=== PATIENT | female | born 1960 ===

== ENCOUNTER 2024-03-14 22:12 | Inpatient (IN) | payer MEDICARE, MEDICAID, SELFPAY ==
[2024-03-15 00:31] VITALS: BMI 28.2
[2024-03-15 00:33] VITALS: BP 134/68; PULSE 64; RESP 16; TEMP 36.5; O2SAT 95
[2024-03-15] MEDS: Morphine Sulfate Immed Release 15 MG TABLET 30 MG PO ×3 (01:36→20:47)
--- NOTE | 2024-03-15 02:48 | PC.NURSE ---
Admission Note Marylin Crockett,? a 63-year-old female with no psychiatric history, was presented to [place], [place] ED on 02/06/2024 for a suicidal attempt by overdosing on her prescribed morphine tablets,? triggered by the eviction notice. She was found unconscious, Narcan, subsequent intubation, admitted to ICU, then to the med-surgical unit, and spent 36 days in the hospital. The patient is DNR/DNI per copy of her MOLST.? Marylin arrived on [facility] at 2235 on 03/14/2024, on CV, with an admitting diagnosis of suicidal ideation. Patient has past medical history of Asthma, Benign neoplasm of colon, CVA, Hyperlipidemia, iron deficiency anemia, Lumbosacral disc disease, Stroke, Thoracic stress fracture, ulcerative colitis, Uterine cancer, and osteoporosis. The patient is Alert & Oriented times four; behavior calm, quiet, and pleasant; thought content clear; thought process coherent and linear; and could contract for safety. Denied SI/HI/AVH/depression/anxiety at this time.? Mood pleasant and affects is congruent to mood. The patient seems worried about her housing situation. She ambulates independently. The patient has an ileostomy bag and is able to self-care. The skin around the stoma appears WNL. Minor bulging was observed near the umbilical cord without any issues, as reported by the patient. The top of the right foot and heel has an old intact scab. The right foot sole has old, dry, healing skin, probably from blisters. She has a fentanyl patch dated 03/13 on her right upper arm secured with Tegaderm. VSS. Lab results are unremarkable. Med rec completed/confirmed by patient/approved/MAR active. The patient received Morphine 30 mg at 0136 for lower back pain 04/25. Patient reported she has chronic back pain due to uterine cancer metastasized to the lower spine. The patient is requesting an air mattress. The patient takes her meds whole with water. The patient has a long allergy list /allergy updated. The patient reported poor food intake, and she is losing weight. Patient is fully compliant with the admission process, unit orientation, and safety tool and treatment plan. Legal status education and copy of Notice of Rights for Conditional Voluntary Hospitalization provided. Patient is placed on a 5 minute check by the provider/maintained as ordered.?
[2024-03-15] MEDS: Omeprazole 20 MG CAPSULE.DR PO ×2 (06:00→17:46)
--- NOTE | 2024-03-15 07:49 | HO.PSYADMNOT ---
HPI Chief Complaint: Psych Diagnostics Vital Signs (24Hr): Vital Signs - 24 hr 03/15/24 00:33 Temperature 97.7 F Pulse Rate 64 Respiratory Rate 16 Blood Pressure 134/68 Pulse Oximetry 95 Oxygen Delivery Method Room Air BMI result Body Mass Index 28.2 Meds/Allergies Meds Home Medications ?Medication ?Instructions ?Recorded ?Confirmed ?Type albuterol sulfate 90 mcg/actuation 2 puff inhalation Q4H PRN 03/14/24 03/14/24 History aerosol inhaler Shortness Of Breath Or Wheezing artificial tears solution eye drops 1 drp ophthalmic (eye) DAILY PRN 03/14/24 03/14/24 History Dry Eye(S) aspirin 81 mg tablet,delayed 81 mg PO DAILY 03/14/24 03/14/24 History release clotrimazole 1 % topical cream 2 appl topical BID 03/14/24 03/14/24 History escitalopram oxalate 5 mg tablet 5 mg PO DAILY 03/14/24 03/14/24 History fentanyl 50 mcg/hr transdermal 1 patch topical Q3D 03/14/24 03/14/24 History patch ferrous gluconate 324 mg (38 mg 324 mg PO Q OTHER DAY 03/14/24 03/14/24 History iron) tablet folic acid 1 mg tablet 1 mg PO DAILY 03/14/24 03/14/24 History hydroxyzine HCl 50 mg tablet 50 mg PO TID PRN Anxiety 03/14/24 03/14/24 History morphine 30 mg immediate release 30 mg PO Q6H PRN pain 03/14/24 03/14/24 History tablet nystatin 100,000 unit/gram topical 1 appl topical BID 03/14/24 03/14/24 History cream pantoprazole 40 mg tablet,delayed 40 mg PO BID 03/14/24 03/14/24 History release Allergies Allergies Allergy/AdvReac Type Severity Reaction Status Date / Time acetaminophen [From Percocet] AdvReac Severe Hives Verified 03/14/24 23:07 alprazolam AdvReac Severe Hives Verified 03/14/24 23:09 atorvastatin AdvReac Severe Hives Verified 03/14/24 23:10 azithromycin AdvReac Severe Swelling Verified 03/14/24 23:11 cholestyramine AdvReac Severe Hives Verified 03/14/24 23:08 [From Questran] ciprofloxacin AdvReac Severe Hives Verified 03/14/24 23:11 codeine AdvReac Severe Hives Verified 03/14/24 23:12 colesevelam AdvReac Severe Hives Verified 03/14/24 23:12 egg AdvReac Severe Hives Verified 03/15/24 01:39 Estrogens AdvReac Severe Swelling Verified 03/14/24 23:13 gemfibrozil AdvReac Severe Hives Verified 03/14/24 23:14 hydrocortisone AdvReac Severe Blurry Verified 03/14/24 23:07 [From Cortenema] Vision hydromorphone [From Dilaudid] AdvReac Severe Swelling Verified 03/14/24 23:13 Iodinated Contrast Media AdvReac Severe Hives Verified 03/14/24 23:14 isoniazid AdvReac Severe Hives Verified 03/14/24 23:15 mercaptopurine AdvReac Severe Vomiting Verified 03/14/24 23:16 methylprednisolone AdvReac Severe Hives Verified 03/14/24 23:16 minocycline AdvReac Severe Hives Verified 03/14/24 23:24 naproxen AdvReac Severe Rash Verified 03/14/24 23:17 oxycodone [From Percocet] AdvReac Severe Hives Verified 03/14/24 23:07 propoxyphene AdvReac Severe Hives Verified 03/14/24 23:19 quetiapine AdvReac Severe Rash Verified 03/14/24 23:20 risperidone AdvReac Severe Hives Verified 03/14/24 23:20 seafood AdvReac Severe Swelling Verified 03/14/24 23:21 shellfish derived AdvReac Severe Swelling Verified 03/14/24 23:21 [id number] Reductase AdvReac Severe Swelling Verified 03/14/24 23:22 Inhibitor sucrose [From Questran] AdvReac Severe Hives Verified 03/14/24 23:08 Sulfa (Sulfonamide AdvReac Severe Hives Verified 03/14/24 23:24 Antibiotics) tramadol AdvReac Severe Rash Verified 03/14/24 23:22 wool AdvReac Severe Hives Verified 03/14/24 23:23 Assessment & Plan Statement Statement: I have reviewed the history and physical and performed a pertinent examination on my patient. No changes have occurred unless specified. If the History and Physical was not performed prior to admission, the Hospitalist's service will be consulted for completing the admission physical. Time Spent With Patient Time: Total time managing care of this patient today ____ minutes.
[2024-03-15 08:23] VITALS: BP 112/59; PULSE 76; RESP 15; TEMP 36.4; O2SAT 95
[2024-03-15] MEDS: Folic Acid 1 MG TABLET PO (08:24)
[2024-03-15] MEDS: Escitalopram Oxalate 5 MG TABLET PO (08:24)
[2024-03-15] MEDS: Aspirin Enteric Coated 81 MG TABLET.DR PO (08:24)
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
[2024-03-15] MEDS: hydrOXYzine HCL 50 MG TABLET PO (11:17)
[2024-03-15 14:25] VITALS: BP 112/59
[2024-03-15] MEDS: diazePAM 5 MG TABLET PO ×2 (14:32→20:48)
--- NOTE | 2024-03-15 15:59 | P.CONHOSP_ITS ---
History of Present Illness Data of Consult Service Date: 03/15/24 Primary Care Provider: Unknown Physician HPI Reason for consult: Admission H&P Pt is a 63-year-old female with a PMH significant for?CVA, chronic pain disorder, HLD, ulcerative colitis s/p colectomy with colostomy in place, chronic anemia, peripheral neuropathy, and GERD who is admitted to [facility] for increasing paranoia and depression with suicide attempt by overdosing on home meds. Pt was apparently found unconscious in her apartment surrounded by empty morphine bottles, an SI note, and an eviction notice. Pt was emergently intubated and admitted to ICU for 5 days where she was treated for RAKAN and aspiration pneumonia. Also had elevated troponins that were attributed to demand ischemia. Medical consult for admission H&P. Pt is seen and evaluated in her bed where she is resting comfortably. Complains of pins and needles in her right leg and foot, as well as concern for infection in wounds on her feet. Pt thinks these occurred while she was in a coma but is uncertain. Also perseverates about the status of her bed (she thinks a new pad would really help out) and increasing her lorazepam and fentanyl patch for her chronic back pain. Otherwise has no other acute medical complaints. No chest pain or pressure, no palpitations. Denies SOB or PALACIOS. No fever, chills, N/V/D or abd pain. Review of Systems Review of Systems: Peripheral neuropathy Sores on feet No fever, chills, N/V/D or abd pain Denies chest pain or pressure No SOB of PALACIOS [facility] Medical History (Updated 03/16/24 @ 01:39 by ÁNGELA Clark) Post traumatic stress disorder (PTSD) Social History Household Members: None Housing: Apartment Do you presently have visiting nurse or other home services: No Patient Tobacco Use Status: Never used Tobacco Use of substances other than those prescribed or required for medical reasons: No Substance Use Type: Other Currently Displaying Signs/Symptoms of Drug Intoxication Withdrawal: No Have you been hit, kicked, punched, or otherwise hurt by someone within the past year? If so, by whom?: No Do you feel safe in your current relationship?: No Is there a partner from a previous relationship who is making you feel unsafe now?: No Are you made to feel afraid or neglected: No Spiritual Healthcare Practices: [facility] Advance Directives: No Advance Directives Information Provided: No Do you have thoughts of harming others: None Do you have a plan to hurt others: No Plan Recently lost weight without trying: Yes How much weight loss: 14-23 pounds Eating poorly because of decreased appetite: Yes Nutrition screen score: 5 Nutrition Risks: Dental problems Patient : No : No Poor oral hygiene: No service: No Meds Allergies Allergy/AdvReac Type Severity Reaction Status Date / Time acetaminophen [From Percocet] AdvReac Severe Hives Verified 03/14/24 23:07 alprazolam AdvReac Severe Hives Verified 03/14/24 23:09 atorvastatin AdvReac Severe Hives Verified 03/14/24 23:10 azithromycin AdvReac Severe Swelling Verified 03/14/24 23:11 cholestyramine AdvReac Severe Hives Verified 03/14/24 23:08 [From Questran] ciprofloxacin AdvReac Severe Hives Verified 03/14/24 23:11 codeine AdvReac Severe Hives Verified 03/14/24 23:12 colesevelam AdvReac Severe Hives Verified 03/14/24 23:12 egg AdvReac Severe Hives Verified 03/15/24 01:39 Estrogens AdvReac Severe Swelling Verified 03/14/24 23:13 gemfibrozil AdvReac Severe Hives Verified 03/14/24 23:14 hydrocortisone AdvReac Severe Blurry Verified 03/14/24 23:07 [From Cortenema] Vision hydromorphone [From Dilaudid] AdvReac Severe Swelling Verified 03/14/24 23:13 Iodinated Contrast Media AdvReac Severe Hives Verified 03/14/24 23:14 isoniazid AdvReac Severe Hives Verified 03/14/24 23:15 mercaptopurine AdvReac Severe Vomiting Verified 03/14/24 23:16 methylprednisolone AdvReac Severe Hives Verified 03/14/24 23:16 minocycline AdvReac Severe Hives Verified 03/14/24 23:24 naproxen AdvReac Severe Rash Verified 03/14/24 23:17 oxycodone [From Percocet] AdvReac Severe Hives Verified 03/14/24 23:07 propoxyphene AdvReac Severe Hives Verified 03/14/24 23:19 quetiapine AdvReac Severe Rash Verified 03/14/24 23:20 risperidone AdvReac Severe Hives Verified 03/14/24 23:20 seafood AdvReac Severe Swelling Verified 03/14/24 23:21 shellfish derived AdvReac Severe Swelling Verified 03/14/24 23:21 [id number] Reductase AdvReac Severe Swelling Verified 03/14/24 23:22 Inhibitor sucrose [From Questran] AdvReac Severe Hives Verified 03/14/24 23:08 Sulfa (Sulfonamide AdvReac Severe Hives Verified 03/14/24 23:24 Antibiotics) tramadol AdvReac Severe Rash Verified 03/14/24 23:22 wool AdvReac Severe Hives Verified 03/14/24 23:23 Active Medications: Current Medications Al Hydroxide/Mg Hydroxide (Magnesium Hydrox/Alum Hydrox 30 Ml Oral.Susp) 30 ml PO Q6H PRN PRN Reason: Heartburn/Nausea Albuterol Sulfate (Albuterol Sulfate 90 Mcg 8 Gm Inhaler) 2 puff INHALE Q4H PRN PRN Reason: Shortness Of Breath Or Wheezing Artificial Tears (Artificial Tears 15 Ml Drops) 1 drop EYE-BOTH DAILY PRN PRN Reason: Dry Eye(S) Aspirin (Aspirin Enteric Coated 81 Mg Tablet.) 81 mg PO DAILY [facility] Last Admin: 03/15/24 08:24 Dose: 81 mg Diazepam (Diazepam 5 Mg Tablet) 5 mg PO BID [facility] Last Admin: 03/15/24 14:32 Dose: 5 mg Escitalopram Oxalate (Escitalopram Oxalate 5 Mg Tablet) 5 mg PO DAILY [facility] Last Admin: 03/15/24 08:24 Dose: 5 mg Fentanyl (Fentanyl 50 Mcg Patch.Td72) 50 mcg TRANSDERMA Q3D [facility] Ferrous Sulfate (Ferrous Sulfate 324 Mg Tablet.) 324 mg PO Q48H [facility] Last Admin: 03/15/24 08:26 Dose: Not Given Folic Acid (Folic Acid 1 Mg Tablet) 1 mg PO DAILY [facility] Last Admin: 03/15/24 08:24 Dose: 1 mg Hydroxyzine HCl (Hydroxyzine Hcl 50 Mg Tablet) 50 mg PO TID PRN PRN Reason: Anxiety Last Admin: 03/15/24 11:17 Dose: 50 mg Magnesium Hydroxide (Milk Of Magnesia 30 Ml Oral.Susp) 30 ml PO DAILY PRN PRN Reason: Constipation Morphine Sulfate (Morphine Sulfate Immed Release 15 Mg Tablet) 30 mg PO Q6H PRN PRN Reason: pain Last Admin: 03/15/24 10:35 Dose: 30 mg Nicotine (Nicotine 21 Mg Patch.Td24) 21 mg TRANSDERMA DAILY PRN PRN Reason: smoking cessation Nicotine Polacrilex (Nicotine Polacrilex 2 Mg Gum) 4 mg BUCCAL Q2H PRN PRN Reason: Nicotine Cravings Olanzapine (Olanzapine 2.5 Mg Tablet) 2.5 mg PO TID PRN PRN Reason: agitation Omeprazole (Omeprazole 20 Mg Capsule.Dr) 20 mg PO BID@0630,1830 [facility] Last Admin: 03/15/24 06:00 Dose: 20 mg Trazodone HCl (Trazodone Hcl 50 Mg Tablet) 50 mg PO BEDTIME MRX1 PRN PRN Reason: Insomnia Home Medications ?Medication ?Instructions ?Recorded ?Confirmed ?Last Taken ?Type albuterol sulfate 90 mcg/actuation 2 puff inhalation Q4H PRN 03/14/24 03/14/24 Unknown History aerosol inhaler Shortness Of Breath Or Wheezing artificial tears solution eye drops 1 drp ophthalmic (eye) DAILY PRN 03/14/24 03/14/24 Unknown History Dry Eye(S) aspirin 81 mg tablet,delayed 81 mg PO DAILY 03/14/24 03/14/24 Unknown History release clotrimazole 1 % topical cream 2 appl topical BID 03/14/24 03/14/24 Unknown History escitalopram oxalate 5 mg tablet 5 mg PO DAILY 03/14/24 03/14/24 03/14/24 07:57 History fentanyl 50 mcg/hr transdermal 1 patch topical Q3D 03/14/24 03/14/24 03/13/24 09:20 History patch ferrous gluconate 324 mg (38 mg 324 mg PO Q OTHER DAY 03/14/24 03/14/24 Unknown History iron) tablet folic acid 1 mg tablet 1 mg PO DAILY 03/14/24 03/14/24 03/14/24 07:50 History hydroxyzine HCl 50 mg tablet 50 mg PO TID PRN Anxiety 03/14/24 03/14/24 Unknown History morphine 30 mg immediate release 30 mg PO Q6H PRN pain 03/14/24 03/14/24 03/14/24 19:30 History tablet nystatin 100,000 unit/gram topical 1 appl topical BID 03/14/24 03/14/24 Unknown History cream pantoprazole 40 mg tablet,delayed 40 mg PO BID 03/14/24 03/14/24 Unknown History release Physical Exam Vital Signs and Narrative: Vital Signs: Last Vital Signs Temp 97.5 F 03/15/24 08:23 Pulse 76 03/15/24 08:23 Resp 15 03/15/24 08:23 BP 112/59 L 03/15/24 14:25 Pulse Ox 95 03/15/24 08:23 O2 Del Method Room Air 03/15/24 08:23 BMI result Body Mass Index 28.2 General: AOx2, no acute distress Resp: CTA bilaterally CVS: S1, S2, RRR GI: +BS, NT, no distention Skin: Warm, dry Neuro: Cranial nerves II-XII grossly intact bilaterally. Motor grossly intact bilaterally. strength of LLE symmetric though weak Extremities: No edema. Scabbed, healing superficial sores on right heal and dorsal aspect without signs of infection. Assessment and Plan (1) Medical clearance for psychiatric admission: Status: Acute Plan Pt is a 63-year-old female with a PMH significant for?CVA, chronic pain disorder, HLD, ulcerative colitis s/p colectomy with colostomy in place, chronic anemia, and GERD who is admitted to [facility] for increasing paranoia and depression with suicide attempt by overdosing on home meds. Pt was apparently found unconscious in her apartment surrounded by empty morphine bottles, an SI note, and an eviction notice. Pt was emergently intubated and admitted to ICU for 5 days where she was treated for RAKAN and aspiration pneumonia. Also had elevated troponins that were attributed to demand ischemia. Medical consult for admission H&P. Mood disorder Plan as per psychiatry Recent hx of intubation in the ICU Denies difficulty swallowing, no sore throat or SOB Continue albuterol inhaler Peripheral neuropathy of right lower extremity Foot warm, pedal pulses 2+, well perfused No known hx of DM Unclear etiology Consider gabapentin if persistent Right foot wounds Unclear etiology Superficial, healing well No sign of infection No further intervention or workup needed at this time Hx of CVA Continue statin, aspirin Chronic pain disorder Continue fentanyl pathch, po morphine GERD PPI Thank you for allowing us to participate in the care of this patient. Signing off at this time. Please re-consult if any acute complaints or issues arise.
[2024-03-15 20:00] VITALS: BP 124/57; PULSE 74; RESP 18; TEMP 36.9; O2SAT 97
[2024-03-15] MEDS: Albuterol Sulfate 90 MCG 8 GM INHALER 2 PUFF INHALE (20:48)
[2024-03-16] MEDS: Omeprazole 20 MG CAPSULE.DR PO (06:27)
[2024-03-16] MEDS: Morphine Sulfate Immed Release 15 MG TABLET 30 MG PO ×3 (06:42→23:51)
[2024-03-16 08:05] LABS: Estimated Average Glucose 111 mg/dL; Hemoglobin A1C 92.2431 umol/L; Hemoglobin A1c % 5.5 % (<6.0); Total Hemoglobin (HGBA1C) 2509.5768 umol/L
[2024-03-16 08:20] LABS: Alanine Aminotransferase 14 U/L (0-31); Albumin Level 3.7 g/dL (3.5-5.0); Alkaline Phosphatase 134 U/L (39-117); Anion Gap 13 (12-20); Aspartate Amino Transferase 21 U/L (5-31); Bilirubin Total 0.3 mg/dL (0.0-1.0); Blood Urea Nitrogen 10 mg/dL (9-16); Calcium 9.7 mg/dL (8.4-10.2); Carbon Dioxide 21 mmol/L (22-29); Chloride 109 mmol/L (96-108); Cholesterol 181 mg/dL (<200); Creatinine Clr Calc Pharmacy 47.6; Estimated Glomerular Filt Rate 57; Glucose Fasting 97 mg/dL (60-99); HDL Cholesterol 43 mg/dL (>40); LDL Cholesterol Calculated 116 mg/dL (<100); Potassium 3.8 mmol/L (3.3-5.1); Sodium 139 mmol/L (135-145); Total Protein 8.4 g/dL (6.5-8.0); Triglycerides 114 mg/dL (<150)
[2024-03-16 08:30] LABS: TSH reflex Free T4 0.33 uIU/mL (0.32-4.0)
[2024-03-16 08:43] LABS: Vitamin B12 407 pg/mL (200-900)
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
[2024-03-16 09:14] VITALS: BP 129/59; PULSE 63; RESP 16; TEMP 36; O2SAT 97
[2024-03-16] MEDS: diazePAM 5 MG TABLET PO (09:18)
[2024-03-16] MEDS: Escitalopram Oxalate 5 MG TABLET PO (09:44)
[2024-03-16] MEDS: fentaNYL 50 MCG PATCH.TD72 TRANSDERMA (11:12)
[2024-03-16] MEDS: hydrOXYzine HCL 50 MG TABLET PO (17:40)
[2024-03-16 20:00] VITALS: BP 115/73; PULSE 65; RESP 16; TEMP 36.2; O2SAT 96
[2024-03-16] MEDS: diazePAM 5 MG TABLET 10 MG PO (20:28)
[2024-03-16] MEDS: Hydrocortisone 1 % Cream 28.35 GM TUBE 1 APPL TOPICAL (20:29)
[2024-03-17] MEDS: diphenhydrAMINE HCL 25 MG CAPSULE 50 MG PO (04:03)
[2024-03-17] MEDS: Morphine Sulfate Immed Release 15 MG TABLET 30 MG PO ×2 (06:15→12:46)
[2024-03-17] MEDS: Omeprazole 20 MG CAPSULE.DR PO (06:16)
[2024-03-17 08:05] VITALS: BP 101/59; PULSE 64; RESP 20; TEMP 36.5; O2SAT 96
[2024-03-17] MEDS: Escitalopram Oxalate 5 MG TABLET PO (08:12)
[2024-03-17] MEDS: diazePAM 5 MG TABLET 10 MG PO ×2 (08:12→19:59)
[2024-03-17] MEDS: Hydrocortisone 1 % Cream 28.35 GM TUBE 1 APPL TOPICAL ×2 (08:13→19:59)
[2024-03-17] MEDS: diphenhydrAMINE HCL 25 MG CAPSULE PO (14:50)
--- NOTE | 2024-03-17 16:18 | HO.PSYCHPN ---
Subjective Subjective Date of Service: 03/17/24 Reason For Visit: Status post suicide attempt Interim History: Pt seen, reviewed with the team. Today, she asks to change hydroxyzine to benadryl, asks for her own ileostomy supply line. Denies depressive, anxious sx Continues to talk of wanting to place a lawsuit against [place] [place]. She is visable in the milieu, presents several needs, questions and today is a bit pressured Medication Compliance: Yes Side effects from medications: No Review of Systems Acute medical concerns: No Medical Review of Systems: unchanged Review of Systems Review of Systems L leg with mild edema Mental Status Exam Mental Status Exam Patient Appearance: Well Grooomed Patient Orientation: Person, Place, Time and Situation Level of Consciousness: Awake and Appropriate Patient Behavior: Appropriate Mood Description: Apprehensive Affect Description: Labile and Apprehensive Patient Cognition Impaired: Yes Ability to Follow Directions: Good Speech Pattern: Clear Memory Description: Intact Hallucinations: None Delusions: Not Present Thought Process: Goal Oriented Thought Content: positive for Circumstantial, positive for Goal Oriented, positive for Preoccupation, negative for Suicidal Ideation or negative for Homicidal Ideation Depressive Symptoms: Increased Anxiety, Increased Irritability and Difficulty Concentrating Judgement: Fair Diagnostics Vital Signs (24Hr): Vital Signs - 24 hr 03/16/24 20:00 03/17/24 08:05 Temperature 97.1 F 97.7 F Pulse Rate 65 64 Respiratory Rate 16 20 Blood Pressure 115/73 101/59 L Pulse Oximetry 96 96 Oxygen Delivery Method Room Air Room Air BMI result Body Mass Index 28.2 Labs 03/16/24 07:32 Labs: Laboratory Results - last 48 hr 03/16/24 07:32 Sodium 139 Potassium 3.8 Chloride 109 H Carbon Dioxide 21 L Anion Gap 13 BUN 10 Creatinine 0.99 Estim Creat Clear Calc 47.6 Estimated GFR 57 Fasting Glucose 97 Estimat Average Glucose 111 Hemoglobin A1c % 5.5 Calcium 9.7 Total Bilirubin 0.3 AST 21 ALT 14 Alkaline Phosphatase 134 H Total Protein 8.4 H Albumin 3.7 Triglycerides 114 Cholesterol 181 LDL Cholesterol, Calc 116 H HDL Cholesterol 43 Vitamin B12 407 Folate 17.0 TSH 0.33 Medications Medications Current Medications Al Hydroxide/Mg Hydroxide (Magnesium Hydrox/Alum Hydrox 30 Ml Oral.Susp) 30 ml PO Q6H PRN PRN Reason: Heartburn/Nausea Albuterol Sulfate (Albuterol Sulfate 90 Mcg 8 Gm Inhaler) 2 puff INHALE Q4H PRN PRN Reason: Shortness Of Breath Or Wheezing Last Admin: 03/15/24 20:48 Dose: 2 puff Artificial Tears (Artificial Tears 15 Ml Drops) 1 drop EYE-BOTH DAILY PRN PRN Reason: Dry Eye(S) Aspirin (Aspirin Enteric Coated 81 Mg Tablet.) 81 mg PO DAILY [facility] Last Admin: 03/17/24 08:15 Dose: Not Given Diazepam (Diazepam 5 Mg Tablet) 10 mg PO BID [facility] Last Admin: 03/17/24 08:12 Dose: 10 mg Diphenhydramine HCl (Diphenhydramine Hcl 25 Mg Capsule) 25 mg PO Q6H PRN PRN Reason: Anxiety, Itching Last Admin: 03/17/24 14:50 Dose: 25 mg Escitalopram Oxalate (Escitalopram Oxalate 5 Mg Tablet) 5 mg PO DAILY [facility] Last Admin: 03/17/24 08:12 Dose: 5 mg Fentanyl (Fentanyl 50 Mcg Patch.Td72) 50 mcg TRANSDERMA Q3D [facility] Last Admin: 03/16/24 11:12 Dose: 50 mcg Ferrous Sulfate (Ferrous Sulfate 324 Mg Tablet.) 324 mg PO Q48H [facility] Last Admin: 03/17/24 08:15 Dose: Not Given Folic Acid (Folic Acid 1 Mg Tablet) 1 mg PO DAILY [facility] Last Admin: 03/17/24 08:16 Dose: Not Given Hydrocortisone (Hydrocortisone 1 % Cream 28.35 Gm Tube) 1 appl TOPICAL BID [facility]; Protocol Last Admin: 03/17/24 08:13 Dose: 1 appl Magnesium Hydroxide (Milk Of Magnesia 30 Ml Oral.Susp) 30 ml PO DAILY PRN PRN Reason: Constipation Morphine Sulfate (Morphine Sulfate Immed Release 15 Mg Tablet) 30 mg PO Q6H PRN PRN Reason: pain Last Admin: 03/17/24 12:46 Dose: 30 mg Nicotine (Nicotine 21 Mg Patch.Td24) 21 mg TRANSDERMA DAILY PRN PRN Reason: smoking cessation Nicotine Polacrilex (Nicotine Polacrilex 2 Mg Gum) 4 mg BUCCAL Q2H PRN PRN Reason: Nicotine Cravings Olanzapine (Olanzapine 2.5 Mg Tablet) 2.5 mg PO TID PRN PRN Reason: agitation Omeprazole (Omeprazole 20 Mg Capsule.) 20 mg PO 0630 [facility] Last Admin: 03/17/24 06:16 Dose: 20 mg Trazodone HCl (Trazodone Hcl 50 Mg Tablet) 50 mg PO BEDTIME MRX1 PRN PRN Reason: Insomnia Allergies Allergies Allergy/AdvReac Type Severity Reaction Status Date / Time Egg Derived Allergy Unknown Unknown Verified 03/16/24 15:22 acetaminophen [From Percocet] AdvReac Severe Hives Verified 03/14/24 23:07 alprazolam AdvReac Severe Hives Verified 03/14/24 23:09 atorvastatin AdvReac Severe Hives Verified 03/14/24 23:10 azithromycin AdvReac Severe Swelling Verified 03/14/24 23:11 cholestyramine AdvReac Severe Hives Verified 03/14/24 23:08 [From Questran] ciprofloxacin AdvReac Severe Hives Verified 03/14/24 23:11 codeine AdvReac Severe Hives Verified 03/14/24 23:12 colesevelam AdvReac Severe Hives Verified 03/14/24 23:12 egg AdvReac Severe Hives Verified 03/15/24 01:39 Estrogens AdvReac Severe Swelling Verified 03/14/24 23:13 gemfibrozil AdvReac Severe Hives Verified 03/14/24 23:14 hydrocortisone AdvReac Severe Blurry Verified 03/14/24 23:07 [From Cortenema] Vision hydromorphone [From Dilaudid] AdvReac Severe Swelling Verified 03/14/24 23:13 Iodinated Contrast Media AdvReac Severe Hives Verified 03/14/24 23:14 isoniazid AdvReac Severe Hives Verified 03/14/24 23:15 mercaptopurine AdvReac Severe Vomiting Verified 03/14/24 23:16 methylprednisolone AdvReac Severe Hives Verified 03/14/24 23:16 minocycline AdvReac Severe Hives Verified 03/14/24 23:24 naproxen AdvReac Severe Rash Verified 03/14/24 23:17 oxycodone [From Percocet] AdvReac Severe Hives Verified 03/14/24 23:07 propoxyphene AdvReac Severe Hives Verified 03/14/24 23:19 quetiapine AdvReac Severe Rash Verified 03/14/24 23:20 risperidone AdvReac Severe Hives Verified 03/14/24 23:20 seafood AdvReac Severe Swelling Verified 03/14/24 23:21 shellfish derived AdvReac Severe Swelling Verified 03/14/24 23:21 Spbsikw-CEV-[id number] Reductase AdvReac Severe Swelling Verified 03/14/24 23:22 Inhibitor sucrose [From Questran] AdvReac Severe Hives Verified 03/14/24 23:08 Sulfa (Sulfonamide AdvReac Severe Hives Verified 03/14/24 23:24 Antibiotics) tramadol AdvReac Severe Rash Verified 03/14/24 23:22 wool AdvReac Severe Hives Verified 03/14/24 23:23 Assessment & Plan Assessment & Plan (1) Post traumatic stress disorder (PTSD): Status: Acute Code(s): F43.10 - Post-traumatic stress disorder, unspecified (2) Cognitive disorder: Status: Acute Code(s): F09 - Unspecified mental disorder due to known physiological condition (3) Generalized anxiety disorder: Status: Acute Code(s): F41.1 - Generalized anxiety disorder (4) Suicide attempt by fentanyl overdose: Status: Acute Code(s): T40.412A - Poisoning by fentanyl or fentanyl analogs, intentional self-harm, initial encounter Plan Pt is a 63-year-old female with a PMH significant for?CVA, chronic pain disorder, HLD, ulcerative colitis s/p colectomy with colostomy in place, chronic anemia, and GERD who is admitted to [facility] for increasing paranoia and depression with suicide attempt by overdosing on home meds. Pt was apparently found unconscious in her apartment surrounded by empty morphine bottles, an SI note, and an eviction notice. Pt was emergently intubated and admitted to ICU for 5 days where she was treated for RAKAN and aspiration pneumonia. Also had elevated troponins that were attributed to demand ischemia. Medical consult for admission H&P. Mood disorder Plan as per psychiatry Recent hx of intubation in the ICU Denies difficulty swallowing, no sore throat or SOB Continue albuterol inhaler Peripheral neuropathy of right lower extremity Foot warm, pedal pulses 2+, well perfused No known hx of DM Unclear etiology Consider gabapentin if persistent Right foot wounds Unclear etiology Superficial, healing well No sign of infection No further intervention or workup needed at this time Hx of CVA Continue statin, aspirin Chronic pain disorder Continue fentanyl pathch, po morphine GERD PPI Thank you for allowing us to participate in the care of this patient. Signing off at this time. Please re-consult if any acute complaints or issues arise. 03/17/24: Continue tx. Reason for continued inpatient stay Substantial Risk for: rapid decompensation Time Spent With Patient Time: Total time managing care of this patient today ____ minutes.
[2024-03-17 20:00] VITALS: BP 144/65; PULSE 80; RESP 16; TEMP 36.2; O2SAT 99
[2024-03-18] MEDS: Morphine Sulfate Immed Release 15 MG TABLET 30 MG PO ×2 (06:30→15:23)
[2024-03-18] MEDS: Omeprazole 20 MG CAPSULE.DR PO (06:31)
[2024-03-18] MEDS: diphenhydrAMINE HCL 25 MG CAPSULE PO ×3 (06:39→20:44)
[2024-03-18 08:00] VITALS: BP 126/60; PULSE 62; RESP 18; TEMP 36.3; O2SAT 95
[2024-03-18] MEDS: diazePAM 5 MG TABLET 10 MG PO ×2 (08:36→20:45)
[2024-03-18] MEDS: Escitalopram Oxalate 5 MG TABLET PO (08:36)
[2024-03-18] MEDS: Hydrocortisone 1 % Cream 28.35 GM TUBE 1 APPL TOPICAL ×2 (08:39→20:44)
--- NOTE | 2024-03-18 08:39 | HO.PSYCHPN ---
Subjective Subjective Date of Service: 03/18/24 Reason For Visit: Status post suicide attempt Interim History: Pt seen, discussed with team. Marylin has written a two page letter identifying issues she wants addressed, including medications for primary team. She reports a L Breast Lump. Team reports she identified this last evening. Discussed with team who reports pt will most likely be on the unit for a significant period of time and does not have an identified primary care provider. Will request hospitalist consult as a result. Medication Compliance: Yes Side effects from medications: No Attending Groups: Intermittent Review of Systems L breast lump Review of Systems Review of Systems L breast lump-identified to team 03/17/24 evening. Mental Status Exam Mental Status Exam Patient Appearance: Well Grooomed Patient Orientation: Person, Place, Time and Situation Level of Consciousness: Awake and Appropriate Patient Behavior: Appropriate Mood Description: Apprehensive Affect Description: Labile and Apprehensive Patient Cognition Impaired: Yes Ability to Follow Directions: Good Speech Pattern: Clear Memory Description: Intact Hallucinations: None Delusions: Not Present Thought Process: Goal Oriented Thought Content: positive for Circumstantial, positive for Goal Oriented, positive for Preoccupation, negative for Suicidal Ideation or negative for Homicidal Ideation Depressive Symptoms: Increased Anxiety, Increased Irritability and Difficulty Concentrating Judgement: Fair Diagnostics Vital Signs (24Hr): Vital Signs - 24 hr 03/17/24 20:00 Temperature 97.1 F Pulse Rate 80 Respiratory Rate 16 Blood Pressure 144/65 H Pulse Oximetry 99 Oxygen Delivery Method Room Air BMI result Body Mass Index 28.2 Labs 03/16/24 07:32 Labs: Laboratory Results - last 48 hr 03/16/24 07:32 Vitamin B12 407 Folate 17.0 Medications Medications Current Medications Al Hydroxide/Mg Hydroxide (Magnesium Hydrox/Alum Hydrox 30 Ml Oral.Susp) 30 ml PO Q6H PRN PRN Reason: Heartburn/Nausea Albuterol Sulfate (Albuterol Sulfate 90 Mcg 8 Gm Inhaler) 2 puff INHALE Q4H PRN PRN Reason: Shortness Of Breath Or Wheezing Last Admin: 03/15/24 20:48 Dose: 2 puff Artificial Tears (Artificial Tears 15 Ml Drops) 1 drop EYE-BOTH DAILY PRN PRN Reason: Dry Eye(S) Aspirin (Aspirin Enteric Coated 81 Mg Tablet.Dr) 81 mg PO DAILY [facility] Last Admin: 03/17/24 08:15 Dose: Not Given Diazepam (Diazepam 5 Mg Tablet) 10 mg PO BID [facility] Last Admin: 03/18/24 08:36 Dose: 10 mg Diphenhydramine HCl (Diphenhydramine Hcl 25 Mg Capsule) 25 mg PO Q6H PRN PRN Reason: Anxiety, Itching Last Admin: 03/18/24 06:39 Dose: 25 mg Escitalopram Oxalate (Escitalopram Oxalate 5 Mg Tablet) 5 mg PO DAILY [facility] Last Admin: 03/18/24 08:36 Dose: 5 mg Fentanyl (Fentanyl 50 Mcg Patch.Td72) 50 mcg TRANSDERMA Q3D [facility] Last Admin: 03/16/24 11:12 Dose: 50 mcg Ferrous Sulfate (Ferrous Sulfate 324 Mg Tablet.) 324 mg PO Q48H [facility] Last Admin: 03/17/24 08:15 Dose: Not Given Folic Acid (Folic Acid 1 Mg Tablet) 1 mg PO DAILY [facility] Last Admin: 03/17/24 08:16 Dose: Not Given Hydrocortisone (Hydrocortisone 1 % Cream 28.35 Gm Tube) 1 appl TOPICAL BID [facility]; Protocol Last Admin: 03/18/24 08:39 Dose: 1 appl Magnesium Hydroxide (Milk Of Magnesia 30 Ml Oral.Susp) 30 ml PO DAILY PRN PRN Reason: Constipation Morphine Sulfate (Morphine Sulfate Immed Release 15 Mg Tablet) 30 mg PO Q6H PRN PRN Reason: pain Last Admin: 03/18/24 06:30 Dose: 30 mg Nicotine (Nicotine 21 Mg Patch.Td24) 21 mg TRANSDERMA DAILY PRN PRN Reason: smoking cessation Nicotine Polacrilex (Nicotine Polacrilex 2 Mg Gum) 4 mg BUCCAL Q2H PRN PRN Reason: Nicotine Cravings Olanzapine (Olanzapine 2.5 Mg Tablet) 2.5 mg PO TID PRN PRN Reason: agitation Omeprazole (Omeprazole 20 Mg Capsule.) 20 mg PO 0630 [facility] Last Admin: 03/18/24 06:31 Dose: 20 mg Trazodone HCl (Trazodone Hcl 50 Mg Tablet) 50 mg PO BEDTIME MRX1 PRN PRN Reason: Insomnia Allergies Allergies Allergy/AdvReac Type Severity Reaction Status Date / Time Egg Derived Allergy Unknown Unknown Verified 03/16/24 15:22 acetaminophen [From Percocet] AdvReac Severe Hives Verified 03/14/24 23:07 alprazolam AdvReac Severe Hives Verified 03/14/24 23:09 atorvastatin AdvReac Severe Hives Verified 03/14/24 23:10 azithromycin AdvReac Severe Swelling Verified 03/14/24 23:11 cholestyramine AdvReac Severe Hives Verified 03/14/24 23:08 [From Questran] ciprofloxacin AdvReac Severe Hives Verified 03/14/24 23:11 codeine AdvReac Severe Hives Verified 03/14/24 23:12 colesevelam AdvReac Severe Hives Verified 03/14/24 23:12 egg AdvReac Severe Hives Verified 03/15/24 01:39 Estrogens AdvReac Severe Swelling Verified 03/14/24 23:13 gemfibrozil AdvReac Severe Hives Verified 03/14/24 23:14 hydrocortisone AdvReac Severe Blurry Verified 03/14/24 23:07 [From Cortenema] Vision hydromorphone [From Dilaudid] AdvReac Severe Swelling Verified 03/14/24 23:13 Iodinated Contrast Media AdvReac Severe Hives Verified 03/14/24 23:14 isoniazid AdvReac Severe Hives Verified 03/14/24 23:15 mercaptopurine AdvReac Severe Vomiting Verified 03/14/24 23:16 methylprednisolone AdvReac Severe Hives Verified 03/14/24 23:16 minocycline AdvReac Severe Hives Verified 03/14/24 23:24 naproxen AdvReac Severe Rash Verified 03/14/24 23:17 oxycodone [From Percocet] AdvReac Severe Hives Verified 03/14/24 23:07 propoxyphene AdvReac Severe Hives Verified 03/14/24 23:19 quetiapine AdvReac Severe Rash Verified 03/14/24 23:20 risperidone AdvReac Severe Hives Verified 03/14/24 23:20 seafood AdvReac Severe Swelling Verified 03/14/24 23:21 shellfish derived AdvReac Severe Swelling Verified 03/14/24 23:21 Glmdyvh-PGF-[id number] Reductase AdvReac Severe Swelling Verified 03/14/24 23:22 Inhibitor sucrose [From Questran] AdvReac Severe Hives Verified 03/14/24 23:08 Sulfa (Sulfonamide AdvReac Severe Hives Verified 03/14/24 23:24 Antibiotics) tramadol AdvReac Severe Rash Verified 03/14/24 23:22 wool AdvReac Severe Hives Verified 03/14/24 23:23 Assessment & Plan Assessment & Plan (1) Post traumatic stress disorder (PTSD): Status: Acute Code(s): F43.10 - Post-traumatic stress disorder, unspecified (2) Cognitive disorder: Status: Acute Code(s): F09 - Unspecified mental disorder due to known physiological condition (3) Generalized anxiety disorder: Status: Acute Code(s): F41.1 - Generalized anxiety disorder (4) Suicide attempt by fentanyl overdose: Status: Acute Code(s): T40.412A - Poisoning by fentanyl or fentanyl analogs, intentional self-harm, initial encounter Plan Pt is a 63-year-old female with a PMH significant for?CVA, chronic pain disorder, HLD, ulcerative colitis s/p colectomy with colostomy in place, chronic anemia, and GERD who is admitted to [facility] for increasing paranoia and depression with suicide attempt by overdosing on home meds. Pt was apparently found unconscious in her apartment surrounded by empty morphine bottles, an SI note, and an eviction notice. Pt was emergently intubated and admitted to ICU for 5 days where she was treated for RAKAN and aspiration pneumonia. Also had elevated troponins that were attributed to demand ischemia. Medical consult for admission H&P. Mood disorder Plan as per psychiatry Recent hx of intubation in the ICU Denies difficulty swallowing, no sore throat or SOB Continue albuterol inhaler Peripheral neuropathy of right lower extremity Foot warm, pedal pulses 2+, well perfused No known hx of DM Unclear etiology Consider gabapentin if persistent Right foot wounds Unclear etiology Superficial, healing well No sign of infection No further intervention or workup needed at this time Hx of CVA Continue statin, aspirin Chronic pain disorder Continue fentanyl pathch, po morphine GERD PPI Thank you for allowing us to participate in the care of this patient. Signing off at this time. Please re-consult if any acute complaints or issues arise. 03/17/24: Continue tx. 03/18/24: Pt/team report L Breast lump. Will ask hospitalist to assess as pt reports no PCP and team reports her stay is expected to be signifcant. Mood and behaviors are elevated, positive today Continue tx. Reason for continued inpatient stay Substantial Risk for: med/psych decompensation Time Spent With Patient Time: Total time managing care of this patient today ____ minutes.
--- NOTE | 2024-03-18 15:28 | PM.EVENT ---
Event Note Date of Service: 03/18/24 Event Note: Consult placed to hospitalist service for evaluation of L breast lump. Recommend outpt mammogram for further evaluation and follow up with PCP with further recommendations based on imaging results. Time Spent With Patient Time: Total time managing care of this patient today ____ minutes.
[2024-03-18 20:00] VITALS: BP 111/57; PULSE 74; RESP 18; TEMP 36.7; O2SAT 95
[2024-03-19 09:21] VITALS: BP 130/60; PULSE 69; RESP 15; TEMP 36.8; O2SAT 94
[2024-03-19] MEDS: fentaNYL 50 MCG PATCH.TD72 TRANSDERMA (09:23)
[2024-03-19] MEDS: Escitalopram Oxalate 5 MG TABLET PO (09:24)
[2024-03-19] MEDS: Omeprazole 20 MG CAPSULE.DR PO (09:24)
[2024-03-19] MEDS: diazePAM 5 MG TABLET 10 MG PO ×2 (09:24→21:31)
--- NOTE | 2024-03-19 12:17 | P.PNPSI_ITS ---
Subjective Subjective Date of Service: 03/19/24 Reason For Visit: Status post suicide attempt Subjective Notes: Conditional Voluntary Interim History: The nursing staff reported the patient has refused her medications. She was admitted since she overdosed on morphine in a suicidal attempt. As per the mental health social worker she is homeless with no family support. On interview, the patient had been extremely accusatory and the team has decided to assess her always with another staff. I encouraged her compliance with her medications. She has refused the mamogram here and she will do it as an outpatient. Mental Status Exam Mental Status Exam Patient Appearance: Unkempt Patient Orientation: Person and Situation Level of Consciousness: Awake and Appropriate Patient Behavior: Guarded and Passive Mood Description: Constricted Affect Description: Blunted Patient Cognition Impaired: Yes Ability to Follow Directions: Fair Speech Pattern: Impoverished Hallucinations: None Delusions: Paranoid Ideation and Ideas of Reference Thought Process: Distracted and Slowed Thinking Thought Content: positive for [place] and positive for Poverty of Content Judgement: Poor Diagnostics Vital Signs (24Hr): Vital Signs - 24 hr 03/18/24 20:00 03/19/24 09:21 Temperature 98.1 F 98.3 F Pulse Rate 74 69 Respiratory Rate 18 15 Blood Pressure 111/57 L 130/60 Pulse Oximetry 95 94 Oxygen Delivery Method Room Air Room Air BMI result Body Mass Index 28.2 Labs 03/16/24 07:32 Medications Medications Current Medications Al Hydroxide/Mg Hydroxide (Magnesium Hydrox/Alum Hydrox 30 Ml Oral.Susp) 30 ml PO Q6H PRN PRN Reason: Heartburn/Nausea Albuterol Sulfate (Albuterol Sulfate 90 Mcg 8 Gm Inhaler) 2 puff INHALE Q4H PRN PRN Reason: Shortness Of Breath Or Wheezing Last Admin: 03/15/24 20:48 Dose: 2 puff Artificial Tears (Artificial Tears 15 Ml Drops) 1 drop EYE-BOTH DAILY PRN PRN Reason: Dry Eye(S) Aspirin (Aspirin Enteric Coated 81 Mg Tablet.Dr) 81 mg PO DAILY [facility] Last Admin: 03/19/24 09:29 Dose: Not Given Diazepam (Diazepam 5 Mg Tablet) 10 mg PO BID [facility] Last Admin: 03/19/24 09:24 Dose: 10 mg Diphenhydramine HCl (Diphenhydramine Hcl 25 Mg Capsule) 25 mg PO Q6H PRN PRN Reason: Anxiety, Itching Last Admin: 03/18/24 20:44 Dose: 25 mg Escitalopram Oxalate (Escitalopram Oxalate 5 Mg Tablet) 5 mg PO DAILY [facility] Last Admin: 03/19/24 09:24 Dose: 5 mg Fentanyl (Fentanyl 50 Mcg Patch.Td72) 50 mcg TRANSDERMA Q72H [facility] Last Admin: 03/19/24 09:23 Dose: 50 mcg Ferrous Sulfate (Ferrous Sulfate 324 Mg Tablet.) 324 mg PO Q48H [facility] Last Admin: 03/19/24 09:29 Dose: Not Given Folic Acid (Folic Acid 1 Mg Tablet) 1 mg PO DAILY [facility] Last Admin: 03/19/24 09:29 Dose: Not Given Hydrocortisone (Hydrocortisone 1 % Cream 28.35 Gm Tube) 1 appl TOPICAL BID [facility]; Protocol Last Admin: 03/19/24 09:26 Dose: Not Given Magnesium Hydroxide (Milk Of Magnesia 30 Ml Oral.Susp) 30 ml PO DAILY PRN PRN Reason: Constipation Morphine Sulfate (Morphine Sulfate Immed Release 15 Mg Tablet) 30 mg PO Q6H PRN PRN Reason: pain Last Admin: 03/18/24 15:23 Dose: 30 mg Nicotine (Nicotine 21 Mg Patch.Td24) 21 mg TRANSDERMA DAILY PRN PRN Reason: smoking cessation Nicotine Polacrilex (Nicotine Polacrilex 2 Mg Gum) 4 mg BUCCAL Q2H PRN PRN Reason: Nicotine Cravings Olanzapine (Olanzapine 2.5 Mg Tablet) 2.5 mg PO TID PRN PRN Reason: agitation Omeprazole (Omeprazole 20 Mg Capsule.) 20 mg PO 0630 [facility] Last Admin: 03/19/24 09:24 Dose: 20 mg Trazodone HCl (Trazodone Hcl 50 Mg Tablet) 50 mg PO BEDTIME MRX1 PRN PRN Reason: Insomnia Allergies Allergies Allergy/AdvReac Type Severity Reaction Status Date / Time Egg Derived Allergy Unknown Unknown Verified 03/16/24 15:22 acetaminophen [From Percocet] AdvReac Severe Hives Verified 03/14/24 23:07 alprazolam AdvReac Severe Hives Verified 03/14/24 23:09 atorvastatin AdvReac Severe Hives Verified 03/14/24 23:10 azithromycin AdvReac Severe Swelling Verified 03/14/24 23:11 cholestyramine AdvReac Severe Hives Verified 03/14/24 23:08 [From Questran] ciprofloxacin AdvReac Severe Hives Verified 03/14/24 23:11 codeine AdvReac Severe Hives Verified 03/14/24 23:12 colesevelam AdvReac Severe Hives Verified 03/14/24 23:12 egg AdvReac Severe Hives Verified 03/15/24 01:39 Estrogens AdvReac Severe Swelling Verified 03/14/24 23:13 gemfibrozil AdvReac Severe Hives Verified 03/14/24 23:14 hydrocortisone AdvReac Severe Blurry Verified 03/14/24 23:07 [From Cortenema] Vision hydromorphone [From Dilaudid] AdvReac Severe Swelling Verified 03/14/24 23:13 Iodinated Contrast Media AdvReac Severe Hives Verified 03/14/24 23:14 isoniazid AdvReac Severe Hives Verified 03/14/24 23:15 mercaptopurine AdvReac Severe Vomiting Verified 03/14/24 23:16 methylprednisolone AdvReac Severe Hives Verified 03/14/24 23:16 minocycline AdvReac Severe Hives Verified 03/14/24 23:24 naproxen AdvReac Severe Rash Verified 03/14/24 23:17 oxycodone [From Percocet] AdvReac Severe Hives Verified 03/14/24 23:07 propoxyphene AdvReac Severe Hives Verified 03/14/24 23:19 quetiapine AdvReac Severe Rash Verified 03/14/24 23:20 risperidone AdvReac Severe Hives Verified 03/14/24 23:20 seafood AdvReac Severe Swelling Verified 03/14/24 23:21 shellfish derived AdvReac Severe Swelling Verified 03/14/24 23:21 Maxdjoj-SSC-PyE Reductase AdvReac Severe Swelling Verified 03/14/24 23:22 Inhibitor sucrose [From Questran] AdvReac Severe Hives Verified 03/14/24 23:08 Sulfa (Sulfonamide AdvReac Severe Hives Verified 03/14/24 23:24 Antibiotics) tramadol AdvReac Severe Rash Verified 03/14/24 23:22 wool AdvReac Severe Hives Verified 03/14/24 23:23 Assessment & Plan Assessment & Plan (1) Post traumatic stress disorder (PTSD): Status: Acute Code(s): F43.10 - Post-traumatic stress disorder, unspecified (2) Cognitive disorder: Status: Acute Code(s): F09 - Unspecified mental disorder due to known physiological condition (3) Generalized anxiety disorder: Status: Acute Code(s): F41.1 - Generalized anxiety disorder (4) Suicide attempt by fentanyl overdose: Status: Acute Code(s): T40.412A - Poisoning by fentanyl or fentanyl analogs, intentional self-harm, initial encounter Plan Pt is a 63-year-old female with a PMH significant for?CVA, chronic pain disorder, HLD, ulcerative colitis s/p colectomy with colostomy in place, chronic anemia, and GERD who is admitted to [facility] for increasing paranoia and depression with suicide attempt by overdosing on home meds. Pt was apparently found unconscious in her apartment surrounded by empty morphine bottles, an SI note, and an eviction notice. Pt was emergently intubated and admitted to ICU for 5 days where she was treated for RAKAN and aspiration pneumonia. Also had elevated troponins that were attributed to demand ischemia. Medical consult for admission H&P. Mood disorder Plan as per psychiatry Recent hx of intubation in the ICU Denies difficulty swallowing, no sore throat or SOB Continue albuterol inhaler Peripheral neuropathy of right lower extremity Foot warm, pedal pulses 2+, well perfused No known hx of DM Unclear etiology Consider gabapentin if persistent Right foot wounds Unclear etiology Superficial, healing well No sign of infection No further intervention or workup needed at this time Hx of CVA Continue statin, aspirin Chronic pain disorder Continue fentanyl pathch, po morphine GERD PPI Plan 1. Continue with same treatment. 2. Referral for mammography since the patient found a lump and the hospitalist suggested to do a mammography but she refused the test here. 3. Reassessment results Reason for continued inpatient stay Substantial Risk for: inability to function, rapid decompensation and med/psych decompensation Time Spent With Patient Time: Total time managing care of this patient today __20__ minutes.
[2024-03-19] MEDS: diphenhydrAMINE HCL 25 MG CAPSULE PO ×2 (13:31→21:31)
[2024-03-19] MEDS: Morphine Sulfate Immed Release 15 MG TABLET 30 MG PO ×2 (13:33→21:31)
[2024-03-19 20:00] VITALS: BP 122/67; PULSE 103; RESP 18; TEMP 37.1; O2SAT 95
[2024-03-19] MEDS: Hydrocortisone 1 % Cream 28.35 GM TUBE 1 APPL TOPICAL (21:32)
[2024-03-20] MEDS: Omeprazole 20 MG CAPSULE.DR PO (06:31)
[2024-03-20] MEDS: diphenhydrAMINE HCL 25 MG CAPSULE PO ×3 (06:40→21:16)
[2024-03-20] MEDS: Morphine Sulfate Immed Release 15 MG TABLET 30 MG PO ×3 (06:43→21:12)
[2024-03-20 08:04] VITALS: BP 113/53; PULSE 58; RESP 20; TEMP 37.1; O2SAT 96
[2024-03-20] MEDS: diazePAM 5 MG TABLET 10 MG PO ×2 (10:30→21:11)
[2024-03-20] MEDS: Escitalopram Oxalate 5 MG TABLET PO (10:30)
--- NOTE | 2024-03-20 13:33 | MHC.CLN ---
NUTRITION VISITED WITH PATIENT ON THE UNIT. ALERTED BY STAFF THAT DISLIKES GRAVY ON FOOD. PATIENT WITHOUT TEETH/DENTURES. HAS ILEOSTOMY. MODIFIED CONSISTENCY DIET DUE TO EDENTULOUS AND ILEOSTOMY MAINTENANCE. ILEOSTOMY X 8 YEARS AND PATIENT ABLE TO DETERMINE WHAT FOODS CAN BE TOLERATED. PATIENT PREFERS GROUND FOODS WITHOUT GRAVY BUT WILL ACCEPT GRAVY ON THE SIDE. DISCUSSED WITH PATIENT JEWEL [employer]LE [employer], KITCHEN TO HONOR REQUEST FOR GRAVY ONLY ON THE SIDE.
--- NOTE | 2024-03-20 13:44 | HO.PSYCHPN ---
Subjective Subjective Date of Service: 03/20/24 Reason For Visit: Status post suicide attempt Subjective Notes: Conditional Voluntary Interim History: The patient was moved by nursing to individual room since she was very intrusive with her peer. The occupational therapist reported that she has some nonsensical requests and he had been delusional. She score 4.4 on the [place] test and on the [place] 16/30 that shows moderate to severe cognitive impairment. The pediatric social worker reported that she does not have any social support and she had been evicted. She was offered rest homes but she wants an assisted living facility. The pediatric social worker will contact protective Services since apparently she had being already assessed. The staff has reported the patient had been delusional at times but easily redirectable. I offer her a low dose of olanzapine on top of her Lexapro to help her with her anxiety but she refused it. She states that she is starting to remember slowly, agreed for a CT scan tomorrow.. Mental Status Exam Mental Status Exam Patient Appearance: Appropriate Patient Orientation: Person and Situation Level of Consciousness: Awake Patient Behavior: Appropriate, Guarded and Suspicious Mood Description: Calm Affect Description: Constricted Patient Cognition Impaired: Yes Ability to Follow Directions: Fair Speech Pattern: Clear Hallucinations: None Delusions: Paranoid Ideation and Grandiose Thought Process: Distracted and Slowed Thinking Thought Content: positive for [place] and positive for Poverty of Content Judgement: Poor Diagnostics Vital Signs (24Hr): Vital Signs - 24 hr 03/19/24 20:00 03/20/24 08:04 Temperature 98.7 F 98.7 F Pulse Rate 103 H 58 Respiratory Rate 18 20 Blood Pressure 122/67 113/53 L Pulse Oximetry 95 96 Oxygen Delivery Method Room Air Room Air BMI result Body Mass Index 28.2 Labs 03/16/24 07:32 Medications Medications Current Medications Al Hydroxide/Mg Hydroxide (Magnesium Hydrox/Alum Hydrox 30 Ml Oral.Susp) 30 ml PO Q6H PRN PRN Reason: Heartburn/Nausea Albuterol Sulfate (Albuterol Sulfate 90 Mcg 8 Gm Inhaler) 2 puff INHALE Q4H PRN PRN Reason: Shortness Of Breath Or Wheezing Last Admin: 03/15/24 20:48 Dose: 2 puff Artificial Tears (Artificial Tears 15 Ml Drops) 1 drop EYE-BOTH DAILY PRN PRN Reason: Dry Eye(S) Aspirin (Aspirin Enteric Coated 81 Mg Tablet.Dr) 81 mg PO DAILY [facility] Last Admin: 03/20/24 10:30 Dose: Not Given Diazepam (Diazepam 5 Mg Tablet) 10 mg PO BID [facility] Last Admin: 03/20/24 10:30 Dose: 10 mg Diphenhydramine HCl (Diphenhydramine Hcl 25 Mg Capsule) 25 mg PO Q6H PRN PRN Reason: Anxiety, Itching Last Admin: 03/20/24 06:40 Dose: 25 mg Escitalopram Oxalate (Escitalopram Oxalate 5 Mg Tablet) 5 mg PO DAILY [facility] Last Admin: 03/20/24 10:30 Dose: 5 mg Fentanyl (Fentanyl 50 Mcg Patch.Td72) 50 mcg TRANSDERMA Q72H [facility] Last Admin: 03/19/24 09:23 Dose: 50 mcg Ferrous Sulfate (Ferrous Sulfate 324 Mg Tablet.) 324 mg PO Q48H [facility] Last Admin: 03/19/24 09:29 Dose: Not Given Folic Acid (Folic Acid 1 Mg Tablet) 1 mg PO DAILY [facility] Last Admin: 03/20/24 10:31 Dose: Not Given Hydrocortisone (Hydrocortisone 1 % Cream 28.35 Gm Tube) 1 appl TOPICAL BID [facility]; Protocol Last Admin: 03/20/24 10:31 Dose: Not Given Magnesium Hydroxide (Milk Of Magnesia 30 Ml Oral.Susp) 30 ml PO DAILY PRN PRN Reason: Constipation Morphine Sulfate (Morphine Sulfate Immed Release 15 Mg Tablet) 30 mg PO Q6H PRN PRN Reason: pain Last Admin: 03/20/24 06:43 Dose: 30 mg Nicotine (Nicotine 21 Mg Patch.Td24) 21 mg TRANSDERMA DAILY PRN PRN Reason: smoking cessation Nicotine Polacrilex (Nicotine Polacrilex 2 Mg Gum) 4 mg BUCCAL Q2H PRN PRN Reason: Nicotine Cravings Olanzapine (Olanzapine 2.5 Mg Tablet) 2.5 mg PO TID PRN PRN Reason: agitation Olanzapine (Olanzapine 2.5 Mg Tablet) 2.5 mg PO BEDTIME [facility] Omeprazole (Omeprazole 20 Mg Capsule.) 20 mg PO 0630 [facility] Last Admin: 03/20/24 06:31 Dose: 20 mg Trazodone HCl (Trazodone Hcl 50 Mg Tablet) 50 mg PO BEDTIME MRX1 PRN PRN Reason: Insomnia Allergies Allergies Allergy/AdvReac Type Severity Reaction Status Date / Time Egg Derived Allergy Unknown Unknown Verified 03/16/24 15:22 acetaminophen [From Percocet] AdvReac Severe Hives Verified 03/14/24 23:07 alprazolam AdvReac Severe Hives Verified 03/14/24 23:09 atorvastatin AdvReac Severe Hives Verified 03/14/24 23:10 azithromycin AdvReac Severe Swelling Verified 03/14/24 23:11 cholestyramine AdvReac Severe Hives Verified 03/14/24 23:08 [From Questran] ciprofloxacin AdvReac Severe Hives Verified 03/14/24 23:11 codeine AdvReac Severe Hives Verified 03/14/24 23:12 colesevelam AdvReac Severe Hives Verified 03/14/24 23:12 egg AdvReac Severe Hives Verified 03/15/24 01:39 Estrogens AdvReac Severe Swelling Verified 03/14/24 23:13 gemfibrozil AdvReac Severe Hives Verified 03/14/24 23:14 hydrocortisone AdvReac Severe Blurry Verified 03/14/24 23:07 [From Cortenema] Vision hydromorphone [From Dilaudid] AdvReac Severe Swelling Verified 03/14/24 23:13 Iodinated Contrast Media AdvReac Severe Hives Verified 03/14/24 23:14 isoniazid AdvReac Severe Hives Verified 03/14/24 23:15 mercaptopurine AdvReac Severe Vomiting Verified 03/14/24 23:16 methylprednisolone AdvReac Severe Hives Verified 03/14/24 23:16 minocycline AdvReac Severe Hives Verified 03/14/24 23:24 naproxen AdvReac Severe Rash Verified 03/14/24 23:17 oxycodone [From Percocet] AdvReac Severe Hives Verified 03/14/24 23:07 propoxyphene AdvReac Severe Hives Verified 03/14/24 23:19 quetiapine AdvReac Severe Rash Verified 03/14/24 23:20 risperidone AdvReac Severe Hives Verified 03/14/24 23:20 seafood AdvReac Severe Swelling Verified 03/14/24 23:21 shellfish derived AdvReac Severe Swelling Verified 03/14/24 23:21 Omikgsj-SFF-WqB Reductase AdvReac Severe Swelling Verified 03/14/24 23:22 Inhibitor sucrose [From Questran] AdvReac Severe Hives Verified 03/14/24 23:08 Sulfa (Sulfonamide AdvReac Severe Hives Verified 03/14/24 23:24 Antibiotics) tramadol AdvReac Severe Rash Verified 03/14/24 23:22 wool AdvReac Severe Hives Verified 03/14/24 23:23 Assessment & Plan Assessment & Plan (1) Post traumatic stress disorder (PTSD): Status: Acute Code(s): F43.10 - Post-traumatic stress disorder, unspecified (2) Cognitive disorder: Status: Acute Code(s): F09 - Unspecified mental disorder due to known physiological condition (3) Generalized anxiety disorder: Status: Acute Code(s): F41.1 - Generalized anxiety disorder (4) Suicide attempt by fentanyl overdose: Status: Acute Code(s): T40.412A - Poisoning by fentanyl or fentanyl analogs, intentional self-harm, initial encounter Plan Pt is a 63-year-old female with a PMH significant for?CVA, chronic pain disorder, HLD, ulcerative colitis s/p colectomy with colostomy in place, chronic anemia, and GERD who is admitted to [facility] for increasing paranoia and depression with suicide attempt by overdosing on home meds. Pt was apparently found unconscious in her apartment surrounded by empty morphine bottles, an SI note, and an eviction notice. Pt was emergently intubated and admitted to ICU for 5 days where she was treated for RAKAN and aspiration pneumonia. Also had elevated troponins that were attributed to demand ischemia. Medical consult for admission H&P. Mood disorder Plan as per psychiatry Recent hx of intubation in the ICU Denies difficulty swallowing, no sore throat or SOB Continue albuterol inhaler Peripheral neuropathy of right lower extremity Foot warm, pedal pulses 2+, well perfused No known hx of DM Unclear etiology Consider gabapentin if persistent Right foot wounds Unclear etiology Superficial, healing well No sign of infection No further intervention or workup needed at this time Hx of CVA Continue statin, aspirin Chronic pain disorder Continue fentanyl pathch, po morphine GERD PPI Plan 1. Continue with same treatment. 2. Referral for mammography since the patient found a lump and the hospitalist suggested to do a mammography but she refused the test here. 3. Reassessment results. 4. Continue with Lexapro start Zyprexa 2.5 p.o. q.h.s. on March 20. Reason for continued inpatient stay Substantial Risk for: inability to function, rapid decompensation and med/psych decompensation Time Spent With Patient Time: Total time managing care of this patient today __20__ minutes.
[2024-03-20 20:00] VITALS: BP 108/54; PULSE 62; RESP 16; TEMP 36.1; O2SAT 94
[2024-03-21] MEDS: Morphine Sulfate Immed Release 15 MG TABLET 30 MG PO ×3 (04:46→20:53)
[2024-03-21] MEDS: diphenhydrAMINE HCL 25 MG CAPSULE PO ×2 (04:49→14:28)
[2024-03-21] MEDS: Omeprazole 20 MG CAPSULE.DR PO (06:01)
[2024-03-21 09:15] VITALS: BP 112/55; PULSE 66; RESP 18; TEMP 36.3; O2SAT 96
[2024-03-21] MEDS: diazePAM 5 MG TABLET 10 MG PO ×3 (09:17→20:49)
[2024-03-21] MEDS: diphenhydrAMINE HCL 25 MG CAPSULE 50 MG PO ×2 (09:17→20:48)
[2024-03-21 10:50] VITALS: BMI 27.9
--- NOTE | 2024-03-21 12:30 | P.PNPSI_ITS ---
Subjective Subjective Date of Service: 03/21/24 Reason For Visit: Status post suicide attempt Subjective Notes: Conditional Voluntary Interim History: The nursing staff reported the patient has refused her Zyprexa at night she was intrusive with other peers. She slept 8 hours. Yesterday we discussed with the patient the need of CT scan and today she refused it stating that they do not have the air mattress that she requires. The social service director contact the correctional casework specialist of protective Services and confirmed that the patient can not go back to her apartment, she was already evicted and she does not have social support. On interview I explained her that even though that she is not having suicidal thoughts, it is clear that she is unsafe in the community requires more help. Mental Status Exam Mental Status Exam Patient Appearance: Appropriate Patient Orientation: Person and Situation Level of Consciousness: Awake and Appropriate Patient Behavior: Guarded and Passive Mood Description: Withdrawn Affect Description: Constricted Patient Cognition Impaired: Yes Ability to Follow Directions: Good Speech Pattern: Clear Hallucinations: None Delusions: Grandiose and Ideas of Reference Thought Process: Illogical and Distracted Thought Content: positive for Tangential and positive for Disorganized Judgement: Poor Diagnostics Vital Signs (24Hr): Vital Signs - 24 hr 03/20/24 20:00 03/21/24 09:15 Temperature 97 F 97.4 F Pulse Rate 62 66 Respiratory Rate 16 18 Blood Pressure 108/54 L 112/55 L Pulse Oximetry 94 96 Oxygen Delivery Method Room Air Room Air BMI result Body Mass Index 27.9 Labs 03/16/24 07:32 Medications Medications Current Medications Al Hydroxide/Mg Hydroxide (Magnesium Hydrox/Alum Hydrox 30 Ml Oral.Susp) 30 ml PO Q6H PRN PRN Reason: Heartburn/Nausea Albuterol Sulfate (Albuterol Sulfate 90 Mcg 8 Gm Inhaler) 2 puff INHALE Q4H PRN PRN Reason: Shortness Of Breath Or Wheezing Last Admin: 03/15/24 20:48 Dose: 2 puff Artificial Tears (Artificial Tears 15 Ml Drops) 1 drop EYE-BOTH DAILY PRN PRN Reason: Dry Eye(S) Aspirin (Aspirin Enteric Coated 81 Mg Tablet.Dr) 81 mg PO DAILY [facility] Last Admin: 03/21/24 09:20 Dose: Not Given Diazepam (Diazepam 5 Mg Tablet) 10 mg PO BID [facility] Last Admin: 03/21/24 09:17 Dose: 10 mg Diphenhydramine HCl (Diphenhydramine Hcl 25 Mg Capsule) 25 mg PO Q6H PRN PRN Reason: Anxiety, Itching Last Admin: 03/21/24 04:49 Dose: 25 mg Diphenhydramine HCl (Diphenhydramine Hcl 25 Mg Capsule) 50 mg PO BID [facility] Last Admin: 03/21/24 09:17 Dose: 50 mg Escitalopram Oxalate (Escitalopram Oxalate 5 Mg Tablet) 5 mg PO DAILY [facility] Last Admin: 03/20/24 10:30 Dose: 5 mg Fentanyl (Fentanyl 50 Mcg Patch.Td72) 50 mcg TRANSDERMA Q72H [facility] Last Admin: 03/19/24 09:23 Dose: 50 mcg Ferrous Sulfate (Ferrous Sulfate 324 Mg Tablet.) 324 mg PO Q48H [facility] Last Admin: 03/21/24 09:20 Dose: Not Given Folic Acid (Folic Acid 1 Mg Tablet) 1 mg PO DAILY [facility] Last Admin: 03/21/24 09:20 Dose: Not Given Hydrocortisone (Hydrocortisone 1 % Cream 28.35 Gm Tube) 1 appl TOPICAL BID [facility]; Protocol Last Admin: 03/21/24 09:20 Dose: Not Given Magnesium Hydroxide (Milk Of Magnesia 30 Ml Oral.Susp) 30 ml PO DAILY PRN PRN Reason: Constipation Morphine Sulfate (Morphine Sulfate Immed Release 15 Mg Tablet) 30 mg PO Q6H PRN PRN Reason: pain Last Admin: 03/21/24 04:46 Dose: 30 mg Nicotine (Nicotine 21 Mg Patch.Td24) 21 mg TRANSDERMA DAILY PRN PRN Reason: smoking cessation Nicotine Polacrilex (Nicotine Polacrilex 2 Mg Gum) 4 mg BUCCAL Q2H PRN PRN Reason: Nicotine Cravings Olanzapine (Olanzapine 2.5 Mg Tablet) 2.5 mg PO TID PRN PRN Reason: agitation Olanzapine (Olanzapine 2.5 Mg Tablet) 2.5 mg PO BEDTIME [facility] Last Admin: 03/20/24 21:26 Dose: Not Given Omeprazole (Omeprazole 20 Mg Capsule.) 20 mg PO 0630 [facility] Last Admin: 03/21/24 06:01 Dose: 20 mg Trazodone HCl (Trazodone Hcl 50 Mg Tablet) 50 mg PO BEDTIME MRX1 PRN PRN Reason: Insomnia Allergies Allergies Allergy/AdvReac Type Severity Reaction Status Date / Time Egg Derived Allergy Unknown Unknown Verified 03/16/24 15:22 acetaminophen [From Percocet] AdvReac Severe Hives Verified 03/14/24 23:07 alprazolam AdvReac Severe Hives Verified 03/14/24 23:09 atorvastatin AdvReac Severe Hives Verified 03/14/24 23:10 azithromycin AdvReac Severe Swelling Verified 03/14/24 23:11 cholestyramine AdvReac Severe Hives Verified 03/14/24 23:08 [From Questran] ciprofloxacin AdvReac Severe Hives Verified 03/14/24 23:11 codeine AdvReac Severe Hives Verified 03/14/24 23:12 colesevelam AdvReac Severe Hives Verified 03/14/24 23:12 egg AdvReac Severe Hives Verified 03/15/24 01:39 Estrogens AdvReac Severe Swelling Verified 03/14/24 23:13 gemfibrozil AdvReac Severe Hives Verified 03/14/24 23:14 hydrocortisone AdvReac Severe Blurry Verified 03/14/24 23:07 [From Cortenema] Vision hydromorphone [From Dilaudid] AdvReac Severe Swelling Verified 03/14/24 23:13 Iodinated Contrast Media AdvReac Severe Hives Verified 03/14/24 23:14 isoniazid AdvReac Severe Hives Verified 03/14/24 23:15 mercaptopurine AdvReac Severe Vomiting Verified 03/14/24 23:16 methylprednisolone AdvReac Severe Hives Verified 03/14/24 23:16 minocycline AdvReac Severe Hives Verified 03/14/24 23:24 naproxen AdvReac Severe Rash Verified 03/14/24 23:17 oxycodone [From Percocet] AdvReac Severe Hives Verified 03/14/24 23:07 propoxyphene AdvReac Severe Hives Verified 03/14/24 23:19 quetiapine AdvReac Severe Rash Verified 03/14/24 23:20 risperidone AdvReac Severe Hives Verified 03/14/24 23:20 seafood AdvReac Severe Swelling Verified 03/14/24 23:21 shellfish derived AdvReac Severe Swelling Verified 03/14/24 23:21 [id number]-OxX Reductase AdvReac Severe Swelling Verified 03/14/24 23:22 Inhibitor sucrose [From Questran] AdvReac Severe Hives Verified 03/14/24 23:08 Sulfa (Sulfonamide AdvReac Severe Hives Verified 03/14/24 23:24 Antibiotics) tramadol AdvReac Severe Rash Verified 03/14/24 23:22 wool AdvReac Severe Hives Verified 03/14/24 23:23 Assessment & Plan Assessment & Plan (1) Post traumatic stress disorder (PTSD): Status: Acute Code(s): F43.10 - Post-traumatic stress disorder, unspecified (2) Cognitive disorder: Status: Acute Code(s): F09 - Unspecified mental disorder due to known physiological condition (3) Generalized anxiety disorder: Status: Acute Code(s): F41.1 - Generalized anxiety disorder (4) Suicide attempt by fentanyl overdose: Status: Acute Code(s): T40.412A - Poisoning by fentanyl or fentanyl analogs, intentional self-harm, initial encounter Plan Pt is a 63-year-old female with a PMH significant for?CVA, chronic pain disorder, HLD, ulcerative colitis s/p colectomy with colostomy in place, chronic anemia, and GERD who is admitted to [facility] for increasing paranoia and depression with suicide attempt by overdosing on home meds. Pt was apparently found unconscious in her apartment surrounded by empty morphine bottles, an SI note, and an eviction notice. Pt was emergently intubated and admitted to ICU for 5 days where she was treated for RAKAN and aspiration pneumonia. Also had elevated troponins that were attributed to demand ischemia. Medical consult for admission H&P. Mood disorder Plan as per psychiatry Recent hx of intubation in the ICU Denies difficulty swallowing, no sore throat or SOB Continue albuterol inhaler Peripheral neuropathy of right lower extremity Foot warm, pedal pulses 2+, well perfused No known hx of DM Unclear etiology Consider gabapentin if persistent Right foot wounds Unclear etiology Superficial, healing well No sign of infection No further intervention or workup needed at this time Hx of CVA Continue statin, aspirin Chronic pain disorder Continue fentanyl pathch, po morphine GERD PPI Plan 1. Continue with same treatment. 2. Referral for mammography since the patient found a lump and the hospitalist suggested to do a mammography but she refused the test here. 3. Reassessment results. 4. Continue with Lexapro start Zyprexa 2.5 p.o. q.h.s. on March 20.. 5. CT scan was ordered but she refused to have it. 6. Most likely the patient will need guardianship since her [place] is 16/30, her Gonzalo test is 4.4 Reason for continued inpatient stay Substantial Risk for: inability to function, rapid decompensation and med/psych decompensation Time Spent With Patient Time: Total time managing care of this patient today __20__ minutes.
[2024-03-21 16:04] LABS: Vitamin D 25-OH, D2 8 ng/mL; Vitamin D 25-OH, D3 25 ng/mL; Vitamin D 25-OH, Total 33 ng/mL (30-100)
[2024-03-21 20:46] VITALS: BP 122/66; PULSE 66; RESP 17; TEMP 35.9; O2SAT 96
[2024-03-22] MEDS: Omeprazole 20 MG CAPSULE.DR PO (05:44)
[2024-03-22] MEDS: Morphine Sulfate Immed Release 15 MG TABLET 30 MG PO ×3 (06:53→21:19)
[2024-03-22 08:31] VITALS: BP 114/69; PULSE 66; RESP 15; TEMP 36.9; O2SAT 93
[2024-03-22] MEDS: diphenhydrAMINE HCL 25 MG CAPSULE 50 MG PO ×2 (08:32→21:18)
[2024-03-22] MEDS: fentaNYL 50 MCG PATCH.TD72 TRANSDERMA (08:32)
[2024-03-22] MEDS: Escitalopram Oxalate 5 MG TABLET PO (08:33)
[2024-03-22] MEDS: diazePAM 5 MG TABLET 10 MG PO ×2 (08:33→21:18)
--- NOTE | 2024-03-22 12:40 | HO.PSYCHPN ---
Subjective Subjective Date of Service: 03/22/24 Reason For Visit: Status post suicide attempt Subjective Notes: Conditional Voluntary Interim History: The nursing staff reported the patient had been irritable affect. Yesterday in the afternoon she had a panic attack and needed Valium 10 mg 1 time. Apparently in the afternoon she called to her brother in [place]. She slept 6 hours. She has consistently refused Zyprexa 2.5 at night. She also has refused the mammogram, CT scan of the head and other medical procedures. She adamantly denies suicidal ideation. On interview we discussed her treatment options, she is more worried about her housing since she is technically homeless. Mental Status Exam Mental Status Exam Patient Appearance: Appropriate Patient Orientation: Person and Situation Level of Consciousness: Awake and Appropriate Patient Behavior: Guarded and Passive Mood Description: Calm Affect Description: Anxious Patient Cognition Impaired: Yes Ability to Follow Directions: Good Speech Pattern: Clear Hallucinations: None Delusions: Ideas of Reference Thought Process: Distracted and Evasive Thought Content: positive for [place] and positive for Circumstantial Judgement: Poor Diagnostics Vital Signs (24Hr): Vital Signs - 24 hr 03/21/24 20:46 03/22/24 08:31 Temperature 96.6 F L 98.5 F Pulse Rate 66 66 Respiratory Rate 17 15 Blood Pressure 122/66 114/69 Pulse Oximetry 96 93 Oxygen Delivery Method Room Air Room Air BMI result Body Mass Index 27.9 Labs 03/16/24 07:32 Labs: Laboratory Results - last 48 hr 03/16/24 07:32 25-OH Vitamin D Total 33 25-Hydroxy Vitamin D2 8 25-Hydroxy Vitamin D3 25 Medications Medications Current Medications Al Hydroxide/Mg Hydroxide (Magnesium Hydrox/Alum Hydrox 30 Ml Oral.Susp) 30 ml PO Q6H PRN PRN Reason: Heartburn/Nausea Albuterol Sulfate (Albuterol Sulfate 90 Mcg 8 Gm Inhaler) 2 puff INHALE Q4H PRN PRN Reason: Shortness Of Breath Or Wheezing Last Admin: 03/15/24 20:48 Dose: 2 puff Artificial Tears (Artificial Tears 15 Ml Drops) 1 drop EYE-BOTH DAILY PRN PRN Reason: Dry Eye(S) Diazepam (Diazepam 5 Mg Tablet) 10 mg PO BID [facility] Last Admin: 03/22/24 08:33 Dose: 10 mg Diphenhydramine HCl (Diphenhydramine Hcl 25 Mg Capsule) 25 mg PO Q6H PRN PRN Reason: Anxiety, Itching Last Admin: 03/21/24 14:28 Dose: 25 mg Diphenhydramine HCl (Diphenhydramine Hcl 25 Mg Capsule) 50 mg PO BID [facility] Last Admin: 03/22/24 08:32 Dose: 50 mg Escitalopram Oxalate (Escitalopram Oxalate 5 Mg Tablet) 5 mg PO DAILY [facility] Last Admin: 03/22/24 08:33 Dose: 5 mg Fentanyl (Fentanyl 50 Mcg Patch.Td72) 50 mcg TRANSDERMA Q72H [facility] Last Admin: 03/22/24 08:32 Dose: 50 mcg Ferrous Sulfate (Ferrous Sulfate 324 Mg Tablet.) 324 mg PO Q48H [facility] Last Admin: 03/21/24 09:20 Dose: Not Given Hydrocortisone (Hydrocortisone 1 % Cream 28.35 Gm Tube) 1 appl TOPICAL BID [facility]; Protocol Last Admin: 03/22/24 08:33 Dose: Not Given Magnesium Hydroxide (Milk Of Magnesia 30 Ml Oral.Susp) 30 ml PO DAILY PRN PRN Reason: Constipation Morphine Sulfate (Morphine Sulfate Immed Release 15 Mg Tablet) 30 mg PO Q6H PRN PRN Reason: pain Last Admin: 03/22/24 06:53 Dose: 30 mg Nicotine (Nicotine 21 Mg Patch.Td24) 21 mg TRANSDERMA DAILY PRN PRN Reason: smoking cessation Nicotine Polacrilex (Nicotine Polacrilex 2 Mg Gum) 4 mg BUCCAL Q2H PRN PRN Reason: Nicotine Cravings Olanzapine (Olanzapine 2.5 Mg Tablet) 2.5 mg PO TID PRN PRN Reason: agitation Olanzapine (Olanzapine 2.5 Mg Tablet) 2.5 mg PO BEDTIME [facility] Last Admin: 03/21/24 21:04 Dose: Not Given Omeprazole (Omeprazole 20 Mg Capsule.) 20 mg PO 0630 [facility] Last Admin: 03/22/24 05:44 Dose: 20 mg Trazodone HCl (Trazodone Hcl 50 Mg Tablet) 50 mg PO BEDTIME MRX1 PRN PRN Reason: Insomnia Allergies Allergies Allergy/AdvReac Type Severity Reaction Status Date / Time Egg Derived Allergy Unknown Unknown Verified 03/16/24 15:22 acetaminophen [From Percocet] AdvReac Severe Hives Verified 03/14/24 23:07 alprazolam AdvReac Severe Hives Verified 03/14/24 23:09 atorvastatin AdvReac Severe Hives Verified 03/14/24 23:10 azithromycin AdvReac Severe Swelling Verified 03/14/24 23:11 cholestyramine AdvReac Severe Hives Verified 03/14/24 23:08 [From Questran] ciprofloxacin AdvReac Severe Hives Verified 03/14/24 23:11 codeine AdvReac Severe Hives Verified 03/14/24 23:12 colesevelam AdvReac Severe Hives Verified 03/14/24 23:12 egg AdvReac Severe Hives Verified 03/15/24 01:39 Estrogens AdvReac Severe Swelling Verified 03/14/24 23:13 gemfibrozil AdvReac Severe Hives Verified 03/14/24 23:14 hydrocortisone AdvReac Severe Blurry Verified 03/14/24 23:07 [From Cortenema] Vision hydromorphone [From Dilaudid] AdvReac Severe Swelling Verified 03/14/24 23:13 Iodinated Contrast Media AdvReac Severe Hives Verified 03/14/24 23:14 isoniazid AdvReac Severe Hives Verified 03/14/24 23:15 mercaptopurine AdvReac Severe Vomiting Verified 03/14/24 23:16 methylprednisolone AdvReac Severe Hives Verified 03/14/24 23:16 minocycline AdvReac Severe Hives Verified 03/14/24 23:24 naproxen AdvReac Severe Rash Verified 03/14/24 23:17 oxycodone [From Percocet] AdvReac Severe Hives Verified 03/14/24 23:07 propoxyphene AdvReac Severe Hives Verified 03/14/24 23:19 quetiapine AdvReac Severe Rash Verified 03/14/24 23:20 risperidone AdvReac Severe Hives Verified 03/14/24 23:20 seafood AdvReac Severe Swelling Verified 03/14/24 23:21 shellfish derived AdvReac Severe Swelling Verified 03/14/24 23:21 [id number] Reductase AdvReac Severe Swelling Verified 03/14/24 23:22 Inhibitor sucrose [From Questran] AdvReac Severe Hives Verified 03/14/24 23:08 Sulfa (Sulfonamide AdvReac Severe Hives Verified 03/14/24 23:24 Antibiotics) tramadol AdvReac Severe Rash Verified 08/29/24 23:22 wool AdvReac Severe Hives Verified 03/14/24 23:23 Assessment & Plan Assessment & Plan (1) Post traumatic stress disorder (PTSD): Status: Acute Code(s): F43.10 - Post-traumatic stress disorder, unspecified (2) Cognitive disorder: Status: Acute Code(s): F09 - Unspecified mental disorder due to known physiological condition (3) Generalized anxiety disorder: Status: Acute Code(s): F41.1 - Generalized anxiety disorder (4) Suicide attempt by fentanyl overdose: Status: Acute Code(s): T40.412A - Poisoning by fentanyl or fentanyl analogs, intentional self-harm, initial encounter Plan Pt is a 63-year-old female with a PMH significant for?CVA, chronic pain disorder, HLD, ulcerative colitis s/p colectomy with colostomy in place, chronic anemia, and GERD who is admitted to [facility] for increasing paranoia and depression with suicide attempt by overdosing on home meds. Pt was apparently found unconscious in her apartment surrounded by empty morphine bottles, an SI note, and an eviction notice. Pt was emergently intubated and admitted to ICU for 5 days where she was treated for RAKAN and aspiration pneumonia. Also had elevated troponins that were attributed to demand ischemia. Medical consult for admission H&P. Mood disorder Plan as per psychiatry Recent hx of intubation in the ICU Denies difficulty swallowing, no sore throat or SOB Continue albuterol inhaler Peripheral neuropathy of right lower extremity Foot warm, pedal pulses 2+, well perfused No known hx of DM Unclear etiology Consider gabapentin if persistent Right foot wounds Unclear etiology Superficial, healing well No sign of infection No further intervention or workup needed at this time Hx of CVA Continue statin, aspirin Chronic pain disorder Continue fentanyl pathch, po morphine GERD PPI Plan 1. Continue with same treatment. 2. Referral for mammography since the patient found a lump and the hospitalist suggested to do a mammography but she refused the test here. 3. Reassessment results. 4. Continue with Lexapro start Zyprexa 2.5 p.o. q.h.s. on March 20.. She has consistently refused Zyprexa. 5. CT scan was ordered but she refused to have it. 6. Most likely the patient will need guardianship since her [place] is , her Gonzalo test is 4.4 Reason for continued inpatient stay Substantial Risk for: inability to function, rapid decompensation and med/psych decompensation Time Spent With Patient Time: Total time managing care of this patient today __20__ minutes.
[2024-03-22] MEDS: diphenhydrAMINE HCL 25 MG CAPSULE PO (17:03)
[2024-03-22 20:00] VITALS: BP 139/95; PULSE 81; RESP 20; TEMP 36.6; O2SAT 95
[2024-03-23] MEDS: Omeprazole 20 MG CAPSULE.DR PO (06:50)
--- NOTE | 2024-03-23 08:43 | HO.PSYCHPN ---
Subjective Subjective Date of Service: 03/23/24 Reason For Visit: Status post suicide attempt Subjective Notes: Conditional Voluntary Interim History: The nursing staff reported the patient has refused her Zyprexa nonsensical at times slept 7 hours. On interview the patient remains intrusive at times, attention seeking at times. Mental Status Exam Mental Status Exam Patient Appearance: Appropriate Patient Orientation: Person and Situation Level of Consciousness: Awake and Appropriate Patient Behavior: Guarded and Passive Mood Description: Withdrawn Affect Description: Constricted Patient Cognition Impaired: Yes Ability to Follow Directions: Good Speech Pattern: Clear Hallucinations: None Delusions: Grandiose and Ideas of Reference Thought Process: Distracted and Slowed Thinking Thought Content: positive for [place] and positive for Poverty of Content Judgement: Fair Diagnostics Vital Signs (24Hr): Vital Signs - 24 hr 03/22/24 20:00 Temperature 97.8 F Pulse Rate 81 Respiratory Rate 20 Blood Pressure 139/95 H Pulse Oximetry 95 Oxygen Delivery Method Room Air BMI result Body Mass Index 27.9 Labs 03/16/24 07:32 Labs: Laboratory Results - last 48 hr 03/16/24 07:32 25-OH Vitamin D Total 33 25-Hydroxy Vitamin D2 8 25-Hydroxy Vitamin D3 25 Medications Medications Current Medications Al Hydroxide/Mg Hydroxide (Magnesium Hydrox/Alum Hydrox 30 Ml Oral.Susp) 30 ml PO Q6H PRN PRN Reason: Heartburn/Nausea Albuterol Sulfate (Albuterol Sulfate 90 Mcg 8 Gm Inhaler) 2 puff INHALE Q4H PRN PRN Reason: Shortness Of Breath Or Wheezing Last Admin: 03/15/24 20:48 Dose: 2 puff Artificial Tears (Artificial Tears 15 Ml Drops) 1 drop EYE-BOTH DAILY PRN PRN Reason: Dry Eye(S) Diazepam (Diazepam 5 Mg Tablet) 10 mg PO BID [facility] Last Admin: 03/22/24 21:18 Dose: 10 mg Diphenhydramine HCl (Diphenhydramine Hcl 25 Mg Capsule) 25 mg PO Q6H PRN PRN Reason: Anxiety, Itching Last Admin: 03/22/24 17:03 Dose: 25 mg Diphenhydramine HCl (Diphenhydramine Hcl 25 Mg Capsule) 50 mg PO BID [facility] Last Admin: 03/22/24 21:18 Dose: 50 mg Escitalopram Oxalate (Escitalopram Oxalate 5 Mg Tablet) 5 mg PO DAILY [facility] Last Admin: 03/22/24 08:33 Dose: 5 mg Fentanyl (Fentanyl 50 Mcg Patch.Td72) 50 mcg TRANSDERMA Q72H [facility] Last Admin: 03/22/24 08:32 Dose: 50 mcg Ferrous Sulfate (Ferrous Sulfate 324 Mg Tablet.) 324 mg PO Q48H [facility] Last Admin: 03/21/24 09:20 Dose: Not Given Hydrocortisone (Hydrocortisone 1 % Cream 28.35 Gm Tube) 1 appl TOPICAL BID [facility]; Protocol Last Admin: 03/22/24 21:20 Dose: Not Given Magnesium Hydroxide (Milk Of Magnesia 30 Ml Oral.Susp) 30 ml PO DAILY PRN PRN Reason: Constipation Morphine Sulfate (Morphine Sulfate Immed Release 15 Mg Tablet) 30 mg PO Q6H PRN PRN Reason: pain Last Admin: 03/22/24 21:19 Dose: 30 mg Nicotine (Nicotine 21 Mg Patch.Td24) 21 mg TRANSDERMA DAILY PRN PRN Reason: smoking cessation Nicotine Polacrilex (Nicotine Polacrilex 2 Mg Gum) 4 mg BUCCAL Q2H PRN PRN Reason: Nicotine Cravings Olanzapine (Olanzapine 2.5 Mg Tablet) 2.5 mg PO TID PRN PRN Reason: agitation Olanzapine (Olanzapine 2.5 Mg Tablet) 2.5 mg PO BEDTIME [facility] Last Admin: 03/22/24 21:20 Dose: Not Given Omeprazole (Omeprazole 20 Mg Capsule.) 20 mg PO 0630 [facility] Last Admin: 03/23/24 06:50 Dose: 20 mg Trazodone HCl (Trazodone Hcl 50 Mg Tablet) 50 mg PO BEDTIME MRX1 PRN PRN Reason: Insomnia Allergies Allergies Allergy/AdvReac Type Severity Reaction Status Date / Time Egg Derived Allergy Unknown Unknown Verified 03/16/24 15:22 acetaminophen [From Percocet] AdvReac Severe Hives Verified 03/14/24 23:07 alprazolam AdvReac Severe Hives Verified 03/14/24 23:09 atorvastatin AdvReac Severe Hives Verified 03/14/24 23:10 azithromycin AdvReac Severe Swelling Verified 03/14/24 23:11 cholestyramine AdvReac Severe Hives Verified 03/14/24 23:08 [From Questran] ciprofloxacin AdvReac Severe Hives Verified 03/14/24 23:11 codeine AdvReac Severe Hives Verified 03/14/24 23:12 colesevelam AdvReac Severe Hives Verified 03/14/24 23:12 egg AdvReac Severe Hives Verified 03/15/24 01:39 Estrogens AdvReac Severe Swelling Verified 03/14/24 23:13 gemfibrozil AdvReac Severe Hives Verified 03/14/24 23:14 hydrocortisone AdvReac Severe Blurry Verified 03/14/24 23:07 [From Cortenema] Vision hydromorphone [From Dilaudid] AdvReac Severe Swelling Verified 03/14/24 23:13 Iodinated Contrast Media AdvReac Severe Hives Verified 03/14/24 23:14 isoniazid AdvReac Severe Hives Verified 03/14/24 23:15 mercaptopurine AdvReac Severe Vomiting Verified 03/14/24 23:16 methylprednisolone AdvReac Severe Hives Verified 03/14/24 23:16 minocycline AdvReac Severe Hives Verified 03/14/24 23:24 naproxen AdvReac Severe Rash Verified 03/14/24 23:17 oxycodone [From Percocet] AdvReac Severe Hives Verified 03/14/24 23:07 propoxyphene AdvReac Severe Hives Verified 03/14/24 23:19 quetiapine AdvReac Severe Rash Verified 03/14/24 23:20 risperidone AdvReac Severe Hives Verified 03/14/24 23:20 seafood AdvReac Severe Swelling Verified 03/14/24 23:21 shellfish derived AdvReac Severe Swelling Verified 03/14/24 23:21 Thlxuwd-[id number]-KeJ Reductase AdvReac Severe Swelling Verified 03/14/24 23:22 Inhibitor sucrose [From Questran] AdvReac Severe Hives Verified 03/14/24 23:08 Sulfa (Sulfonamide AdvReac Severe Hives Verified 03/14/24 23:24 Antibiotics) tramadol AdvReac Severe Rash Verified 03/14/24 23:22 wool AdvReac Severe Hives Verified 03/14/24 23:23 Assessment & Plan Assessment & Plan (1) Post traumatic stress disorder (PTSD): Status: Acute Code(s): F43.10 - Post-traumatic stress disorder, unspecified (2) Cognitive disorder: Status: Acute Code(s): F09 - Unspecified mental disorder due to known physiological condition (3) Generalized anxiety disorder: Status: Acute Code(s): F41.1 - Generalized anxiety disorder (4) Suicide attempt by fentanyl overdose: Status: Acute Code(s): T40.412A - Poisoning by fentanyl or fentanyl analogs, intentional self-harm, initial encounter Plan Pt is a 63-year-old female with a PMH significant for?CVA, chronic pain disorder, HLD, ulcerative colitis s/p colectomy with colostomy in place, chronic anemia, and GERD who is admitted to [facility] for increasing paranoia and depression with suicide attempt by overdosing on home meds. Pt was apparently found unconscious in her apartment surrounded by empty morphine bottles, an SI note, and an eviction notice. Pt was emergently intubated and admitted to ICU for 5 days where she was treated for RAKAN and aspiration pneumonia. Also had elevated troponins that were attributed to demand ischemia. Medical consult for admission H&P. Mood disorder Plan as per psychiatry Recent hx of intubation in the ICU Denies difficulty swallowing, no sore throat or SOB Continue albuterol inhaler Peripheral neuropathy of right lower extremity Foot warm, pedal pulses 2+, well perfused No known hx of DM Unclear etiology Consider gabapentin if persistent Right foot wounds Unclear etiology Superficial, healing well No sign of infection No further intervention or workup needed at this time Hx of CVA Continue statin, aspirin Chronic pain disorder Continue fentanyl pathch, po morphine GERD PPI Plan 1. Continue with same treatment. 2. Referral for mammography since the patient found a lump and the hospitalist suggested to do a mammography but she refused the test here. 3. Reassessment results. 4. Continue with Lexapro start Zyprexa 2.5 p.o. q.h.s. on March 20.. She has consistently refused Zyprexa. 5. CT scan was ordered but she refused to have it. 6. Most likely the patient will need guardianship since her [place] is 16/30, her Gonzalo test is 4.4 Reason for continued inpatient stay Substantial Risk for: inability to function, rapid decompensation and med/psych decompensation Time Spent With Patient Time: Total time managing care of this patient today __20__ minutes.
[2024-03-23 09:50] VITALS: BP 114/55; PULSE 61; RESP 16; TEMP 36.2; O2SAT 96
[2024-03-23] MEDS: Escitalopram Oxalate 5 MG TABLET PO (09:51)
[2024-03-23] MEDS: diphenhydrAMINE HCL 25 MG CAPSULE 50 MG PO ×2 (09:52→21:11)
[2024-03-23] MEDS: diazePAM 5 MG TABLET 10 MG PO ×2 (09:52→21:11)
[2024-03-23] MEDS: Morphine Sulfate Immed Release 15 MG TABLET 30 MG PO ×2 (09:56→17:45)
[2024-03-23] MEDS: diphenhydrAMINE HCL 25 MG CAPSULE PO (13:08)
[2024-03-23 20:00] VITALS: BP 118/56; PULSE 63; RESP 18; TEMP 36.8; O2SAT 95
[2024-03-24] MEDS: Omeprazole 20 MG CAPSULE.DR PO (06:25)
[2024-03-24 07:55] VITALS: BP 108/55; PULSE 62; RESP 16; TEMP 36.8; O2SAT 95
[2024-03-24] MEDS: diazePAM 5 MG TABLET 10 MG PO ×2 (07:56→21:12)
[2024-03-24] MEDS: Morphine Sulfate Immed Release 15 MG TABLET 30 MG PO ×3 (07:56→21:12)
[2024-03-24] MEDS: diphenhydrAMINE HCL 25 MG CAPSULE 50 MG PO ×2 (07:56→21:13)
[2024-03-24] MEDS: Escitalopram Oxalate 5 MG TABLET PO (07:57)
--- NOTE | 2024-03-24 09:34 | P.PNPSI_ITS ---
Subjective Subjective Date of Service: 03/24/24 Reason For Visit: Status post suicide attempt Subjective Notes: Conditional Voluntary Interim History: The nursing staff reported the patient slept 7 hours, she woke up early asking for pain medication. On interview the patient remains confused at times but easily redirectable. Mental Status Exam Mental Status Exam Patient Appearance: Appropriate Patient Orientation: Person and Situation Level of Consciousness: Awake and Appropriate Patient Behavior: Guarded and Passive Mood Description: Withdrawn Affect Description: Constricted Patient Cognition Impaired: Yes Ability to Follow Directions: Good Speech Pattern: Clear Hallucinations: None Delusions: Grandiose and Ideas of Reference Thought Process: Distracted and Slowed Thinking Thought Content: positive for [place] and positive for Poverty of Content Judgement: Fair Diagnostics Vital Signs (24Hr): Vital Signs - 24 hr 03/23/24 09:50 03/23/24 20:00 03/24/24 07:55 Temperature 97.2 F 98.2 F 98.2 F Pulse Rate 61 63 62 Respiratory Rate 16 18 16 Blood Pressure 114/55 L 118/56 L 108/55 L Pulse Oximetry 96 95 95 Oxygen Delivery Method Room Air Room Air Room Air BMI result Body Mass Index 27.9 Labs 03/16/24 07:32 Medications Medications Current Medications Al Hydroxide/Mg Hydroxide (Magnesium Hydrox/Alum Hydrox 30 Ml Oral.Susp) 30 ml PO Q6H PRN PRN Reason: Heartburn/Nausea Albuterol Sulfate (Albuterol Sulfate 90 Mcg 8 Gm Inhaler) 2 puff INHALE Q4H PRN PRN Reason: Shortness Of Breath Or Wheezing Last Admin: 03/15/24 20:48 Dose: 2 puff Artificial Tears (Artificial Tears 15 Ml Drops) 1 drop EYE-BOTH DAILY PRN PRN Reason: Dry Eye(S) Diazepam (Diazepam 5 Mg Tablet) 10 mg PO BID [facility] Last Admin: 03/24/24 07:56 Dose: 10 mg Diphenhydramine HCl (Diphenhydramine Hcl 25 Mg Capsule) 25 mg PO Q6H PRN PRN Reason: Anxiety, Itching Last Admin: 03/23/24 13:08 Dose: 25 mg Diphenhydramine HCl (Diphenhydramine Hcl 25 Mg Capsule) 50 mg PO BID [facility] Last Admin: 03/24/24 07:56 Dose: 50 mg Escitalopram Oxalate (Escitalopram Oxalate 5 Mg Tablet) 5 mg PO DAILY [facility] Last Admin: 03/24/24 07:57 Dose: 5 mg Fentanyl (Fentanyl 50 Mcg Patch.Td72) 50 mcg TRANSDERMA Q72H [facility] Last Admin: 03/22/24 08:32 Dose: 50 mcg Ferrous Sulfate (Ferrous Sulfate 324 Mg Tablet.) 324 mg PO Q48H [facility] Last Admin: 03/23/24 09:52 Dose: Not Given Hydrocortisone (Hydrocortisone 1 % Cream 28.35 Gm Tube) 1 appl TOPICAL BID [facility]; Protocol Last Admin: 03/24/24 07:57 Dose: Not Given Magnesium Hydroxide (Milk Of Magnesia 30 Ml Oral.Susp) 30 ml PO DAILY PRN PRN Reason: Constipation Morphine Sulfate (Morphine Sulfate Immed Release 15 Mg Tablet) 30 mg PO Q6H PRN PRN Reason: pain Last Admin: 03/24/24 07:56 Dose: 30 mg Nicotine (Nicotine 21 Mg Patch.Td24) 21 mg TRANSDERMA DAILY PRN PRN Reason: smoking cessation Nicotine Polacrilex (Nicotine Polacrilex 2 Mg Gum) 4 mg BUCCAL Q2H PRN PRN Reason: Nicotine Cravings Olanzapine (Olanzapine 2.5 Mg Tablet) 2.5 mg PO TID PRN PRN Reason: agitation Olanzapine (Olanzapine 2.5 Mg Tablet) 2.5 mg PO BEDTIME [facility] Last Admin: 03/23/24 21:16 Dose: Not Given Omeprazole (Omeprazole 20 Mg Capsule.) 20 mg PO 0630 [facility] Last Admin: 03/24/24 06:25 Dose: 20 mg Trazodone HCl (Trazodone Hcl 50 Mg Tablet) 50 mg PO BEDTIME MRX1 PRN PRN Reason: Insomnia Allergies Allergies Allergy/AdvReac Type Severity Reaction Status Date / Time Egg Derived Allergy Unknown Unknown Verified 03/16/24 15:22 acetaminophen [From Percocet] AdvReac Severe Hives Verified 03/14/24 23:07 alprazolam AdvReac Severe Hives Verified 03/14/24 23:09 atorvastatin AdvReac Severe Hives Verified 03/14/24 23:10 azithromycin AdvReac Severe Swelling Verified 03/14/24 23:11 cholestyramine AdvReac Severe Hives Verified 03/14/24 23:08 [From Questran] ciprofloxacin AdvReac Severe Hives Verified 03/14/24 23:11 codeine AdvReac Severe Hives Verified 03/14/24 23:12 colesevelam AdvReac Severe Hives Verified 03/14/24 23:12 egg AdvReac Severe Hives Verified 03/15/24 01:39 Estrogens AdvReac Severe Swelling Verified 03/14/24 23:13 gemfibrozil AdvReac Severe Hives Verified 03/14/24 23:14 hydrocortisone AdvReac Severe Blurry Verified 03/14/24 23:07 [From Cortenema] Vision hydromorphone [From Dilaudid] AdvReac Severe Swelling Verified 03/14/24 23:13 Iodinated Contrast Media AdvReac Severe Hives Verified 03/14/24 23:14 isoniazid AdvReac Severe Hives Verified 03/14/24 23:15 mercaptopurine AdvReac Severe Vomiting Verified 03/14/24 23:16 methylprednisolone AdvReac Severe Hives Verified 03/14/24 23:16 minocycline AdvReac Severe Hives Verified 03/14/24 23:24 naproxen AdvReac Severe Rash Verified 03/14/24 23:17 oxycodone [From Percocet] AdvReac Severe Hives Verified 03/14/24 23:07 propoxyphene AdvReac Severe Hives Verified 03/14/24 23:19 quetiapine AdvReac Severe Rash Verified 03/14/24 23:20 risperidone AdvReac Severe Hives Verified 03/14/24 23:20 seafood AdvReac Severe Swelling Verified 03/14/24 23:21 shellfish derived AdvReac Severe Swelling Verified 03/14/24 23:21 Nfrhefa-[id number]-GbL Reductase AdvReac Severe Swelling Verified 03/14/24 23:22 Inhibitor sucrose [From Questran] AdvReac Severe Hives Verified 03/14/24 23:08 Sulfa (Sulfonamide AdvReac Severe Hives Verified 03/14/24 23:24 Antibiotics) tramadol AdvReac Severe Rash Verified 03/14/24 23:22 wool AdvReac Severe Hives Verified 03/14/24 23:23 Assessment & Plan Assessment & Plan (1) Post traumatic stress disorder (PTSD): Status: Acute Code(s): F43.10 - Post-traumatic stress disorder, unspecified (2) Cognitive disorder: Status: Acute Code(s): F09 - Unspecified mental disorder due to known physiological condition (3) Generalized anxiety disorder: Status: Acute Code(s): F41.1 - Generalized anxiety disorder (4) Suicide attempt by fentanyl overdose: Status: Acute Code(s): T40.412A - Poisoning by fentanyl or fentanyl analogs, intentional self-harm, initial encounter Plan Pt is a 63-year-old female with a PMH significant for?CVA, chronic pain disorder, HLD, ulcerative colitis s/p colectomy with colostomy in place, chronic anemia, and GERD who is admitted to [facility] for increasing paranoia and depression with suicide attempt by overdosing on home meds. Pt was apparently found unconscious in her apartment surrounded by empty morphine bottles, an SI note, and an eviction notice. Pt was emergently intubated and admitted to ICU for 5 days where she was treated for RAKAN and aspiration pneumonia. Also had elevated troponins that were attributed to demand ischemia. Medical consult for admission H&P. Mood disorder Plan as per psychiatry Recent hx of intubation in the ICU Denies difficulty swallowing, no sore throat or SOB Continue albuterol inhaler Peripheral neuropathy of right lower extremity Foot warm, pedal pulses 2+, well perfused No known hx of DM Unclear etiology Consider gabapentin if persistent Right foot wounds Unclear etiology Superficial, healing well No sign of infection No further intervention or workup needed at this time Hx of CVA Continue statin, aspirin Chronic pain disorder Continue fentanyl pathch, po morphine GERD PPI Plan 1. Continue with same treatment. 2. Referral for mammography since the patient found a lump and the hospitalist suggested to do a mammography but she refused the test here. 3. Reassessment results. 4. Continue with Lexapro start Zyprexa 2.5 p.o. q.h.s. on March 20.. She has consistently refused Zyprexa. 5. CT scan was ordered but she refused to have it. 6. Most likely the patient will need guardianship since her [place] is 16/30, her Gonzalo test is 4.4 Reason for continued inpatient stay Substantial Risk for: inability to function, rapid decompensation and med/psych decompensation Time Spent With Patient Time: Total time managing care of this patient today __20__ minutes.
[2024-03-24] MEDS: diphenhydrAMINE HCL 25 MG CAPSULE PO (12:41)
[2024-03-24 20:00] VITALS: BP 114/58; PULSE 64; RESP 16; TEMP 36.5; O2SAT 97
[2024-03-25] MEDS: Morphine Sulfate Immed Release 15 MG TABLET 30 MG PO ×3 (03:11→20:59)
[2024-03-25] MEDS: diphenhydrAMINE HCL 25 MG CAPSULE PO ×2 (03:15→12:16)
[2024-03-25] MEDS: Omeprazole 20 MG CAPSULE.DR PO (06:18)
[2024-03-25 07:55] VITALS: BP 123/62; PULSE 68; RESP 16; TEMP 35.9; O2SAT 96
[2024-03-25] MEDS: fentaNYL 50 MCG PATCH.TD72 TRANSDERMA (08:36)
[2024-03-25] MEDS: Escitalopram Oxalate 5 MG TABLET PO (08:38)
[2024-03-25] MEDS: diphenhydrAMINE HCL 25 MG CAPSULE 50 MG PO ×2 (08:38→21:01)
[2024-03-25] MEDS: diazePAM 5 MG TABLET 10 MG PO ×2 (08:38→21:01)
--- NOTE | 2024-03-25 12:04 | P.PNPSI_ITS ---
Subjective Subjective Date of Service: 03/25/24 Reason For Visit: Status post suicide attempt Subjective Notes: Conditional Voluntary Interim History: The staff reported the patient had been quiet, compliant with medications. She adamantly denies suicidal ideation. On interview the patient reported that she wants us to talk with her brother. The social media project manager reported that the brother was contacted and he does not want to be involved in her care since she could be very disruptive Mental Status Exam Mental Status Exam Patient Appearance: Well Grooomed and Appropriate Patient Orientation: Person and Situation Level of Consciousness: Awake and Appropriate Patient Behavior: Guarded and Passive Mood Description: Withdrawn Affect Description: Calm Patient Cognition Impaired: Yes Ability to Follow Directions: Good Speech Pattern: Clear Hallucinations: None Delusions: Ideas of Reference Thought Process: Distracted and Slowed Thinking Thought Content: positive for [place] and positive for [place] of Content Judgement: Fair Diagnostics Vital Signs (24Hr): Vital Signs - 24 hr 03/24/24 20:00 03/25/24 07:55 Temperature 97.7 F 96.7 F L Pulse Rate 64 68 Respiratory Rate 16 16 Blood Pressure 114/58 L 123/62 Pulse Oximetry 97 96 Oxygen Delivery Method Room Air Room Air BMI result Body Mass Index 27.9 Labs 03/16/24 07:32 Medications Medications Current Medications Al Hydroxide/Mg Hydroxide (Magnesium Hydrox/Alum Hydrox 30 Ml Oral.Susp) 30 ml PO Q6H PRN PRN Reason: Heartburn/Nausea Albuterol Sulfate (Albuterol Sulfate 90 Mcg 8 Gm Inhaler) 2 puff INHALE Q4H PRN PRN Reason: Shortness Of Breath Or Wheezing Last Admin: 03/15/24 20:48 Dose: 2 puff Artificial Tears (Artificial Tears 15 Ml Drops) 1 drop EYE-BOTH DAILY PRN PRN Reason: Dry Eye(S) Diazepam (Diazepam 5 Mg Tablet) 10 mg PO BID [facility] Diphenhydramine HCl (Diphenhydramine Hcl 25 Mg Capsule) 25 mg PO Q6H PRN PRN Reason: Anxiety, Itching Last Admin: 03/25/24 03:15 Dose: 25 mg Diphenhydramine HCl (Diphenhydramine Hcl 25 Mg Capsule) 50 mg PO BID [facility] Last Admin: 03/25/24 08:38 Dose: 50 mg Escitalopram Oxalate (Escitalopram Oxalate 5 Mg Tablet) 5 mg PO DAILY [facility] Last Admin: 03/25/24 08:38 Dose: 5 mg Fentanyl (Fentanyl 50 Mcg Patch.Td72) 50 mcg TRANSDERMA Q72H [facility] Last Admin: 03/25/24 08:36 Dose: 50 mcg Ferrous Sulfate (Ferrous Sulfate 324 Mg Tablet.) 324 mg PO Q48H [facility] Last Admin: 03/25/24 08:43 Dose: Not Given Hydrocortisone (Hydrocortisone 1 % Cream 28.35 Gm Tube) 1 appl TOPICAL BID [facility]; Protocol Last Admin: 03/25/24 08:43 Dose: Not Given Magnesium Hydroxide (Milk Of Magnesia 30 Ml Oral.Susp) 30 ml PO DAILY PRN PRN Reason: Constipation Morphine Sulfate (Morphine Sulfate Immed Release 15 Mg Tablet) 30 mg PO Q6H PRN PRN Reason: pain Last Admin: 03/25/24 03:11 Dose: 30 mg Nicotine (Nicotine 21 Mg Patch.Td24) 21 mg TRANSDERMA DAILY PRN PRN Reason: smoking cessation Nicotine Polacrilex (Nicotine Polacrilex 2 Mg Gum) 4 mg BUCCAL Q2H PRN PRN Reason: Nicotine Cravings Olanzapine (Olanzapine 2.5 Mg Tablet) 2.5 mg PO TID PRN PRN Reason: agitation Olanzapine (Olanzapine 2.5 Mg Tablet) 2.5 mg PO BEDTIME [facility] Last Admin: 03/24/24 21:15 Dose: Not Given Omeprazole (Omeprazole 20 Mg Capsule.) 20 mg PO 0630 [facility] Last Admin: 03/25/24 06:18 Dose: 20 mg Trazodone HCl (Trazodone Hcl 50 Mg Tablet) 50 mg PO BEDTIME MRX1 PRN PRN Reason: Insomnia Allergies Allergies Allergy/AdvReac Type Severity Reaction Status Date / Time Egg Derived Allergy Unknown Unknown Verified 03/16/24 15:22 acetaminophen [From Percocet] AdvReac Severe Hives Verified 03/14/24 23:07 alprazolam AdvReac Severe Hives Verified 03/14/24 23:09 atorvastatin AdvReac Severe Hives Verified 03/14/24 23:10 azithromycin AdvReac Severe Swelling Verified 03/14/24 23:11 cholestyramine AdvReac Severe Hives Verified 03/14/24 23:08 [From Questran] ciprofloxacin AdvReac Severe Hives Verified 03/14/24 23:11 codeine AdvReac Severe Hives Verified 03/14/24 23:12 colesevelam AdvReac Severe Hives Verified 03/14/24 23:12 egg AdvReac Severe Hives Verified 03/15/24 01:39 Estrogens AdvReac Severe Swelling Verified 03/14/24 23:13 gemfibrozil AdvReac Severe Hives Verified 03/14/24 23:14 hydrocortisone AdvReac Severe Blurry Verified 03/14/24 23:07 [From Cortenema] Vision hydromorphone [From Dilaudid] AdvReac Severe Swelling Verified 03/14/24 23:13 Iodinated Contrast Media AdvReac Severe Hives Verified 03/14/24 23:14 isoniazid AdvReac Severe Hives Verified 03/14/24 23:15 mercaptopurine AdvReac Severe Vomiting Verified 03/14/24 23:16 methylprednisolone AdvReac Severe Hives Verified 03/14/24 23:16 minocycline AdvReac Severe Hives Verified 03/14/24 23:24 naproxen AdvReac Severe Rash Verified 03/14/24 23:17 oxycodone [From Percocet] AdvReac Severe Hives Verified 03/14/24 23:07 propoxyphene AdvReac Severe Hives Verified 03/14/24 23:19 quetiapine AdvReac Severe Rash Verified 03/14/24 23:20 risperidone AdvReac Severe Hives Verified 03/14/24 23:20 seafood AdvReac Severe Swelling Verified 03/14/24 23:21 shellfish derived AdvReac Severe Swelling Verified 03/14/24 23:21 [id number] Reductase AdvReac Severe Swelling Verified 03/14/24 23:22 Inhibitor sucrose [From Questran] AdvReac Severe Hives Verified 03/14/24 23:08 Sulfa (Sulfonamide AdvReac Severe Hives Verified 03/14/24 23:24 Antibiotics) tramadol AdvReac Severe Rash Verified 03/14/24 23:22 wool AdvReac Severe Hives Verified 03/14/24 23:23 Assessment & Plan Assessment & Plan (1) Post traumatic stress disorder (PTSD): Status: Acute Code(s): F43.10 - Post-traumatic stress disorder, unspecified (2) Cognitive disorder: Status: Acute Code(s): F09 - Unspecified mental disorder due to known physiological condition (3) Generalized anxiety disorder: Status: Acute Code(s): F41.1 - Generalized anxiety disorder (4) Suicide attempt by fentanyl overdose: Status: Acute Code(s): T40.412A - Poisoning by fentanyl or fentanyl analogs, intentional self-harm, initial encounter Plan Pt is a 63-year-old female with a PMH significant for?CVA, chronic pain disorder, HLD, ulcerative colitis s/p colectomy with colostomy in place, chronic anemia, and GERD who is admitted to [facility] for increasing paranoia and depression with suicide attempt by overdosing on home meds. Pt was apparently found unconscious in her apartment surrounded by empty morphine bottles, an SI note, and an eviction notice. Pt was emergently intubated and admitted to ICU for 5 days where she was treated for RAKAN and aspiration pneumonia. Also had elevated troponins that were attributed to demand ischemia. Medical consult for admission H&P. Mood disorder Plan as per psychiatry Recent hx of intubation in the ICU Denies difficulty swallowing, no sore throat or SOB Continue albuterol inhaler Peripheral neuropathy of right lower extremity Foot warm, pedal pulses 2+, well perfused No known hx of DM Unclear etiology Consider gabapentin if persistent Right foot wounds Unclear etiology Superficial, healing well No sign of infection No further intervention or workup needed at this time Hx of CVA Continue statin, aspirin Chronic pain disorder Continue fentanyl pathch, po morphine GERD PPI Plan 1. Continue with same treatment. 2. Referral for mammography since the patient found a lump and the hospitalist suggested to do a mammography but she refused the test here. 3. Reassessment results. 4. Continue with Lexapro start Zyprexa 2.5 p.o. q.h.s. on March 20.. She has consistently refused Zyprexa. 5. CT scan was ordered but she refused to have it. 6. Most likely the patient will need guardianship since her [place] is 16/30, her Gonzalo test is 4.4 Reason for continued inpatient stay Substantial Risk for: inability to function, rapid decompensation and med/psych decompensation Time Spent With Patient Time: Total time managing care of this patient today _20___ minutes.
[2024-03-25 20:00] VITALS: BP 105/52; PULSE 63; RESP 18; TEMP 36.1; O2SAT 94
[2024-03-26] MEDS: Morphine Sulfate Immed Release 15 MG TABLET 30 MG PO ×3 (02:51→17:11)
[2024-03-26] MEDS: diphenhydrAMINE HCL 25 MG CAPSULE PO ×2 (02:51→14:59)
[2024-03-26] MEDS: Omeprazole 20 MG CAPSULE.DR PO (06:31)
--- NOTE | 2024-03-26 09:56 | HO.PSYCHPN ---
Subjective Subjective Date of Service: 03/26/24 Reason For Visit: Status post suicide attempt Subjective Notes: Conditional Voluntary Interim History: The nursing staff reported the patient had been anxious less labile than before she has refused her Zyprexa 2.5 consistently. She had been intrusive with peers but slept all night. The certified social workers in health care reported that the brother does not want to get involved there is no social support we are filing for guardianship. On interview the patient remains attention seeking at times no insight into her condition. Mental Status Exam Mental Status Exam Patient Appearance: Appropriate Patient Orientation: Person and Situation Level of Consciousness: Awake and Appropriate Patient Behavior: Guarded and Passive Mood Description: Withdrawn Affect Description: Constricted Patient Cognition Impaired: Yes Ability to Follow Directions: Good Speech Pattern: Clear Hallucinations: None Delusions: Ideas of Reference Thought Process: Racing and Distracted Thought Content: positive for [place] and positive for [place] Judgement: Poor Diagnostics Vital Signs (24Hr): Vital Signs - 24 hr 03/25/24 20:00 Temperature 96.9 F Pulse Rate 63 Respiratory Rate 18 Blood Pressure 105/52 L Pulse Oximetry 94 Oxygen Delivery Method Room Air BMI result Body Mass Index 27.9 Labs 03/16/24 07:32 Medications Medications Current Medications Al Hydroxide/Mg Hydroxide (Magnesium Hydrox/Alum Hydrox 30 Ml Oral.Susp) 30 ml PO Q6H PRN PRN Reason: Heartburn/Nausea Albuterol Sulfate (Albuterol Sulfate 90 Mcg 8 Gm Inhaler) 2 puff INHALE Q4H PRN PRN Reason: Shortness Of Breath Or Wheezing Last Admin: 03/15/24 20:48 Dose: 2 puff Artificial Tears (Artificial Tears 15 Ml Drops) 1 drop EYE-BOTH DAILY PRN PRN Reason: Dry Eye(S) Diazepam (Diazepam 5 Mg Tablet) 10 mg PO BID [facility] Last Admin: 03/25/24 21:01 Dose: 10 mg Diphenhydramine HCl (Diphenhydramine Hcl 25 Mg Capsule) 25 mg PO Q6H PRN PRN Reason: Anxiety, Itching Last Admin: 03/26/24 02:51 Dose: 25 mg Diphenhydramine HCl (Diphenhydramine Hcl 25 Mg Capsule) 50 mg PO BID [facility] Last Admin: 03/25/24 21:01 Dose: 50 mg Escitalopram Oxalate (Escitalopram Oxalate 5 Mg Tablet) 5 mg PO DAILY [facility] Last Admin: 03/25/24 08:38 Dose: 5 mg Fentanyl (Fentanyl 50 Mcg Patch.Td72) 50 mcg TRANSDERMA Q72H [facility] Last Admin: 03/25/24 08:36 Dose: 50 mcg Ferrous Sulfate (Ferrous Sulfate 324 Mg Tablet.) 324 mg PO Q48H [facility] Last Admin: 03/25/24 08:43 Dose: Not Given Hydrocortisone (Hydrocortisone 1 % Cream 28.35 Gm Tube) 1 appl TOPICAL BID [facility]; Protocol Last Admin: 03/25/24 21:04 Dose: Not Given Magnesium Hydroxide (Milk Of Magnesia 30 Ml Oral.Susp) 30 ml PO DAILY PRN PRN Reason: Constipation Morphine Sulfate (Morphine Sulfate Immed Release 15 Mg Tablet) 30 mg PO Q6H PRN PRN Reason: pain Last Admin: 03/26/24 02:51 Dose: 30 mg Nicotine (Nicotine 21 Mg Patch.Td24) 21 mg TRANSDERMA DAILY PRN PRN Reason: smoking cessation Nicotine Polacrilex (Nicotine Polacrilex 2 Mg Gum) 4 mg BUCCAL Q2H PRN PRN Reason: Nicotine Cravings Olanzapine (Olanzapine 2.5 Mg Tablet) 2.5 mg PO TID PRN PRN Reason: agitation Olanzapine (Olanzapine 2.5 Mg Tablet) 2.5 mg PO BEDTIME [facility] Last Admin: 03/25/24 21:02 Dose: Not Given Omeprazole (Omeprazole 20 Mg Capsule.) 20 mg PO 0630 [facility] Last Admin: 03/26/24 06:31 Dose: 20 mg Trazodone HCl (Trazodone Hcl 50 Mg Tablet) 50 mg PO BEDTIME MRX1 PRN PRN Reason: Insomnia Allergies Allergies Allergy/AdvReac Type Severity Reaction Status Date / Time Egg Derived Allergy Unknown Unknown Verified 03/16/24 15:22 acetaminophen [From Percocet] AdvReac Severe Hives Verified 03/14/24 23:07 alprazolam AdvReac Severe Hives Verified 03/14/24 23:09 atorvastatin AdvReac Severe Hives Verified 03/14/24 23:10 azithromycin AdvReac Severe Swelling Verified 03/14/24 23:11 cholestyramine AdvReac Severe Hives Verified 03/14/24 23:08 [From Questran] ciprofloxacin AdvReac Severe Hives Verified 03/14/24 23:11 codeine AdvReac Severe Hives Verified 03/14/24 23:12 colesevelam AdvReac Severe Hives Verified 03/14/24 23:12 egg AdvReac Severe Hives Verified 03/15/24 01:39 Estrogens AdvReac Severe Swelling Verified 03/14/24 23:13 gemfibrozil AdvReac Severe Hives Verified 03/14/24 23:14 hydrocortisone AdvReac Severe Blurry Verified 03/14/24 23:07 [From Cortenema] Vision hydromorphone [From Dilaudid] AdvReac Severe Swelling Verified 03/14/24 23:13 Iodinated Contrast Media AdvReac Severe Hives Verified 03/14/24 23:14 isoniazid AdvReac Severe Hives Verified 03/14/24 23:15 mercaptopurine AdvReac Severe Vomiting Verified 03/14/24 23:16 methylprednisolone AdvReac Severe Hives Verified 03/14/24 23:16 minocycline AdvReac Severe Hives Verified 03/14/24 23:24 naproxen AdvReac Severe Rash Verified 03/14/24 23:17 oxycodone [From Percocet] AdvReac Severe Hives Verified 03/14/24 23:07 propoxyphene AdvReac Severe Hives Verified 03/14/24 23:19 quetiapine AdvReac Severe Rash Verified 03/14/24 23:20 risperidone AdvReac Severe Hives Verified 03/14/24 23:20 seafood AdvReac Severe Swelling Verified 03/14/24 23:21 shellfish derived AdvReac Severe Swelling Verified 03/14/24 23:21 [id number] Reductase AdvReac Severe Swelling Verified 03/14/24 23:22 Inhibitor sucrose [From Questran] AdvReac Severe Hives Verified 03/14/24 23:08 Sulfa (Sulfonamide AdvReac Severe Hives Verified 03/14/24 23:24 Antibiotics) tramadol AdvReac Severe Rash Verified 03/14/24 23:22 wool AdvReac Severe Hives Verified 03/14/24 23:23 Assessment & Plan Assessment & Plan (1) Post traumatic stress disorder (PTSD): Status: Acute Code(s): F43.10 - Post-traumatic stress disorder, unspecified (2) Cognitive disorder: Status: Acute Code(s): F09 - Unspecified mental disorder due to known physiological condition (3) Generalized anxiety disorder: Status: Acute Code(s): F41.1 - Generalized anxiety disorder (4) Suicide attempt by fentanyl overdose: Status: Acute Code(s): T40.412A - Poisoning by fentanyl or fentanyl analogs, intentional self-harm, initial encounter Plan Pt is a 63-year-old female with a PMH significant for?CVA, chronic pain disorder, HLD, ulcerative colitis s/p colectomy with colostomy in place, chronic anemia, and GERD who is admitted to [facility] for increasing paranoia and depression with suicide attempt by overdosing on home meds. Pt was apparently found unconscious in her apartment surrounded by empty morphine bottles, an SI note, and an eviction notice. Pt was emergently intubated and admitted to ICU for 5 days where she was treated for RAKAN and aspiration pneumonia. Also had elevated troponins that were attributed to demand ischemia. Medical consult for admission H&P. Mood disorder Plan as per psychiatry Recent hx of intubation in the ICU Denies difficulty swallowing, no sore throat or SOB Continue albuterol inhaler Peripheral neuropathy of right lower extremity Foot warm, pedal pulses 2+, well perfused No known hx of DM Unclear etiology Consider gabapentin if persistent Right foot wounds Unclear etiology Superficial, healing well No sign of infection No further intervention or workup needed at this time Hx of CVA Continue statin, aspirin Chronic pain disorder Continue fentanyl pathch, po morphine GERD PPI Plan 1. Continue with same treatment. 2. Referral for mammography since the patient found a lump and the hospitalist suggested to do a mammography but she refused the test here. 3. Reassessment results. 4. Continue with Lexapro start Zyprexa 2.5 p.o. q.h.s. on March 20.. She has consistently refused Zyprexa. 5. CT scan was ordered but she refused to have it. 6. Most likely the patient will need guardianship since her [place] is 16/30, her Gonzalo test is 4.4 Reason for continued inpatient stay Substantial Risk for: inability to function, rapid decompensation and med/psych decompensation Time Spent With Patient Time: Total time managing care of this patient today __20__ minutes.
[2024-03-26 10:09] VITALS: BP 119/59; PULSE 68; RESP 15; TEMP 36.9; O2SAT 96
[2024-03-26] MEDS: diazePAM 5 MG TABLET 10 MG PO ×2 (10:11→20:13)
[2024-03-26] MEDS: diphenhydrAMINE HCL 25 MG CAPSULE 50 MG PO ×2 (10:11→20:13)
[2024-03-26] MEDS: Escitalopram Oxalate 5 MG TABLET PO (10:11)
[2024-03-26 20:00] VITALS: BP 120/57; PULSE 64; RESP 16; TEMP 36.1; O2SAT 96
[2024-03-26] MEDS: Hydrocortisone 1 % Cream 28.35 GM TUBE 1 APPL TOPICAL (20:14)
[2024-03-27] MEDS: Morphine Sulfate Immed Release 15 MG TABLET 30 MG PO ×4 (00:15→20:39)
[2024-03-27] MEDS: Omeprazole 20 MG CAPSULE.DR PO (05:46)
[2024-03-27 08:00] VITALS: BP 114/66; PULSE 58; RESP 16; TEMP 2.6; TEMP 36.6; O2SAT 93
[2024-03-27] MEDS: diazePAM 5 MG TABLET 10 MG PO ×2 (08:28→20:39)
[2024-03-27] MEDS: Escitalopram Oxalate 5 MG TABLET PO (08:28)
[2024-03-27] MEDS: Hydrocortisone 1 % Cream 28.35 GM TUBE 1 APPL TOPICAL (08:33)
[2024-03-27] MEDS: diphenhydrAMINE HCL 25 MG CAPSULE 50 MG PO ×2 (08:34→20:38)
--- NOTE | 2024-03-27 10:12 | HO.PSYCHPN ---
Subjective Subjective Date of Service: 03/27/24 Reason For Visit: Status post suicide attempt Subjective Notes: Conditional Voluntary Interim History: The nursing staff reported the patient had been compliant with treatment, she has not seen more withdrawn she slept 7 hours. Today we repeated the [place] test with the occupational therapist and the medical student. She scored very low previously but probably she was still on delirium. A new [place] test show still consistent cognitive impairment. On interview we discussed the memory problems and the possibility that she will need help as an outpatient. Mental Status Exam Mental Status Exam Patient Appearance: Appropriate Patient Orientation: Person and Situation Level of Consciousness: Awake and Appropriate Patient Behavior: Guarded and Passive Mood Description: Withdrawn Affect Description: Constricted Patient Cognition Impaired: Yes Ability to Follow Directions: Good Speech Pattern: Clear Hallucinations: None Delusions: Not Present Thought Process: Distracted and Slowed Thinking Thought Content: positive for [place] and positive for Poverty of Content Judgement: Fair Diagnostics Vital Signs (24Hr): Vital Signs - 24 hr 03/26/24 20:00 03/27/24 08:00 Temperature 96.9 F 36.6 F L Pulse Rate 64 58 Respiratory Rate 16 16 Blood Pressure 120/57 L 114/66 Pulse Oximetry 96 93 Oxygen Delivery Method Room Air Room Air BMI result Body Mass Index 27.9 Labs 03/16/24 07:32 Medications Medications Current Medications Al Hydroxide/Mg Hydroxide (Magnesium Hydrox/Alum Hydrox 30 Ml Oral.Susp) 30 ml PO Q6H PRN PRN Reason: Heartburn/Nausea Albuterol Sulfate (Albuterol Sulfate 90 Mcg 8 Gm Inhaler) 2 puff INHALE Q4H PRN PRN Reason: Shortness Of Breath Or Wheezing Last Admin: 03/15/24 20:48 Dose: 2 puff Artificial Tears (Artificial Tears 15 Ml Drops) 1 drop EYE-BOTH DAILY PRN PRN Reason: Dry Eye(S) Diazepam (Diazepam 5 Mg Tablet) 10 mg PO BID [facility] Last Admin: 03/27/24 08:28 Dose: 10 mg Diphenhydramine HCl (Diphenhydramine Hcl 25 Mg Capsule) 25 mg PO Q6H PRN PRN Reason: Anxiety, Itching Last Admin: 03/26/24 14:59 Dose: 25 mg Diphenhydramine HCl (Diphenhydramine Hcl 25 Mg Capsule) 50 mg PO BID [facility] Last Admin: 09/11/24 08:34 Dose: 50 mg Escitalopram Oxalate (Escitalopram Oxalate 5 Mg Tablet) 5 mg PO DAILY [facility] Last Admin: 03/27/24 08:28 Dose: 5 mg Fentanyl (Fentanyl 50 Mcg Patch.Td72) 50 mcg TRANSDERMA Q72H [facility] Last Admin: 03/25/24 08:36 Dose: 50 mcg Ferrous Sulfate (Ferrous Sulfate 324 Mg Tablet.) 324 mg PO Q48H [facility] Last Admin: 03/27/24 08:29 Dose: Not Given Hydrocortisone (Hydrocortisone 1 % Cream 28.35 Gm Tube) 1 appl TOPICAL BID [facility]; Protocol Last Admin: 03/27/24 08:33 Dose: 1 appl Magnesium Hydroxide (Milk Of Magnesia 30 Ml Oral.Susp) 30 ml PO DAILY PRN PRN Reason: Constipation Morphine Sulfate (Morphine Sulfate Immed Release 15 Mg Tablet) 30 mg PO Q6H PRN PRN Reason: pain Last Admin: 03/27/24 06:32 Dose: 30 mg Nicotine (Nicotine 21 Mg Patch.Td24) 21 mg TRANSDERMA DAILY PRN PRN Reason: smoking cessation Nicotine Polacrilex (Nicotine Polacrilex 2 Mg Gum) 4 mg BUCCAL Q2H PRN PRN Reason: Nicotine Cravings Olanzapine (Olanzapine 2.5 Mg Tablet) 2.5 mg PO TID PRN PRN Reason: agitation Olanzapine (Olanzapine 2.5 Mg Tablet) 2.5 mg PO BEDTIME [facility] Last Admin: 03/26/24 20:14 Dose: Not Given Omeprazole (Omeprazole 20 Mg Capsule.) 20 mg PO 0630 [facility] Last Admin: 03/27/24 05:46 Dose: 20 mg Trazodone HCl (Trazodone Hcl 50 Mg Tablet) 50 mg PO BEDTIME MRX1 PRN PRN Reason: Insomnia Allergies Allergies Allergy/AdvReac Type Severity Reaction Status Date / Time Egg Derived Allergy Unknown Unknown Verified 03/16/24 15:22 acetaminophen [From Percocet] AdvReac Severe Hives Verified 03/14/24 23:07 alprazolam AdvReac Severe Hives Verified 03/14/24 23:09 atorvastatin AdvReac Severe Hives Verified 03/14/24 23:10 azithromycin AdvReac Severe Swelling Verified 03/14/24 23:11 cholestyramine AdvReac Severe Hives Verified 03/14/24 23:08 [From Questran] ciprofloxacin AdvReac Severe Hives Verified 03/14/24 23:11 codeine AdvReac Severe Hives Verified 03/14/24 23:12 colesevelam AdvReac Severe Hives Verified 03/14/24 23:12 egg AdvReac Severe Hives Verified 03/15/24 01:39 Estrogens AdvReac Severe Swelling Verified 03/14/24 23:13 gemfibrozil AdvReac Severe Hives Verified 03/14/24 23:14 hydrocortisone AdvReac Severe Blurry Verified 03/14/24 23:07 [From Cortenema] Vision hydromorphone [From Dilaudid] AdvReac Severe Swelling Verified 03/14/24 23:13 Iodinated Contrast Media AdvReac Severe Hives Verified 03/14/24 23:14 isoniazid AdvReac Severe Hives Verified 03/14/24 23:15 mercaptopurine AdvReac Severe Vomiting Verified 03/14/24 23:16 methylprednisolone AdvReac Severe Hives Verified 03/14/24 23:16 minocycline AdvReac Severe Hives Verified 03/14/24 23:24 naproxen AdvReac Severe Rash Verified 03/14/24 23:17 oxycodone [From Percocet] AdvReac Severe Hives Verified 03/14/24 23:07 propoxyphene AdvReac Severe Hives Verified 03/14/24 23:19 quetiapine AdvReac Severe Rash Verified 03/14/24 23:20 risperidone AdvReac Severe Hives Verified 03/14/24 23:20 seafood AdvReac Severe Swelling Verified 03/14/24 23:21 shellfish derived AdvReac Severe Swelling Verified 03/14/24 23:21 Uryboiw-ZRX-JhN Reductase AdvReac Severe Swelling Verified 03/14/24 23:22 Inhibitor sucrose [From Questran] AdvReac Severe Hives Verified 03/14/24 23:08 Sulfa (Sulfonamide AdvReac Severe Hives Verified 03/14/24 23:24 Antibiotics) tramadol AdvReac Severe Rash Verified 03/14/24 23:22 wool AdvReac Severe Hives Verified 03/14/24 23:23 Assessment & Plan Assessment & Plan (1) Post traumatic stress disorder (PTSD): Status: Acute Code(s): F43.10 - Post-traumatic stress disorder, unspecified (2) Cognitive disorder: Status: Acute Code(s): F09 - Unspecified mental disorder due to known physiological condition (3) Generalized anxiety disorder: Status: Acute Code(s): F41.1 - Generalized anxiety disorder (4) Suicide attempt by fentanyl overdose: Status: Acute Code(s): T40.412A - Poisoning by fentanyl or fentanyl analogs, intentional self-harm, initial encounter Plan Pt is a 63-year-old female with a PMH significant for?CVA, chronic pain disorder, HLD, ulcerative colitis s/p colectomy with colostomy in place, chronic anemia, and GERD who is admitted to [facility] for increasing paranoia and depression with suicide attempt by overdosing on home meds. Pt was apparently found unconscious in her apartment surrounded by empty morphine bottles, an SI note, and an eviction notice. Pt was emergently intubated and admitted to ICU for 5 days where she was treated for RAKAN and aspiration pneumonia. Also had elevated troponins that were attributed to demand ischemia. Medical consult for admission H&P. Mood disorder Plan as per psychiatry Recent hx of intubation in the ICU Denies difficulty swallowing, no sore throat or SOB Continue albuterol inhaler Peripheral neuropathy of right lower extremity Foot warm, pedal pulses 2+, well perfused No known hx of DM Unclear etiology Consider gabapentin if persistent Right foot wounds Unclear etiology Superficial, healing well No sign of infection No further intervention or workup needed at this time Hx of CVA Continue statin, aspirin Chronic pain disorder Continue fentanyl pathch, po morphine GERD PPI Plan 1. Continue with same treatment. 2. Referral for mammography since the patient found a lump and the hospitalist suggested to do a mammography but she refused the test here. 3. Reassessment results. 4. Continue with Lexapro start Zyprexa 2.5 p.o. q.h.s. on March 20.. She has consistently refused Zyprexa. 5. CT scan was ordered but she refused to have it. 6. Most likely the patient will need guardianship since her [place] is 16/30, her [place] test is 4.4 Reason for continued inpatient stay Substantial Risk for: inability to function, rapid decompensation and med/psych decompensation Time Spent With Patient Time: Total time managing care of this patient today __20__ minutes.
[2024-03-27] MEDS: diphenhydrAMINE HCL 25 MG CAPSULE PO ×2 (11:47→16:38)
[2024-03-27 20:00] VITALS: BP 119/60; PULSE 65; RESP 18; TEMP 36.6; O2SAT 98
[2024-03-28] MEDS: diphenhydrAMINE HCL 25 MG CAPSULE PO (00:32)
[2024-03-28] MEDS: Omeprazole 20 MG CAPSULE.DR PO (06:30)
[2024-03-28] MEDS: Morphine Sulfate Immed Release 15 MG TABLET 30 MG PO ×3 (06:31→23:14)
[2024-03-28 09:49] VITALS: BP 103/53; PULSE 61; RESP 16; TEMP 37.2; O2SAT 93
[2024-03-28] MEDS: Escitalopram Oxalate 5 MG TABLET PO (09:54)
[2024-03-28] MEDS: diphenhydrAMINE HCL 25 MG CAPSULE 50 MG PO ×2 (09:54→20:40)
[2024-03-28] MEDS: diazePAM 5 MG TABLET 10 MG PO ×2 (09:54→20:40)
[2024-03-28] MEDS: fentaNYL 50 MCG PATCH.TD72 TRANSDERMA (09:55)
--- NOTE | 2024-03-28 10:01 | HO.PSYCHPN ---
Subjective Subjective Date of Service: 03/28/24 Reason For Visit: Status post suicide attempt Subjective Notes: Conditional Voluntary Interim History: The nursing staff reported the patient ate lunch and dinner, she did not attend to groups yesterday and the guardianship paper work was already done. Today she attended to groups she looks confused but easily redirectable perseverative on going back to her [place]. At this moment we do not a safe discharge plan. The patient is severely cognitively impaired but she does not have any insight into her condition. Mental Status Exam Mental Status Exam Patient Appearance: Appropriate Patient Orientation: Person and Situation Level of Consciousness: Awake Patient Behavior: Guarded and Passive Mood Description: Withdrawn Affect Description: Constricted Patient Cognition Impaired: Yes Ability to Follow Directions: Good Speech Pattern: Clear Hallucinations: None Delusions: Ideas of Reference Thought Process: Distracted and Slowed Thinking Thought Content: positive for [place] and positive for Poverty of Content Judgement: Fair Diagnostics Vital Signs (24Hr): Vital Signs - 24 hr 03/27/24 20:00 03/28/24 09:49 Temperature 97.8 F 98.9 F Pulse Rate 65 61 Respiratory Rate 18 16 Blood Pressure 119/60 103/53 L Pulse Oximetry 98 93 Oxygen Delivery Method Room Air Room Air BMI result Body Mass Index 27.9 Labs 03/16/24 07:32 Medications Medications Current Medications Al Hydroxide/Mg Hydroxide (Magnesium Hydrox/Alum Hydrox 30 Ml Oral.Susp) 30 ml PO Q6H PRN PRN Reason: Heartburn/Nausea Albuterol Sulfate (Albuterol Sulfate 90 Mcg 8 Gm Inhaler) 2 puff INHALE Q4H PRN PRN Reason: Shortness Of Breath Or Wheezing Last Admin: 03/15/24 20:48 Dose: 2 puff Artificial Tears (Artificial Tears 15 Ml Drops) 1 drop EYE-BOTH DAILY PRN PRN Reason: Dry Eye(S) Diazepam (Diazepam 5 Mg Tablet) 10 mg PO BID [facility] Last Admin: 03/28/24 09:54 Dose: 10 mg Diphenhydramine HCl (Diphenhydramine Hcl 25 Mg Capsule) 25 mg PO Q6H PRN PRN Reason: Anxiety, Itching Last Admin: 03/28/24 00:32 Dose: 25 mg Diphenhydramine HCl (Diphenhydramine Hcl 25 Mg Capsule) 50 mg PO BID [facility] Last Admin: 09/12/24 09:54 Dose: 50 mg Escitalopram Oxalate (Escitalopram Oxalate 5 Mg Tablet) 5 mg PO DAILY [facility] Last Admin: 03/28/24 09:54 Dose: 5 mg Fentanyl (Fentanyl 50 Mcg Patch.Td72) 50 mcg TRANSDERMA Q72H [facility] Last Admin: 03/28/24 09:55 Dose: 50 mcg Ferrous Sulfate (Ferrous Sulfate 324 Mg Tablet.) 324 mg PO Q48H [facility] Last Admin: 03/27/24 08:29 Dose: Not Given Hydrocortisone (Hydrocortisone 1 % Cream 28.35 Gm Tube) 1 appl TOPICAL BID [facility]; Protocol Last Admin: 03/27/24 20:40 Dose: Not Given Magnesium Hydroxide (Milk Of Magnesia 30 Ml Oral.Susp) 30 ml PO DAILY PRN PRN Reason: Constipation Morphine Sulfate (Morphine Sulfate Immed Release 15 Mg Tablet) 30 mg PO Q6H PRN PRN Reason: pain Last Admin: 03/28/24 06:31 Dose: 30 mg Nicotine (Nicotine 21 Mg Patch.Td24) 21 mg TRANSDERMA DAILY PRN PRN Reason: smoking cessation Nicotine Polacrilex (Nicotine Polacrilex 2 Mg Gum) 4 mg BUCCAL Q2H PRN PRN Reason: Nicotine Cravings Olanzapine (Olanzapine 2.5 Mg Tablet) 2.5 mg PO TID PRN PRN Reason: agitation Olanzapine (Olanzapine 2.5 Mg Tablet) 2.5 mg PO BEDTIME [facility] Last Admin: 03/27/24 20:40 Dose: Not Given Omeprazole (Omeprazole 20 Mg Capsule.) 20 mg PO 0630 [facility] Last Admin: 03/28/24 06:30 Dose: 20 mg Trazodone HCl (Trazodone Hcl 50 Mg Tablet) 50 mg PO BEDTIME MRX1 PRN PRN Reason: Insomnia Allergies Allergies Allergy/AdvReac Type Severity Reaction Status Date / Time Egg Derived Allergy Unknown Unknown Verified 03/16/24 15:22 acetaminophen [From Percocet] AdvReac Severe Hives Verified 03/14/24 23:07 alprazolam AdvReac Severe Hives Verified 03/14/24 23:09 atorvastatin AdvReac Severe Hives Verified 03/14/24 23:10 azithromycin AdvReac Severe Swelling Verified 03/14/24 23:11 cholestyramine AdvReac Severe Hives Verified 03/14/24 23:08 [From Questran] ciprofloxacin AdvReac Severe Hives Verified 03/14/24 23:11 codeine AdvReac Severe Hives Verified 03/14/24 23:12 colesevelam AdvReac Severe Hives Verified 03/14/24 23:12 egg AdvReac Severe Hives Verified 03/15/24 01:39 Estrogens AdvReac Severe Swelling Verified 03/14/24 23:13 gemfibrozil AdvReac Severe Hives Verified 03/14/24 23:14 hydrocortisone AdvReac Severe Blurry Verified 03/14/24 23:07 [From Cortenema] Vision hydromorphone [From Dilaudid] AdvReac Severe Swelling Verified 03/14/24 23:13 Iodinated Contrast Media AdvReac Severe Hives Verified 03/14/24 23:14 isoniazid AdvReac Severe Hives Verified 03/14/24 23:15 mercaptopurine AdvReac Severe Vomiting Verified 03/14/24 23:16 methylprednisolone AdvReac Severe Hives Verified 03/14/24 23:16 minocycline AdvReac Severe Hives Verified 03/14/24 23:24 naproxen AdvReac Severe Rash Verified 03/14/24 23:17 oxycodone [From Percocet] AdvReac Severe Hives Verified 03/14/24 23:07 propoxyphene AdvReac Severe Hives Verified 03/14/24 23:19 quetiapine AdvReac Severe Rash Verified 03/14/24 23:20 risperidone AdvReac Severe Hives Verified 03/14/24 23:20 seafood AdvReac Severe Swelling Verified 03/14/24 23:21 shellfish derived AdvReac Severe Swelling Verified 03/14/24 23:21 Zwhykxl-CPK-BeN Reductase AdvReac Severe Swelling Verified 03/14/24 23:22 Inhibitor sucrose [From Questran] AdvReac Severe Hives Verified 03/14/24 23:08 Sulfa (Sulfonamide AdvReac Severe Hives Verified 03/14/24 23:24 Antibiotics) tramadol AdvReac Severe Rash Verified 03/14/24 23:22 wool AdvReac Severe Hives Verified 03/14/24 23:23 Assessment & Plan Assessment & Plan (1) Post traumatic stress disorder (PTSD): Status: Acute Code(s): F43.10 - Post-traumatic stress disorder, unspecified (2) Cognitive disorder: Status: Acute Code(s): F09 - Unspecified mental disorder due to known physiological condition (3) Generalized anxiety disorder: Status: Acute Code(s): F41.1 - Generalized anxiety disorder (4) Suicide attempt by fentanyl overdose: Status: Acute Code(s): T40.412A - Poisoning by fentanyl or fentanyl analogs, intentional self-harm, initial encounter Plan Pt is a 63-year-old female with a PMH significant for?CVA, chronic pain disorder, HLD, ulcerative colitis s/p colectomy with colostomy in place, chronic anemia, and GERD who is admitted to [facility] for increasing paranoia and depression with suicide attempt by overdosing on home meds. Pt was apparently found unconscious in her apartment surrounded by empty morphine bottles, an SI note, and an eviction notice. Pt was emergently intubated and admitted to ICU for 5 days where she was treated for RAKAN and aspiration pneumonia. Also had elevated troponins that were attributed to demand ischemia. Medical consult for admission H&P. Mood disorder Plan as per psychiatry Recent hx of intubation in the ICU Denies difficulty swallowing, no sore throat or SOB Continue albuterol inhaler Peripheral neuropathy of right lower extremity Foot warm, pedal pulses 2+, well perfused No known hx of DM Unclear etiology Consider gabapentin if persistent Right foot wounds Unclear etiology Superficial, healing well No sign of infection No further intervention or workup needed at this time Hx of CVA Continue statin, aspirin Chronic pain disorder Continue fentanyl pathch, po morphine GERD PPI Plan 1. Continue with same treatment. 2. Referral for mammography since the patient found a lump and the hospitalist suggested to do a mammography but she refused the test here. 3. Reassessment results. 4. Continue with Lexapro start Zyprexa 2.5 p.o. q.h.s. on March 20.. She has consistently refused Zyprexa. 5. CT scan was ordered but she refused to have it. 6. Most likely the patient will need guardianship since her [place] is 16/30, her [place] test is 4.4 Reason for continued inpatient stay Substantial Risk for: inability to function, rapid decompensation and med/psych decompensation Time Spent With Patient Time: Total time managing care of this patient today __20__ minutes.
[2024-03-28 10:10] VITALS: BMI 28.4
--- NOTE | 2024-03-28 11:47 | PC.NURSE ---
Old fentanyl patch wasted with Mickey Willis RN at 10:00
[2024-03-28] MEDS: Hydrocortisone 1 % Cream 28.35 GM TUBE 1 APPL TOPICAL (12:12)
[2024-03-28 20:00] VITALS: BP 120/58; PULSE 69; RESP 16; TEMP 36.6; O2SAT 96
[2024-03-29] MEDS: Hydrocortisone 1 % Cream 28.35 GM TUBE 1 APPL TOPICAL (02:39)
[2024-03-29] MEDS: Omeprazole 20 MG CAPSULE.DR PO (05:37)
[2024-03-29] MEDS: diphenhydrAMINE HCL 25 MG CAPSULE 50 MG PO ×3 (05:38→21:05)
[2024-03-29] MEDS: Morphine Sulfate Immed Release 15 MG TABLET 30 MG PO ×3 (05:38→23:41)
--- NOTE | 2024-03-29 08:39 | P.PNPSI_ITS ---
Subjective Subjective Date of Service: 03/29/24 Reason For Visit: Status post suicide attempt Subjective Notes: Conditional Voluntary Interim History: pt slept 6hrs. She reports mood is better and continues to denied SI/HI. No overt VH/AH. She asks about her belonging and paying rent for storage. Pt informed KHLOE Phillips will assist with this. She has been visible on the unit. No behavioral concerns. continues to decline olanzapine. Diagnostics Vital Signs (24Hr): Vital Signs - 24 hr 03/28/24 09:49 03/28/24 20:00 Temperature 98.9 F 97.8 F Pulse Rate 61 69 Respiratory Rate 16 16 Blood Pressure 103/53 L 120/58 L Pulse Oximetry 93 96 Oxygen Delivery Method Room Air Room Air BMI result Body Mass Index 28.4 Labs 03/16/24 07:32 Medications Medications Current Medications Al Hydroxide/Mg Hydroxide (Magnesium Hydrox/Alum Hydrox 30 Ml Oral.Susp) 30 ml PO Q6H PRN PRN Reason: Heartburn/Nausea Albuterol Sulfate (Albuterol Sulfate 90 Mcg 8 Gm Inhaler) 2 puff INHALE Q4H PRN PRN Reason: Shortness Of Breath Or Wheezing Last Admin: 03/15/24 20:48 Dose: 2 puff Artificial Tears (Artificial Tears 15 Ml Drops) 1 drop EYE-BOTH DAILY PRN PRN Reason: Dry Eye(S) Diazepam (Diazepam 5 Mg Tablet) 10 mg PO BID [facility] Last Admin: 03/28/24 20:40 Dose: 10 mg Diphenhydramine HCl (Diphenhydramine Hcl 25 Mg Capsule) 25 mg PO Q6H PRN PRN Reason: Anxiety, Itching Last Admin: 03/28/24 00:32 Dose: 25 mg Diphenhydramine HCl (Diphenhydramine Hcl 25 Mg Capsule) 50 mg PO BID [facility] Last Admin: 03/29/24 05:38 Dose: 50 mg Escitalopram Oxalate (Escitalopram Oxalate 5 Mg Tablet) 5 mg PO DAILY [facility] Last Admin: 03/28/24 09:54 Dose: 5 mg Fentanyl (Fentanyl 50 Mcg Patch.Td72) 50 mcg TRANSDERMA Q72H [facility] Last Admin: 03/28/24 09:55 Dose: 50 mcg Ferrous Sulfate (Ferrous Sulfate 324 Mg Tablet.Dr) 324 mg PO Q48H [facility] Last Admin: 03/27/24 08:29 Dose: Not Given Hydrocortisone (Hydrocortisone 1 % Cream 28.35 Gm Tube) 1 appl TOPICAL BID [facility]; Protocol Last Admin: 03/29/24 02:39 Dose: 1 appl Magnesium Hydroxide (Milk Of Magnesia 30 Ml Oral.Susp) 30 ml PO DAILY PRN PRN Reason: Constipation Morphine Sulfate (Morphine Sulfate Immed Release 15 Mg Tablet) 30 mg PO Q6H PRN PRN Reason: pain Last Admin: 03/29/24 05:38 Dose: 30 mg Nicotine (Nicotine 21 Mg Patch.Td24) 21 mg TRANSDERMA DAILY PRN PRN Reason: smoking cessation Nicotine Polacrilex (Nicotine Polacrilex 2 Mg Gum) 4 mg BUCCAL Q2H PRN PRN Reason: Nicotine Cravings Olanzapine (Olanzapine 2.5 Mg Tablet) 2.5 mg PO TID PRN PRN Reason: agitation Olanzapine (Olanzapine 2.5 Mg Tablet) 2.5 mg PO BEDTIME [facility] Last Admin: 03/28/24 20:42 Dose: Not Given Omeprazole (Omeprazole 20 Mg Capsule.Dr) 20 mg PO 0630 [facility] Last Admin: 03/29/24 05:37 Dose: 20 mg Trazodone HCl (Trazodone Hcl 50 Mg Tablet) 50 mg PO BEDTIME MRX1 PRN PRN Reason: Insomnia Allergies Allergies Allergy/AdvReac Type Severity Reaction Status Date / Time Egg Derived Allergy Unknown Unknown Verified 03/16/24 15:22 acetaminophen [From Percocet] AdvReac Severe Hives Verified 03/14/24 23:07 alprazolam AdvReac Severe Hives Verified 03/14/24 23:09 atorvastatin AdvReac Severe Hives Verified 03/14/24 23:10 azithromycin AdvReac Severe Swelling Verified 03/14/24 23:11 cholestyramine AdvReac Severe Hives Verified 03/14/24 23:08 [From Questran] ciprofloxacin AdvReac Severe Hives Verified 03/14/24 23:11 codeine AdvReac Severe Hives Verified 03/14/24 23:12 colesevelam AdvReac Severe Hives Verified 03/14/24 23:12 egg AdvReac Severe Hives Verified 03/15/24 01:39 Estrogens AdvReac Severe Swelling Verified 03/14/24 23:13 gemfibrozil AdvReac Severe Hives Verified 03/14/24 23:14 hydrocortisone AdvReac Severe Blurry Verified 03/14/24 23:07 [From Cortenema] Vision hydromorphone [From Dilaudid] AdvReac Severe Swelling Verified 03/14/24 23:13 Iodinated Contrast Media AdvReac Severe Hives Verified 03/14/24 23:14 isoniazid AdvReac Severe Hives Verified 03/14/24 23:15 mercaptopurine AdvReac Severe Vomiting Verified 03/14/24 23:16 methylprednisolone AdvReac Severe Hives Verified 03/14/24 23:16 minocycline AdvReac Severe Hives Verified 03/14/24 23:24 naproxen AdvReac Severe Rash Verified 03/14/24 23:17 oxycodone [From Percocet] AdvReac Severe Hives Verified 03/14/24 23:07 propoxyphene AdvReac Severe Hives Verified 03/14/24 23:19 quetiapine AdvReac Severe Rash Verified 03/14/24 23:20 risperidone AdvReac Severe Hives Verified 03/14/24 23:20 seafood AdvReac Severe Swelling Verified 03/14/24 23:21 shellfish derived AdvReac Severe Swelling Verified 03/14/24 23:21 Wljsdag-HXN-CeA Reductase AdvReac Severe Swelling Verified 03/14/24 23:22 Inhibitor sucrose [From Questran] AdvReac Severe Hives Verified 03/14/24 23:08 Sulfa (Sulfonamide AdvReac Severe Hives Verified 03/14/24 23:24 Antibiotics) tramadol AdvReac Severe Rash Verified 03/14/24 23:22 wool AdvReac Severe Hives Verified 03/14/24 23:23 Assessment & Plan Assessment & Plan (1) Post traumatic stress disorder (PTSD): Status: Acute Code(s): F43.10 - Post-traumatic stress disorder, unspecified (2) Cognitive disorder: Status: Acute Code(s): F09 - Unspecified mental disorder due to known physiological condition (3) Generalized anxiety disorder: Status: Acute Code(s): F41.1 - Generalized anxiety disorder (4) Suicide attempt by fentanyl overdose: Status: Acute Code(s): T40.412A - Poisoning by fentanyl or fentanyl analogs, intentional self-harm, initial encounter Plan Pt is a 63-year-old female with a PMH significant for?CVA, chronic pain disorder, HLD, ulcerative colitis s/p colectomy with colostomy in place, chronic anemia, and GERD who is admitted to [facility] for increasing paranoia and depression with suicide attempt by overdosing on home meds. Pt was apparently found unconscious in her apartment surrounded by empty morphine bottles, an SI note, and an eviction notice. Pt was emergently intubated and admitted to ICU for 5 days where she was treated for RAKAN and aspiration pneumonia. Also had elevated troponins that were attributed to demand ischemia. Medical consult for admission H&P. Mood disorder Plan as per psychiatry Recent hx of intubation in the ICU Denies difficulty swallowing, no sore throat or SOB Continue albuterol inhaler Peripheral neuropathy of right lower extremity Foot warm, pedal pulses 2+, well perfused No known hx of DM Unclear etiology Consider gabapentin if persistent Right foot wounds Unclear etiology Superficial, healing well No sign of infection No further intervention or workup needed at this time Hx of CVA Continue statin, aspirin Chronic pain disorder Continue fentanyl pathch, po morphine GERD PPI Plan 03/29 continue tx. Reason for continued inpatient stay Substantial Risk for: inability to function Time Spent With Patient Time: Total time managing care of this patient today ____ minutes.
[2024-03-29 09:56] VITALS: BP 114/58; PULSE 75; RESP 18; TEMP 36.3; O2SAT 97
[2024-03-29] MEDS: Escitalopram Oxalate 5 MG TABLET PO (09:57)
[2024-03-29] MEDS: diazePAM 5 MG TABLET 10 MG PO ×2 (10:20→21:05)
[2024-03-29 20:00] VITALS: BP 115/59; PULSE 60; RESP 18; TEMP 36.8; O2SAT 98
[2024-03-29] MEDS: diphenhydrAMINE HCL 25 MG CAPSULE PO (23:41)
[2024-03-30] MEDS: Omeprazole 20 MG CAPSULE.DR PO (06:10)
[2024-03-30] MEDS: diphenhydrAMINE HCL 25 MG CAPSULE 50 MG PO ×2 (06:14→21:27)
[2024-03-30 09:10] VITALS: BP 110/55; PULSE 58; RESP 16; TEMP 36.2; O2SAT 93
[2024-03-30] MEDS: Escitalopram Oxalate 5 MG TABLET PO (09:12)
[2024-03-30] MEDS: diazePAM 5 MG TABLET 10 MG PO ×2 (09:12→21:24)
[2024-03-30] MEDS: Morphine Sulfate Immed Release 15 MG TABLET 30 MG PO ×2 (09:13→21:24)
--- NOTE | 2024-03-30 09:24 | P.PNPSI_ITS ---
Subjective Subjective Date of Service: 03/30/24 Reason For Visit: Status post suicide attempt Subjective Notes: Conditional Voluntary Interim History: pt slept all night. She denies SI/HI. She reports she is concern about landlord asking for full rent for mostly storage, when she is not able to return there. She has some questions for SW regarding this and placement. She is visible on the unit. No behavioral concerns. No overt psychosis or delusions. Review of Systems Review of Systems L breast lump-identified to team 03/17/24 evening. Mental Status Exam Mental Status Exam Patient Appearance: Appropriate Patient Orientation: Person and Situation Level of Consciousness: Awake Patient Behavior: Guarded and Passive Mood Description: Withdrawn Affect Description: Constricted Patient Cognition Impaired: Yes Ability to Follow Directions: Good Speech Pattern: Clear Memory Description: Intact Diagnostics Vital Signs (24Hr): Vital Signs - 24 hr 03/29/24 09:56 03/29/24 20:00 03/30/24 09:10 Temperature 97.4 F 98.3 F 97.1 F Pulse Rate 75 60 58 Respiratory Rate 18 18 16 Blood Pressure 114/58 L 115/59 L 110/55 L Pulse Oximetry 97 98 93 Oxygen Delivery Method Room Air Room Air Room Air BMI result Body Mass Index 28.4 Labs 03/16/24 07:32 Medications Medications Current Medications Al Hydroxide/Mg Hydroxide (Magnesium Hydrox/Alum Hydrox 30 Ml Oral.Susp) 30 ml PO Q6H PRN PRN Reason: Heartburn/Nausea Albuterol Sulfate (Albuterol Sulfate 90 Mcg 8 Gm Inhaler) 2 puff INHALE Q4H PRN PRN Reason: Shortness Of Breath Or Wheezing Last Admin: 03/15/24 20:48 Dose: 2 puff Artificial Tears (Artificial Tears 15 Ml Drops) 1 drop EYE-BOTH DAILY PRN PRN Reason: Dry Eye(S) Diazepam (Diazepam 5 Mg Tablet) 10 mg PO BID [facility] Last Admin: 03/30/24 09:12 Dose: 10 mg Diphenhydramine HCl (Diphenhydramine Hcl 25 Mg Capsule) 25 mg PO Q6H PRN PRN Reason: Anxiety, Itching Last Admin: 03/29/24 23:41 Dose: 25 mg Diphenhydramine HCl (Diphenhydramine Hcl 25 Mg Capsule) 50 mg PO BID [facility] Last Admin: 03/30/24 06:14 Dose: 50 mg Escitalopram Oxalate (Escitalopram Oxalate 5 Mg Tablet) 5 mg PO DAILY [facility] Last Admin: 03/30/24 09:12 Dose: 5 mg Fentanyl (Fentanyl 50 Mcg Patch.Td72) 50 mcg TRANSDERMA Q72H [facility] Last Admin: 03/28/24 09:55 Dose: 50 mcg Ferrous Sulfate (Ferrous Sulfate 324 Mg Tablet.) 324 mg PO Q48H [facility] Last Admin: 03/29/24 09:57 Dose: Not Given Hydrocortisone (Hydrocortisone 1 % Cream 28.35 Gm Tube) 1 appl TOPICAL BID [facility]; Protocol Last Admin: 03/30/24 09:13 Dose: Not Given Magnesium Hydroxide (Milk Of Magnesia 30 Ml Oral.Susp) 30 ml PO DAILY PRN PRN Reason: Constipation Morphine Sulfate (Morphine Sulfate Immed Release 15 Mg Tablet) 30 mg PO Q6H PRN PRN Reason: pain Last Admin: 03/30/24 09:13 Dose: 30 mg Nicotine (Nicotine 21 Mg Patch.Td24) 21 mg TRANSDERMA DAILY PRN PRN Reason: smoking cessation Nicotine Polacrilex (Nicotine Polacrilex 2 Mg Gum) 4 mg BUCCAL Q2H PRN PRN Reason: Nicotine Cravings Olanzapine (Olanzapine 2.5 Mg Tablet) 2.5 mg PO TID PRN PRN Reason: agitation Olanzapine (Olanzapine 2.5 Mg Tablet) 2.5 mg PO BEDTIME [facility] Last Admin: 03/29/24 21:52 Dose: Not Given Omeprazole (Omeprazole 20 Mg Capsule.) 20 mg PO 0630 [facility] Last Admin: 03/30/24 06:10 Dose: 20 mg Trazodone HCl (Trazodone Hcl 50 Mg Tablet) 50 mg PO BEDTIME MRX1 PRN PRN Reason: Insomnia Allergies Allergies Allergy/AdvReac Type Severity Reaction Status Date / Time Egg Derived Allergy Unknown Unknown Verified 03/16/24 15:22 acetaminophen [From Percocet] AdvReac Severe Hives Verified 03/14/24 23:07 alprazolam AdvReac Severe Hives Verified 03/14/24 23:09 atorvastatin AdvReac Severe Hives Verified 03/14/24 23:10 azithromycin AdvReac Severe Swelling Verified 03/14/24 23:11 cholestyramine AdvReac Severe Hives Verified 03/14/24 23:08 [From Questran] ciprofloxacin AdvReac Severe Hives Verified 03/14/24 23:11 codeine AdvReac Severe Hives Verified 03/14/24 23:12 colesevelam AdvReac Severe Hives Verified 03/14/24 23:12 egg AdvReac Severe Hives Verified 03/15/24 01:39 Estrogens AdvReac Severe Swelling Verified 03/14/24 23:13 gemfibrozil AdvReac Severe Hives Verified 03/14/24 23:14 hydrocortisone AdvReac Severe Blurry Verified 03/14/24 23:07 [From Cortenema] Vision hydromorphone [From Dilaudid] AdvReac Severe Swelling Verified 03/14/24 23:13 Iodinated Contrast Media AdvReac Severe Hives Verified 03/14/24 23:14 isoniazid AdvReac Severe Hives Verified 03/14/24 23:15 mercaptopurine AdvReac Severe Vomiting Verified 03/14/24 23:16 methylprednisolone AdvReac Severe Hives Verified 03/14/24 23:16 minocycline AdvReac Severe Hives Verified 03/14/24 23:24 naproxen AdvReac Severe Rash Verified 03/14/24 23:17 oxycodone [From Percocet] AdvReac Severe Hives Verified 03/14/24 23:07 propoxyphene AdvReac Severe Hives Verified 03/14/24 23:19 quetiapine AdvReac Severe Rash Verified 03/14/24 23:20 risperidone AdvReac Severe Hives Verified 03/14/24 23:20 seafood AdvReac Severe Swelling Verified 03/14/24 23:21 shellfish derived AdvReac Severe Swelling Verified 03/14/24 23:21 [id number] Reductase AdvReac Severe Swelling Verified 03/14/24 23:22 Inhibitor sucrose [From Questran] AdvReac Severe Hives Verified 03/14/24 23:08 Sulfa (Sulfonamide AdvReac Severe Hives Verified 03/14/24 23:24 Antibiotics) tramadol AdvReac Severe Rash Verified 03/14/24 23:22 wool AdvReac Severe Hives Verified 03/14/24 23:23 Assessment & Plan Assessment & Plan (1) Post traumatic stress disorder (PTSD): Status: Acute Code(s): F43.10 - Post-traumatic stress disorder, unspecified (2) Cognitive disorder: Status: Acute Code(s): F09 - Unspecified mental disorder due to known physiological condition (3) Generalized anxiety disorder: Status: Acute Code(s): F41.1 - Generalized anxiety disorder (4) Suicide attempt by fentanyl overdose: Status: Acute Code(s): T40.412A - Poisoning by fentanyl or fentanyl analogs, intentional self-harm, initial encounter Plan Pt is a 63-year-old female with a PMH significant for?CVA, chronic pain disorder, HLD, ulcerative colitis s/p colectomy with colostomy in place, chronic anemia, and GERD who is admitted to [facility] for increasing paranoia and depression with suicide attempt by overdosing on home meds. Pt was apparently found unconscious in her apartment surrounded by empty morphine bottles, an SI note, and an eviction notice. Pt was emergently intubated and admitted to ICU for 5 days where she was treated for RAKAN and aspiration pneumonia. Also had elevated troponins that were attributed to demand ischemia. Medical consult for admission H&P. Mood disorder Plan as per psychiatry Recent hx of intubation in the ICU Denies difficulty swallowing, no sore throat or SOB Continue albuterol inhaler Peripheral neuropathy of right lower extremity Foot warm, pedal pulses 2+, well perfused No known hx of DM Unclear etiology Consider gabapentin if persistent Right foot wounds Unclear etiology Superficial, healing well No sign of infection No further intervention or workup needed at this time Hx of CVA Continue statin, aspirin Chronic pain disorder Continue fentanyl pathch, po morphine GERD PPI Plan 03/29 continue tx. 03/30 continue tx. Reason for continued inpatient stay Substantial Risk for: inability to function Time Spent With Patient Time: Total time managing care of this patient today ____ minutes.
[2024-03-30] MEDS: diphenhydrAMINE HCL 25 MG CAPSULE PO (13:00)
[2024-03-30 20:00] VITALS: BP 108/55; PULSE 62; RESP 16; TEMP 36.9; O2SAT 96
[2024-03-31] MEDS: Omeprazole 20 MG CAPSULE.DR PO (05:46)
[2024-03-31] MEDS: Morphine Sulfate Immed Release 15 MG TABLET 30 MG PO ×3 (05:47→21:01)
[2024-03-31] MEDS: diphenhydrAMINE HCL 25 MG CAPSULE 50 MG PO ×2 (05:47→21:02)
[2024-03-31 08:10] VITALS: BP 122/56; PULSE 61; RESP 18; TEMP 36.1; O2SAT 97
[2024-03-31] MEDS: fentaNYL 50 MCG PATCH.TD72 TRANSDERMA (08:29)
[2024-03-31] MEDS: diazePAM 5 MG TABLET 10 MG PO ×2 (08:29→21:01)
[2024-03-31] MEDS: Escitalopram Oxalate 5 MG TABLET PO (08:29)
--- NOTE | 2024-03-31 11:33 | HO.PSYCHPN ---
Subjective Subjective Date of Service: 03/31/24 Reason For Visit: Status post suicide attempt Subjective Notes: Conditional Voluntary Interim History: pt slept all night. She denies SI/HI. She has concerns to discuss with SW. Otherwise doing well here on the unit. No behavioral concerns. She has gone to some groups. Review of Systems Review of Systems L breast lump-identified to team 03/17/24 evening. Mental Status Exam Mental Status Exam Patient Appearance: Appropriate Patient Orientation: Person and Situation Level of Consciousness: Awake Patient Behavior: Guarded and Passive Mood Description: Withdrawn Affect Description: Constricted Patient Cognition Impaired: Yes Ability to Follow Directions: Good Speech Pattern: Clear Memory Description: Intact Diagnostics Vital Signs (24Hr): Vital Signs - 24 hr 03/30/24 20:00 03/31/24 08:10 Temperature 98.4 F 96.9 F Pulse Rate 62 61 Respiratory Rate 16 18 Blood Pressure 108/55 L 122/56 L Pulse Oximetry 96 97 Oxygen Delivery Method Room Air Room Air BMI result Body Mass Index 28.4 Labs 03/16/24 07:32 Medications Medications Current Medications Al Hydroxide/Mg Hydroxide (Magnesium Hydrox/Alum Hydrox 30 Ml Oral.Susp) 30 ml PO Q6H PRN PRN Reason: Heartburn/Nausea Albuterol Sulfate (Albuterol Sulfate 90 Mcg 8 Gm Inhaler) 2 puff INHALE Q4H PRN PRN Reason: Shortness Of Breath Or Wheezing Last Admin: 03/15/24 20:48 Dose: 2 puff Artificial Tears (Artificial Tears 15 Ml Drops) 1 drop EYE-BOTH DAILY PRN PRN Reason: Dry Eye(S) Diazepam (Diazepam 5 Mg Tablet) 10 mg PO BID [facility] Last Admin: 03/31/24 08:29 Dose: 10 mg Diphenhydramine HCl (Diphenhydramine Hcl 25 Mg Capsule) 25 mg PO Q6H PRN PRN Reason: Anxiety, Itching Last Admin: 03/30/24 13:00 Dose: 25 mg Diphenhydramine HCl (Diphenhydramine Hcl 25 Mg Capsule) 50 mg PO BID [facility] Last Admin: 03/31/24 05:47 Dose: 50 mg Escitalopram Oxalate (Escitalopram Oxalate 5 Mg Tablet) 5 mg PO DAILY [facility] Last Admin: 03/31/24 08:29 Dose: 5 mg Fentanyl (Fentanyl 50 Mcg Patch.Td72) 50 mcg TRANSDERMA Q72H [facility] Last Admin: 03/31/24 08:29 Dose: 50 mcg Ferrous Sulfate (Ferrous Sulfate 324 Mg Tablet.Dr) 324 mg PO Q48H [facility] Last Admin: 03/31/24 08:31 Dose: Not Given Hydrocortisone (Hydrocortisone 1 % Cream 28.35 Gm Tube) 1 appl TOPICAL BID [facility]; Protocol Last Admin: 03/31/24 08:31 Dose: Not Given Magnesium Hydroxide (Milk Of Magnesia 30 Ml Oral.Susp) 30 ml PO DAILY PRN PRN Reason: Constipation Morphine Sulfate (Morphine Sulfate Immed Release 15 Mg Tablet) 30 mg PO Q6H PRN PRN Reason: pain Last Admin: 03/31/24 05:47 Dose: 30 mg Nicotine (Nicotine 21 Mg Patch.Td24) 21 mg TRANSDERMA DAILY PRN PRN Reason: smoking cessation Nicotine Polacrilex (Nicotine Polacrilex 2 Mg Gum) 4 mg BUCCAL Q2H PRN PRN Reason: Nicotine Cravings Olanzapine (Olanzapine 2.5 Mg Tablet) 2.5 mg PO TID PRN PRN Reason: agitation Olanzapine (Olanzapine 2.5 Mg Tablet) 2.5 mg PO BEDTIME [facility] Last Admin: 03/30/24 21:29 Dose: Not Given Omeprazole (Omeprazole 20 Mg Capsule.Dr) 20 mg PO 0630 [facility] Last Admin: 03/31/24 05:46 Dose: 20 mg Trazodone HCl (Trazodone Hcl 50 Mg Tablet) 50 mg PO BEDTIME MRX1 PRN PRN Reason: Insomnia Allergies Allergies Allergy/AdvReac Type Severity Reaction Status Date / Time Egg Derived Allergy Unknown Unknown Verified 03/16/24 15:22 acetaminophen [From Percocet] AdvReac Severe Hives Verified 03/14/24 23:07 alprazolam AdvReac Severe Hives Verified 03/14/24 23:09 atorvastatin AdvReac Severe Hives Verified 03/14/24 23:10 azithromycin AdvReac Severe Swelling Verified 03/14/24 23:11 cholestyramine AdvReac Severe Hives Verified 03/14/24 23:08 [From Questran] ciprofloxacin AdvReac Severe Hives Verified 03/14/24 23:11 codeine AdvReac Severe Hives Verified 03/14/24 23:12 colesevelam AdvReac Severe Hives Verified 03/14/24 23:12 egg AdvReac Severe Hives Verified 03/15/24 01:39 Estrogens AdvReac Severe Swelling Verified 03/14/24 23:13 gemfibrozil AdvReac Severe Hives Verified 03/14/24 23:14 hydrocortisone AdvReac Severe Blurry Verified 03/14/24 23:07 [From Cortenema] Vision hydromorphone [From Dilaudid] AdvReac Severe Swelling Verified 03/14/24 23:13 Iodinated Contrast Media AdvReac Severe Hives Verified 03/14/24 23:14 isoniazid AdvReac Severe Hives Verified 03/14/24 23:15 mercaptopurine AdvReac Severe Vomiting Verified 03/14/24 23:16 methylprednisolone AdvReac Severe Hives Verified 03/14/24 23:16 minocycline AdvReac Severe Hives Verified 03/14/24 23:24 naproxen AdvReac Severe Rash Verified 03/14/24 23:17 oxycodone [From Percocet] AdvReac Severe Hives Verified 03/14/24 23:07 propoxyphene AdvReac Severe Hives Verified 03/14/24 23:19 quetiapine AdvReac Severe Rash Verified 03/14/24 23:20 risperidone AdvReac Severe Hives Verified 03/14/24 23:20 seafood AdvReac Severe Swelling Verified 03/14/24 23:21 shellfish derived AdvReac Severe Swelling Verified 03/14/24 23:21 Dzasfri-BBC-[id number] Reductase AdvReac Severe Swelling Verified 03/14/24 23:22 Inhibitor sucrose [From Questran] AdvReac Severe Hives Verified 03/14/24 23:08 Sulfa (Sulfonamide AdvReac Severe Hives Verified 03/14/24 23:24 Antibiotics) tramadol AdvReac Severe Rash Verified 03/14/24 23:22 wool AdvReac Severe Hives Verified 03/14/24 23:23 Assessment & Plan Assessment & Plan (1) Post traumatic stress disorder (PTSD): Status: Acute Code(s): F43.10 - Post-traumatic stress disorder, unspecified (2) Cognitive disorder: Status: Acute Code(s): F09 - Unspecified mental disorder due to known physiological condition (3) Generalized anxiety disorder: Status: Acute Code(s): F41.1 - Generalized anxiety disorder (4) Suicide attempt by fentanyl overdose: Status: Acute Code(s): T40.412A - Poisoning by fentanyl or fentanyl analogs, intentional self-harm, initial encounter Plan Pt is a 63-year-old female with a PMH significant for?CVA, chronic pain disorder, HLD, ulcerative colitis s/p colectomy with colostomy in place, chronic anemia, and GERD who is admitted to [facility] for increasing paranoia and depression with suicide attempt by overdosing on home meds. Pt was apparently found unconscious in her apartment surrounded by empty morphine bottles, an SI note, and an eviction notice. Pt was emergently intubated and admitted to ICU for 5 days where she was treated for RAKAN and aspiration pneumonia. Also had elevated troponins that were attributed to demand ischemia. Medical consult for admission H&P. Mood disorder Plan as per psychiatry Recent hx of intubation in the ICU Denies difficulty swallowing, no sore throat or SOB Continue albuterol inhaler Peripheral neuropathy of right lower extremity Foot warm, pedal pulses 2+, well perfused No known hx of DM Unclear etiology Consider gabapentin if persistent Right foot wounds Unclear etiology Superficial, healing well No sign of infection No further intervention or workup needed at this time Hx of CVA Continue statin, aspirin Chronic pain disorder Continue fentanyl pathch, po morphine GERD PPI Plan 03/29 continue tx. 03/30 continue tx. 03/31 continue tx. Reason for continued inpatient stay Substantial Risk for: inability to function Time Spent With Patient Time: Total time managing care of this patient today ____ minutes.
[2024-03-31] MEDS: diphenhydrAMINE HCL 25 MG CAPSULE PO (15:18)
[2024-03-31 20:00] VITALS: BP 117/55; PULSE 81; RESP 16; TEMP 36.6; O2SAT 96
[2024-03-31] MEDS: Hydrocortisone 1 % Cream 28.35 GM TUBE 1 APPL TOPICAL (21:05)
[2024-04-01] MEDS: diphenhydrAMINE HCL 25 MG CAPSULE PO ×3 (02:08→12:30)
[2024-04-01] MEDS: Morphine Sulfate Immed Release 15 MG TABLET 30 MG PO ×3 (02:58→20:51)
[2024-04-01] MEDS: Omeprazole 20 MG CAPSULE.DR PO (06:09)
[2024-04-01 09:11] VITALS: BP 102/58; PULSE 59; RESP 15; TEMP 36.8; O2SAT 94
[2024-04-01] MEDS: diphenhydrAMINE HCL 25 MG CAPSULE 50 MG PO ×2 (09:13→20:08)
[2024-04-01] MEDS: Escitalopram Oxalate 5 MG TABLET PO (09:13)
[2024-04-01] MEDS: diazePAM 5 MG TABLET 10 MG PO ×2 (09:13→20:08)
--- NOTE | 2024-04-01 11:31 | HO.PSYCHPN ---
Subjective Subjective Date of Service: 04/01/24 Reason For Visit: Status post suicide attempt Subjective Notes: Conditional Voluntary Interim History: The nursing staff reported the patient has been socializing with peers perseverative and intrusive at times but easily redirectable. She slept 6 hours. We have filed for guardianship since the patient does not have social support and she is unable to understand or process her situation. On interview the patient denies new symptoms, she still refused her Zyprexa. She was seen writing continuously in the paper block. Mental Status Exam Mental Status Exam Patient Appearance: Appropriate Patient Orientation: Person and Situation Level of Consciousness: Awake and Appropriate Patient Behavior: Guarded and Passive Mood Description: Withdrawn Affect Description: Constricted Patient Cognition Impaired: Yes Ability to Follow Directions: Good Speech Pattern: Clear Hallucinations: None Delusions: Ideas of Reference Thought Process: Distracted and Slowed Thinking Thought Content: positive for [place], positive for Poverty of Content and positive for Thought Blocking Judgement: Poor Diagnostics Vital Signs (24Hr): Vital Signs - 24 hr 03/31/24 20:00 04/01/24 09:11 Temperature 97.9 F 98.2 F Pulse Rate 81 59 Respiratory Rate 16 15 Blood Pressure 117/55 L 102/58 L Pulse Oximetry 96 94 Oxygen Delivery Method Room Air Room Air BMI result Body Mass Index 28.4 Labs 03/16/24 07:32 Medications Medications Current Medications Al Hydroxide/Mg Hydroxide (Magnesium Hydrox/Alum Hydrox 30 Ml Oral.Susp) 30 ml PO Q6H PRN PRN Reason: Heartburn/Nausea Albuterol Sulfate (Albuterol Sulfate 90 Mcg 8 Gm Inhaler) 2 puff INHALE Q4H PRN PRN Reason: Shortness Of Breath Or Wheezing Last Admin: 03/15/24 20:48 Dose: 2 puff Artificial Tears (Artificial Tears 15 Ml Drops) 1 drop EYE-BOTH DAILY PRN PRN Reason: Dry Eye(S) Diazepam (Diazepam 5 Mg Tablet) 10 mg PO BID [facility] Last Admin: 04/01/24 09:13 Dose: 10 mg Diphenhydramine HCl (Diphenhydramine Hcl 25 Mg Capsule) 25 mg PO Q6H PRN PRN Reason: Anxiety, Itching Last Admin: 04/01/24 06:13 Dose: 25 mg Diphenhydramine HCl (Diphenhydramine Hcl 25 Mg Capsule) 50 mg PO BID [facility] Last Admin: 04/01/24 09:13 Dose: 50 mg Escitalopram Oxalate (Escitalopram Oxalate 5 Mg Tablet) 5 mg PO DAILY [facility] Last Admin: 04/01/24 09:13 Dose: 5 mg Fentanyl (Fentanyl 50 Mcg Patch.Td72) 50 mcg TRANSDERMA Q72H [facility] Last Admin: 03/31/24 08:29 Dose: 50 mcg Ferrous Sulfate (Ferrous Sulfate 324 Mg Tablet.) 324 mg PO Q48H [facility] Last Admin: 03/31/24 08:31 Dose: Not Given Hydrocortisone (Hydrocortisone 1 % Cream 28.35 Gm Tube) 1 appl TOPICAL BID [facility]; Protocol Last Admin: 04/01/24 10:02 Dose: Not Given Magnesium Hydroxide (Milk Of Magnesia 30 Ml Oral.Susp) 30 ml PO DAILY PRN PRN Reason: Constipation Morphine Sulfate (Morphine Sulfate Immed Release 15 Mg Tablet) 30 mg PO Q6H PRN PRN Reason: pain Last Admin: 04/01/24 02:58 Dose: 30 mg Nicotine (Nicotine 21 Mg Patch.Td24) 21 mg TRANSDERMA DAILY PRN PRN Reason: smoking cessation Nicotine Polacrilex (Nicotine Polacrilex 2 Mg Gum) 4 mg BUCCAL Q2H PRN PRN Reason: Nicotine Cravings Olanzapine (Olanzapine 2.5 Mg Tablet) 2.5 mg PO TID PRN PRN Reason: agitation Olanzapine (Olanzapine 2.5 Mg Tablet) 2.5 mg PO BEDTIME [facility] Last Admin: 03/31/24 23:02 Dose: Not Given Omeprazole (Omeprazole 20 Mg Capsule.) 20 mg PO 0630 [facility] Last Admin: 04/01/24 06:09 Dose: 20 mg Trazodone HCl (Trazodone Hcl 50 Mg Tablet) 50 mg PO BEDTIME MRX1 PRN PRN Reason: Insomnia Allergies Allergies Allergy/AdvReac Type Severity Reaction Status Date / Time Egg Derived Allergy Unknown Unknown Verified 03/16/24 15:22 acetaminophen [From Percocet] AdvReac Severe Hives Verified 03/14/24 23:07 alprazolam AdvReac Severe Hives Verified 03/14/24 23:09 atorvastatin AdvReac Severe Hives Verified 03/14/24 23:10 azithromycin AdvReac Severe Swelling Verified 03/14/24 23:11 cholestyramine AdvReac Severe Hives Verified 03/14/24 23:08 [From Questran] ciprofloxacin AdvReac Severe Hives Verified 03/14/24 23:11 codeine AdvReac Severe Hives Verified 03/14/24 23:12 colesevelam AdvReac Severe Hives Verified 03/14/24 23:12 egg AdvReac Severe Hives Verified 03/15/24 01:39 Estrogens AdvReac Severe Swelling Verified 03/14/24 23:13 gemfibrozil AdvReac Severe Hives Verified 03/14/24 23:14 hydrocortisone AdvReac Severe Blurry Verified 03/14/24 23:07 [From Cortenema] Vision hydromorphone [From Dilaudid] AdvReac Severe Swelling Verified 03/14/24 23:13 Iodinated Contrast Media AdvReac Severe Hives Verified 03/14/24 23:14 isoniazid AdvReac Severe Hives Verified 03/14/24 23:15 mercaptopurine AdvReac Severe Vomiting Verified 03/14/24 23:16 methylprednisolone AdvReac Severe Hives Verified 03/14/24 23:16 minocycline AdvReac Severe Hives Verified 03/14/24 23:24 naproxen AdvReac Severe Rash Verified 03/14/24 23:17 oxycodone [From Percocet] AdvReac Severe Hives Verified 03/14/24 23:07 propoxyphene AdvReac Severe Hives Verified 03/14/24 23:19 quetiapine AdvReac Severe Rash Verified 03/14/24 23:20 risperidone AdvReac Severe Hives Verified 03/14/24 23:20 seafood AdvReac Severe Swelling Verified 03/14/24 23:21 shellfish derived AdvReac Severe Swelling Verified 03/14/24 23:21 [id number] Reductase AdvReac Severe Swelling Verified 03/14/24 23:22 Inhibitor sucrose [From Questran] AdvReac Severe Hives Verified 03/14/24 23:08 Sulfa (Sulfonamide AdvReac Severe Hives Verified 03/14/24 23:24 Antibiotics) tramadol AdvReac Severe Rash Verified 03/14/24 23:22 wool AdvReac Severe Hives Verified 03/14/24 23:23 Assessment & Plan Assessment & Plan (1) Post traumatic stress disorder (PTSD): Status: Acute Code(s): F43.10 - Post-traumatic stress disorder, unspecified (2) Cognitive disorder: Status: Acute Code(s): F09 - Unspecified mental disorder due to known physiological condition (3) Generalized anxiety disorder: Status: Acute Code(s): F41.1 - Generalized anxiety disorder (4) Suicide attempt by fentanyl overdose: Status: Acute Code(s): T40.412A - Poisoning by fentanyl or fentanyl analogs, intentional self-harm, initial encounter Plan Pt is a 63-year-old female with a PMH significant for?CVA, chronic pain disorder, HLD, ulcerative colitis s/p colectomy with colostomy in place, chronic anemia, and GERD who is admitted to [facility] for increasing paranoia and depression with suicide attempt by overdosing on home meds. Pt was apparently found unconscious in her apartment surrounded by empty morphine bottles, an SI note, and an eviction notice. Pt was emergently intubated and admitted to ICU for 5 days where she was treated for RAKAN and aspiration pneumonia. Also had elevated troponins that were attributed to demand ischemia. Medical consult for admission H&P. Mood disorder Plan as per psychiatry Recent hx of intubation in the ICU Denies difficulty swallowing, no sore throat or SOB Continue albuterol inhaler Peripheral neuropathy of right lower extremity Foot warm, pedal pulses 2+, well perfused No known hx of DM Unclear etiology Consider gabapentin if persistent Right foot wounds Unclear etiology Superficial, healing well No sign of infection No further intervention or workup needed at this time Hx of CVA Continue statin, aspirin Chronic pain disorder Continue fentanyl pathch, po morphine GERD PPI Plan 1. Continue with same medications. 2. Guardianship papers already filed. 3. Waiting for placement Reason for continued inpatient stay Substantial Risk for: inability to function, rapid decompensation and med/psych decompensation Time Spent With Patient Time: Total time managing care of this patient today _20___ minutes.
[2024-04-01 20:06] VITALS: BP 116/56; PULSE 66; RESP 14; TEMP 36.5; O2SAT 97
[2024-04-02] MEDS: Morphine Sulfate Immed Release 15 MG TABLET 30 MG PO ×4 (03:08→22:12)
[2024-04-02] MEDS: Omeprazole 20 MG CAPSULE.DR PO (05:27)
[2024-04-02] MEDS: Escitalopram Oxalate 5 MG TABLET PO (09:21)
[2024-04-02] MEDS: diazePAM 5 MG TABLET 10 MG PO ×2 (09:21→20:11)
[2024-04-02] MEDS: diphenhydrAMINE HCL 25 MG CAPSULE 50 MG PO ×2 (09:21→20:11)
[2024-04-02 09:24] VITALS: BP 139/65; PULSE 63; RESP 16; TEMP 36.4; O2SAT 96
--- NOTE | 2024-04-02 10:13 | P.PNPSI_ITS ---
Subjective Subjective Date of Service: 04/02/24 Reason For Visit: Status post suicide attempt Subjective Notes: Conditional Voluntary Interim History: The nursing staff reported the patient had been less intrusive, slept 5 hours. The social welfare research worker called the pillowcase folder from adult protective Services apparently there general assembler installer involved in her eviction. On interview the patient remains confused, demanding at times but easily redirectable. She had been refusing consistently Zyprexa at night. Mental Status Exam Mental Status Exam Patient Appearance: Appropriate Patient Orientation: Person and Situation Level of Consciousness: Awake and Appropriate Patient Behavior: Guarded and Passive Mood Description: Withdrawn Affect Description: Constricted Patient Cognition Impaired: Yes Ability to Follow Directions: Good Speech Pattern: Clear Hallucinations: None Delusions: Not Present Thought Process: Distracted and Slowed Thinking Thought Content: positive for [place] and positive for Poverty of Content Judgement: Poor Diagnostics Vital Signs (24Hr): Vital Signs - 24 hr 04/01/24 20:06 04/02/24 09:24 Temperature 97.7 F 97.6 F Pulse Rate 66 63 Respiratory Rate 14 16 Blood Pressure 116/56 L 139/65 Pulse Oximetry 97 96 Oxygen Delivery Method Room Air Room Air BMI result Body Mass Index 28.4 Labs 03/16/24 07:32 Medications Medications Current Medications Al Hydroxide/Mg Hydroxide (Magnesium Hydrox/Alum Hydrox 30 Ml Oral.Susp) 30 ml PO Q6H PRN PRN Reason: Heartburn/Nausea Albuterol Sulfate (Albuterol Sulfate 90 Mcg 8 Gm Inhaler) 2 puff INHALE Q4H PRN PRN Reason: Shortness Of Breath Or Wheezing Last Admin: 03/15/24 20:48 Dose: 2 puff Artificial Tears (Artificial Tears 15 Ml Drops) 1 drop EYE-BOTH DAILY PRN PRN Reason: Dry Eye(S) Diazepam (Diazepam 5 Mg Tablet) 10 mg PO BID [facility] Last Admin: 04/02/24 09:21 Dose: 10 mg Diphenhydramine HCl (Diphenhydramine Hcl 25 Mg Capsule) 25 mg PO Q6H PRN PRN Reason: Anxiety, Itching Last Admin: 04/01/24 12:30 Dose: 25 mg Diphenhydramine HCl (Diphenhydramine Hcl 25 Mg Capsule) 50 mg PO BID [facility] Last Admin: 04/02/24 09:21 Dose: 50 mg Escitalopram Oxalate (Escitalopram Oxalate 5 Mg Tablet) 5 mg PO DAILY [facility] Last Admin: 04/02/24 09:21 Dose: 5 mg Fentanyl (Fentanyl 50 Mcg Patch.Td72) 50 mcg TRANSDERMA Q72H [facility] Last Admin: 03/31/24 08:29 Dose: 50 mcg Ferrous Sulfate (Ferrous Sulfate 324 Mg Tablet.) 324 mg PO Q48H [facility] Last Admin: 04/02/24 09:23 Dose: Not Given Hydrocortisone (Hydrocortisone 1 % Cream 28.35 Gm Tube) 1 appl TOPICAL BID [facility]; Protocol Last Admin: 04/02/24 09:22 Dose: Not Given Magnesium Hydroxide (Milk Of Magnesia 30 Ml Oral.Susp) 30 ml PO DAILY PRN PRN Reason: Constipation Morphine Sulfate (Morphine Sulfate Immed Release 15 Mg Tablet) 30 mg PO Q6H PRN PRN Reason: pain Last Admin: 04/02/24 09:21 Dose: 30 mg Nicotine (Nicotine 21 Mg Patch.Td24) 21 mg TRANSDERMA DAILY PRN PRN Reason: smoking cessation Nicotine Polacrilex (Nicotine Polacrilex 2 Mg Gum) 4 mg BUCCAL Q2H PRN PRN Reason: Nicotine Cravings Olanzapine (Olanzapine 2.5 Mg Tablet) 2.5 mg PO TID PRN PRN Reason: agitation Olanzapine (Olanzapine 2.5 Mg Tablet) 2.5 mg PO BEDTIME [facility] Last Admin: 04/01/24 20:08 Dose: Not Given Omeprazole (Omeprazole 20 Mg Capsule.) 20 mg PO 0630 [facility] Last Admin: 04/02/24 05:27 Dose: 20 mg Trazodone HCl (Trazodone Hcl 50 Mg Tablet) 50 mg PO BEDTIME MRX1 PRN PRN Reason: Insomnia Allergies Allergies Allergy/AdvReac Type Severity Reaction Status Date / Time Egg Derived Allergy Unknown Unknown Verified 03/16/24 15:22 acetaminophen [From Percocet] AdvReac Severe Hives Verified 03/14/24 23:07 alprazolam AdvReac Severe Hives Verified 03/14/24 23:09 atorvastatin AdvReac Severe Hives Verified 03/14/24 23:10 azithromycin AdvReac Severe Swelling Verified 03/14/24 23:11 cholestyramine AdvReac Severe Hives Verified 03/14/24 23:08 [From Questran] ciprofloxacin AdvReac Severe Hives Verified 03/14/24 23:11 codeine AdvReac Severe Hives Verified 03/14/24 23:12 colesevelam AdvReac Severe Hives Verified 03/14/24 23:12 egg AdvReac Severe Hives Verified 03/15/24 01:39 Estrogens AdvReac Severe Swelling Verified 03/14/24 23:13 gemfibrozil AdvReac Severe Hives Verified 03/14/24 23:14 hydrocortisone AdvReac Severe Blurry Verified 03/14/24 23:07 [From Cortenema] Vision hydromorphone [From Dilaudid] AdvReac Severe Swelling Verified 03/14/24 23:13 Iodinated Contrast Media AdvReac Severe Hives Verified 03/14/24 23:14 isoniazid AdvReac Severe Hives Verified 03/14/24 23:15 mercaptopurine AdvReac Severe Vomiting Verified 03/14/24 23:16 methylprednisolone AdvReac Severe Hives Verified 03/14/24 23:16 minocycline AdvReac Severe Hives Verified 03/14/24 23:24 naproxen AdvReac Severe Rash Verified 03/14/24 23:17 oxycodone [From Percocet] AdvReac Severe Hives Verified 03/14/24 23:07 propoxyphene AdvReac Severe Hives Verified 03/14/24 23:19 quetiapine AdvReac Severe Rash Verified 03/14/24 23:20 risperidone AdvReac Severe Hives Verified 03/14/24 23:20 seafood AdvReac Severe Swelling Verified 03/14/24 23:21 shellfish derived AdvReac Severe Swelling Verified 03/14/24 23:21 Suthuov-ADB-PlR Reductase AdvReac Severe Swelling Verified 03/14/24 23:22 Inhibitor sucrose [From Questran] AdvReac Severe Hives Verified 03/14/24 23:08 Sulfa (Sulfonamide AdvReac Severe Hives Verified 03/14/24 23:24 Antibiotics) tramadol AdvReac Severe Rash Verified 03/14/24 23:22 wool AdvReac Severe Hives Verified 03/14/24 23:23 Assessment & Plan Assessment & Plan (1) Post traumatic stress disorder (PTSD): Status: Acute Code(s): F43.10 - Post-traumatic stress disorder, unspecified (2) Cognitive disorder: Status: Acute Code(s): F09 - Unspecified mental disorder due to known physiological condition (3) Generalized anxiety disorder: Status: Acute Code(s): F41.1 - Generalized anxiety disorder (4) Suicide attempt by fentanyl overdose: Status: Acute Code(s): T40.412A - Poisoning by fentanyl or fentanyl analogs, intentional self-harm, initial encounter Plan Pt is a 63-year-old female with a PMH significant for?CVA, chronic pain disorder, HLD, ulcerative colitis s/p colectomy with colostomy in place, chronic anemia, and GERD who is admitted to [facility] for increasing paranoia and depression with suicide attempt by overdosing on home meds. Pt was apparently found unconscious in her apartment surrounded by empty morphine bottles, an SI note, and an eviction notice. Pt was emergently intubated and admitted to ICU for 5 days where she was treated for RAKAN and aspiration pneumonia. Also had elevated troponins that were attributed to demand ischemia. Medical consult for admission H&P. Mood disorder Plan as per psychiatry Recent hx of intubation in the ICU Denies difficulty swallowing, no sore throat or SOB Continue albuterol inhaler Peripheral neuropathy of right lower extremity Foot warm, pedal pulses 2+, well perfused No known hx of DM Unclear etiology Consider gabapentin if persistent Right foot wounds Unclear etiology Superficial, healing well No sign of infection No further intervention or workup needed at this time Hx of CVA Continue statin, aspirin Chronic pain disorder Continue fentanyl pathch, po morphine GERD PPI Plan 1. Continue with same medications. 2. Guardianship papers already filed. 3. Waiting for placement Reason for continued inpatient stay Substantial Risk for: inability to function, rapid decompensation and med/psych decompensation Time Spent With Patient Time: Total time managing care of this patient today __20__ minutes.
[2024-04-02] MEDS: diphenhydrAMINE HCL 25 MG CAPSULE PO (14:22)
[2024-04-02 20:00] VITALS: BP 106/55; PULSE 73; RESP 15; TEMP 36.4; O2SAT 98
[2024-04-02] MEDS: Hydrocortisone 1 % Cream 28.35 GM TUBE 1 APPL TOPICAL (20:39)
[2024-04-03] MEDS: Omeprazole 20 MG CAPSULE.DR PO (06:01)
[2024-04-03] MEDS: Morphine Sulfate Immed Release 15 MG TABLET 30 MG PO ×3 (06:01→20:24)
[2024-04-03 08:00] VITALS: BP 117/71; PULSE 84; RESP 18; TEMP 36.2; O2SAT 97
[2024-04-03] MEDS: fentaNYL 50 MCG PATCH.TD72 TRANSDERMA (09:07)
[2024-04-03] MEDS: diazePAM 5 MG TABLET 10 MG PO ×2 (09:12→20:24)
[2024-04-03] MEDS: Escitalopram Oxalate 5 MG TABLET PO (09:12)
[2024-04-03] MEDS: diphenhydrAMINE HCL 25 MG CAPSULE 50 MG PO ×2 (09:13→20:24)
--- NOTE | 2024-04-03 11:55 | P.PNPSI_ITS ---
Subjective Subjective Date of Service: 04/03/24 Reason For Visit: Status post suicide attempt Subjective Notes: Conditional Voluntary Interim History: The nursing staff reported the patient slept 7 hours, she had been less intrusive with staff but she is particularly more social with a male peer. The marriage and family social worker tried to contact the guardian, apparently she had before housing options but she refused it. On interview the patient denies new symptoms, waiting for placement. Mental Status Exam Mental Status Exam Patient Appearance: Well Grooomed Patient Orientation: Person and Situation Level of Consciousness: Awake and Appropriate Patient Behavior: Guarded and Passive Mood Description: Withdrawn Affect Description: Constricted Patient Cognition Impaired: Yes Ability to Follow Directions: Good Speech Pattern: Clear Hallucinations: None Delusions: Not Present Thought Process: Illogical, Distracted and Slowed Thinking Thought Content: positive for [place] and positive for Poverty of Content Judgement: Poor Diagnostics Vital Signs (24Hr): Vital Signs - 24 hr 04/02/24 20:00 04/03/24 08:00 Temperature 97.5 F 97.1 F Pulse Rate 73 84 Respiratory Rate 15 18 Blood Pressure 106/55 L 117/71 Pulse Oximetry 98 97 Oxygen Delivery Method Room Air Room Air BMI result Body Mass Index 28.4 Labs 03/16/24 07:32 Medications Medications Current Medications Al Hydroxide/Mg Hydroxide (Magnesium Hydrox/Alum Hydrox 30 Ml Oral.Susp) 30 ml PO Q6H PRN PRN Reason: Heartburn/Nausea Albuterol Sulfate (Albuterol Sulfate 90 Mcg 8 Gm Inhaler) 2 puff INHALE Q4H PRN PRN Reason: Shortness Of Breath Or Wheezing Last Admin: 03/15/24 20:48 Dose: 2 puff Artificial Tears (Artificial Tears 15 Ml Drops) 1 drop EYE-BOTH DAILY PRN PRN Reason: Dry Eye(S) Diazepam (Diazepam 5 Mg Tablet) 10 mg PO BID [facility] Last Admin: 04/03/24 09:12 Dose: 10 mg Diphenhydramine HCl (Diphenhydramine Hcl 25 Mg Capsule) 25 mg PO Q6H PRN PRN Reason: Anxiety, Itching Last Admin: 04/02/24 14:22 Dose: 25 mg Diphenhydramine HCl (Diphenhydramine Hcl 25 Mg Capsule) 50 mg PO BID [facility] Last Admin: 04/03/24 09:13 Dose: 50 mg Escitalopram Oxalate (Escitalopram Oxalate 5 Mg Tablet) 5 mg PO DAILY [facility] Last Admin: 04/03/24 09:12 Dose: 5 mg Fentanyl (Fentanyl 50 Mcg Patch.Td72) 50 mcg TRANSDERMA Q72H [facility] Last Admin: 04/03/24 09:07 Dose: 50 mcg Ferrous Sulfate (Ferrous Sulfate 324 Mg Tablet.) 324 mg PO Q48H [facility] Last Admin: 04/02/24 09:23 Dose: Not Given Hydrocortisone (Hydrocortisone 1 % Cream 28.35 Gm Tube) 1 appl TOPICAL BID [facility]; Protocol Last Admin: 04/03/24 09:16 Dose: Not Given Magnesium Hydroxide (Milk Of Magnesia 30 Ml Oral.Susp) 30 ml PO DAILY PRN PRN Reason: Constipation Morphine Sulfate (Morphine Sulfate Immed Release 15 Mg Tablet) 30 mg PO Q6H PRN PRN Reason: pain Last Admin: 04/03/24 06:01 Dose: 30 mg Nicotine (Nicotine 21 Mg Patch.Td24) 21 mg TRANSDERMA DAILY PRN PRN Reason: smoking cessation Nicotine Polacrilex (Nicotine Polacrilex 2 Mg Gum) 4 mg BUCCAL Q2H PRN PRN Reason: Nicotine Cravings Olanzapine (Olanzapine 2.5 Mg Tablet) 2.5 mg PO TID PRN PRN Reason: agitation Olanzapine (Olanzapine 2.5 Mg Tablet) 2.5 mg PO BEDTIME [facility] Last Admin: 04/02/24 20:30 Dose: Not Given Omeprazole (Omeprazole 20 Mg Capsule.) 20 mg PO 0630 [facility] Last Admin: 04/03/24 06:01 Dose: 20 mg Trazodone HCl (Trazodone Hcl 50 Mg Tablet) 50 mg PO BEDTIME MRX1 PRN PRN Reason: Insomnia Allergies Allergies Allergy/AdvReac Type Severity Reaction Status Date / Time Egg Derived Allergy Unknown Unknown Verified 03/16/24 15:22 acetaminophen [From Percocet] AdvReac Severe Hives Verified 03/14/24 23:07 alprazolam AdvReac Severe Hives Verified 03/14/24 23:09 atorvastatin AdvReac Severe Hives Verified 03/14/24 23:10 azithromycin AdvReac Severe Swelling Verified 03/14/24 23:11 cholestyramine AdvReac Severe Hives Verified 03/14/24 23:08 [From Questran] ciprofloxacin AdvReac Severe Hives Verified 03/14/24 23:11 codeine AdvReac Severe Hives Verified 03/14/24 23:12 colesevelam AdvReac Severe Hives Verified 03/14/24 23:12 egg AdvReac Severe Hives Verified 03/15/24 01:39 Estrogens AdvReac Severe Swelling Verified 03/14/24 23:13 gemfibrozil AdvReac Severe Hives Verified 03/14/24 23:14 hydrocortisone AdvReac Severe Blurry Verified 03/14/24 23:07 [From Cortenema] Vision hydromorphone [From Dilaudid] AdvReac Severe Swelling Verified 03/14/24 23:13 Iodinated Contrast Media AdvReac Severe Hives Verified 03/14/24 23:14 isoniazid AdvReac Severe Hives Verified 03/14/24 23:15 mercaptopurine AdvReac Severe Vomiting Verified 03/14/24 23:16 methylprednisolone AdvReac Severe Hives Verified 03/14/24 23:16 minocycline AdvReac Severe Hives Verified 03/14/24 23:24 naproxen AdvReac Severe Rash Verified 03/14/24 23:17 oxycodone [From Percocet] AdvReac Severe Hives Verified 03/14/24 23:07 propoxyphene AdvReac Severe Hives Verified 03/14/24 23:19 quetiapine AdvReac Severe Rash Verified 03/14/24 23:20 risperidone AdvReac Severe Hives Verified 03/14/24 23:20 seafood AdvReac Severe Swelling Verified 03/14/24 23:21 shellfish derived AdvReac Severe Swelling Verified 03/14/24 23:21 [id number] Reductase AdvReac Severe Swelling Verified 03/14/24 23:22 Inhibitor sucrose [From Questran] AdvReac Severe Hives Verified 03/14/24 23:08 Sulfa (Sulfonamide AdvReac Severe Hives Verified 03/14/24 23:24 Antibiotics) tramadol AdvReac Severe Rash Verified 03/14/24 23:22 wool AdvReac Severe Hives Verified 03/14/24 23:23 Assessment & Plan Assessment & Plan (1) Post traumatic stress disorder (PTSD): Status: Acute Code(s): F43.10 - Post-traumatic stress disorder, unspecified (2) Cognitive disorder: Status: Acute Code(s): F09 - Unspecified mental disorder due to known physiological condition (3) Generalized anxiety disorder: Status: Acute Code(s): F41.1 - Generalized anxiety disorder (4) Suicide attempt by fentanyl overdose: Status: Acute Code(s): T40.412A - Poisoning by fentanyl or fentanyl analogs, intentional self-harm, initial encounter Plan Pt is a 63-year-old female with a PMH significant for?CVA, chronic pain disorder, HLD, ulcerative colitis s/p colectomy with colostomy in place, chronic anemia, and GERD who is admitted to [facility] for increasing paranoia and depression with suicide attempt by overdosing on home meds. Pt was apparently found unconscious in her apartment surrounded by empty morphine bottles, an SI note, and an eviction notice. Pt was emergently intubated and admitted to ICU for 5 days where she was treated for RAKAN and aspiration pneumonia. Also had elevated troponins that were attributed to demand ischemia. Medical consult for admission H&P. Mood disorder Plan as per psychiatry Recent hx of intubation in the ICU Denies difficulty swallowing, no sore throat or SOB Continue albuterol inhaler Peripheral neuropathy of right lower extremity Foot warm, pedal pulses 2+, well perfused No known hx of DM Unclear etiology Consider gabapentin if persistent Right foot wounds Unclear etiology Superficial, healing well No sign of infection No further intervention or workup needed at this time Hx of CVA Continue statin, aspirin Chronic pain disorder Continue fentanyl pathch, po morphine GERD PPI Plan 1. Continue with same medications. 2. Guardianship papers already filed. 3. Waiting for placement Reason for continued inpatient stay Substantial Risk for: inability to function, rapid decompensation and med/psych decompensation Time Spent With Patient Time: Total time managing care of this patient today __20__ minutes.
[2024-04-03] MEDS: diphenhydrAMINE HCL 25 MG CAPSULE PO (14:53)
[2024-04-03 20:00] VITALS: BP 134/51; PULSE 63; RESP 18; TEMP 36.7; O2SAT 96
[2024-04-03] MEDS: Hydrocortisone 1 % Cream 28.35 GM TUBE 1 APPL TOPICAL (20:27)
[2024-04-04] MEDS: diphenhydrAMINE HCL 25 MG CAPSULE PO ×2 (00:59→15:34)
[2024-04-04] MEDS: Morphine Sulfate Immed Release 15 MG TABLET 30 MG PO ×2 (02:11→15:34)
[2024-04-04] MEDS: Omeprazole 20 MG CAPSULE.DR PO (05:33)
[2024-04-04 08:00] VITALS: BP 114/58; PULSE 66; RESP 18; TEMP 36.6; O2SAT 96
--- NOTE | 2024-04-04 08:42 | HO.PSYCHPN ---
Subjective Subjective Date of Service: 04/04/24 Reason For Visit: Status post suicide attempt Subjective Notes: Conditional Voluntary Interim History: The nursing staff reported the patient had poor sleep last night, seclusive at times slept 6 hours. The social media assistant reported that the guardian has not responded yet and there was no financial information for placement. On interview the patient denies new symptoms, waiting for placement. Mental Status Exam Mental Status Exam Patient Appearance: Appropriate Patient Orientation: Person, Place and Situation Level of Consciousness: Awake and Appropriate Patient Behavior: Guarded and Passive Mood Description: Withdrawn Affect Description: Calm Patient Cognition Impaired: Yes Ability to Follow Directions: Fair Speech Pattern: Clear Hallucinations: None Delusions: Ideas of Reference Thought Process: Distracted and Slowed Thinking Thought Content: positive for [place], positive for Poverty of Content and positive for Thought Blocking Judgement: Poor Diagnostics Vital Signs (24Hr): Vital Signs - 24 hr 04/03/24 20:00 Temperature 98.0 F Pulse Rate 63 Respiratory Rate 18 Blood Pressure 134/51 L Pulse Oximetry 96 Oxygen Delivery Method Room Air BMI result Body Mass Index 28.4 Labs 03/16/24 07:32 Medications Medications Current Medications Al Hydroxide/Mg Hydroxide (Magnesium Hydrox/Alum Hydrox 30 Ml Oral.Susp) 30 ml PO Q6H PRN PRN Reason: Heartburn/Nausea Albuterol Sulfate (Albuterol Sulfate 90 Mcg 8 Gm Inhaler) 2 puff INHALE Q4H PRN PRN Reason: Shortness Of Breath Or Wheezing Last Admin: 03/15/24 20:48 Dose: 2 puff Artificial Tears (Artificial Tears 15 Ml Drops) 1 drop EYE-BOTH DAILY PRN PRN Reason: Dry Eye(S) Diazepam (Diazepam 5 Mg Tablet) 10 mg PO BID [facility] Last Admin: 04/03/24 20:24 Dose: 10 mg Diphenhydramine HCl (Diphenhydramine Hcl 25 Mg Capsule) 25 mg PO Q6H PRN PRN Reason: Anxiety, Itching Last Admin: 04/04/24 00:59 Dose: 25 mg Diphenhydramine HCl (Diphenhydramine Hcl 25 Mg Capsule) 50 mg PO BID [facility] Last Admin: 04/03/24 20:24 Dose: 50 mg Escitalopram Oxalate (Escitalopram Oxalate 5 Mg Tablet) 5 mg PO DAILY [facility] Last Admin: 04/03/24 09:12 Dose: 5 mg Fentanyl (Fentanyl 50 Mcg Patch.Td72) 50 mcg TRANSDERMA Q72H [facility] Last Admin: 04/03/24 09:07 Dose: 50 mcg Ferrous Sulfate (Ferrous Sulfate 324 Mg Tablet.) 324 mg PO Q48H [facility] Last Admin: 04/02/24 09:23 Dose: Not Given Hydrocortisone (Hydrocortisone 1 % Cream 28.35 Gm Tube) 1 appl TOPICAL BID [facility]; Protocol Last Admin: 04/03/24 20:27 Dose: 1 appl Magnesium Hydroxide (Milk Of Magnesia 30 Ml Oral.Susp) 30 ml PO DAILY PRN PRN Reason: Constipation Morphine Sulfate (Morphine Sulfate Immed Release 15 Mg Tablet) 30 mg PO Q6H PRN PRN Reason: pain Last Admin: 04/04/24 02:11 Dose: 30 mg Nicotine (Nicotine 21 Mg Patch.Td24) 21 mg TRANSDERMA DAILY PRN PRN Reason: smoking cessation Nicotine Polacrilex (Nicotine Polacrilex 2 Mg Gum) 4 mg BUCCAL Q2H PRN PRN Reason: Nicotine Cravings Olanzapine (Olanzapine 2.5 Mg Tablet) 2.5 mg PO TID PRN PRN Reason: agitation Olanzapine (Olanzapine 2.5 Mg Tablet) 2.5 mg PO BEDTIME [facility] Last Admin: 04/03/24 20:29 Dose: Not Given Omeprazole (Omeprazole 20 Mg Capsule.) 20 mg PO 0630 [facility] Last Admin: 04/04/24 05:33 Dose: 20 mg Trazodone HCl (Trazodone Hcl 50 Mg Tablet) 50 mg PO BEDTIME MRX1 PRN PRN Reason: Insomnia Allergies Allergies Allergy/AdvReac Type Severity Reaction Status Date / Time Egg Derived Allergy Unknown Unknown Verified 03/16/24 15:22 acetaminophen [From Percocet] AdvReac Severe Hives Verified 03/14/24 23:07 alprazolam AdvReac Severe Hives Verified 03/14/24 23:09 atorvastatin AdvReac Severe Hives Verified 03/14/24 23:10 azithromycin AdvReac Severe Swelling Verified 03/14/24 23:11 cholestyramine AdvReac Severe Hives Verified 03/14/24 23:08 [From Questran] ciprofloxacin AdvReac Severe Hives Verified 03/14/24 23:11 codeine AdvReac Severe Hives Verified 03/14/24 23:12 colesevelam AdvReac Severe Hives Verified 03/14/24 23:12 egg AdvReac Severe Hives Verified 03/15/24 01:39 Estrogens AdvReac Severe Swelling Verified 03/14/24 23:13 gemfibrozil AdvReac Severe Hives Verified 03/14/24 23:14 hydrocortisone AdvReac Severe Blurry Verified 03/14/24 23:07 [From Cortenema] Vision hydromorphone [From Dilaudid] AdvReac Severe Swelling Verified 03/14/24 23:13 Iodinated Contrast Media AdvReac Severe Hives Verified 03/14/24 23:14 isoniazid AdvReac Severe Hives Verified 03/14/24 23:15 mercaptopurine AdvReac Severe Vomiting Verified 03/14/24 23:16 methylprednisolone AdvReac Severe Hives Verified 03/14/24 23:16 minocycline AdvReac Severe Hives Verified 03/14/24 23:24 naproxen AdvReac Severe Rash Verified 03/14/24 23:17 oxycodone [From Percocet] AdvReac Severe Hives Verified 03/14/24 23:07 propoxyphene AdvReac Severe Hives Verified 03/14/24 23:19 quetiapine AdvReac Severe Rash Verified 03/14/24 23:20 risperidone AdvReac Severe Hives Verified 03/14/24 23:20 seafood AdvReac Severe Swelling Verified 03/14/24 23:21 shellfish derived AdvReac Severe Swelling Verified 03/14/24 23:21 Lvmjjmr-[id number]-UtH Reductase AdvReac Severe Swelling Verified 03/14/24 23:22 Inhibitor sucrose [From Questran] AdvReac Severe Hives Verified 03/14/24 23:08 Sulfa (Sulfonamide AdvReac Severe Hives Verified 03/14/24 23:24 Antibiotics) tramadol AdvReac Severe Rash Verified 03/14/24 23:22 wool AdvReac Severe Hives Verified 03/14/24 23:23 Assessment & Plan Assessment & Plan (1) Post traumatic stress disorder (PTSD): Status: Acute Code(s): F43.10 - Post-traumatic stress disorder, unspecified (2) Cognitive disorder: Status: Acute Code(s): F09 - Unspecified mental disorder due to known physiological condition (3) Generalized anxiety disorder: Status: Acute Code(s): F41.1 - Generalized anxiety disorder (4) Suicide attempt by fentanyl overdose: Status: Acute Code(s): T40.412A - Poisoning by fentanyl or fentanyl analogs, intentional self-harm, initial encounter Plan Pt is a 63-year-old female with a PMH significant for?CVA, chronic pain disorder, HLD, ulcerative colitis s/p colectomy with colostomy in place, chronic anemia, and GERD who is admitted to [facility] for increasing paranoia and depression with suicide attempt by overdosing on home meds. Pt was apparently found unconscious in her apartment surrounded by empty morphine bottles, an SI note, and an eviction notice. Pt was emergently intubated and admitted to ICU for 5 days where she was treated for RAKAN and aspiration pneumonia. Also had elevated troponins that were attributed to demand ischemia. Medical consult for admission H&P. Mood disorder Plan as per psychiatry Recent hx of intubation in the ICU Denies difficulty swallowing, no sore throat or SOB Continue albuterol inhaler Peripheral neuropathy of right lower extremity Foot warm, pedal pulses 2+, well perfused No known hx of DM Unclear etiology Consider gabapentin if persistent Right foot wounds Unclear etiology Superficial, healing well No sign of infection No further intervention or workup needed at this time Hx of CVA Continue statin, aspirin Chronic pain disorder Continue fentanyl pathch, po morphine GERD PPI Plan 1. Continue with same medications. 2. Guardianship papers already filed. 3. Waiting for placement Reason for continued inpatient stay Substantial Risk for: inability to function, rapid decompensation and med/psych decompensation Time Spent With Patient Time: Total time managing care of this patient today __20__ minutes.
[2024-04-04] MEDS: Escitalopram Oxalate 5 MG TABLET PO (09:49)
[2024-04-04] MEDS: diazePAM 5 MG TABLET 10 MG PO ×2 (09:49→20:34)
[2024-04-04] MEDS: diphenhydrAMINE HCL 25 MG CAPSULE 50 MG PO ×2 (09:49→20:35)
[2024-04-04 19:58] VITALS: BP 156/72; PULSE 85; RESP 18; TEMP 36.7; O2SAT 95
[2024-04-04] MEDS: Hydrocortisone 1 % Cream 28.35 GM TUBE 1 APPL TOPICAL (20:36)
[2024-04-05] MEDS: Morphine Sulfate Immed Release 15 MG TABLET 30 MG PO ×4 (00:02→20:19)
[2024-04-05] MEDS: diphenhydrAMINE HCL 25 MG CAPSULE PO ×2 (04:59→15:47)
[2024-04-05] MEDS: Omeprazole 20 MG CAPSULE.DR PO (05:00)
[2024-04-05 07:55] VITALS: BP 129/60; PULSE 66; RESP 16; TEMP 36; O2SAT 97
[2024-04-05] MEDS: Escitalopram Oxalate 5 MG TABLET PO (08:36)
[2024-04-05] MEDS: diazePAM 5 MG TABLET 10 MG PO ×2 (08:36→20:19)
[2024-04-05] MEDS: diphenhydrAMINE HCL 25 MG CAPSULE 50 MG PO ×2 (08:36→20:19)
--- NOTE | 2024-04-05 13:04 | HO.PSYCHPN ---
Subjective Subjective Date of Service: 04/05/24 Reason For Visit: Status post suicide attempt Subjective Notes: Conditional Voluntary Interim History: The nursing staff reported the patient reported anxiety and depression she had been isolative she was out for meals and socialized sporadically. She slept 8 hours. The child protective services social worker reported that she contact protective Services in order to get more collateral and financial information. On interview the patient denies new symptoms I explained her that she had some cognitive impairment and we should start Aricept at night. Mental Status Exam Mental Status Exam Patient Appearance: Well Grooomed Patient Orientation: Person and Situation Level of Consciousness: Awake and Appropriate Patient Behavior: Guarded and Passive Mood Description: Withdrawn Affect Description: Constricted Patient Cognition Impaired: Yes Ability to Follow Directions: Good Speech Pattern: Clear Hallucinations: None Delusions: Not Present Thought Process: Distracted and Slowed Thinking Thought Content: positive for [place] and positive for Poverty of Content Judgement: Fair Diagnostics Vital Signs (24Hr): Vital Signs - 24 hr 04/04/24 19:58 04/05/24 07:55 Temperature 98.1 F 96.8 F Pulse Rate 85 66 Respiratory Rate 18 16 Blood Pressure 156/72 H 129/60 Pulse Oximetry 95 97 Oxygen Delivery Method Room Air Room Air BMI result Body Mass Index 28.4 Labs 03/16/24 07:32 Medications Medications Current Medications Al Hydroxide/Mg Hydroxide (Magnesium Hydrox/Alum Hydrox 30 Ml Oral.Susp) 30 ml PO Q6H PRN PRN Reason: Heartburn/Nausea Albuterol Sulfate (Albuterol Sulfate 90 Mcg 8 Gm Inhaler) 2 puff INHALE Q4H PRN PRN Reason: Shortness Of Breath Or Wheezing Last Admin: 03/15/24 20:48 Dose: 2 puff Artificial Tears (Artificial Tears 15 Ml Drops) 1 drop EYE-BOTH DAILY PRN PRN Reason: Dry Eye(S) Diazepam (Diazepam 5 Mg Tablet) 10 mg PO BID [facility] Last Admin: 04/05/24 08:36 Dose: 10 mg Diphenhydramine HCl (Diphenhydramine Hcl 25 Mg Capsule) 25 mg PO Q6H PRN PRN Reason: Anxiety, Itching Last Admin: 04/05/24 04:59 Dose: 25 mg Diphenhydramine HCl (Diphenhydramine Hcl 25 Mg Capsule) 50 mg PO BID [facility] Last Admin: 04/05/24 08:36 Dose: 50 mg Donepezil HCl (Donepezil Hcl 5 Mg Tablet) 5 mg PO BEDTIME [facility] Escitalopram Oxalate (Escitalopram Oxalate 5 Mg Tablet) 5 mg PO DAILY [facility] Last Admin: 04/05/24 08:36 Dose: 5 mg Fentanyl (Fentanyl 50 Mcg Patch.Td72) 50 mcg TRANSDERMA Q72H [facility] Last Admin: 04/03/24 09:07 Dose: 50 mcg Ferrous Sulfate (Ferrous Sulfate 324 Mg Tablet.) 324 mg PO Q48H [facility] Last Admin: 04/04/24 09:51 Dose: Not Given Hydrocortisone (Hydrocortisone 1 % Cream 28.35 Gm Tube) 1 appl TOPICAL BID [facility]; Protocol Last Admin: 04/05/24 08:37 Dose: Not Given Magnesium Hydroxide (Milk Of Magnesia 30 Ml Oral.Susp) 30 ml PO DAILY PRN PRN Reason: Constipation Morphine Sulfate (Morphine Sulfate Immed Release 15 Mg Tablet) 30 mg PO Q6H PRN PRN Reason: pain Last Admin: 04/05/24 11:50 Dose: 30 mg Nicotine (Nicotine 21 Mg Patch.Td24) 21 mg TRANSDERMA DAILY PRN PRN Reason: smoking cessation Nicotine Polacrilex (Nicotine Polacrilex 2 Mg Gum) 4 mg BUCCAL Q2H PRN PRN Reason: Nicotine Cravings Olanzapine (Olanzapine 2.5 Mg Tablet) 2.5 mg PO TID PRN PRN Reason: agitation Olanzapine (Olanzapine 2.5 Mg Tablet) 2.5 mg PO BEDTIME [facility] Last Admin: 04/04/24 20:36 Dose: Not Given Omeprazole (Omeprazole 20 Mg Capsule.) 20 mg PO 0630 [facility] Last Admin: 04/05/24 05:00 Dose: 20 mg Trazodone HCl (Trazodone Hcl 50 Mg Tablet) 50 mg PO BEDTIME MRX1 PRN PRN Reason: Insomnia Allergies Allergies Allergy/AdvReac Type Severity Reaction Status Date / Time Egg Derived Allergy Unknown Unknown Verified 03/16/24 15:22 acetaminophen [From Percocet] AdvReac Severe Hives Verified 03/14/24 23:07 alprazolam AdvReac Severe Hives Verified 03/14/24 23:09 atorvastatin AdvReac Severe Hives Verified 03/14/24 23:10 azithromycin AdvReac Severe Swelling Verified 03/14/24 23:11 cholestyramine AdvReac Severe Hives Verified 03/14/24 23:08 [From Questran] ciprofloxacin AdvReac Severe Hives Verified 03/14/24 23:11 codeine AdvReac Severe Hives Verified 03/14/24 23:12 colesevelam AdvReac Severe Hives Verified 03/14/24 23:12 egg AdvReac Severe Hives Verified 03/15/24 01:39 Estrogens AdvReac Severe Swelling Verified 03/14/24 23:13 gemfibrozil AdvReac Severe Hives Verified 03/14/24 23:14 hydrocortisone AdvReac Severe Blurry Verified 03/14/24 23:07 [From Cortenema] Vision hydromorphone [From Dilaudid] AdvReac Severe Swelling Verified 03/14/24 23:13 Iodinated Contrast Media AdvReac Severe Hives Verified 03/14/24 23:14 isoniazid AdvReac Severe Hives Verified 03/14/24 23:15 mercaptopurine AdvReac Severe Vomiting Verified 03/14/24 23:16 methylprednisolone AdvReac Severe Hives Verified 03/14/24 23:16 minocycline AdvReac Severe Hives Verified 03/14/24 23:24 naproxen AdvReac Severe Rash Verified 03/14/24 23:17 oxycodone [From Percocet] AdvReac Severe Hives Verified 03/14/24 23:07 propoxyphene AdvReac Severe Hives Verified 03/14/24 23:19 quetiapine AdvReac Severe Rash Verified 03/14/24 23:20 risperidone AdvReac Severe Hives Verified 03/14/24 23:20 seafood AdvReac Severe Swelling Verified 03/14/24 23:21 shellfish derived AdvReac Severe Swelling Verified 03/14/24 23:21 Xkkhhag-HXF-NjC Reductase AdvReac Severe Swelling Verified 03/14/24 23:22 Inhibitor sucrose [From Questran] AdvReac Severe Hives Verified 03/14/24 23:08 Sulfa (Sulfonamide AdvReac Severe Hives Verified 03/14/24 23:24 Antibiotics) tramadol AdvReac Severe Rash Verified 03/14/24 23:22 wool AdvReac Severe Hives Verified 03/14/24 23:23 Assessment & Plan Assessment & Plan (1) Post traumatic stress disorder (PTSD): Status: Acute Code(s): F43.10 - Post-traumatic stress disorder, unspecified (2) Cognitive disorder: Status: Acute Code(s): F09 - Unspecified mental disorder due to known physiological condition (3) Generalized anxiety disorder: Status: Acute Code(s): F41.1 - Generalized anxiety disorder (4) Suicide attempt by fentanyl overdose: Status: Acute Code(s): T40.412A - Poisoning by fentanyl or fentanyl analogs, intentional self-harm, initial encounter Plan Pt is a 63-year-old female with a PMH significant for?CVA, chronic pain disorder, HLD, ulcerative colitis s/p colectomy with colostomy in place, chronic anemia, and GERD who is admitted to [facility] for increasing paranoia and depression with suicide attempt by overdosing on home meds. Pt was apparently found unconscious in her apartment surrounded by empty morphine bottles, an SI note, and an eviction notice. Pt was emergently intubated and admitted to ICU for 5 days where she was treated for RAKAN and aspiration pneumonia. Also had elevated troponins that were attributed to demand ischemia. Medical consult for admission H&P. Mood disorder Plan as per psychiatry Recent hx of intubation in the ICU Denies difficulty swallowing, no sore throat or SOB Continue albuterol inhaler Peripheral neuropathy of right lower extremity Foot warm, pedal pulses 2+, well perfused No known hx of DM Unclear etiology Consider gabapentin if persistent Right foot wounds Unclear etiology Superficial, healing well No sign of infection No further intervention or workup needed at this time Hx of CVA Continue statin, aspirin Chronic pain disorder Continue fentanyl pathch, po morphine GERD PPI Plan 1. Continue with same medications. 2. Guardianship papers already filed. 3. Waiting for placement 4. Adding Aricept 5 mg p.o. q.h.s. on April 05 Reason for continued inpatient stay Substantial Risk for: inability to function, rapid decompensation and med/psych decompensation Time Spent With Patient Time: Total time managing care of this patient today __20__ minutes.
[2024-04-05 20:00] VITALS: BP 109/54; PULSE 87; RESP 18; TEMP 36.7; O2SAT 99
[2024-04-05] MEDS: Hydrocortisone 1 % Cream 28.35 GM TUBE 1 APPL TOPICAL (20:21)
[2024-04-06] MEDS: diphenhydrAMINE HCL 25 MG CAPSULE PO ×2 (00:52→17:53)
[2024-04-06] MEDS: Morphine Sulfate Immed Release 15 MG TABLET 30 MG PO ×4 (02:06→21:19)
[2024-04-06] MEDS: Omeprazole 20 MG CAPSULE.DR PO (06:09)
[2024-04-06 08:00] VITALS: BP 102/53; PULSE 70; RESP 21; TEMP 36.9; O2SAT 95
[2024-04-06] MEDS: diphenhydrAMINE HCL 25 MG CAPSULE 50 MG PO ×2 (09:00→21:19)
[2024-04-06] MEDS: Escitalopram Oxalate 5 MG TABLET PO (09:02)
[2024-04-06] MEDS: diazePAM 5 MG TABLET 10 MG PO ×2 (09:02→21:19)
[2024-04-06] MEDS: fentaNYL 50 MCG PATCH.TD72 TRANSDERMA (09:02)
--- NOTE | 2024-04-06 11:06 | HO.PSYCHPN ---
Subjective Subjective Date of Service: 04/06/24 Reason For Visit: Status post suicide attempt Subjective Notes: Conditional Voluntary Interim History: Patient was seen and discussed in rounds today. Records and plans were reviewed. She is not exhibiting any behavioral issues. She struggles with chronic pain and is back on fentanyl patch and morphine. Valium was renewed. Eating and mostly sleeping adequately. No other changes were made today Review of Systems Review of Systems Yes all other systems are reviewed and are negative Mental Status Exam Mental Status Exam Patient Appearance: Well Grooomed Patient Orientation: Person and Situation Level of Consciousness: Awake and Appropriate Patient Behavior: Guarded and Passive Mood Description: Withdrawn Affect Description: Constricted Patient Cognition Impaired: Yes Ability to Follow Directions: Good Speech Pattern: Clear Hallucinations: None Delusions: Not Present Thought Process: Distracted and Slowed Thinking Thought Content: positive for [place] and positive for Poverty of Content Judgement: Fair Diagnostics Vital Signs (24Hr): Vital Signs - 24 hr 04/05/24 20:00 04/06/24 08:00 Temperature 98.1 F 98.4 F Pulse Rate 87 70 Respiratory Rate 18 21 H Blood Pressure 109/54 L 102/53 L Pulse Oximetry 99 95 Oxygen Delivery Method Room Air Room Air BMI result Body Mass Index 28.4 Labs 03/16/24 07:32 Medications Medications Current Medications Al Hydroxide/Mg Hydroxide (Magnesium Hydrox/Alum Hydrox 30 Ml Oral.Susp) 30 ml PO Q6H PRN PRN Reason: Heartburn/Nausea Albuterol Sulfate (Albuterol Sulfate 90 Mcg 8 Gm Inhaler) 2 puff INHALE Q4H PRN PRN Reason: Shortness Of Breath Or Wheezing Last Admin: 03/15/24 20:48 Dose: 2 puff Artificial Tears (Artificial Tears 15 Ml Drops) 1 drop EYE-BOTH DAILY PRN PRN Reason: Dry Eye(S) Diazepam (Diazepam 5 Mg Tablet) 10 mg PO BID [facility] Last Admin: 04/06/24 09:02 Dose: 10 mg Diphenhydramine HCl (Diphenhydramine Hcl 25 Mg Capsule) 25 mg PO Q6H PRN PRN Reason: Anxiety, Itching Last Admin: 04/06/24 00:52 Dose: 25 mg Diphenhydramine HCl (Diphenhydramine Hcl 25 Mg Capsule) 50 mg PO BID [facility] Last Admin: 04/06/24 09:00 Dose: 50 mg Donepezil HCl (Donepezil Hcl 5 Mg Tablet) 5 mg PO BEDTIME [facility] Last Admin: 04/05/24 20:19 Dose: Not Given Escitalopram Oxalate (Escitalopram Oxalate 5 Mg Tablet) 5 mg PO DAILY [facility] Last Admin: 04/06/24 09:02 Dose: 5 mg Fentanyl (Fentanyl 50 Mcg Patch.Td72) 50 mcg TRANSDERMA Q72H [facility] Last Admin: 04/06/24 09:02 Dose: 50 mcg Ferrous Sulfate (Ferrous Sulfate 324 Mg Tablet.) 324 mg PO Q48H [facility] Last Admin: 04/06/24 08:59 Dose: Not Given Hydrocortisone (Hydrocortisone 1 % Cream 28.35 Gm Tube) 1 appl TOPICAL BID [facility]; Protocol Last Admin: 04/06/24 09:00 Dose: Not Given Magnesium Hydroxide (Milk Of Magnesia 30 Ml Oral.Susp) 30 ml PO DAILY PRN PRN Reason: Constipation Morphine Sulfate (Morphine Sulfate Immed Release 15 Mg Tablet) 30 mg PO Q6H PRN PRN Reason: pain Last Admin: 04/06/24 09:01 Dose: 30 mg Nicotine (Nicotine 21 Mg Patch.Td24) 21 mg TRANSDERMA DAILY PRN PRN Reason: smoking cessation Nicotine Polacrilex (Nicotine Polacrilex 2 Mg Gum) 4 mg BUCCAL Q2H PRN PRN Reason: Nicotine Cravings Olanzapine (Olanzapine 2.5 Mg Tablet) 2.5 mg PO TID PRN PRN Reason: agitation Olanzapine (Olanzapine 2.5 Mg Tablet) 2.5 mg PO BEDTIME [facility] Last Admin: 04/05/24 20:19 Dose: Not Given Omeprazole (Omeprazole 20 Mg Capsule.) 20 mg PO 0630 [facility] Last Admin: 04/06/24 06:09 Dose: 20 mg Trazodone HCl (Trazodone Hcl 50 Mg Tablet) 50 mg PO BEDTIME MRX1 PRN PRN Reason: Insomnia Allergies Allergies Allergy/AdvReac Type Severity Reaction Status Date / Time Egg Derived Allergy Unknown Unknown Verified 03/16/24 15:22 acetaminophen [From Percocet] AdvReac Severe Hives Verified 03/14/24 23:07 alprazolam AdvReac Severe Hives Verified 03/14/24 23:09 atorvastatin AdvReac Severe Hives Verified 03/14/24 23:10 azithromycin AdvReac Severe Swelling Verified 03/14/24 23:11 cholestyramine AdvReac Severe Hives Verified 03/14/24 23:08 [From Questran] ciprofloxacin AdvReac Severe Hives Verified 03/14/24 23:11 codeine AdvReac Severe Hives Verified 03/14/24 23:12 colesevelam AdvReac Severe Hives Verified 03/14/24 23:12 egg AdvReac Severe Hives Verified 03/15/24 01:39 Estrogens AdvReac Severe Swelling Verified 03/14/24 23:13 gemfibrozil AdvReac Severe Hives Verified 03/14/24 23:14 hydrocortisone AdvReac Severe Blurry Verified 03/14/24 23:07 [From Cortenema] Vision hydromorphone [From Dilaudid] AdvReac Severe Swelling Verified 03/14/24 23:13 Iodinated Contrast Media AdvReac Severe Hives Verified 03/14/24 23:14 isoniazid AdvReac Severe Hives Verified 03/14/24 23:15 mercaptopurine AdvReac Severe Vomiting Verified 03/14/24 23:16 methylprednisolone AdvReac Severe Hives Verified 03/14/24 23:16 minocycline AdvReac Severe Hives Verified 03/14/24 23:24 naproxen AdvReac Severe Rash Verified 03/14/24 23:17 oxycodone [From Percocet] AdvReac Severe Hives Verified 03/14/24 23:07 propoxyphene AdvReac Severe Hives Verified 03/14/24 23:19 quetiapine AdvReac Severe Rash Verified 03/14/24 23:20 risperidone AdvReac Severe Hives Verified 03/14/24 23:20 seafood AdvReac Severe Swelling Verified 03/14/24 23:21 shellfish derived AdvReac Severe Swelling Verified 03/14/24 23:21 Yiaptyp-MAC-NyK Reductase AdvReac Severe Swelling Verified 03/14/24 23:22 Inhibitor sucrose [From Questran] AdvReac Severe Hives Verified 03/14/24 23:08 Sulfa (Sulfonamide AdvReac Severe Hives Verified 03/14/24 23:24 Antibiotics) tramadol AdvReac Severe Rash Verified 03/14/24 23:22 wool AdvReac Severe Hives Verified 03/14/24 23:23 Assessment & Plan Assessment & Plan (1) Post traumatic stress disorder (PTSD): Status: Acute Code(s): F43.10 - Post-traumatic stress disorder, unspecified (2) Cognitive disorder: Status: Acute Code(s): F09 - Unspecified mental disorder due to known physiological condition (3) Generalized anxiety disorder: Status: Acute Code(s): F41.1 - Generalized anxiety disorder (4) Suicide attempt by fentanyl overdose: Status: Acute Code(s): T40.412A - Poisoning by fentanyl or fentanyl analogs, intentional self-harm, initial encounter Plan Pt is a 63-year-old female with a PMH significant for?CVA, chronic pain disorder, HLD, ulcerative colitis s/p colectomy with colostomy in place, chronic anemia, and GERD who is admitted to [facility] for increasing paranoia and depression with suicide attempt by overdosing on home meds. Pt was apparently found unconscious in her apartment surrounded by empty morphine bottles, an SI note, and an eviction notice. Pt was emergently intubated and admitted to ICU for 5 days where she was treated for RAKAN and aspiration pneumonia. Also had elevated troponins that were attributed to demand ischemia. Medical consult for admission H&P. Mood disorder Plan as per psychiatry Recent hx of intubation in the ICU Denies difficulty swallowing, no sore throat or SOB Continue albuterol inhaler Peripheral neuropathy of right lower extremity Foot warm, pedal pulses 2+, well perfused No known hx of DM Unclear etiology Consider gabapentin if persistent Right foot wounds Unclear etiology Superficial, healing well No sign of infection No further intervention or workup needed at this time Hx of CVA Continue statin, aspirin Chronic pain disorder Continue fentanyl pathch, po morphine GERD PPI Plan 1. Continue with same medications. 2. Guardianship papers already filed. 3. Waiting for placement 4. Adding Aricept 5 mg p.o. q.h.s. on April 0504/06: Continue current regimen and plans Reason for continued inpatient stay Substantial Risk for: harm to self and med/psych decompensation Time Spent With Patient Time: Total time managing care of this patient today ____ minutes.
[2024-04-06] MEDS: Albuterol Sulfate 90 MCG 8 GM INHALER 2 PUFF INHALE (11:22)
[2024-04-06 20:00] VITALS: BP 115/59; PULSE 67; RESP 18; TEMP 36.1; O2SAT 94
[2024-04-06] MEDS: Hydrocortisone 1 % Cream 28.35 GM TUBE 1 APPL TOPICAL (21:19)
[2024-04-07] MEDS: diphenhydrAMINE HCL 25 MG CAPSULE PO (01:21)
[2024-04-07] MEDS: Morphine Sulfate Immed Release 15 MG TABLET 30 MG PO ×3 (04:39→19:50)
[2024-04-07] MEDS: Omeprazole 20 MG CAPSULE.DR PO (06:07)
--- NOTE | 2024-04-07 08:11 | HO.PSYCHPN ---
Subjective Subjective Date of Service: 04/07/24 Reason For Visit: Status post suicide attempt Subjective Notes: Conditional Voluntary Interim History: Patient was seen and discussed in rounds today. Records and plans were reviewed. She continues to be somewhat intrusive and boundaries are being set. Eating and sleeping adequately. She talked about having had a CT scan. No complaints or side effects. No changes were made to Review of Systems Review of Systems Yes all other systems are reviewed and are negative Mental Status Exam Mental Status Exam Patient Appearance: Well Grooomed Patient Orientation: Person and Situation Level of Consciousness: Awake and Appropriate Patient Behavior: Guarded and Passive Mood Description: Withdrawn Affect Description: Constricted Patient Cognition Impaired: Yes Ability to Follow Directions: Good Speech Pattern: Clear Hallucinations: None Delusions: Not Present Thought Process: Distracted and Slowed Thinking Thought Content: positive for [place] and positive for Poverty of Content Judgement: Fair Diagnostics Vital Signs (24Hr): Vital Signs - 24 hr 04/06/24 20:00 Temperature 97.0 F Pulse Rate 67 Respiratory Rate 18 Blood Pressure 115/59 L Pulse Oximetry 94 Oxygen Delivery Method Room Air BMI result Body Mass Index 28.4 Labs 03/16/24 07:32 Medications Medications Current Medications Al Hydroxide/Mg Hydroxide (Magnesium Hydrox/Alum Hydrox 30 Ml Oral.Susp) 30 ml PO Q6H PRN PRN Reason: Heartburn/Nausea Albuterol Sulfate (Albuterol Sulfate 90 Mcg 8 Gm Inhaler) 2 puff INHALE Q4H PRN PRN Reason: Shortness Of Breath Or Wheezing Last Admin: 04/06/24 11:22 Dose: 2 puff Artificial Tears (Artificial Tears 15 Ml Drops) 1 drop EYE-BOTH DAILY PRN PRN Reason: Dry Eye(S) Diazepam (Diazepam 5 Mg Tablet) 10 mg PO BID [facility] Last Admin: 04/06/24 21:19 Dose: 10 mg Diphenhydramine HCl (Diphenhydramine Hcl 25 Mg Capsule) 25 mg PO Q6H PRN PRN Reason: Anxiety, Itching Last Admin: 04/07/24 01:21 Dose: 25 mg Diphenhydramine HCl (Diphenhydramine Hcl 25 Mg Capsule) 50 mg PO BID [facility] Last Admin: 04/06/24 21:19 Dose: 50 mg Donepezil HCl (Donepezil Hcl 5 Mg Tablet) 5 mg PO BEDTIME [facility] Last Admin: 04/06/24 21:21 Dose: Not Given Escitalopram Oxalate (Escitalopram Oxalate 5 Mg Tablet) 5 mg PO DAILY [facility] Last Admin: 04/06/24 09:02 Dose: 5 mg Fentanyl (Fentanyl 50 Mcg Patch.Td72) 50 mcg TRANSDERMA Q72H [facility] Last Admin: 04/06/24 09:02 Dose: 50 mcg Ferrous Sulfate (Ferrous Sulfate 324 Mg Tablet.) 324 mg PO Q48H [facility] Last Admin: 04/06/24 08:59 Dose: Not Given Hydrocortisone (Hydrocortisone 1 % Cream 28.35 Gm Tube) 1 appl TOPICAL BID [facility]; Protocol Last Admin: 04/06/24 21:19 Dose: 1 appl Magnesium Hydroxide (Milk Of Magnesia 30 Ml Oral.Susp) 30 ml PO DAILY PRN PRN Reason: Constipation Morphine Sulfate (Morphine Sulfate Immed Release 15 Mg Tablet) 30 mg PO Q6H PRN PRN Reason: pain Last Admin: 04/07/24 04:39 Dose: 30 mg Nicotine (Nicotine 21 Mg Patch.Td24) 21 mg TRANSDERMA DAILY PRN PRN Reason: smoking cessation Nicotine Polacrilex (Nicotine Polacrilex 2 Mg Gum) 4 mg BUCCAL Q2H PRN PRN Reason: Nicotine Cravings Olanzapine (Olanzapine 2.5 Mg Tablet) 2.5 mg PO TID PRN PRN Reason: agitation Olanzapine (Olanzapine 2.5 Mg Tablet) 2.5 mg PO BEDTIME [facility] Last Admin: 04/06/24 21:21 Dose: Not Given Omeprazole (Omeprazole 20 Mg Capsule.) 20 mg PO 0630 [facility] Last Admin: 04/07/24 06:07 Dose: 20 mg Trazodone HCl (Trazodone Hcl 50 Mg Tablet) 50 mg PO BEDTIME MRX1 PRN PRN Reason: Insomnia Allergies Allergies Allergy/AdvReac Type Severity Reaction Status Date / Time Egg Derived Allergy Unknown Unknown Verified 03/16/24 15:22 acetaminophen [From Percocet] AdvReac Severe Hives Verified 03/14/24 23:07 alprazolam AdvReac Severe Hives Verified 03/14/24 23:09 atorvastatin AdvReac Severe Hives Verified 03/14/24 23:10 azithromycin AdvReac Severe Swelling Verified 03/14/24 23:11 cholestyramine AdvReac Severe Hives Verified 03/14/24 23:08 [From Questran] ciprofloxacin AdvReac Severe Hives Verified 03/14/24 23:11 codeine AdvReac Severe Hives Verified 03/14/24 23:12 colesevelam AdvReac Severe Hives Verified 03/14/24 23:12 egg AdvReac Severe Hives Verified 03/15/24 01:39 Estrogens AdvReac Severe Swelling Verified 03/14/24 23:13 gemfibrozil AdvReac Severe Hives Verified 03/14/24 23:14 hydrocortisone AdvReac Severe Blurry Verified 03/14/24 23:07 [From Cortenema] Vision hydromorphone [From Dilaudid] AdvReac Severe Swelling Verified 03/14/24 23:13 Iodinated Contrast Media AdvReac Severe Hives Verified 03/14/24 23:14 isoniazid AdvReac Severe Hives Verified 03/14/24 23:15 mercaptopurine AdvReac Severe Vomiting Verified 03/14/24 23:16 methylprednisolone AdvReac Severe Hives Verified 03/14/24 23:16 minocycline AdvReac Severe Hives Verified 03/14/24 23:24 naproxen AdvReac Severe Rash Verified 03/14/24 23:17 oxycodone [From Percocet] AdvReac Severe Hives Verified 03/14/24 23:07 propoxyphene AdvReac Severe Hives Verified 03/14/24 23:19 quetiapine AdvReac Severe Rash Verified 03/14/24 23:20 risperidone AdvReac Severe Hives Verified 03/14/24 23:20 seafood AdvReac Severe Swelling Verified 03/14/24 23:21 shellfish derived AdvReac Severe Swelling Verified 03/14/24 23:21 Lnnhaje-BJT-BxQ Reductase AdvReac Severe Swelling Verified 03/14/24 23:22 Inhibitor sucrose [From Questran] AdvReac Severe Hives Verified 03/14/24 23:08 Sulfa (Sulfonamide AdvReac Severe Hives Verified 03/14/24 23:24 Antibiotics) tramadol AdvReac Severe Rash Verified 03/14/24 23:22 wool AdvReac Severe Hives Verified 03/14/24 23:23 Assessment & Plan Assessment & Plan (1) Post traumatic stress disorder (PTSD): Status: Acute Code(s): F43.10 - Post-traumatic stress disorder, unspecified (2) Cognitive disorder: Status: Acute Code(s): F09 - Unspecified mental disorder due to known physiological condition (3) Generalized anxiety disorder: Status: Acute Code(s): F41.1 - Generalized anxiety disorder (4) Suicide attempt by fentanyl overdose: Status: Acute Code(s): T40.412A - Poisoning by fentanyl or fentanyl analogs, intentional self-harm, initial encounter Plan Pt is a 63-year-old female with a PMH significant for?CVA, chronic pain disorder, HLD, ulcerative colitis s/p colectomy with colostomy in place, chronic anemia, and GERD who is admitted to [facility] for increasing paranoia and depression with suicide attempt by overdosing on home meds. Pt was apparently found unconscious in her apartment surrounded by empty morphine bottles, an SI note, and an eviction notice. Pt was emergently intubated and admitted to ICU for 5 days where she was treated for RAKAN and aspiration pneumonia. Also had elevated troponins that were attributed to demand ischemia. Medical consult for admission H&P. Mood disorder Plan as per psychiatry Recent hx of intubation in the ICU Denies difficulty swallowing, no sore throat or SOB Continue albuterol inhaler Peripheral neuropathy of right lower extremity Foot warm, pedal pulses 2+, well perfused No known hx of DM Unclear etiology Consider gabapentin if persistent Right foot wounds Unclear etiology Superficial, healing well No sign of infection No further intervention or workup needed at this time Hx of CVA Continue statin, aspirin Chronic pain disorder Continue fentanyl pathch, po morphine GERD PPI Plan 1. Continue with same medications. 2. Guardianship papers already filed. 3. Waiting for placement 4. Adding Aricept 5 mg p.o. q.h.s. on April 0504/06: Continue current regimen and plans Reason for continued inpatient stay Substantial Risk for: med/psych decompensation Time Spent With Patient Time: Total time managing care of this patient today ____ minutes.
[2024-04-07 08:15] VITALS: BP 111/55; PULSE 94; RESP 15; TEMP 36.6; O2SAT 97
[2024-04-07] MEDS: Escitalopram Oxalate 5 MG TABLET PO (08:17)
[2024-04-07] MEDS: diphenhydrAMINE HCL 25 MG CAPSULE 50 MG PO ×2 (08:17→19:50)
[2024-04-07] MEDS: diazePAM 5 MG TABLET 10 MG PO ×2 (08:17→19:50)
[2024-04-07] MEDS: Hydrocortisone 1 % Cream 28.35 GM TUBE 1 APPL TOPICAL (19:51)
[2024-04-07 20:00] VITALS: BP 138/67; PULSE 77; RESP 16; TEMP 36.6; O2SAT 98
[2024-04-08] MEDS: diazePAM 5 MG TABLET 10 MG PO ×3 (00:04→20:21)
[2024-04-08] MEDS: diphenhydrAMINE HCL 25 MG CAPSULE PO ×2 (03:57→15:47)
[2024-04-08] MEDS: Morphine Sulfate Immed Release 15 MG TABLET 30 MG PO ×4 (03:57→23:21)
[2024-04-08] MEDS: Omeprazole 20 MG CAPSULE.DR PO (05:55)
[2024-04-08 08:27] VITALS: BP 127/60; PULSE 65; RESP 18; TEMP 36.3; O2SAT 94
[2024-04-08] MEDS: diphenhydrAMINE HCL 25 MG CAPSULE 50 MG PO ×2 (09:56→20:21)
[2024-04-08] MEDS: Escitalopram Oxalate 5 MG TABLET PO (09:57)
--- NOTE | 2024-04-08 11:47 | P.PNPSI_ITS ---
Subjective Subjective Date of Service: 04/08/24 Reason For Visit: Status post suicide attempt Subjective Notes: Conditional Voluntary Interim History: The nursing staff reported the patient has refused the Aricept, she had been isolative. The bilingual social worker reported that she has already a guardian already set before. We are going to try to get more collateral information. On interview the patient remains confused pleasant, delusional but redirectable. Mental Status Exam Mental Status Exam Patient Appearance: Well Grooomed and Appropriate Patient Orientation: Person and Situation Level of Consciousness: Awake and Appropriate Patient Behavior: Guarded and Passive Mood Description: Withdrawn Affect Description: Constricted Patient Cognition Impaired: Yes Ability to Follow Directions: Good Speech Pattern: Clear Hallucinations: None Delusions: Ideas of Reference Thought Process: Distracted and Slowed Thinking Thought Content: positive for [place] and positive for Poverty of Content Judgement: Fair Diagnostics Vital Signs (24Hr): Vital Signs - 24 hr 04/07/24 20:00 04/08/24 08:27 Temperature 97.8 F 97.3 F Pulse Rate 77 65 Respiratory Rate 16 18 Blood Pressure 138/67 127/60 Pulse Oximetry 98 94 Oxygen Delivery Method Room Air Room Air BMI result Body Mass Index 28.4 Labs 03/16/24 07:32 Medications Medications Current Medications Al Hydroxide/Mg Hydroxide (Magnesium Hydrox/Alum Hydrox 30 Ml Oral.Susp) 30 ml PO Q6H PRN PRN Reason: Heartburn/Nausea Albuterol Sulfate (Albuterol Sulfate 90 Mcg 8 Gm Inhaler) 2 puff INHALE Q4H PRN PRN Reason: Shortness Of Breath Or Wheezing Last Admin: 04/06/24 11:22 Dose: 2 puff Artificial Tears (Artificial Tears 15 Ml Drops) 1 drop EYE-BOTH DAILY PRN PRN Reason: Dry Eye(S) Diazepam (Diazepam 5 Mg Tablet) 10 mg PO BID [facility] Last Admin: 04/08/24 09:57 Dose: 10 mg Diphenhydramine HCl (Diphenhydramine Hcl 25 Mg Capsule) 25 mg PO Q6H PRN PRN Reason: Anxiety, Itching Last Admin: 04/08/24 03:57 Dose: 25 mg Diphenhydramine HCl (Diphenhydramine Hcl 25 Mg Capsule) 50 mg PO BID [facility] Last Admin: 04/08/24 09:56 Dose: 50 mg Donepezil HCl (Donepezil Hcl 5 Mg Tablet) 5 mg PO BEDTIME [facility] Last Admin: 04/07/24 19:53 Dose: Not Given Escitalopram Oxalate (Escitalopram Oxalate 5 Mg Tablet) 5 mg PO DAILY [facility] Last Admin: 04/08/24 09:57 Dose: 5 mg Fentanyl (Fentanyl 50 Mcg Patch.Td72) 50 mcg TRANSDERMA Q72H [facility] Last Admin: 04/06/24 09:02 Dose: 50 mcg Ferrous Sulfate (Ferrous Sulfate 324 Mg Tablet.) 324 mg PO Q48H [facility] Last Admin: 04/08/24 09:56 Dose: Not Given Hydrocortisone (Hydrocortisone 1 % Cream 28.35 Gm Tube) 1 appl TOPICAL BID [facility]; Protocol Last Admin: 04/08/24 10:14 Dose: Not Given Magnesium Hydroxide (Milk Of Magnesia 30 Ml Oral.Susp) 30 ml PO DAILY PRN PRN Reason: Constipation Morphine Sulfate (Morphine Sulfate Immed Release 15 Mg Tablet) 30 mg PO Q6H PRN PRN Reason: pain Last Admin: 04/08/24 10:14 Dose: 30 mg Nicotine (Nicotine 21 Mg Patch.Td24) 21 mg TRANSDERMA DAILY PRN PRN Reason: smoking cessation Nicotine Polacrilex (Nicotine Polacrilex 2 Mg Gum) 4 mg BUCCAL Q2H PRN PRN Reason: Nicotine Cravings Olanzapine (Olanzapine 2.5 Mg Tablet) 2.5 mg PO TID PRN PRN Reason: agitation Olanzapine (Olanzapine 2.5 Mg Tablet) 2.5 mg PO BEDTIME [facility] Last Admin: 04/07/24 19:51 Dose: Not Given Omeprazole (Omeprazole 20 Mg Capsule.) 20 mg PO 0630 [facility] Last Admin: 04/08/24 05:55 Dose: 20 mg Trazodone HCl (Trazodone Hcl 50 Mg Tablet) 50 mg PO BEDTIME MRX1 PRN PRN Reason: Insomnia Allergies Allergies Allergy/AdvReac Type Severity Reaction Status Date / Time Egg Derived Allergy Unknown Unknown Verified 03/16/24 15:22 acetaminophen [From Percocet] AdvReac Severe Hives Verified 03/14/24 23:07 alprazolam AdvReac Severe Hives Verified 03/14/24 23:09 atorvastatin AdvReac Severe Hives Verified 03/14/24 23:10 azithromycin AdvReac Severe Swelling Verified 03/14/24 23:11 cholestyramine AdvReac Severe Hives Verified 03/14/24 23:08 [From Questran] ciprofloxacin AdvReac Severe Hives Verified 03/14/24 23:11 codeine AdvReac Severe Hives Verified 03/14/24 23:12 colesevelam AdvReac Severe Hives Verified 03/14/24 23:12 egg AdvReac Severe Hives Verified 03/15/24 01:39 Estrogens AdvReac Severe Swelling Verified 03/14/24 23:13 gemfibrozil AdvReac Severe Hives Verified 03/14/24 23:14 hydrocortisone AdvReac Severe Blurry Verified 03/14/24 23:07 [From Cortenema] Vision hydromorphone [From Dilaudid] AdvReac Severe Swelling Verified 03/14/24 23:13 Iodinated Contrast Media AdvReac Severe Hives Verified 03/14/24 23:14 isoniazid AdvReac Severe Hives Verified 03/14/24 23:15 mercaptopurine AdvReac Severe Vomiting Verified 03/14/24 23:16 methylprednisolone AdvReac Severe Hives Verified 03/14/24 23:16 minocycline AdvReac Severe Hives Verified 03/14/24 23:24 naproxen AdvReac Severe Rash Verified 03/14/24 23:17 oxycodone [From Percocet] AdvReac Severe Hives Verified 03/14/24 23:07 propoxyphene AdvReac Severe Hives Verified 03/14/24 23:19 quetiapine AdvReac Severe Rash Verified 03/14/24 23:20 risperidone AdvReac Severe Hives Verified 03/14/24 23:20 seafood AdvReac Severe Swelling Verified 03/14/24 23:21 shellfish derived AdvReac Severe Swelling Verified 03/14/24 23:21 [id number] Reductase AdvReac Severe Swelling Verified 03/14/24 23:22 Inhibitor sucrose [From Questran] AdvReac Severe Hives Verified 03/14/24 23:08 Sulfa (Sulfonamide AdvReac Severe Hives Verified 03/14/24 23:24 Antibiotics) tramadol AdvReac Severe Rash Verified 03/14/24 23:22 wool AdvReac Severe Hives Verified 03/14/24 23:23 Assessment & Plan Assessment & Plan (1) Dementia: Status: Acute Code(s): F03.90 - Unspecified dementia, unspecified severity, without behavioral disturbance, psychotic disturbance, mood disturbance, and anxiety (2) Post traumatic stress disorder (PTSD): Status: Acute Code(s): F43.10 - Post-traumatic stress disorder, unspecified (3) Cognitive disorder: Status: Acute Code(s): F09 - Unspecified mental disorder due to known physiological condition (4) Generalized anxiety disorder: Status: Acute Code(s): F41.1 - Generalized anxiety disorder (5) Suicide attempt by fentanyl overdose: Status: Acute Code(s): T40.412A - Poisoning by fentanyl or fentanyl analogs, intentional self-harm, initial encounter (6) Psychosis: Status: Acute Code(s): F29 - Unspecified psychosis not due to a substance or known physiological condition Plan Pt is a 63-year-old female with a PMH significant for?CVA, chronic pain disorder, HLD, ulcerative colitis s/p colectomy with colostomy in place, chronic anemia, and GERD who is admitted to [facility] for increasing paranoia and depression with suicide attempt by overdosing on home meds. Pt was apparently found unconscious in her apartment surrounded by empty morphine bottles, an SI note, and an eviction notice. Pt was emergently intubated and admitted to ICU for 5 days where she was treated for RAKAN and aspiration pneumonia. Also had elevated troponins that were attributed to demand ischemia. Medical consult for admission H&P. Mood disorder Plan as per psychiatry Recent hx of intubation in the ICU Denies difficulty swallowing, no sore throat or SOB Continue albuterol inhaler Peripheral neuropathy of right lower extremity Foot warm, pedal pulses 2+, well perfused No known hx of DM Unclear etiology Consider gabapentin if persistent Right foot wounds Unclear etiology Superficial, healing well No sign of infection No further intervention or workup needed at this time Hx of CVA Continue statin, aspirin Chronic pain disorder Continue fentanyl pathch, po morphine GERD PPI Plan 1. Continue with same medications. 2. Guardianship papers already filed. 3. Waiting for placement 4. Adding Aricept 5 mg p.o. q.h.s. on April 05 5. It seems that the patient has already a guardians we are going to try to contact him and get more collateral information for placement Reason for continued inpatient stay Substantial Risk for: inability to function, rapid decompensation and med/psych decompensation Time Spent With Patient Time: Total time managing care of this patient today ____ minutes.
[2024-04-08 20:00] VITALS: BP 103/55; PULSE 78; RESP 16; TEMP 36.4; O2SAT 95
[2024-04-08] MEDS: Hydrocortisone 1 % Cream 28.35 GM TUBE 1 APPL TOPICAL (20:20)
[2024-04-09] MEDS: Omeprazole 20 MG CAPSULE.DR PO (06:14)
[2024-04-09] MEDS: Morphine Sulfate Immed Release 15 MG TABLET 30 MG PO ×3 (06:38→22:53)
[2024-04-09] MEDS: diphenhydrAMINE HCL 25 MG CAPSULE PO ×2 (06:39→15:15)
[2024-04-09 08:05] VITALS: BP 129/60; PULSE 75; RESP 18; TEMP 36.3; O2SAT 95
[2024-04-09] MEDS: fentaNYL 50 MCG PATCH.TD72 TRANSDERMA (08:48)
[2024-04-09] MEDS: diphenhydrAMINE HCL 25 MG CAPSULE 50 MG PO ×2 (08:53→20:35)
[2024-04-09] MEDS: diazePAM 5 MG TABLET 10 MG PO ×2 (08:53→20:35)
[2024-04-09] MEDS: Escitalopram Oxalate 5 MG TABLET PO (08:54)
--- NOTE | 2024-04-09 11:38 | HO.PSYCHPN ---
Subjective Subjective Date of Service: 04/09/24 Reason For Visit: Status post suicide attempt Subjective Notes: Conditional Voluntary Interim History: The nursing staff reported that she complained of chronic back pain she was visible in the unit isolative at times social with some peers slept well. The rn social services contact the guardian and will have a meeting tomorrow also she contact adult protective services. On interview the patient remains confused she wrote a letter she remains easily redirectable. Mental Status Exam Mental Status Exam Patient Appearance: Appropriate Patient Orientation: Person and Situation Level of Consciousness: Awake and Appropriate Patient Behavior: Guarded and Passive Mood Description: Withdrawn Affect Description: Labile Patient Cognition Impaired: Yes Ability to Follow Directions: Good Speech Pattern: Clear Hallucinations: None Delusions: Not Present Thought Process: Distracted and Slowed Thinking Thought Content: positive for [place] and positive for Poverty of Content Judgement: Fair Diagnostics Vital Signs (24Hr): Vital Signs - 24 hr 04/08/24 20:00 04/09/24 08:05 Temperature 97.5 F 97.3 F Pulse Rate 78 75 Respiratory Rate 16 18 Blood Pressure 103/55 L 129/60 Pulse Oximetry 95 95 Oxygen Delivery Method Room Air Room Air BMI result Body Mass Index 28.4 Labs 03/16/24 07:32 Medications Medications Current Medications Al Hydroxide/Mg Hydroxide (Magnesium Hydrox/Alum Hydrox 30 Ml Oral.Susp) 30 ml PO Q6H PRN PRN Reason: Heartburn/Nausea Albuterol Sulfate (Albuterol Sulfate 90 Mcg 8 Gm Inhaler) 2 puff INHALE Q4H PRN PRN Reason: Shortness Of Breath Or Wheezing Last Admin: 04/06/24 11:22 Dose: 2 puff Artificial Tears (Artificial Tears 15 Ml Drops) 1 drop EYE-BOTH DAILY PRN PRN Reason: Dry Eye(S) Diazepam (Diazepam 5 Mg Tablet) 10 mg PO BID [facility] Last Admin: 04/09/24 08:53 Dose: 10 mg Diphenhydramine HCl (Diphenhydramine Hcl 25 Mg Capsule) 25 mg PO Q6H PRN PRN Reason: Anxiety, Itching Last Admin: 04/09/24 06:39 Dose: 25 mg Diphenhydramine HCl (Diphenhydramine Hcl 25 Mg Capsule) 50 mg PO BID [facility] Last Admin: 04/09/24 08:53 Dose: 50 mg Donepezil HCl (Donepezil Hcl 5 Mg Tablet) 5 mg PO BEDTIME [facility] Last Admin: 04/08/24 21:01 Dose: Not Given Escitalopram Oxalate (Escitalopram Oxalate 5 Mg Tablet) 5 mg PO DAILY [facility] Last Admin: 04/09/24 08:54 Dose: 5 mg Fentanyl (Fentanyl 50 Mcg Patch.Td72) 50 mcg TRANSDERMA Q72H [facility] Last Admin: 04/09/24 08:48 Dose: 50 mcg Ferrous Sulfate (Ferrous Sulfate 324 Mg Tablet.) 324 mg PO Q48H [facility] Last Admin: 04/08/24 09:56 Dose: Not Given Hydrocortisone (Hydrocortisone 1 % Cream 28.35 Gm Tube) 1 appl TOPICAL BID [facility]; Protocol Last Admin: 04/09/24 08:54 Dose: Not Given Magnesium Hydroxide (Milk Of Magnesia 30 Ml Oral.Susp) 30 ml PO DAILY PRN PRN Reason: Constipation Morphine Sulfate (Morphine Sulfate Immed Release 15 Mg Tablet) 30 mg PO Q6H PRN PRN Reason: pain Last Admin: 04/09/24 06:38 Dose: 30 mg Nicotine (Nicotine 21 Mg Patch.Td24) 21 mg TRANSDERMA DAILY PRN PRN Reason: smoking cessation Nicotine Polacrilex (Nicotine Polacrilex 2 Mg Gum) 4 mg BUCCAL Q2H PRN PRN Reason: Nicotine Cravings Olanzapine (Olanzapine 2.5 Mg Tablet) 2.5 mg PO TID PRN PRN Reason: agitation Olanzapine (Olanzapine 2.5 Mg Tablet) 2.5 mg PO BEDTIME [facility] Last Admin: 04/08/24 21:01 Dose: Not Given Omeprazole (Omeprazole 20 Mg Capsule.) 20 mg PO 0630 [facility] Last Admin: 04/09/24 06:14 Dose: 20 mg Trazodone HCl (Trazodone Hcl 50 Mg Tablet) 50 mg PO BEDTIME MRX1 PRN PRN Reason: Insomnia Allergies Allergies Allergy/AdvReac Type Severity Reaction Status Date / Time Egg Derived Allergy Unknown Unknown Verified 03/16/24 15:22 acetaminophen [From Percocet] AdvReac Severe Hives Verified 03/14/24 23:07 alprazolam AdvReac Severe Hives Verified 03/14/24 23:09 atorvastatin AdvReac Severe Hives Verified 03/14/24 23:10 azithromycin AdvReac Severe Swelling Verified 03/14/24 23:11 cholestyramine AdvReac Severe Hives Verified 03/14/24 23:08 [From Questran] ciprofloxacin AdvReac Severe Hives Verified 03/14/24 23:11 codeine AdvReac Severe Hives Verified 03/14/24 23:12 colesevelam AdvReac Severe Hives Verified 03/14/24 23:12 egg AdvReac Severe Hives Verified 03/15/24 01:39 Estrogens AdvReac Severe Swelling Verified 03/14/24 23:13 gemfibrozil AdvReac Severe Hives Verified 03/14/24 23:14 hydrocortisone AdvReac Severe Blurry Verified 03/14/24 23:07 [From Cortenema] Vision hydromorphone [From Dilaudid] AdvReac Severe Swelling Verified 03/14/24 23:13 Iodinated Contrast Media AdvReac Severe Hives Verified 03/14/24 23:14 isoniazid AdvReac Severe Hives Verified 03/14/24 23:15 mercaptopurine AdvReac Severe Vomiting Verified 03/14/24 23:16 methylprednisolone AdvReac Severe Hives Verified 03/14/24 23:16 minocycline AdvReac Severe Hives Verified 03/14/24 23:24 naproxen AdvReac Severe Rash Verified 03/14/24 23:17 oxycodone [From Percocet] AdvReac Severe Hives Verified 03/14/24 23:07 propoxyphene AdvReac Severe Hives Verified 03/14/24 23:19 quetiapine AdvReac Severe Rash Verified 03/14/24 23:20 risperidone AdvReac Severe Hives Verified 03/14/24 23:20 seafood AdvReac Severe Swelling Verified 03/14/24 23:21 shellfish derived AdvReac Severe Swelling Verified 03/14/24 23:21 [id number] Reductase AdvReac Severe Swelling Verified 03/14/24 23:22 Inhibitor sucrose [From Questran] AdvReac Severe Hives Verified 03/14/24 23:08 Sulfa (Sulfonamide AdvReac Severe Hives Verified 03/14/24 23:24 Antibiotics) tramadol AdvReac Severe Rash Verified 03/14/24 23:22 wool AdvReac Severe Hives Verified 03/14/24 23:23 Assessment & Plan Assessment & Plan (1) Dementia: Status: Acute Code(s): F03.90 - Unspecified dementia, unspecified severity, without behavioral disturbance, psychotic disturbance, mood disturbance, and anxiety (2) Post traumatic stress disorder (PTSD): Status: Acute Code(s): F43.10 - Post-traumatic stress disorder, unspecified (3) Cognitive disorder: Status: Acute Code(s): F09 - Unspecified mental disorder due to known physiological condition (4) Generalized anxiety disorder: Status: Acute Code(s): F41.1 - Generalized anxiety disorder (5) Suicide attempt by fentanyl overdose: Status: Acute Code(s): T40.412A - Poisoning by fentanyl or fentanyl analogs, intentional self-harm, initial encounter (6) Psychosis: Status: Acute Code(s): F29 - Unspecified psychosis not due to a substance or known physiological condition Plan Pt is a 63-year-old female with a PMH significant for?CVA, chronic pain disorder, HLD, ulcerative colitis s/p colectomy with colostomy in place, chronic anemia, and GERD who is admitted to [facility] for increasing paranoia and depression with suicide attempt by overdosing on home meds. Pt was apparently found unconscious in her apartment surrounded by empty morphine bottles, an SI note, and an eviction notice. Pt was emergently intubated and admitted to ICU for 5 days where she was treated for RAKAN and aspiration pneumonia. Also had elevated troponins that were attributed to demand ischemia. Medical consult for admission H&P. Mood disorder Plan as per psychiatry Recent hx of intubation in the ICU Denies difficulty swallowing, no sore throat or SOB Continue albuterol inhaler Peripheral neuropathy of right lower extremity Foot warm, pedal pulses 2+, well perfused No known hx of DM Unclear etiology Consider gabapentin if persistent Right foot wounds Unclear etiology Superficial, healing well No sign of infection No further intervention or workup needed at this time Hx of CVA Continue statin, aspirin Chronic pain disorder Continue fentanyl pathch, po morphine GERD PPI Plan 1. Continue with same medications. 2. Guardianship papers already filed. 3. Waiting for placement 4. Adding Aricept 5 mg p.o. q.h.s. on April 05 5. It seems that the patient has already a guardians we are going to try to contact him and get more collateral information for placement Reason for continued inpatient stay Substantial Risk for: inability to function, rapid decompensation and med/psych decompensation Time Spent With Patient Time: Total time managing care of this patient today ____ minutes.
[2024-04-09 20:00] VITALS: BP 119/59; PULSE 75; RESP 18; TEMP 36.3; O2SAT 97
[2024-04-09] MEDS: Hydrocortisone 1 % Cream 28.35 GM TUBE 1 APPL TOPICAL (20:35)
[2024-04-10] MEDS: Morphine Sulfate Immed Release 15 MG TABLET 30 MG PO ×3 (05:05→22:00)
[2024-04-10] MEDS: diphenhydrAMINE HCL 25 MG CAPSULE PO ×2 (05:06→15:55)
[2024-04-10] MEDS: Omeprazole 20 MG CAPSULE.DR PO (05:06)
[2024-04-10 08:00] VITALS: BP 143/74; PULSE 77; RESP 18; TEMP 36.6; O2SAT 97
[2024-04-10] MEDS: Escitalopram Oxalate 5 MG TABLET PO (08:13)
[2024-04-10] MEDS: diphenhydrAMINE HCL 25 MG CAPSULE 50 MG PO ×2 (08:13→20:13)
[2024-04-10] MEDS: diazePAM 5 MG TABLET 10 MG PO ×2 (08:14→20:13)
--- NOTE | 2024-04-10 15:47 | HO.PSYCHPN ---
Subjective Subjective Date of Service: 04/10/24 Reason For Visit: Status post suicide attempt Subjective Notes: Conditional Voluntary Interim History: The nursing staff reported the patient has been visible she took only lunch and dinner. The social insurance specialist is working with the guardian attend o'clock for placement. On interview the patient denies new symptoms. She does not have insight into her condition. Mental Status Exam Mental Status Exam Patient Orientation: Person and Situation Level of Consciousness: Awake and Appropriate Patient Behavior: Guarded and Passive Mood Description: Withdrawn Affect Description: Constricted Patient Cognition Impaired: Yes Ability to Follow Directions: Good Speech Pattern: Clear Hallucinations: None Delusions: Not Present Thought Process: Distracted and Slowed Thinking Thought Content: positive for [place] and positive for Poverty of Content Judgement: Fair Diagnostics Vital Signs (24Hr): Vital Signs - 24 hr 04/09/24 20:00 04/10/24 08:00 Temperature 97.3 F 97.8 F Pulse Rate 75 77 Respiratory Rate 18 18 Blood Pressure 119/59 L 143/74 H Pulse Oximetry 97 97 Oxygen Delivery Method Room Air Room Air BMI result Body Mass Index 28.4 Labs 03/16/24 07:32 Medications Medications Current Medications Al Hydroxide/Mg Hydroxide (Magnesium Hydrox/Alum Hydrox 30 Ml Oral.Susp) 30 ml PO Q6H PRN PRN Reason: Heartburn/Nausea Albuterol Sulfate (Albuterol Sulfate 90 Mcg 8 Gm Inhaler) 2 puff INHALE Q4H PRN PRN Reason: Shortness Of Breath Or Wheezing Last Admin: 04/06/24 11:22 Dose: 2 puff Artificial Tears (Artificial Tears 15 Ml Drops) 1 drop EYE-BOTH DAILY PRN PRN Reason: Dry Eye(S) Diazepam (Diazepam 5 Mg Tablet) 10 mg PO BID [facility] Last Admin: 04/10/24 08:14 Dose: 10 mg Diphenhydramine HCl (Diphenhydramine Hcl 25 Mg Capsule) 25 mg PO Q6H PRN PRN Reason: Anxiety, Itching Last Admin: 04/10/24 05:06 Dose: 25 mg Diphenhydramine HCl (Diphenhydramine Hcl 25 Mg Capsule) 50 mg PO BID [facility] Last Admin: 04/10/24 08:13 Dose: 50 mg Donepezil HCl (Donepezil Hcl 5 Mg Tablet) 5 mg PO BEDTIME [facility] Last Admin: 04/09/24 20:37 Dose: Not Given Escitalopram Oxalate (Escitalopram Oxalate 5 Mg Tablet) 5 mg PO DAILY [facility] Last Admin: 04/10/24 08:13 Dose: 5 mg Fentanyl (Fentanyl 50 Mcg Patch.Td72) 50 mcg TRANSDERMA Q72H [facility] Last Admin: 04/09/24 08:48 Dose: 50 mcg Ferrous Sulfate (Ferrous Sulfate 324 Mg Tablet.) 324 mg PO Q48H [facility] Last Admin: 04/10/24 09:44 Dose: Not Given Hydrocortisone (Hydrocortisone 1 % Cream 28.35 Gm Tube) 1 appl TOPICAL BID [facility]; Protocol Last Admin: 04/10/24 09:44 Dose: Not Given Magnesium Hydroxide (Milk Of Magnesia 30 Ml Oral.Susp) 30 ml PO DAILY PRN PRN Reason: Constipation Morphine Sulfate (Morphine Sulfate Immed Release 15 Mg Tablet) 30 mg PO Q6H PRN PRN Reason: pain Last Admin: 04/10/24 05:05 Dose: 30 mg Nicotine (Nicotine 21 Mg Patch.Td24) 21 mg TRANSDERMA DAILY PRN PRN Reason: smoking cessation Nicotine Polacrilex (Nicotine Polacrilex 2 Mg Gum) 4 mg BUCCAL Q2H PRN PRN Reason: Nicotine Cravings Olanzapine (Olanzapine 2.5 Mg Tablet) 2.5 mg PO TID PRN PRN Reason: agitation Olanzapine (Olanzapine 2.5 Mg Tablet) 2.5 mg PO BEDTIME [facility] Last Admin: 04/09/24 20:37 Dose: Not Given Omeprazole (Omeprazole 20 Mg Capsule.) 20 mg PO 0630 [facility] Last Admin: 04/10/24 05:06 Dose: 20 mg Trazodone HCl (Trazodone Hcl 50 Mg Tablet) 50 mg PO BEDTIME MRX1 PRN PRN Reason: Insomnia Allergies Allergies Allergy/AdvReac Type Severity Reaction Status Date / Time Egg Derived Allergy Unknown Unknown Verified 03/16/24 15:22 acetaminophen [From Percocet] AdvReac Severe Hives Verified 03/14/24 23:07 alprazolam AdvReac Severe Hives Verified 03/14/24 23:09 atorvastatin AdvReac Severe Hives Verified 03/14/24 23:10 azithromycin AdvReac Severe Swelling Verified 03/14/24 23:11 cholestyramine AdvReac Severe Hives Verified 03/14/24 23:08 [From Questran] ciprofloxacin AdvReac Severe Hives Verified 03/14/24 23:11 codeine AdvReac Severe Hives Verified 03/14/24 23:12 colesevelam AdvReac Severe Hives Verified 03/14/24 23:12 egg AdvReac Severe Hives Verified 03/15/24 01:39 Estrogens AdvReac Severe Swelling Verified 03/14/24 23:13 gemfibrozil AdvReac Severe Hives Verified 03/14/24 23:14 hydrocortisone AdvReac Severe Blurry Verified 03/14/24 23:07 [From Cortenema] Vision hydromorphone [From Dilaudid] AdvReac Severe Swelling Verified 03/14/24 23:13 Iodinated Contrast Media AdvReac Severe Hives Verified 03/14/24 23:14 isoniazid AdvReac Severe Hives Verified 03/14/24 23:15 mercaptopurine AdvReac Severe Vomiting Verified 03/14/24 23:16 methylprednisolone AdvReac Severe Hives Verified 03/14/24 23:16 minocycline AdvReac Severe Hives Verified 03/14/24 23:24 naproxen AdvReac Severe Rash Verified 03/14/24 23:17 oxycodone [From Percocet] AdvReac Severe Hives Verified 03/14/24 23:07 propoxyphene AdvReac Severe Hives Verified 03/14/24 23:19 quetiapine AdvReac Severe Rash Verified 03/14/24 23:20 risperidone AdvReac Severe Hives Verified 03/14/24 23:20 seafood AdvReac Severe Swelling Verified 03/14/24 23:21 shellfish derived AdvReac Severe Swelling Verified 03/14/24 23:21 [id number] Reductase AdvReac Severe Swelling Verified 03/14/24 23:22 Inhibitor sucrose [From Questran] AdvReac Severe Hives Verified 03/14/24 23:08 Sulfa (Sulfonamide AdvReac Severe Hives Verified 03/14/24 23:24 Antibiotics) tramadol AdvReac Severe Rash Verified 03/14/24 23:22 wool AdvReac Severe Hives Verified 03/14/24 23:23 Assessment & Plan Assessment & Plan (1) Dementia: Status: Acute Code(s): F03.90 - Unspecified dementia, unspecified severity, without behavioral disturbance, psychotic disturbance, mood disturbance, and anxiety (2) Post traumatic stress disorder (PTSD): Status: Acute Code(s): F43.10 - Post-traumatic stress disorder, unspecified (3) Cognitive disorder: Status: Acute Code(s): F09 - Unspecified mental disorder due to known physiological condition (4) Generalized anxiety disorder: Status: Acute Code(s): F41.1 - Generalized anxiety disorder (5) Suicide attempt by fentanyl overdose: Status: Acute Code(s): T40.412A - Poisoning by fentanyl or fentanyl analogs, intentional self-harm, initial encounter (6) Psychosis: Status: Acute Code(s): F29 - Unspecified psychosis not due to a substance or known physiological condition Plan Pt is a 63-year-old female with a PMH significant for?CVA, chronic pain disorder, HLD, ulcerative colitis s/p colectomy with colostomy in place, chronic anemia, and GERD who is admitted to [facility] for increasing paranoia and depression with suicide attempt by overdosing on home meds. Pt was apparently found unconscious in her apartment surrounded by empty morphine bottles, an SI note, and an eviction notice. Pt was emergently intubated and admitted to ICU for 5 days where she was treated for RAKAN and aspiration pneumonia. Also had elevated troponins that were attributed to demand ischemia. Medical consult for admission H&P. Mood disorder Plan as per psychiatry Recent hx of intubation in the ICU Denies difficulty swallowing, no sore throat or SOB Continue albuterol inhaler Peripheral neuropathy of right lower extremity Foot warm, pedal pulses 2+, well perfused No known hx of DM Unclear etiology Consider gabapentin if persistent Right foot wounds Unclear etiology Superficial, healing well No sign of infection No further intervention or workup needed at this time Hx of CVA Continue statin, aspirin Chronic pain disorder Continue fentanyl pathch, po morphine GERD PPI Plan 1. Continue with same medications. 2. Guardianship papers already filed. 3. Waiting for placement 4. Adding Aricept 5 mg p.o. q.h.s. on April 05 5. It seems that the patient has already a guardians we are going to try to contact him and get more collateral information for placement Reason for continued inpatient stay Substantial Risk for: inability to function, rapid decompensation and med/psych decompensation Time Spent With Patient Time: Total time managing care of this patient today __20__ minutes.
[2024-04-10 20:00] VITALS: BP 119/59; PULSE 75; RESP 18; TEMP 36.3; O2SAT 96
[2024-04-10] MEDS: Hydrocortisone 1 % Cream 28.35 GM TUBE 1 APPL TOPICAL (20:13)
[2024-04-11] MEDS: diphenhydrAMINE HCL 25 MG CAPSULE PO ×3 (00:30→18:56)
[2024-04-11] MEDS: Morphine Sulfate Immed Release 15 MG TABLET 30 MG PO ×3 (05:52→18:44)
[2024-04-11] MEDS: Omeprazole 20 MG CAPSULE.DR PO (05:53)
[2024-04-11 08:00] VITALS: BP 121/56; PULSE 80; RESP 16; TEMP 36.9; O2SAT 96
[2024-04-11] MEDS: diphenhydrAMINE HCL 25 MG CAPSULE 50 MG PO ×2 (09:49→21:29)
[2024-04-11] MEDS: Escitalopram Oxalate 5 MG TABLET PO (09:50)
[2024-04-11] MEDS: diazePAM 5 MG TABLET 10 MG PO ×2 (09:51→21:29)
[2024-04-11] MEDS: Hydrocortisone 1 % Cream 28.35 GM TUBE 1 APPL TOPICAL (09:53)
--- NOTE | 2024-04-11 13:08 | HO.PSYCHPN ---
Subjective Subjective Date of Service: 04/11/24 Reason For Visit: Status post suicide attempt Subjective Notes: Conditional Voluntary Interim History: The nursing staff reported the patient had been irritable at times but easily redirectable. The delinquency prevention social worker reported that yesterday had a good meeting with the pending guardian for placement. On interview the patient denies new symptoms, waiting for placement. Mental Status Exam Mental Status Exam Patient Appearance: Appropriate Patient Orientation: Person and Situation Level of Consciousness: Awake and Appropriate Patient Behavior: Guarded and Passive Mood Description: Withdrawn Affect Description: Labile Patient Cognition Impaired: Yes Ability to Follow Directions: Good Speech Pattern: Clear Hallucinations: None Delusions: Not Present Thought Process: Distracted and Slowed Thinking Thought Content: positive for [place] and positive for Poverty of Content Judgement: Fair Diagnostics Vital Signs (24Hr): Vital Signs - 24 hr 04/10/24 20:00 04/11/24 08:00 Temperature 97.4 F 98.4 F Pulse Rate 75 80 Respiratory Rate 18 16 Blood Pressure 119/59 L 121/56 L Pulse Oximetry 96 96 Oxygen Delivery Method Room Air Room Air BMI result Body Mass Index 28.4 Labs 03/16/24 07:32 Medications Medications Current Medications Al Hydroxide/Mg Hydroxide (Magnesium Hydrox/Alum Hydrox 30 Ml Oral.Susp) 30 ml PO Q6H PRN PRN Reason: Heartburn/Nausea Albuterol Sulfate (Albuterol Sulfate 90 Mcg 8 Gm Inhaler) 2 puff INHALE Q4H PRN PRN Reason: Shortness Of Breath Or Wheezing Last Admin: 04/06/24 11:22 Dose: 2 puff Artificial Tears (Artificial Tears 15 Ml Drops) 1 drop EYE-BOTH DAILY PRN PRN Reason: Dry Eye(S) Diazepam (Diazepam 5 Mg Tablet) 10 mg PO BID [facility] Last Admin: 04/11/24 09:51 Dose: 10 mg Diphenhydramine HCl (Diphenhydramine Hcl 25 Mg Capsule) 25 mg PO Q6H PRN PRN Reason: Anxiety, Itching Last Admin: 04/11/24 06:32 Dose: 25 mg Diphenhydramine HCl (Diphenhydramine Hcl 25 Mg Capsule) 50 mg PO BID [facility] Last Admin: 04/11/24 09:49 Dose: 50 mg Donepezil HCl (Donepezil Hcl 5 Mg Tablet) 5 mg PO BEDTIME [facility] Last Admin: 04/10/24 20:17 Dose: Not Given Escitalopram Oxalate (Escitalopram Oxalate 5 Mg Tablet) 5 mg PO DAILY [facility] Last Admin: 04/11/24 09:50 Dose: 5 mg Fentanyl (Fentanyl 50 Mcg Patch.Td72) 50 mcg TRANSDERMA Q72H [facility] Last Admin: 04/09/24 08:48 Dose: 50 mcg Ferrous Sulfate (Ferrous Sulfate 324 Mg Tablet.) 324 mg PO Q48H [facility] Last Admin: 04/10/24 09:44 Dose: Not Given Hydrocortisone (Hydrocortisone 1 % Cream 28.35 Gm Tube) 1 appl TOPICAL BID [facility]; Protocol Last Admin: 04/11/24 09:53 Dose: 1 appl Magnesium Hydroxide (Milk Of Magnesia 30 Ml Oral.Susp) 30 ml PO DAILY PRN PRN Reason: Constipation Morphine Sulfate (Morphine Sulfate Immed Release 15 Mg Tablet) 30 mg PO Q6H PRN PRN Reason: pain Last Admin: 04/11/24 12:30 Dose: 30 mg Nicotine (Nicotine 21 Mg Patch.Td24) 21 mg TRANSDERMA DAILY PRN PRN Reason: smoking cessation Nicotine Polacrilex (Nicotine Polacrilex 2 Mg Gum) 4 mg BUCCAL Q2H PRN PRN Reason: Nicotine Cravings Olanzapine (Olanzapine 2.5 Mg Tablet) 2.5 mg PO TID PRN PRN Reason: agitation Olanzapine (Olanzapine 2.5 Mg Tablet) 2.5 mg PO BEDTIME [facility] Last Admin: 04/10/24 20:17 Dose: Not Given Omeprazole (Omeprazole 20 Mg Capsule.) 20 mg PO 0630 [facility] Last Admin: 04/11/24 05:53 Dose: 20 mg Trazodone HCl (Trazodone Hcl 50 Mg Tablet) 50 mg PO BEDTIME MRX1 PRN PRN Reason: Insomnia Allergies Allergies Allergy/AdvReac Type Severity Reaction Status Date / Time Egg Derived Allergy Unknown Unknown Verified 03/16/24 15:22 acetaminophen [From Percocet] AdvReac Severe Hives Verified 03/14/24 23:07 alprazolam AdvReac Severe Hives Verified 03/14/24 23:09 atorvastatin AdvReac Severe Hives Verified 03/14/24 23:10 azithromycin AdvReac Severe Swelling Verified 03/14/24 23:11 cholestyramine AdvReac Severe Hives Verified 03/14/24 23:08 [From Questran] ciprofloxacin AdvReac Severe Hives Verified 03/14/24 23:11 codeine AdvReac Severe Hives Verified 03/14/24 23:12 colesevelam AdvReac Severe Hives Verified 03/14/24 23:12 egg AdvReac Severe Hives Verified 03/15/24 01:39 Estrogens AdvReac Severe Swelling Verified 03/14/24 23:13 gemfibrozil AdvReac Severe Hives Verified 03/14/24 23:14 hydrocortisone AdvReac Severe Blurry Verified 03/14/24 23:07 [From Cortenema] Vision hydromorphone [From Dilaudid] AdvReac Severe Swelling Verified 03/14/24 23:13 Iodinated Contrast Media AdvReac Severe Hives Verified 03/14/24 23:14 isoniazid AdvReac Severe Hives Verified 03/14/24 23:15 mercaptopurine AdvReac Severe Vomiting Verified 03/14/24 23:16 methylprednisolone AdvReac Severe Hives Verified 03/14/24 23:16 minocycline AdvReac Severe Hives Verified 03/14/24 23:24 naproxen AdvReac Severe Rash Verified 03/14/24 23:17 oxycodone [From Percocet] AdvReac Severe Hives Verified 03/14/24 23:07 propoxyphene AdvReac Severe Hives Verified 03/14/24 23:19 quetiapine AdvReac Severe Rash Verified 03/14/24 23:20 risperidone AdvReac Severe Hives Verified 03/14/24 23:20 seafood AdvReac Severe Swelling Verified 03/14/24 23:21 shellfish derived AdvReac Severe Swelling Verified 03/14/24 23:21 [id number]-[id number]-PeE Reductase AdvReac Severe Swelling Verified 03/14/24 23:22 Inhibitor sucrose [From Questran] AdvReac Severe Hives Verified 03/14/24 23:08 Sulfa (Sulfonamide AdvReac Severe Hives Verified 03/14/24 23:24 Antibiotics) tramadol AdvReac Severe Rash Verified 03/14/24 23:22 wool AdvReac Severe Hives Verified 03/14/24 23:23 Assessment & Plan Assessment & Plan (1) Dementia: Status: Acute Code(s): F03.90 - Unspecified dementia, unspecified severity, without behavioral disturbance, psychotic disturbance, mood disturbance, and anxiety (2) Post traumatic stress disorder (PTSD): Status: Acute Code(s): F43.10 - Post-traumatic stress disorder, unspecified (3) Cognitive disorder: Status: Acute Code(s): F09 - Unspecified mental disorder due to known physiological condition (4) Generalized anxiety disorder: Status: Acute Code(s): F41.1 - Generalized anxiety disorder (5) Suicide attempt by fentanyl overdose: Status: Acute Code(s): T40.412A - Poisoning by fentanyl or fentanyl analogs, intentional self-harm, initial encounter (6) Psychosis: Status: Acute Code(s): F29 - Unspecified psychosis not due to a substance or known physiological condition Plan Pt is a 63-year-old female with a PMH significant for?CVA, chronic pain disorder, HLD, ulcerative colitis s/p colectomy with colostomy in place, chronic anemia, and GERD who is admitted to [facility] for increasing paranoia and depression with suicide attempt by overdosing on home meds. Pt was apparently found unconscious in her apartment surrounded by empty morphine bottles, an SI note, and an eviction notice. Pt was emergently intubated and admitted to ICU for 5 days where she was treated for RAKAN and aspiration pneumonia. Also had elevated troponins that were attributed to demand ischemia. Medical consult for admission H&P. Mood disorder Plan as per psychiatry Recent hx of intubation in the ICU Denies difficulty swallowing, no sore throat or SOB Continue albuterol inhaler Peripheral neuropathy of right lower extremity Foot warm, pedal pulses 2+, well perfused No known hx of DM Unclear etiology Consider gabapentin if persistent Right foot wounds Unclear etiology Superficial, healing well No sign of infection No further intervention or workup needed at this time Hx of CVA Continue statin, aspirin Chronic pain disorder Continue fentanyl pathch, po morphine GERD PPI Plan 1. Continue with same medications. 2. Guardianship papers already filed. 3. Waiting for placement 4. Adding Aricept 5 mg p.o. q.h.s. on April 05 5. It seems that the patient has already a guardian, we are going to try to contact him and get more collateral information for placement Reason for continued inpatient stay Substantial Risk for: inability to function, rapid decompensation and med/psych decompensation Time Spent With Patient Time: Total time managing care of this patient today _20___ minutes.
[2024-04-11 20:00] VITALS: BP 123/65; PULSE 92; RESP 12; TEMP 36.9; O2SAT 96
[2024-04-12] MEDS: Morphine Sulfate Immed Release 15 MG TABLET 30 MG PO ×3 (01:14→20:06)
[2024-04-12] MEDS: diphenhydrAMINE HCL 25 MG CAPSULE PO ×2 (01:15→12:03)
[2024-04-12] MEDS: Omeprazole 20 MG CAPSULE.DR PO (06:36)
[2024-04-12 08:17] VITALS: BP 126/69; PULSE 76; RESP 15; TEMP 36.7; O2SAT 96
[2024-04-12] MEDS: fentaNYL 50 MCG PATCH.TD72 TRANSDERMA (08:18)
[2024-04-12] MEDS: Escitalopram Oxalate 5 MG TABLET PO (08:23)
[2024-04-12] MEDS: diphenhydrAMINE HCL 25 MG CAPSULE 50 MG PO ×2 (08:23→20:07)
[2024-04-12] MEDS: diazePAM 5 MG TABLET 10 MG PO ×2 (08:23→20:06)
--- NOTE | 2024-04-12 15:07 | HO.PSYCHPN ---
Subjective Subjective Date of Service: 04/12/24 Reason For Visit: Status post suicide attempt Subjective Notes: Conditional Voluntary Interim History: The nursing staff reported the patient was cheerful, perseverative on getting apartment. She got keep writing in her diary. She refused medications. The rn social services reported no placement yet. On interview the patient denies new symptoms. Mental Status Exam Mental Status Exam Patient Appearance: Appropriate Patient Orientation: Person and Situation Level of Consciousness: Awake and Appropriate Patient Behavior: Guarded and Passive Mood Description: Withdrawn Affect Description: Constricted Patient Cognition Impaired: Yes Ability to Follow Directions: Good Speech Pattern: Clear Hallucinations: None Delusions: Ideas of Reference Thought Process: Illogical, Distracted and Slowed Thinking Thought Content: positive for [place], positive for Poverty of Content and positive for Thought Blocking Judgement: Fair Diagnostics Vital Signs (24Hr): Vital Signs - 24 hr 04/11/24 20:00 04/12/24 08:17 Temperature 98.5 F 98.1 F Pulse Rate 92 76 Respiratory Rate 12 15 Blood Pressure 123/65 126/69 Pulse Oximetry 96 96 Oxygen Delivery Method Room Air Room Air BMI result Body Mass Index 28.4 Labs 03/16/24 07:32 Medications Medications Current Medications Al Hydroxide/Mg Hydroxide (Magnesium Hydrox/Alum Hydrox 30 Ml Oral.Susp) 30 ml PO Q6H PRN PRN Reason: Heartburn/Nausea Albuterol Sulfate (Albuterol Sulfate 90 Mcg 8 Gm Inhaler) 2 puff INHALE Q4H PRN PRN Reason: Shortness Of Breath Or Wheezing Last Admin: 04/06/24 11:22 Dose: 2 puff Artificial Tears (Artificial Tears 15 Ml Drops) 1 drop EYE-BOTH DAILY PRN PRN Reason: Dry Eye(S) Diazepam (Diazepam 5 Mg Tablet) 10 mg PO BID [facility] Last Admin: 04/12/24 08:23 Dose: 10 mg Diphenhydramine HCl (Diphenhydramine Hcl 25 Mg Capsule) 25 mg PO Q6H PRN PRN Reason: Anxiety, Itching Last Admin: 04/12/24 12:03 Dose: 25 mg Diphenhydramine HCl (Diphenhydramine Hcl 25 Mg Capsule) 50 mg PO BID [facility] Last Admin: 04/12/24 08:23 Dose: 50 mg Donepezil HCl (Donepezil Hcl 5 Mg Tablet) 5 mg PO BEDTIME [facility] Last Admin: 04/11/24 21:30 Dose: Not Given Escitalopram Oxalate (Escitalopram Oxalate 5 Mg Tablet) 5 mg PO DAILY [facility] Last Admin: 04/12/24 08:23 Dose: 5 mg Fentanyl (Fentanyl 50 Mcg Patch.Td72) 50 mcg TRANSDERMA Q72H [facility] Last Admin: 04/12/24 08:18 Dose: 50 mcg Ferrous Sulfate (Ferrous Sulfate 324 Mg Tablet.) 324 mg PO Q48H [facility] Last Admin: 04/12/24 08:25 Dose: Not Given Hydrocortisone (Hydrocortisone 1 % Cream 28.35 Gm Tube) 1 appl TOPICAL BID [facility]; Protocol Last Admin: 04/12/24 08:23 Dose: Not Given Magnesium Hydroxide (Milk Of Magnesia 30 Ml Oral.Susp) 30 ml PO DAILY PRN PRN Reason: Constipation Morphine Sulfate (Morphine Sulfate Immed Release 15 Mg Tablet) 30 mg PO Q6H PRN PRN Reason: pain Last Admin: 04/12/24 08:22 Dose: 30 mg Nicotine (Nicotine 21 Mg Patch.Td24) 21 mg TRANSDERMA DAILY PRN PRN Reason: smoking cessation Nicotine Polacrilex (Nicotine Polacrilex 2 Mg Gum) 4 mg BUCCAL Q2H PRN PRN Reason: Nicotine Cravings Olanzapine (Olanzapine 2.5 Mg Tablet) 2.5 mg PO TID PRN PRN Reason: agitation Olanzapine (Olanzapine 2.5 Mg Tablet) 2.5 mg PO BEDTIME [facility] Last Admin: 04/11/24 21:31 Dose: Not Given Omeprazole (Omeprazole 20 Mg Capsule.) 20 mg PO 0630 [facility] Last Admin: 04/12/24 06:36 Dose: 20 mg Trazodone HCl (Trazodone Hcl 50 Mg Tablet) 50 mg PO BEDTIME MRX1 PRN PRN Reason: Insomnia Allergies Allergies Allergy/AdvReac Type Severity Reaction Status Date / Time Egg Derived Allergy Unknown Unknown Verified 03/16/24 15:22 acetaminophen [From Percocet] AdvReac Severe Hives Verified 03/14/24 23:07 alprazolam AdvReac Severe Hives Verified 03/14/24 23:09 atorvastatin AdvReac Severe Hives Verified 03/14/24 23:10 azithromycin AdvReac Severe Swelling Verified 03/14/24 23:11 cholestyramine AdvReac Severe Hives Verified 03/14/24 23:08 [From Questran] ciprofloxacin AdvReac Severe Hives Verified 03/14/24 23:11 codeine AdvReac Severe Hives Verified 03/14/24 23:12 colesevelam AdvReac Severe Hives Verified 03/14/24 23:12 egg AdvReac Severe Hives Verified 03/15/24 01:39 Estrogens AdvReac Severe Swelling Verified 03/14/24 23:13 gemfibrozil AdvReac Severe Hives Verified 03/14/24 23:14 hydrocortisone AdvReac Severe Blurry Verified 03/14/24 23:07 [From Cortenema] Vision hydromorphone [From Dilaudid] AdvReac Severe Swelling Verified 03/14/24 23:13 Iodinated Contrast Media AdvReac Severe Hives Verified 03/14/24 23:14 isoniazid AdvReac Severe Hives Verified 03/14/24 23:15 mercaptopurine AdvReac Severe Vomiting Verified 03/14/24 23:16 methylprednisolone AdvReac Severe Hives Verified 03/14/24 23:16 minocycline AdvReac Severe Hives Verified 03/14/24 23:24 naproxen AdvReac Severe Rash Verified 03/14/24 23:17 oxycodone [From Percocet] AdvReac Severe Hives Verified 03/14/24 23:07 propoxyphene AdvReac Severe Hives Verified 03/14/24 23:19 quetiapine AdvReac Severe Rash Verified 03/14/24 23:20 risperidone AdvReac Severe Hives Verified 03/14/24 23:20 seafood AdvReac Severe Swelling Verified 03/14/24 23:21 shellfish derived AdvReac Severe Swelling Verified 03/14/24 23:21 [id number] Reductase AdvReac Severe Swelling Verified 03/14/24 23:22 Inhibitor sucrose [From Questran] AdvReac Severe Hives Verified 03/14/24 23:08 Sulfa (Sulfonamide AdvReac Severe Hives Verified 03/14/24 23:24 Antibiotics) tramadol AdvReac Severe Rash Verified 03/14/24 23:22 wool AdvReac Severe Hives Verified 03/14/24 23:23 Assessment & Plan Assessment & Plan (1) Dementia: Status: Acute Code(s): F03.90 - Unspecified dementia, unspecified severity, without behavioral disturbance, psychotic disturbance, mood disturbance, and anxiety (2) Post traumatic stress disorder (PTSD): Status: Acute Code(s): F43.10 - Post-traumatic stress disorder, unspecified (3) Cognitive disorder: Status: Acute Code(s): F09 - Unspecified mental disorder due to known physiological condition (4) Generalized anxiety disorder: Status: Acute Code(s): F41.1 - Generalized anxiety disorder (5) Suicide attempt by fentanyl overdose: Status: Acute Code(s): T40.412A - Poisoning by fentanyl or fentanyl analogs, intentional self-harm, initial encounter (6) Psychosis: Status: Acute Code(s): F29 - Unspecified psychosis not due to a substance or known physiological condition Plan Pt is a 63-year-old female with a PMH significant for?CVA, chronic pain disorder, HLD, ulcerative colitis s/p colectomy with colostomy in place, chronic anemia, and GERD who is admitted to [facility] for increasing paranoia and depression with suicide attempt by overdosing on home meds. Pt was apparently found unconscious in her apartment surrounded by empty morphine bottles, an SI note, and an eviction notice. Pt was emergently intubated and admitted to ICU for 5 days where she was treated for RAKAN and aspiration pneumonia. Also had elevated troponins that were attributed to demand ischemia. Medical consult for admission H&P. Mood disorder Plan as per psychiatry Recent hx of intubation in the ICU Denies difficulty swallowing, no sore throat or SOB Continue albuterol inhaler Peripheral neuropathy of right lower extremity Foot warm, pedal pulses 2+, well perfused No known hx of DM Unclear etiology Consider gabapentin if persistent Right foot wounds Unclear etiology Superficial, healing well No sign of infection No further intervention or workup needed at this time Hx of CVA Continue statin, aspirin Chronic pain disorder Continue fentanyl pathch, po morphine GERD PPI Plan 1. Continue with same medications. 2. Guardianship papers already filed. 3. Waiting for placement 4. Adding Aricept 5 mg p.o. q.h.s. on April 05 5. It seems that the patient has already a guardian, we are going to try to contact him and get more collateral information for placement Reason for continued inpatient stay Substantial Risk for: inability to function, rapid decompensation and med/psych decompensation Time Spent With Patient Time: Total time managing care of this patient today __20__ minutes.
[2024-04-12 20:00] VITALS: BP 106/52; PULSE 80; RESP 16; TEMP 36.2; O2SAT 95
[2024-04-13] MEDS: diphenhydrAMINE HCL 25 MG CAPSULE PO ×2 (00:02→17:19)
[2024-04-13] MEDS: Morphine Sulfate Immed Release 15 MG TABLET 30 MG PO ×3 (02:03→17:17)
[2024-04-13] MEDS: diphenhydrAMINE HCL 25 MG CAPSULE 50 MG PO ×2 (06:13→21:10)
[2024-04-13] MEDS: Omeprazole 20 MG CAPSULE.DR PO (06:14)
[2024-04-13] MEDS: Escitalopram Oxalate 5 MG TABLET PO (09:23)
[2024-04-13] MEDS: diazePAM 5 MG TABLET 10 MG PO ×2 (09:23→21:10)
[2024-04-13 09:24] VITALS: BP 126/70; PULSE 87; RESP 18; TEMP 36.4; O2SAT 97
--- NOTE | 2024-04-13 11:06 | P.PNPSI_ITS ---
Subjective Subjective Date of Service: 04/13/24 Reason For Visit: Status post suicide attempt Subjective Notes: Conditional Voluntary Interim History: Patient's case reviewed with Nursing staff, chart reviewed patient seen case discussed. Patient noted to have leaking ileostomy this was taken care of help with nursing staff. Patient has been future oriented limited insight somewhat odd affect generally continues on narcotics Medication Compliance: Intermittent Mental Status Exam Mental Status Exam Patient Appearance: Appropriate Patient Orientation: Person and Situation Level of Consciousness: Awake and Appropriate Patient Behavior: Guarded and Passive Mood Description: Withdrawn Affect Description: Constricted Patient Cognition Impaired: Yes Ability to Follow Directions: Good Speech Pattern: Clear Hallucinations: None Delusions: Ideas of Reference Thought Process: Illogical and Distracted Thought Content: positive for [place] and positive for Poverty of Content Judgement: Fair Judgement and Insight: Odd affect limited insight unclear if tends to confabulate regarding past events Diagnostics Vital Signs (24Hr): Vital Signs - 24 hr 04/12/24 20:00 04/13/24 09:24 Temperature 97.1 F 97.6 F Pulse Rate 80 87 Respiratory Rate 16 18 Blood Pressure 106/52 L 126/70 Pulse Oximetry 95 97 Oxygen Delivery Method Room Air Room Air BMI result Body Mass Index 28.4 Labs 03/16/24 07:32 Medications Medications Current Medications Al Hydroxide/Mg Hydroxide (Magnesium Hydrox/Alum Hydrox 30 Ml Oral.Susp) 30 ml PO Q6H PRN PRN Reason: Heartburn/Nausea Albuterol Sulfate (Albuterol Sulfate 90 Mcg 8 Gm Inhaler) 2 puff INHALE Q4H PRN PRN Reason: Shortness Of Breath Or Wheezing Last Admin: 04/06/24 11:22 Dose: 2 puff Artificial Tears (Artificial Tears 15 Ml Drops) 1 drop EYE-BOTH DAILY PRN PRN Reason: Dry Eye(S) Diazepam (Diazepam 5 Mg Tablet) 10 mg PO BID [facility] Last Admin: 04/13/24 09:23 Dose: 10 mg Diphenhydramine HCl (Diphenhydramine Hcl 25 Mg Capsule) 25 mg PO Q6H PRN PRN Reason: Anxiety, Itching Last Admin: 04/13/24 00:02 Dose: 25 mg Diphenhydramine HCl (Diphenhydramine Hcl 25 Mg Capsule) 50 mg PO BID [facility] Last Admin: 04/13/24 06:13 Dose: 50 mg Donepezil HCl (Donepezil Hcl 5 Mg Tablet) 5 mg PO BEDTIME [facility] Last Admin: 04/12/24 21:46 Dose: Not Given Escitalopram Oxalate (Escitalopram Oxalate 5 Mg Tablet) 5 mg PO DAILY [facility] Last Admin: 04/13/24 09:23 Dose: 5 mg Fentanyl (Fentanyl 50 Mcg Patch.Td72) 50 mcg TRANSDERMA Q72H [facility] Last Admin: 04/12/24 08:18 Dose: 50 mcg Ferrous Sulfate (Ferrous Sulfate 324 Mg Tablet.) 324 mg PO Q48H [facility] Last Admin: 04/12/24 08:25 Dose: Not Given Hydrocortisone (Hydrocortisone 1 % Cream 28.35 Gm Tube) 1 appl TOPICAL BID [facility]; Protocol Last Admin: 04/13/24 09:26 Dose: Not Given Magnesium Hydroxide (Milk Of Magnesia 30 Ml Oral.Susp) 30 ml PO DAILY PRN PRN Reason: Constipation Morphine Sulfate (Morphine Sulfate Immed Release 15 Mg Tablet) 30 mg PO Q6H PRN PRN Reason: pain Last Admin: 04/13/24 09:23 Dose: 30 mg Nicotine (Nicotine 21 Mg Patch.Td24) 21 mg TRANSDERMA DAILY PRN PRN Reason: smoking cessation Nicotine Polacrilex (Nicotine Polacrilex 2 Mg Gum) 4 mg BUCCAL Q2H PRN PRN Reason: Nicotine Cravings Olanzapine (Olanzapine 2.5 Mg Tablet) 2.5 mg PO TID PRN PRN Reason: agitation Olanzapine (Olanzapine 2.5 Mg Tablet) 2.5 mg PO BEDTIME [facility] Last Admin: 04/12/24 21:47 Dose: Not Given Omeprazole (Omeprazole 20 Mg Capsule.) 20 mg PO 0630 [facility] Last Admin: 04/13/24 06:14 Dose: 20 mg Trazodone HCl (Trazodone Hcl 50 Mg Tablet) 50 mg PO BEDTIME MRX1 PRN PRN Reason: Insomnia Allergies Allergies Allergy/AdvReac Type Severity Reaction Status Date / Time Egg Derived Allergy Unknown Unknown Verified 03/16/24 15:22 acetaminophen [From Percocet] AdvReac Severe Hives Verified 03/14/24 23:07 alprazolam AdvReac Severe Hives Verified 03/14/24 23:09 atorvastatin AdvReac Severe Hives Verified 03/14/24 23:10 azithromycin AdvReac Severe Swelling Verified 03/14/24 23:11 cholestyramine AdvReac Severe Hives Verified 03/14/24 23:08 [From Questran] ciprofloxacin AdvReac Severe Hives Verified 03/14/24 23:11 codeine AdvReac Severe Hives Verified 03/14/24 23:12 colesevelam AdvReac Severe Hives Verified 03/14/24 23:12 egg AdvReac Severe Hives Verified 03/15/24 01:39 Estrogens AdvReac Severe Swelling Verified 03/14/24 23:13 gemfibrozil AdvReac Severe Hives Verified 03/14/24 23:14 hydrocortisone AdvReac Severe Blurry Verified 03/14/24 23:07 [From Cortenema] Vision hydromorphone [From Dilaudid] AdvReac Severe Swelling Verified 03/14/24 23:13 Iodinated Contrast Media AdvReac Severe Hives Verified 03/14/24 23:14 isoniazid AdvReac Severe Hives Verified 03/14/24 23:15 mercaptopurine AdvReac Severe Vomiting Verified 03/14/24 23:16 methylprednisolone AdvReac Severe Hives Verified 03/14/24 23:16 minocycline AdvReac Severe Hives Verified 03/14/24 23:24 naproxen AdvReac Severe Rash Verified 03/14/24 23:17 oxycodone [From Percocet] AdvReac Severe Hives Verified 03/14/24 23:07 propoxyphene AdvReac Severe Hives Verified 03/14/24 23:19 quetiapine AdvReac Severe Rash Verified 03/14/24 23:20 risperidone AdvReac Severe Hives Verified 03/14/24 23:20 seafood AdvReac Severe Swelling Verified 03/14/24 23:21 shellfish derived AdvReac Severe Swelling Verified 03/14/24 23:21 [id number]-ZGT-[id number] Reductase AdvReac Severe Swelling Verified 03/14/24 23:22 Inhibitor sucrose [From Questran] AdvReac Severe Hives Verified 03/14/24 23:08 Sulfa (Sulfonamide AdvReac Severe Hives Verified 03/14/24 23:24 Antibiotics) tramadol AdvReac Severe Rash Verified 03/14/24 23:22 wool AdvReac Severe Hives Verified 03/14/24 23:23 Assessment & Plan Assessment & Plan (1) Dementia: Status: Acute Code(s): F03.90 - Unspecified dementia, unspecified severity, without behavioral disturbance, psychotic disturbance, mood disturbance, and anxiety (2) Post traumatic stress disorder (PTSD): Status: Acute Code(s): F43.10 - Post-traumatic stress disorder, unspecified (3) Cognitive disorder: Status: Acute Code(s): F09 - Unspecified mental disorder due to known physiological condition (4) Generalized anxiety disorder: Status: Acute Code(s): F41.1 - Generalized anxiety disorder (5) Suicide attempt by fentanyl overdose: Status: Acute Code(s): T40.412A - Poisoning by fentanyl or fentanyl analogs, intentional self-harm, initial encounter (6) Psychosis: Status: Acute Code(s): F29 - Unspecified psychosis not due to a substance or known physiological condition Plan Pt is a 63-year-old female with a PMH significant for?CVA, chronic pain disorder, HLD, ulcerative colitis s/p colectomy with colostomy in place, chronic anemia, and GERD who is admitted to [facility] for increasing paranoia and depression with suicide attempt by overdosing on home meds. Pt was apparently found unconscious in her apartment surrounded by empty morphine bottles, an SI note, and an eviction notice. Pt was emergently intubated and admitted to ICU for 5 days where she was treated for RAKAN and aspiration pneumonia. Also had elevated troponins that were attributed to demand ischemia. Medical consult for admission H&P. Mood disorder Plan as per psychiatry Recent hx of intubation in the ICU Denies difficulty swallowing, no sore throat or SOB Continue albuterol inhaler Peripheral neuropathy of right lower extremity Foot warm, pedal pulses 2+, well perfused No known hx of DM Unclear etiology Consider gabapentin if persistent Right foot wounds Unclear etiology Superficial, healing well No sign of infection No further intervention or workup needed at this time Hx of CVA Continue statin, aspirin Chronic pain disorder Continue fentanyl pathch, po morphine GERD PPI Plan 1. Continue with same medications. 2. Guardianship papers already filed. 3. Waiting for placement 4. Adding Aricept 5 mg p.o. q.h.s. on April 05 5. It seems that the patient has already a guardian, we are going to try to contact him and get more collateral information for placement 04/13/2024 Patient does have relative in the community reportedly a police commissioner would suggest contacting that person for additional information and history. Would also consider alternatives to chronic narcotic use given patient's impulsive overdose might consider pain management consultation patient would need to be carefully seen in the community she had been living independently for her life. Appears to have a history of learning disabilities verbal processing Reason for continued inpatient stay Substantial Risk for: harm to self and rapid decompensation Time Spent With Patient Time: Total time managing care of this patient today ____ minutes.
[2024-04-13 20:00] VITALS: BP 113/56; PULSE 74; RESP 16; TEMP 36.8; O2SAT 93
[2024-04-13] MEDS: Hydrocortisone 1 % Cream 28.35 GM TUBE 1 APPL TOPICAL (21:14)
[2024-04-14] MEDS: Morphine Sulfate Immed Release 15 MG TABLET 30 MG PO ×4 (00:01→22:04)
[2024-04-14] MEDS: diphenhydrAMINE HCL 25 MG CAPSULE PO ×2 (03:55→16:34)
[2024-04-14] MEDS: Omeprazole 20 MG CAPSULE.DR PO (06:43)
[2024-04-14 08:35] VITALS: BP 97/52; PULSE 73; RESP 16; TEMP 36; O2SAT 93
[2024-04-14] MEDS: diazePAM 5 MG TABLET 10 MG PO ×2 (10:01→21:17)
[2024-04-14] MEDS: diphenhydrAMINE HCL 25 MG CAPSULE 50 MG PO ×2 (10:02→21:18)
[2024-04-14] MEDS: Escitalopram Oxalate 5 MG TABLET PO (10:02)
[2024-04-14 20:00] VITALS: BP 119/58; PULSE 87; RESP 15; TEMP 36.7; O2SAT 96
--- NOTE | 2024-04-14 21:45 | HO.PSYCHPN ---
Subjective Subjective Date of Service: 04/14/24 Reason For Visit: Status post suicide attempt Subjective Notes: Conditional Voluntary Interim History: Patient calm cooperative limited insight. Case reviewed with Nursing staff continues to generally feel she has no psychiatric issues. Relates that she made suicide attempt after she states she had been told that her cousins in the police department had been killed no clear reported history of auditory hallucinations. She does relate to these people are and is willing to have them involved in her care Mental Status Exam Mental Status Exam Patient Appearance: Appropriate Patient Orientation: Person, Place and Situation Level of Consciousness: Awake and Appropriate Patient Behavior: Guarded and Passive Mood Description: Withdrawn Affect Description: Constricted Patient Cognition Impaired: Yes Ability to Follow Directions: Good Speech Pattern: Clear Hallucinations: None Delusions: Ideas of Reference Thought Process: Illogical and Distracted Thought Content: positive for [place], negative for Suicidal Ideation or negative for Homicidal Ideation Judgement: Fair Judgement and Insight: Odd affect limited insight unclear if tends to confabulate regarding past events this continues to be true Does relate that she feels lonely and isolated and this does get her into periods of despair Diagnostics Vital Signs (24Hr): Vital Signs - 24 hr 04/14/24 08:35 04/14/24 20:00 Temperature 96.8 F 98.1 F Pulse Rate 73 87 Respiratory Rate 16 15 Blood Pressure 97/52 L 119/58 L Pulse Oximetry 93 96 Oxygen Delivery Method Room Air Room Air BMI result Body Mass Index 28.4 Labs 03/16/24 07:32 Medications Medications Current Medications Al Hydroxide/Mg Hydroxide (Magnesium Hydrox/Alum Hydrox 30 Ml Oral.Susp) 30 ml PO Q6H PRN PRN Reason: Heartburn/Nausea Albuterol Sulfate (Albuterol Sulfate 90 Mcg 8 Gm Inhaler) 2 puff INHALE Q4H PRN PRN Reason: Shortness Of Breath Or Wheezing Last Admin: 04/06/24 11:22 Dose: 2 puff Artificial Tears (Artificial Tears 15 Ml Drops) 1 drop EYE-BOTH DAILY PRN PRN Reason: Dry Eye(S) Diazepam (Diazepam 5 Mg Tablet) 10 mg PO BID [facility] Last Admin: 04/14/24 21:17 Dose: 10 mg Diphenhydramine HCl (Diphenhydramine Hcl 25 Mg Capsule) 25 mg PO Q6H PRN PRN Reason: Anxiety, Itching Last Admin: 04/14/24 16:34 Dose: 25 mg Diphenhydramine HCl (Diphenhydramine Hcl 25 Mg Capsule) 50 mg PO BID [facility] Last Admin: 04/14/24 21:18 Dose: 50 mg Donepezil HCl (Donepezil Hcl 5 Mg Tablet) 5 mg PO BEDTIME [facility] Last Admin: 04/14/24 21:21 Dose: Not Given Escitalopram Oxalate (Escitalopram Oxalate 5 Mg Tablet) 5 mg PO DAILY [facility] Last Admin: 04/14/24 10:02 Dose: 5 mg Fentanyl (Fentanyl 50 Mcg Patch.Td72) 50 mcg TRANSDERMA Q72H [facility] Last Admin: 04/12/24 08:18 Dose: 50 mcg Ferrous Sulfate (Ferrous Sulfate 324 Mg Tablet.) 324 mg PO Q48H [facility] Last Admin: 04/14/24 10:05 Dose: Not Given Hydrocortisone (Hydrocortisone 1 % Cream 28.35 Gm Tube) 1 appl TOPICAL BID [facility]; Protocol Last Admin: 04/14/24 21:21 Dose: Not Given Magnesium Hydroxide (Milk Of Magnesia 30 Ml Oral.Susp) 30 ml PO DAILY PRN PRN Reason: Constipation Morphine Sulfate (Morphine Sulfate Immed Release 15 Mg Tablet) 30 mg PO Q6H PRN PRN Reason: pain Last Admin: 04/14/24 16:04 Dose: 30 mg Nicotine (Nicotine 21 Mg Patch.Td24) 21 mg TRANSDERMA DAILY PRN PRN Reason: smoking cessation Nicotine Polacrilex (Nicotine Polacrilex 2 Mg Gum) 4 mg BUCCAL Q2H PRN PRN Reason: Nicotine Cravings Olanzapine (Olanzapine 2.5 Mg Tablet) 2.5 mg PO TID PRN PRN Reason: agitation Olanzapine (Olanzapine 2.5 Mg Tablet) 2.5 mg PO BEDTIME [facility] Last Admin: 04/14/24 21:22 Dose: Not Given Omeprazole (Omeprazole 20 Mg Capsule.) 20 mg PO 0630 [facility] Last Admin: 04/14/24 06:43 Dose: 20 mg Trazodone HCl (Trazodone Hcl 50 Mg Tablet) 50 mg PO BEDTIME MRX1 PRN PRN Reason: Insomnia Allergies Allergies Allergy/AdvReac Type Severity Reaction Status Date / Time Egg Derived Allergy Unknown Unknown Verified 03/16/24 15:22 acetaminophen [From Percocet] AdvReac Severe Hives Verified 03/14/24 23:07 alprazolam AdvReac Severe Hives Verified 03/14/24 23:09 atorvastatin AdvReac Severe Hives Verified 03/14/24 23:10 azithromycin AdvReac Severe Swelling Verified 03/14/24 23:11 cholestyramine AdvReac Severe Hives Verified 03/14/24 23:08 [From Questran] ciprofloxacin AdvReac Severe Hives Verified 03/14/24 23:11 codeine AdvReac Severe Hives Verified 03/14/24 23:12 colesevelam AdvReac Severe Hives Verified 03/14/24 23:12 egg AdvReac Severe Hives Verified 03/15/24 01:39 Estrogens AdvReac Severe Swelling Verified 03/14/24 23:13 gemfibrozil AdvReac Severe Hives Verified 03/14/24 23:14 hydrocortisone AdvReac Severe Blurry Verified 03/14/24 23:07 [From Cortenema] Vision hydromorphone [From Dilaudid] AdvReac Severe Swelling Verified 03/14/24 23:13 Iodinated Contrast Media AdvReac Severe Hives Verified 03/14/24 23:14 isoniazid AdvReac Severe Hives Verified 03/14/24 23:15 mercaptopurine AdvReac Severe Vomiting Verified 03/14/24 23:16 methylprednisolone AdvReac Severe Hives Verified 03/14/24 23:16 minocycline AdvReac Severe Hives Verified 03/14/24 23:24 naproxen AdvReac Severe Rash Verified 03/14/24 23:17 oxycodone [From Percocet] AdvReac Severe Hives Verified 03/14/24 23:07 propoxyphene AdvReac Severe Hives Verified 03/14/24 23:19 quetiapine AdvReac Severe Rash Verified 03/14/24 23:20 risperidone AdvReac Severe Hives Verified 03/14/24 23:20 seafood AdvReac Severe Swelling Verified 03/14/24 23:21 shellfish derived AdvReac Severe Swelling Verified 03/14/24 23:21 Lsqneex-WWN-NvT Reductase AdvReac Severe Swelling Verified 03/14/24 23:22 Inhibitor sucrose [From Questran] AdvReac Severe Hives Verified 03/14/24 23:08 Sulfa (Sulfonamide AdvReac Severe Hives Verified 03/14/24 23:24 Antibiotics) tramadol AdvReac Severe Rash Verified 03/14/24 23:22 wool AdvReac Severe Hives Verified 03/14/24 23:23 Assessment & Plan Assessment & Plan (1) Post traumatic stress disorder (PTSD): Status: Acute Code(s): F43.10 - Post-traumatic stress disorder, unspecified (2) Cognitive disorder: Status: Acute Code(s): F09 - Unspecified mental disorder due to known physiological condition (3) Generalized anxiety disorder: Status: Acute Code(s): F41.1 - Generalized anxiety disorder (4) Suicide attempt by fentanyl overdose: Status: Acute Code(s): T40.412A - Poisoning by fentanyl or fentanyl analogs, intentional self-harm, initial encounter (5) Psychosis: Status: Acute Code(s): F29 - Unspecified psychosis not due to a substance or known physiological condition Plan Pt is a 63-year-old female with a PMH significant for?CVA, chronic pain disorder, HLD, ulcerative colitis s/p colectomy with colostomy in place, chronic anemia, and GERD who is admitted to [facility] for increasing paranoia and depression with suicide attempt by overdosing on home meds. Pt was apparently found unconscious in her apartment surrounded by empty morphine bottles, an SI note, and an eviction notice. Pt was emergently intubated and admitted to ICU for 5 days where she was treated for RAKAN and aspiration pneumonia. Also had elevated troponins that were attributed to demand ischemia. Medical consult for admission H&P. Mood disorder Plan as per psychiatry Recent hx of intubation in the ICU Denies difficulty swallowing, no sore throat or SOB Continue albuterol inhaler Peripheral neuropathy of right lower extremity Foot warm, pedal pulses 2+, well perfused No known hx of DM Unclear etiology Consider gabapentin if persistent Right foot wounds Unclear etiology Superficial, healing well No sign of infection No further intervention or workup needed at this time Hx of CVA Continue statin, aspirin Chronic pain disorder Continue fentanyl pathch, po morphine GERD PPI Plan 1. Continue with same medications. 2. Guardianship papers already filed. 3. Waiting for placement 4. Adding Aricept 5 mg p.o. q.h.s. on April 05 5. It seems that the patient has already a guardian, we are going to try to contact him and get more collateral information for placement 04/13/2024 Patient does have relative in the community reportedly a facility security officer would suggest contacting that person for additional information and history. Would also consider alternatives to chronic narcotic use given patient's impulsive overdose might consider pain management consultation patient would need to be carefully seen in the community she had been living independently for her life. Appears to have a history of learning disabilities verbal processing 04/14/2024 Patient agreeable to having her cousins involved in her treatment they could give some perspective and history regarding her cognitive state improved perspective Patient educated on: medication risk/benefits and medical condition Reason for continued inpatient stay Substantial Risk for: inability to function, rapid decompensation and med/psych decompensation Time Spent With Patient Time: Total time managing care of this patient today ____ minutes.
[2024-04-15] MEDS: Morphine Sulfate Immed Release 15 MG TABLET 30 MG PO ×3 (04:06→21:02)
[2024-04-15] MEDS: Omeprazole 20 MG CAPSULE.DR PO (05:53)
[2024-04-15] MEDS: diphenhydrAMINE HCL 25 MG CAPSULE PO ×2 (06:56→14:24)
[2024-04-15 08:30] VITALS: BP 112/69; PULSE 80; RESP 20; TEMP 36.3; O2SAT 95
[2024-04-15] MEDS: diphenhydrAMINE HCL 25 MG CAPSULE 50 MG PO ×2 (08:32→21:03)
[2024-04-15] MEDS: Escitalopram Oxalate 5 MG TABLET PO (08:33)
[2024-04-15] MEDS: diazePAM 5 MG TABLET 10 MG PO ×2 (08:33→21:03)
[2024-04-15] MEDS: fentaNYL 50 MCG PATCH.TD72 TRANSDERMA (08:34)
--- NOTE | 2024-04-15 12:34 | P.PNPSI_ITS ---
Subjective Subjective Date of Service: 04/15/24 Reason For Visit: Status post suicide attempt Subjective Notes: Conditional Voluntary Interim History: The nursing staff reported the patient had been isolative her room intrusive at times but easily redirectable. She took morphine every 6 hours. On interview the patient denies new symptoms, waiting for placement Mental Status Exam Mental Status Exam Patient Appearance: Appropriate Patient Orientation: Person and Situation Level of Consciousness: Awake and Appropriate Patient Behavior: Guarded and Passive Mood Description: Calm Affect Description: Constricted Patient Cognition Impaired: Yes Ability to Follow Directions: Good Speech Pattern: Clear Hallucinations: None Delusions: Not Present Thought Process: Distracted and Slowed Thinking Thought Content: positive for [place] and positive for Poverty of Content Judgement: Fair Diagnostics Vital Signs (24Hr): Vital Signs - 24 hr 04/14/24 20:00 04/15/24 08:30 Temperature 98.1 F 97.4 F Pulse Rate 87 80 Respiratory Rate 15 20 Blood Pressure 119/58 L 112/69 Pulse Oximetry 96 95 Oxygen Delivery Method Room Air Room Air BMI result Body Mass Index 28.4 Labs 03/16/24 07:32 Medications Medications Current Medications Al Hydroxide/Mg Hydroxide (Magnesium Hydrox/Alum Hydrox 30 Ml Oral.Susp) 30 ml PO Q6H PRN PRN Reason: Heartburn/Nausea Albuterol Sulfate (Albuterol Sulfate 90 Mcg 8 Gm Inhaler) 2 puff INHALE Q4H PRN PRN Reason: Shortness Of Breath Or Wheezing Last Admin: 04/06/24 11:22 Dose: 2 puff Artificial Tears (Artificial Tears 15 Ml Drops) 1 drop EYE-BOTH DAILY PRN PRN Reason: Dry Eye(S) Diazepam (Diazepam 5 Mg Tablet) 10 mg PO BID [facility] Last Admin: 04/15/24 08:33 Dose: 10 mg Diphenhydramine HCl (Diphenhydramine Hcl 25 Mg Capsule) 25 mg PO Q6H PRN PRN Reason: Anxiety, Itching Last Admin: 04/15/24 06:56 Dose: 25 mg Diphenhydramine HCl (Diphenhydramine Hcl 25 Mg Capsule) 50 mg PO BID [facility] Last Admin: 04/15/24 08:32 Dose: 50 mg Donepezil HCl (Donepezil Hcl 5 Mg Tablet) 5 mg PO BEDTIME [facility] Last Admin: 04/14/24 21:21 Dose: Not Given Escitalopram Oxalate (Escitalopram Oxalate 5 Mg Tablet) 5 mg PO DAILY [facility] Last Admin: 04/15/24 08:33 Dose: 5 mg Fentanyl (Fentanyl 50 Mcg Patch.Td72) 50 mcg TRANSDERMA Q72H [facility] Last Admin: 04/15/24 08:34 Dose: 50 mcg Ferrous Sulfate (Ferrous Sulfate 324 Mg Tablet.) 324 mg PO Q48H [facility] Last Admin: 04/14/24 10:05 Dose: Not Given Hydrocortisone (Hydrocortisone 1 % Cream 28.35 Gm Tube) 1 appl TOPICAL BID [facility]; Protocol Last Admin: 04/15/24 09:40 Dose: Not Given Magnesium Hydroxide (Milk Of Magnesia 30 Ml Oral.Susp) 30 ml PO DAILY PRN PRN Reason: Constipation Morphine Sulfate (Morphine Sulfate Immed Release 15 Mg Tablet) 30 mg PO Q6H PRN PRN Reason: pain Last Admin: 04/15/24 04:06 Dose: 30 mg Nicotine (Nicotine 21 Mg Patch.Td24) 21 mg TRANSDERMA DAILY PRN PRN Reason: smoking cessation Nicotine Polacrilex (Nicotine Polacrilex 2 Mg Gum) 4 mg BUCCAL Q2H PRN PRN Reason: Nicotine Cravings Olanzapine (Olanzapine 2.5 Mg Tablet) 2.5 mg PO TID PRN PRN Reason: agitation Olanzapine (Olanzapine 2.5 Mg Tablet) 2.5 mg PO BEDTIME [facility] Last Admin: 04/14/24 21:22 Dose: Not Given Omeprazole (Omeprazole 20 Mg Capsule.) 20 mg PO 0630 [facility] Last Admin: 04/15/24 05:53 Dose: 20 mg Trazodone HCl (Trazodone Hcl 50 Mg Tablet) 50 mg PO BEDTIME MRX1 PRN PRN Reason: Insomnia Allergies Allergies Allergy/AdvReac Type Severity Reaction Status Date / Time Egg Derived Allergy Unknown Unknown Verified 03/16/24 15:22 acetaminophen [From Percocet] AdvReac Severe Hives Verified 03/14/24 23:07 alprazolam AdvReac Severe Hives Verified 03/14/24 23:09 atorvastatin AdvReac Severe Hives Verified 03/14/24 23:10 azithromycin AdvReac Severe Swelling Verified 03/14/24 23:11 cholestyramine AdvReac Severe Hives Verified 03/14/24 23:08 [From Questran] ciprofloxacin AdvReac Severe Hives Verified 03/14/24 23:11 codeine AdvReac Severe Hives Verified 03/14/24 23:12 colesevelam AdvReac Severe Hives Verified 03/14/24 23:12 egg AdvReac Severe Hives Verified 03/15/24 01:39 Estrogens AdvReac Severe Swelling Verified 03/14/24 23:13 gemfibrozil AdvReac Severe Hives Verified 03/14/24 23:14 hydrocortisone AdvReac Severe Blurry Verified 03/14/24 23:07 [From Cortenema] Vision hydromorphone [From Dilaudid] AdvReac Severe Swelling Verified 03/14/24 23:13 Iodinated Contrast Media AdvReac Severe Hives Verified 03/14/24 23:14 isoniazid AdvReac Severe Hives Verified 03/14/24 23:15 mercaptopurine AdvReac Severe Vomiting Verified 03/14/24 23:16 methylprednisolone AdvReac Severe Hives Verified 03/14/24 23:16 minocycline AdvReac Severe Hives Verified 03/14/24 23:24 naproxen AdvReac Severe Rash Verified 03/14/24 23:17 oxycodone [From Percocet] AdvReac Severe Hives Verified 03/14/24 23:07 propoxyphene AdvReac Severe Hives Verified 03/14/24 23:19 quetiapine AdvReac Severe Rash Verified 03/14/24 23:20 risperidone AdvReac Severe Hives Verified 03/14/24 23:20 seafood AdvReac Severe Swelling Verified 03/14/24 23:21 shellfish derived AdvReac Severe Swelling Verified 03/14/24 23:21 Qpymwzm-CMV-PhW Reductase AdvReac Severe Swelling Verified 03/14/24 23:22 Inhibitor sucrose [From Questran] AdvReac Severe Hives Verified 03/14/24 23:08 Sulfa (Sulfonamide AdvReac Severe Hives Verified 03/14/24 23:24 Antibiotics) tramadol AdvReac Severe Rash Verified 03/14/24 23:22 wool AdvReac Severe Hives Verified 03/14/24 23:23 Assessment & Plan Assessment & Plan (1) Post traumatic stress disorder (PTSD): Status: Acute Code(s): F43.10 - Post-traumatic stress disorder, unspecified (2) Cognitive disorder: Status: Acute Code(s): F09 - Unspecified mental disorder due to known physiological condition (3) Generalized anxiety disorder: Status: Acute Code(s): F41.1 - Generalized anxiety disorder (4) Suicide attempt by fentanyl overdose: Status: Acute Code(s): T40.412A - Poisoning by fentanyl or fentanyl analogs, intentional self-harm, initial encounter (5) Psychosis: Status: Acute Code(s): F29 - Unspecified psychosis not due to a substance or known physiological condition Plan Pt is a 63-year-old female with a PMH significant for?CVA, chronic pain disorder, HLD, ulcerative colitis s/p colectomy with colostomy in place, chronic anemia, and GERD who is admitted to [facility] for increasing paranoia and depression with suicide attempt by overdosing on home meds. Pt was apparently found unconscious in her apartment surrounded by empty morphine bottles, an SI note, and an eviction notice. Pt was emergently intubated and admitted to ICU for 5 days where she was treated for RAKAN and aspiration pneumonia. Also had elevated troponins that were attributed to demand ischemia. Medical consult for admission H&P. Mood disorder Plan as per psychiatry Recent hx of intubation in the ICU Denies difficulty swallowing, no sore throat or SOB Continue albuterol inhaler Peripheral neuropathy of right lower extremity Foot warm, pedal pulses 2+, well perfused No known hx of DM Unclear etiology Consider gabapentin if persistent Right foot wounds Unclear etiology Superficial, healing well No sign of infection No further intervention or workup needed at this time Hx of CVA Continue statin, aspirin Chronic pain disorder Continue fentanyl pathch, po morphine GERD PPI Plan 1. Continue with same medications. 2. Guardianship papers already filed. 3. Waiting for placement 4. Adding Aricept 5 mg p.o. q.h.s. on April 05 5. It seems that the patient has already a guardian, we are going to try to contact him and get more collateral information for placement 6. Her status has been changed to DNR DNI as per legal paperwork. Reason for continued inpatient stay Substantial Risk for: inability to function, rapid decompensation and med/psych decompensation Time Spent With Patient Time: Total time managing care of this patient today __20__ minutes.
[2024-04-15 20:00] VITALS: BP 112/51; PULSE 78; RESP 16; TEMP 36.1; O2SAT 95
[2024-04-15] MEDS: Hydrocortisone 1 % Cream 28.35 GM TUBE 1 APPL TOPICAL (21:05)
[2024-04-16] MEDS: diphenhydrAMINE HCL 25 MG CAPSULE PO ×2 (03:48→15:10)
[2024-04-16] MEDS: Morphine Sulfate Immed Release 15 MG TABLET 30 MG PO ×3 (03:49→21:21)
[2024-04-16] MEDS: Omeprazole 20 MG CAPSULE.DR PO (06:44)
[2024-04-16 08:40] VITALS: BP 121/58; PULSE 75; RESP 16; TEMP 36; O2SAT 96
[2024-04-16] MEDS: diazePAM 5 MG TABLET 10 MG PO ×2 (08:40→20:32)
[2024-04-16] MEDS: Escitalopram Oxalate 5 MG TABLET PO (08:41)
[2024-04-16] MEDS: diphenhydrAMINE HCL 25 MG CAPSULE 50 MG PO ×2 (08:41→20:32)
--- NOTE | 2024-04-16 15:24 | P.PNPSI_ITS ---
Subjective Subjective Date of Service: 04/16/24 Reason For Visit: Status post suicide attempt Subjective Notes: Conditional Voluntary Interim History: The nursing staff reported the patient slept 6 hours she was as usual refusing her antipsychotics but pleasant and cooperative. Intrusive at times but redirectable. On interview the patient denied new symptoms, waiting for placement. Mental Status Exam Mental Status Exam Patient Appearance: Appropriate Patient Orientation: Person and Situation Level of Consciousness: Awake and Appropriate Patient Behavior: Guarded and Passive Mood Description: Withdrawn Affect Description: Constricted Patient Cognition Impaired: Yes Ability to Follow Directions: Good Speech Pattern: Clear Hallucinations: None Delusions: Not Present Thought Process: Distracted and Slowed Thinking Thought Content: positive for [place] and positive for Poverty of Content Judgement: Poor Diagnostics Vital Signs (24Hr): Vital Signs - 24 hr 04/15/24 20:00 04/16/24 08:40 Temperature 97 F 96.8 F Pulse Rate 78 75 Respiratory Rate 16 16 Blood Pressure 112/51 L 121/58 L Pulse Oximetry 95 96 Oxygen Delivery Method Room Air Room Air BMI result Body Mass Index 28.4 Labs 03/16/24 07:32 Medications Medications Current Medications Al Hydroxide/Mg Hydroxide (Magnesium Hydrox/Alum Hydrox 30 Ml Oral.Susp) 30 ml PO Q6H PRN PRN Reason: Heartburn/Nausea Albuterol Sulfate (Albuterol Sulfate 90 Mcg 8 Gm Inhaler) 2 puff INHALE Q4H PRN PRN Reason: Shortness Of Breath Or Wheezing Last Admin: 04/06/24 11:22 Dose: 2 puff Artificial Tears (Artificial Tears 15 Ml Drops) 1 drop EYE-BOTH DAILY PRN PRN Reason: Dry Eye(S) Diazepam (Diazepam 5 Mg Tablet) 10 mg PO BID [facility] Last Admin: 04/16/24 08:40 Dose: 10 mg Diphenhydramine HCl (Diphenhydramine Hcl 25 Mg Capsule) 25 mg PO Q6H PRN PRN Reason: Anxiety, Itching Last Admin: 04/16/24 15:10 Dose: 25 mg Diphenhydramine HCl (Diphenhydramine Hcl 25 Mg Capsule) 50 mg PO BID [facility] Last Admin: 04/16/24 08:41 Dose: 50 mg Donepezil HCl (Donepezil Hcl 5 Mg Tablet) 5 mg PO BEDTIME [facility] Last Admin: 04/15/24 21:05 Dose: Not Given Escitalopram Oxalate (Escitalopram Oxalate 5 Mg Tablet) 5 mg PO DAILY [facility] Last Admin: 04/16/24 08:41 Dose: 5 mg Fentanyl (Fentanyl 50 Mcg Patch.Td72) 50 mcg TRANSDERMA Q72H [facility] Last Admin: 04/15/24 08:34 Dose: 50 mcg Ferrous Sulfate (Ferrous Sulfate 324 Mg Tablet.) 324 mg PO Q48H [facility] Last Admin: 04/16/24 08:44 Dose: Not Given Hydrocortisone (Hydrocortisone 1 % Cream 28.35 Gm Tube) 1 appl TOPICAL BID [facility]; Protocol Last Admin: 04/16/24 08:44 Dose: Not Given Magnesium Hydroxide (Milk Of Magnesia 30 Ml Oral.Susp) 30 ml PO DAILY PRN PRN Reason: Constipation Morphine Sulfate (Morphine Sulfate Immed Release 15 Mg Tablet) 30 mg PO Q6H PRN PRN Reason: pain Last Admin: 04/16/24 15:00 Dose: 30 mg Nicotine (Nicotine 21 Mg Patch.Td24) 21 mg TRANSDERMA DAILY PRN PRN Reason: smoking cessation Nicotine Polacrilex (Nicotine Polacrilex 2 Mg Gum) 4 mg BUCCAL Q2H PRN PRN Reason: Nicotine Cravings Olanzapine (Olanzapine 2.5 Mg Tablet) 2.5 mg PO TID PRN PRN Reason: agitation Olanzapine (Olanzapine 2.5 Mg Tablet) 2.5 mg PO BEDTIME [facility] Last Admin: 04/16/24 03:44 Dose: Not Given Omeprazole (Omeprazole 20 Mg Capsule.) 20 mg PO 0630 [facility] Last Admin: 04/16/24 06:44 Dose: 20 mg Trazodone HCl (Trazodone Hcl 50 Mg Tablet) 50 mg PO BEDTIME MRX1 PRN PRN Reason: Insomnia Allergies Allergies Allergy/AdvReac Type Severity Reaction Status Date / Time Egg Derived Allergy Unknown Unknown Verified 03/16/24 15:22 acetaminophen [From Percocet] AdvReac Severe Hives Verified 03/14/24 23:07 alprazolam AdvReac Severe Hives Verified 03/14/24 23:09 atorvastatin AdvReac Severe Hives Verified 03/14/24 23:10 azithromycin AdvReac Severe Swelling Verified 03/14/24 23:11 cholestyramine AdvReac Severe Hives Verified 03/14/24 23:08 [From Questran] ciprofloxacin AdvReac Severe Hives Verified 03/14/24 23:11 codeine AdvReac Severe Hives Verified 03/14/24 23:12 colesevelam AdvReac Severe Hives Verified 03/14/24 23:12 egg AdvReac Severe Hives Verified 03/15/24 01:39 Estrogens AdvReac Severe Swelling Verified 03/14/24 23:13 gemfibrozil AdvReac Severe Hives Verified 03/14/24 23:14 hydrocortisone AdvReac Severe Blurry Verified 03/14/24 23:07 [From Cortenema] Vision hydromorphone [From Dilaudid] AdvReac Severe Swelling Verified 03/14/24 23:13 Iodinated Contrast Media AdvReac Severe Hives Verified 03/14/24 23:14 isoniazid AdvReac Severe Hives Verified 03/14/24 23:15 mercaptopurine AdvReac Severe Vomiting Verified 03/14/24 23:16 methylprednisolone AdvReac Severe Hives Verified 03/14/24 23:16 minocycline AdvReac Severe Hives Verified 03/14/24 23:24 naproxen AdvReac Severe Rash Verified 03/14/24 23:17 oxycodone [From Percocet] AdvReac Severe Hives Verified 03/14/24 23:07 propoxyphene AdvReac Severe Hives Verified 03/14/24 23:19 quetiapine AdvReac Severe Rash Verified 03/14/24 23:20 risperidone AdvReac Severe Hives Verified 03/14/24 23:20 seafood AdvReac Severe Swelling Verified 03/14/24 23:21 shellfish derived AdvReac Severe Swelling Verified 03/14/24 23:21 [id number] Reductase AdvReac Severe Swelling Verified 03/14/24 23:22 Inhibitor sucrose [From Questran] AdvReac Severe Hives Verified 03/14/24 23:08 Sulfa (Sulfonamide AdvReac Severe Hives Verified 03/14/24 23:24 Antibiotics) tramadol AdvReac Severe Rash Verified 03/14/24 23:22 wool AdvReac Severe Hives Verified 03/14/24 23:23 Assessment & Plan Assessment & Plan (1) Post traumatic stress disorder (PTSD): Status: Acute Code(s): F43.10 - Post-traumatic stress disorder, unspecified (2) Cognitive disorder: Status: Acute Code(s): F09 - Unspecified mental disorder due to known physiological condition (3) Generalized anxiety disorder: Status: Acute Code(s): F41.1 - Generalized anxiety disorder (4) Suicide attempt by fentanyl overdose: Status: Acute Code(s): T40.412A - Poisoning by fentanyl or fentanyl analogs, intentional self-harm, initial encounter (5) Psychosis: Status: Acute Code(s): F29 - Unspecified psychosis not due to a substance or known physiological condition Plan Pt is a 63-year-old female with a PMH significant for?CVA, chronic pain disorder, HLD, ulcerative colitis s/p colectomy with colostomy in place, chronic anemia, and GERD who is admitted to [facility], [place] for increasing paranoia and depression with suicide attempt by overdosing on home meds. Pt was apparently found unconscious in her apartment surrounded by empty morphine bottles, an SI note, and an eviction notice. Pt was emergently intubated and admitted to ICU for 5 days where she was treated for RAKAN and aspiration pneumonia. Also had elevated troponins that were attributed to demand ischemia. Medical consult for admission H&P. Mood disorder Plan as per psychiatry Recent hx of intubation in the ICU Denies difficulty swallowing, no sore throat or SOB Continue albuterol inhaler Peripheral neuropathy of right lower extremity Foot warm, pedal pulses 2+, well perfused No known hx of DM Unclear etiology Consider gabapentin if persistent Right foot wounds Unclear etiology Superficial, healing well No sign of infection No further intervention or workup needed at this time Hx of CVA Continue statin, aspirin Chronic pain disorder Continue fentanyl pathch, po morphine GERD PPI Plan 1. Continue with same medications. 2. Guardianship papers already filed. 3. Waiting for placement 4. Adding Aricept 5 mg p.o. q.h.s. on April 05 5. It seems that the patient has already a guardian, we are going to try to contact him and get more collateral information for placement 6. Her status has been changed to DNR DNI as per legal paperwork. Reason for continued inpatient stay Substantial Risk for: inability to function, rapid decompensation and med/psych decompensation Time Spent With Patient Time: Total time managing care of this patient today __20__ minutes.
[2024-04-16 20:00] VITALS: BP 114/60; PULSE 74; RESP 18; TEMP 36.6; O2SAT 95
[2024-04-16] MEDS: Hydrocortisone 1 % Cream 28.35 GM TUBE 1 APPL TOPICAL (20:31)
[2024-04-17] MEDS: Morphine Sulfate Immed Release 15 MG TABLET 30 MG PO ×3 (03:25→17:52)
[2024-04-17] MEDS: diphenhydrAMINE HCL 25 MG CAPSULE PO ×2 (03:26→14:56)
[2024-04-17] MEDS: Omeprazole 20 MG CAPSULE.DR PO (06:06)
[2024-04-17 08:00] VITALS: BP 128/59; PULSE 71; TEMP 36.4; O2SAT 96
[2024-04-17] MEDS: Escitalopram Oxalate 5 MG TABLET PO (08:43)
[2024-04-17] MEDS: diazePAM 5 MG TABLET 10 MG PO ×2 (08:43→21:05)
[2024-04-17] MEDS: diphenhydrAMINE HCL 25 MG CAPSULE 50 MG PO ×2 (08:44→21:05)
--- NOTE | 2024-04-17 11:25 | P.PNPSI_ITS ---
Subjective Subjective Date of Service: 04/17/24 Reason For Visit: Status post suicide attempt Subjective Notes: Conditional Voluntary Interim History: The nursing staff reported the patient had been isolative, she had been refusing Aricept and Zyprexa she slept 5 hours. The social media specialist reported that they are working with the guardian for placement. On interview the patient denies new symptoms, attention seeking but no new complaints. Mental Status Exam Mental Status Exam Patient Appearance: Appropriate Patient Orientation: Person and Situation Level of Consciousness: Awake and Appropriate Patient Behavior: Guarded and Passive Mood Description: Withdrawn Affect Description: Constricted Patient Cognition Impaired: Yes Ability to Follow Directions: Good Speech Pattern: Clear Hallucinations: None Delusions: Not Present Thought Process: Distracted and Slowed Thinking Thought Content: positive for [place] and positive for Poverty of Content Judgement: Poor Diagnostics Vital Signs (24Hr): Vital Signs - 24 hr 04/16/24 20:00 04/17/24 08:00 Temperature 97.9 F 97.6 F Pulse Rate 74 71 Respiratory Rate 18 Blood Pressure 114/60 128/59 L Pulse Oximetry 95 96 Oxygen Delivery Method Room Air Room Air BMI result Body Mass Index 28.4 Labs 03/16/24 07:32 Medications Medications Current Medications Al Hydroxide/Mg Hydroxide (Magnesium Hydrox/Alum Hydrox 30 Ml Oral.Susp) 30 ml PO Q6H PRN PRN Reason: Heartburn/Nausea Albuterol Sulfate (Albuterol Sulfate 90 Mcg 8 Gm Inhaler) 2 puff INHALE Q4H PRN PRN Reason: Shortness Of Breath Or Wheezing Last Admin: 04/06/24 11:22 Dose: 2 puff Artificial Tears (Artificial Tears 15 Ml Drops) 1 drop EYE-BOTH DAILY PRN PRN Reason: Dry Eye(S) Diazepam (Diazepam 5 Mg Tablet) 10 mg PO BID [facility] Last Admin: 04/17/24 08:43 Dose: 10 mg Diphenhydramine HCl (Diphenhydramine Hcl 25 Mg Capsule) 25 mg PO Q6H PRN PRN Reason: Anxiety, Itching Last Admin: 04/17/24 03:26 Dose: 25 mg Diphenhydramine HCl (Diphenhydramine Hcl 25 Mg Capsule) 50 mg PO BID [facility] Last Admin: 04/17/24 08:44 Dose: 50 mg Donepezil HCl (Donepezil Hcl 5 Mg Tablet) 5 mg PO BEDTIME [facility] Last Admin: 04/16/24 20:34 Dose: Not Given Escitalopram Oxalate (Escitalopram Oxalate 5 Mg Tablet) 5 mg PO DAILY [facility] Last Admin: 04/17/24 08:43 Dose: 5 mg Fentanyl (Fentanyl 50 Mcg Patch.Td72) 50 mcg TRANSDERMA Q72H [facility] Last Admin: 04/15/24 08:34 Dose: 50 mcg Ferrous Sulfate (Ferrous Sulfate 324 Mg Tablet.) 324 mg PO Q48H [facility] Last Admin: 04/16/24 08:44 Dose: Not Given Hydrocortisone (Hydrocortisone 1 % Cream 28.35 Gm Tube) 1 appl TOPICAL BID [facility]; Protocol Last Admin: 04/17/24 08:42 Dose: Not Given Magnesium Hydroxide (Milk Of Magnesia 30 Ml Oral.Susp) 30 ml PO DAILY PRN PRN Reason: Constipation Morphine Sulfate (Morphine Sulfate Immed Release 15 Mg Tablet) 30 mg PO Q6H PRN PRN Reason: pain Last Admin: 04/17/24 03:25 Dose: 30 mg Nicotine (Nicotine 21 Mg Patch.Td24) 21 mg TRANSDERMA DAILY PRN PRN Reason: smoking cessation Nicotine Polacrilex (Nicotine Polacrilex 2 Mg Gum) 4 mg BUCCAL Q2H PRN PRN Reason: Nicotine Cravings Olanzapine (Olanzapine 2.5 Mg Tablet) 2.5 mg PO TID PRN PRN Reason: agitation Olanzapine (Olanzapine 2.5 Mg Tablet) 2.5 mg PO BEDTIME [facility] Last Admin: 04/16/24 20:34 Dose: Not Given Omeprazole (Omeprazole 20 Mg Capsule.) 20 mg PO 0630 [facility] Last Admin: 04/17/24 06:06 Dose: 20 mg Trazodone HCl (Trazodone Hcl 50 Mg Tablet) 50 mg PO BEDTIME MRX1 PRN PRN Reason: Insomnia Allergies Allergies Allergy/AdvReac Type Severity Reaction Status Date / Time Egg Derived Allergy Unknown Unknown Verified 03/16/24 15:22 acetaminophen [From Percocet] AdvReac Severe Hives Verified 03/14/24 23:07 alprazolam AdvReac Severe Hives Verified 03/14/24 23:09 atorvastatin AdvReac Severe Hives Verified 03/14/24 23:10 azithromycin AdvReac Severe Swelling Verified 03/14/24 23:11 cholestyramine AdvReac Severe Hives Verified 03/14/24 23:08 [From Questran] ciprofloxacin AdvReac Severe Hives Verified 03/14/24 23:11 codeine AdvReac Severe Hives Verified 03/14/24 23:12 colesevelam AdvReac Severe Hives Verified 03/14/24 23:12 egg AdvReac Severe Hives Verified 03/15/24 01:39 Estrogens AdvReac Severe Swelling Verified 03/14/24 23:13 gemfibrozil AdvReac Severe Hives Verified 03/14/24 23:14 hydrocortisone AdvReac Severe Blurry Verified 03/14/24 23:07 [From Cortenema] Vision hydromorphone [From Dilaudid] AdvReac Severe Swelling Verified 03/14/24 23:13 Iodinated Contrast Media AdvReac Severe Hives Verified 03/14/24 23:14 isoniazid AdvReac Severe Hives Verified 03/14/24 23:15 mercaptopurine AdvReac Severe Vomiting Verified 03/14/24 23:16 methylprednisolone AdvReac Severe Hives Verified 03/14/24 23:16 minocycline AdvReac Severe Hives Verified 03/14/24 23:24 naproxen AdvReac Severe Rash Verified 03/14/24 23:17 oxycodone [From Percocet] AdvReac Severe Hives Verified 03/14/24 23:07 propoxyphene AdvReac Severe Hives Verified 03/14/24 23:19 quetiapine AdvReac Severe Rash Verified 03/14/24 23:20 risperidone AdvReac Severe Hives Verified 03/14/24 23:20 seafood AdvReac Severe Swelling Verified 03/14/24 23:21 shellfish derived AdvReac Severe Swelling Verified 03/14/24 23:21 [id number] Reductase AdvReac Severe Swelling Verified 03/14/24 23:22 Inhibitor sucrose [From Questran] AdvReac Severe Hives Verified 03/14/24 23:08 Sulfa (Sulfonamide AdvReac Severe Hives Verified 03/14/24 23:24 Antibiotics) tramadol AdvReac Severe Rash Verified 03/14/24 23:22 wool AdvReac Severe Hives Verified 03/14/24 23:23 Assessment & Plan Assessment & Plan (1) Post traumatic stress disorder (PTSD): Status: Acute Code(s): F43.10 - Post-traumatic stress disorder, unspecified (2) Cognitive disorder: Status: Acute Code(s): F09 - Unspecified mental disorder due to known physiological condition (3) Generalized anxiety disorder: Status: Acute Code(s): F41.1 - Generalized anxiety disorder (4) Suicide attempt by fentanyl overdose: Status: Acute Code(s): T40.412A - Poisoning by fentanyl or fentanyl analogs, intentional self-harm, initial encounter (5) Psychosis: Status: Acute Code(s): F29 - Unspecified psychosis not due to a substance or known physiological condition Plan Pt is a 63-year-old female with a PMH significant for?CVA, chronic pain disorder, HLD, ulcerative colitis s/p colectomy with colostomy in place, chronic anemia, and GERD who is admitted to [facility] for increasing paranoia and depression with suicide attempt by overdosing on home meds. Pt was apparently found unconscious in her apartment surrounded by empty morphine bottles, an SI note, and an eviction notice. Pt was emergently intubated and admitted to ICU for 5 days where she was treated for RAKAN and aspiration pneumonia. Also had elevated troponins that were attributed to demand ischemia. Medical consult for admission H&P. Mood disorder Plan as per psychiatry Recent hx of intubation in the ICU Denies difficulty swallowing, no sore throat or SOB Continue albuterol inhaler Peripheral neuropathy of right lower extremity Foot warm, pedal pulses 2+, well perfused No known hx of DM Unclear etiology Consider gabapentin if persistent Right foot wounds Unclear etiology Superficial, healing well No sign of infection No further intervention or workup needed at this time Hx of CVA Continue statin, aspirin Chronic pain disorder Continue fentanyl pathch, po morphine GERD PPI Plan 1. Continue with same medications. 2. Guardianship papers already filed. 3. Waiting for placement 4. Adding Aricept 5 mg p.o. q.h.s. on April 05 5. It seems that the patient has already a guardian, we are going to try to contact him and get more collateral information for placement 6. Her status has been changed to DNR DNI as per legal paperwork. Reason for continued inpatient stay Substantial Risk for: inability to function, rapid decompensation and med/psych decompensation Time Spent With Patient Time: Total time managing care of this patient today __20__ minutes.
[2024-04-17 19:37] VITALS: BP 118/58; PULSE 72; RESP 18; TEMP 36.4; O2SAT 95
[2024-04-17] MEDS: Hydrocortisone 1 % Cream 28.35 GM TUBE 1 APPL TOPICAL (21:06)
[2024-04-18] MEDS: diphenhydrAMINE HCL 25 MG CAPSULE PO (04:07)
[2024-04-18] MEDS: Morphine Sulfate Immed Release 15 MG TABLET 30 MG PO ×3 (04:07→20:45)
[2024-04-18] MEDS: Omeprazole 20 MG CAPSULE.DR PO (06:02)
[2024-04-18 07:00] VITALS: BMI 29.1
[2024-04-18 08:00] VITALS: BP 120/57; PULSE 71; RESP 18; TEMP 37.6; O2SAT 93
[2024-04-18] MEDS: fentaNYL 50 MCG PATCH.TD72 TRANSDERMA (10:20)
[2024-04-18] MEDS: diphenhydrAMINE HCL 25 MG CAPSULE 50 MG PO ×2 (10:21→20:43)
[2024-04-18] MEDS: diazePAM 5 MG TABLET 10 MG PO ×2 (10:22→20:43)
[2024-04-18] MEDS: Escitalopram Oxalate 5 MG TABLET PO (10:22)
--- NOTE | 2024-04-18 10:44 | HO.PSYCHPN ---
Subjective Subjective Date of Service: 04/18/24 Reason For Visit: Status post suicide attempt Subjective Notes: Conditional Voluntary Interim History: The nursing staff reported the patient had been intrusive at times but easily redirectable. She slept 8 hours. The social service manager reported the guardian is working to write find her housing. On interview the patient denies new symptoms, waiting for placement Mental Status Exam Mental Status Exam Patient Appearance: Well Grooomed and Appropriate Patient Orientation: Person and Situation Level of Consciousness: Awake and Appropriate Patient Behavior: Guarded and Passive Mood Description: Withdrawn Affect Description: Constricted Patient Cognition Impaired: Yes Ability to Follow Directions: Good Speech Pattern: Clear Hallucinations: None Delusions: Not Present Thought Process: Distracted and Evasive Thought Content: positive for [place] and positive for Poverty of Content Judgement: Fair Diagnostics Vital Signs (24Hr): Vital Signs - 24 hr 04/17/24 19:37 04/18/24 08:00 Temperature 97.6 F 99.7 F Pulse Rate 72 71 Respiratory Rate 18 18 Blood Pressure 118/58 L 120/57 L Pulse Oximetry 95 93 Oxygen Delivery Method Room Air Room Air BMI result Body Mass Index 28.4 Labs 03/16/24 07:32 Medications Medications Current Medications Al Hydroxide/Mg Hydroxide (Magnesium Hydrox/Alum Hydrox 30 Ml Oral.Susp) 30 ml PO Q6H PRN PRN Reason: Heartburn/Nausea Albuterol Sulfate (Albuterol Sulfate 90 Mcg 8 Gm Inhaler) 2 puff INHALE Q4H PRN PRN Reason: Shortness Of Breath Or Wheezing Last Admin: 04/06/24 11:22 Dose: 2 puff Artificial Tears (Artificial Tears 15 Ml Drops) 1 drop EYE-BOTH DAILY PRN PRN Reason: Dry Eye(S) Diazepam (Diazepam 5 Mg Tablet) 10 mg PO BID [facility] Last Admin: 04/18/24 10:22 Dose: 10 mg Diphenhydramine HCl (Diphenhydramine Hcl 25 Mg Capsule) 25 mg PO Q6H PRN PRN Reason: Anxiety, Itching Last Admin: 04/18/24 04:07 Dose: 25 mg Diphenhydramine HCl (Diphenhydramine Hcl 25 Mg Capsule) 50 mg PO BID [facility] Last Admin: 04/18/24 10:21 Dose: 50 mg Donepezil HCl (Donepezil Hcl 5 Mg Tablet) 5 mg PO BEDTIME [facility] Last Admin: 04/17/24 21:06 Dose: Not Given Escitalopram Oxalate (Escitalopram Oxalate 5 Mg Tablet) 5 mg PO DAILY [facility] Last Admin: 04/18/24 10:22 Dose: 5 mg Fentanyl (Fentanyl 50 Mcg Patch.Td72) 50 mcg TRANSDERMA Q72H [facility] Last Admin: 04/18/24 10:20 Dose: 50 mcg Ferrous Sulfate (Ferrous Sulfate 324 Mg Tablet.) 324 mg PO Q48H [facility] Last Admin: 04/18/24 10:22 Dose: Not Given Hydrocortisone (Hydrocortisone 1 % Cream 28.35 Gm Tube) 1 appl TOPICAL BID [facility]; Protocol Last Admin: 04/18/24 10:22 Dose: Not Given Magnesium Hydroxide (Milk Of Magnesia 30 Ml Oral.Susp) 30 ml PO DAILY PRN PRN Reason: Constipation Morphine Sulfate (Morphine Sulfate Immed Release 15 Mg Tablet) 30 mg PO Q6H PRN PRN Reason: pain Last Admin: 04/18/24 10:19 Dose: 30 mg Nicotine (Nicotine 21 Mg Patch.Td24) 21 mg TRANSDERMA DAILY PRN PRN Reason: smoking cessation Nicotine Polacrilex (Nicotine Polacrilex 2 Mg Gum) 4 mg BUCCAL Q2H PRN PRN Reason: Nicotine Cravings Olanzapine (Olanzapine 2.5 Mg Tablet) 2.5 mg PO TID PRN PRN Reason: agitation Olanzapine (Olanzapine 2.5 Mg Tablet) 2.5 mg PO BEDTIME [facility] Last Admin: 04/17/24 21:07 Dose: Not Given Omeprazole (Omeprazole 20 Mg Capsule.) 20 mg PO 0630 [facility] Last Admin: 04/18/24 06:02 Dose: 20 mg Trazodone HCl (Trazodone Hcl 50 Mg Tablet) 50 mg PO BEDTIME MRX1 PRN PRN Reason: Insomnia Allergies Allergies Allergy/AdvReac Type Severity Reaction Status Date / Time Egg Derived Allergy Unknown Unknown Verified 03/16/24 15:22 acetaminophen [From Percocet] AdvReac Severe Hives Verified 03/14/24 23:07 alprazolam AdvReac Severe Hives Verified 03/14/24 23:09 atorvastatin AdvReac Severe Hives Verified 03/14/24 23:10 azithromycin AdvReac Severe Swelling Verified 03/14/24 23:11 cholestyramine AdvReac Severe Hives Verified 03/14/24 23:08 [From Questran] ciprofloxacin AdvReac Severe Hives Verified 03/14/24 23:11 codeine AdvReac Severe Hives Verified 03/14/24 23:12 colesevelam AdvReac Severe Hives Verified 03/14/24 23:12 egg AdvReac Severe Hives Verified 03/15/24 01:39 Estrogens AdvReac Severe Swelling Verified 03/14/24 23:13 gemfibrozil AdvReac Severe Hives Verified 03/14/24 23:14 hydrocortisone AdvReac Severe Blurry Verified 03/14/24 23:07 [From Cortenema] Vision hydromorphone [From Dilaudid] AdvReac Severe Swelling Verified 03/14/24 23:13 Iodinated Contrast Media AdvReac Severe Hives Verified 03/14/24 23:14 isoniazid AdvReac Severe Hives Verified 03/14/24 23:15 mercaptopurine AdvReac Severe Vomiting Verified 03/14/24 23:16 methylprednisolone AdvReac Severe Hives Verified 03/14/24 23:16 minocycline AdvReac Severe Hives Verified 03/14/24 23:24 naproxen AdvReac Severe Rash Verified 03/14/24 23:17 oxycodone [From Percocet] AdvReac Severe Hives Verified 03/14/24 23:07 propoxyphene AdvReac Severe Hives Verified 03/14/24 23:19 quetiapine AdvReac Severe Rash Verified 03/14/24 23:20 risperidone AdvReac Severe Hives Verified 03/14/24 23:20 seafood AdvReac Severe Swelling Verified 03/14/24 23:21 shellfish derived AdvReac Severe Swelling Verified 03/14/24 23:21 [id number] Reductase AdvReac Severe Swelling Verified 03/14/24 23:22 Inhibitor sucrose [From Questran] AdvReac Severe Hives Verified 03/14/24 23:08 Sulfa (Sulfonamide AdvReac Severe Hives Verified 03/14/24 23:24 Antibiotics) tramadol AdvReac Severe Rash Verified 03/14/24 23:22 wool AdvReac Severe Hives Verified 03/14/24 23:23 Assessment & Plan Assessment & Plan (1) Post traumatic stress disorder (PTSD): Status: Acute Code(s): F43.10 - Post-traumatic stress disorder, unspecified (2) Cognitive disorder: Status: Acute Code(s): F09 - Unspecified mental disorder due to known physiological condition (3) Generalized anxiety disorder: Status: Acute Code(s): F41.1 - Generalized anxiety disorder (4) Suicide attempt by fentanyl overdose: Status: Acute Code(s): T40.412A - Poisoning by fentanyl or fentanyl analogs, intentional self-harm, initial encounter (5) Psychosis: Status: Acute Code(s): F29 - Unspecified psychosis not due to a substance or known physiological condition Plan Pt is a 63-year-old female with a PMH significant for?CVA, chronic pain disorder, HLD, ulcerative colitis s/p colectomy with colostomy in place, chronic anemia, and GERD who is admitted to [facility] for increasing paranoia and depression with suicide attempt by overdosing on home meds. Pt was apparently found unconscious in her apartment surrounded by empty morphine bottles, an SI note, and an eviction notice. Pt was emergently intubated and admitted to ICU for 5 days where she was treated for RAKAN and aspiration pneumonia. Also had elevated troponins that were attributed to demand ischemia. Medical consult for admission H&P. Mood disorder Plan as per psychiatry Recent hx of intubation in the ICU Denies difficulty swallowing, no sore throat or SOB Continue albuterol inhaler Peripheral neuropathy of right lower extremity Foot warm, pedal pulses 2+, well perfused No known hx of DM Unclear etiology Consider gabapentin if persistent Right foot wounds Unclear etiology Superficial, healing well No sign of infection No further intervention or workup needed at this time Hx of CVA Continue statin, aspirin Chronic pain disorder Continue fentanyl pathch, po morphine GERD PPI Plan 1. Continue with same medications. 2. Guardianship papers already filed. 3. Waiting for placement 4. Adding Aricept 5 mg p.o. q.h.s. on April 05 5. It seems that the patient has already a guardian, we are going to try to contact him and get more collateral information for placement 6. Her status has been changed to DNR DNI as per legal paperwork. Reason for continued inpatient stay Substantial Risk for: inability to function, rapid decompensation and med/psych decompensation Time Spent With Patient Time: Total time managing care of this patient today __20__ minutes.
[2024-04-18 20:00] VITALS: BP 117/56; PULSE 78; RESP 18; TEMP 36.6; O2SAT 94
[2024-04-18] MEDS: Hydrocortisone 1 % Cream 28.35 GM TUBE 1 APPL TOPICAL (20:43)
[2024-04-19] MEDS: diphenhydrAMINE HCL 25 MG CAPSULE PO (00:43)
[2024-04-19] MEDS: Omeprazole 20 MG CAPSULE.DR PO (06:04)
[2024-04-19] MEDS: Morphine Sulfate Immed Release 15 MG TABLET 30 MG PO ×2 (06:04→20:56)
[2024-04-19 08:00] VITALS: BP 119/56; PULSE 71; RESP 18; TEMP 36.7; O2SAT 96
[2024-04-19] MEDS: diazePAM 5 MG TABLET 10 MG PO ×2 (08:55→20:58)
[2024-04-19] MEDS: Escitalopram Oxalate 5 MG TABLET PO (08:55)
[2024-04-19] MEDS: Hydrocortisone 1 % Cream 28.35 GM TUBE 1 APPL TOPICAL (09:45)
--- NOTE | 2024-04-19 09:50 | P.PNPSI_ITS ---
Subjective Subjective Date of Service: 04/19/24 Reason For Visit: Status post suicide attempt Subjective Notes: Conditional Voluntary Interim History: The nursing staff reported that the patient has been isolative, compalined of pain and used her PRN opioids. She has refused her Zyprexa and Aricept as usual. Today, she asked for PRN Vistaril. No new symptoms. On interview, she denied new sympotms, waiting for placement. Mental Status Exam Mental Status Exam Patient Appearance: Well Grooomed and Appropriate Patient Orientation: Person Level of Consciousness: Awake Patient Behavior: Guarded and Passive Mood Description: Calm Affect Description: Constricted Speech Pattern: Clear Hallucinations: None Delusions: Ideas of Reference Thought Process: Distracted Thought Content: positive for [place] and positive for Poverty of Content Judgement: Fair Diagnostics Vital Signs (24Hr): Vital Signs - 24 hr 04/18/24 20:00 04/19/24 08:00 Temperature 97.8 F 98.0 F Pulse Rate 78 71 Respiratory Rate 18 18 Blood Pressure 117/56 L 119/56 L Pulse Oximetry 94 96 Oxygen Delivery Method Room Air Room Air BMI result Body Mass Index 29.1 Labs 03/16/24 07:32 Medications Medications Current Medications Al Hydroxide/Mg Hydroxide (Magnesium Hydrox/Alum Hydrox 30 Ml Oral.Susp) 30 ml PO Q6H PRN PRN Reason: Heartburn/Nausea Albuterol Sulfate (Albuterol Sulfate 90 Mcg 8 Gm Inhaler) 2 puff INHALE Q4H PRN PRN Reason: Shortness Of Breath Or Wheezing Last Admin: 04/06/24 11:22 Dose: 2 puff Artificial Tears (Artificial Tears 15 Ml Drops) 1 drop EYE-BOTH DAILY PRN PRN Reason: Dry Eye(S) Diazepam (Diazepam 5 Mg Tablet) 10 mg PO BID [facility] Last Admin: 04/19/24 08:55 Dose: 10 mg Diphenhydramine HCl (Diphenhydramine Hcl 25 Mg Capsule) 25 mg PO Q6H PRN PRN Reason: Anxiety, Itching Last Admin: 04/19/24 00:43 Dose: 25 mg Diphenhydramine HCl (Diphenhydramine Hcl 25 Mg Capsule) 50 mg PO BID [facility] Last Admin: 04/18/24 20:43 Dose: 50 mg Donepezil HCl (Donepezil Hcl 5 Mg Tablet) 5 mg PO BEDTIME [facility] Last Admin: 04/18/24 20:51 Dose: Not Given Escitalopram Oxalate (Escitalopram Oxalate 5 Mg Tablet) 5 mg PO DAILY [facility] Last Admin: 04/19/24 08:55 Dose: 5 mg Fentanyl (Fentanyl 50 Mcg Patch.Td72) 50 mcg TRANSDERMA Q72H [facility] Last Admin: 04/18/24 10:20 Dose: 50 mcg Ferrous Sulfate (Ferrous Sulfate 324 Mg Tablet.) 324 mg PO Q48H [facility] Last Admin: 04/18/24 10:22 Dose: Not Given Hydrocortisone (Hydrocortisone 1 % Cream 28.35 Gm Tube) 1 appl TOPICAL BID [facility]; Protocol Last Admin: 04/19/24 09:45 Dose: 1 appl Hydroxyzine HCl (Hydroxyzine Hcl 25 Mg Tablet) 25 mg PO Q8H PRN PRN Reason: Anxiety Magnesium Hydroxide (Milk Of Magnesia 30 Ml Oral.Susp) 30 ml PO DAILY PRN PRN Reason: Constipation Morphine Sulfate (Morphine Sulfate Immed Release 15 Mg Tablet) 30 mg PO Q6H PRN PRN Reason: pain Last Admin: 04/19/24 06:04 Dose: 30 mg Nicotine (Nicotine 21 Mg Patch.Td24) 21 mg TRANSDERMA DAILY PRN PRN Reason: smoking cessation Nicotine Polacrilex (Nicotine Polacrilex 2 Mg Gum) 4 mg BUCCAL Q2H PRN PRN Reason: Nicotine Cravings Olanzapine (Olanzapine 2.5 Mg Tablet) 2.5 mg PO TID PRN PRN Reason: agitation Olanzapine (Olanzapine 2.5 Mg Tablet) 2.5 mg PO BEDTIME [facility] Last Admin: 04/18/24 20:51 Dose: Not Given Omeprazole (Omeprazole 20 Mg Capsule.) 20 mg PO 0630 [facility] Last Admin: 04/19/24 06:04 Dose: 20 mg Trazodone HCl (Trazodone Hcl 50 Mg Tablet) 50 mg PO BEDTIME MRX1 PRN PRN Reason: Insomnia Allergies Allergies Allergy/AdvReac Type Severity Reaction Status Date / Time Egg Derived Allergy Unknown Unknown Verified 03/16/24 15:22 acetaminophen [From Percocet] AdvReac Severe Hives Verified 03/14/24 23:07 alprazolam AdvReac Severe Hives Verified 03/14/24 23:09 atorvastatin AdvReac Severe Hives Verified 03/14/24 23:10 azithromycin AdvReac Severe Swelling Verified 03/14/24 23:11 cholestyramine AdvReac Severe Hives Verified 03/14/24 23:08 [From Questran] ciprofloxacin AdvReac Severe Hives Verified 03/14/24 23:11 codeine AdvReac Severe Hives Verified 03/14/24 23:12 colesevelam AdvReac Severe Hives Verified 03/14/24 23:12 egg AdvReac Severe Hives Verified 03/15/24 01:39 Estrogens AdvReac Severe Swelling Verified 03/14/24 23:13 gemfibrozil AdvReac Severe Hives Verified 03/14/24 23:14 hydrocortisone AdvReac Severe Blurry Verified 03/14/24 23:07 [From Cortenema] Vision hydromorphone [From Dilaudid] AdvReac Severe Swelling Verified 03/14/24 23:13 Iodinated Contrast Media AdvReac Severe Hives Verified 03/14/24 23:14 isoniazid AdvReac Severe Hives Verified 03/14/24 23:15 mercaptopurine AdvReac Severe Vomiting Verified 03/14/24 23:16 methylprednisolone AdvReac Severe Hives Verified 03/14/24 23:16 minocycline AdvReac Severe Hives Verified 03/14/24 23:24 naproxen AdvReac Severe Rash Verified 03/14/24 23:17 oxycodone [From Percocet] AdvReac Severe Hives Verified 03/14/24 23:07 propoxyphene AdvReac Severe Hives Verified 03/14/24 23:19 quetiapine AdvReac Severe Rash Verified 03/14/24 23:20 risperidone AdvReac Severe Hives Verified 03/14/24 23:20 seafood AdvReac Severe Swelling Verified 03/14/24 23:21 shellfish derived AdvReac Severe Swelling Verified 03/14/24 23:21 [id number]-VvA Reductase AdvReac Severe Swelling Verified 03/14/24 23:22 Inhibitor sucrose [From Questran] AdvReac Severe Hives Verified 03/14/24 23:08 Sulfa (Sulfonamide AdvReac Severe Hives Verified 03/14/24 23:24 Antibiotics) tramadol AdvReac Severe Rash Verified 03/14/24 23:22 wool AdvReac Severe Hives Verified 03/14/24 23:23 Assessment & Plan Assessment & Plan (1) Post traumatic stress disorder (PTSD): Status: Acute Code(s): F43.10 - Post-traumatic stress disorder, unspecified (2) Cognitive disorder: Status: Acute Code(s): F09 - Unspecified mental disorder due to known physiological condition (3) Generalized anxiety disorder: Status: Acute Code(s): F41.1 - Generalized anxiety disorder (4) Suicide attempt by fentanyl overdose: Status: Acute Code(s): T40.412A - Poisoning by fentanyl or fentanyl analogs, intentional self-harm, initial encounter (5) Psychosis: Status: Acute Code(s): F29 - Unspecified psychosis not due to a substance or known physiological condition Plan Pt is a 63-year-old female with a PMH significant for?CVA, chronic pain disorder, HLD, ulcerative colitis s/p colectomy with colostomy in place, chronic anemia, and GERD who is admitted to [facility] for increasing paranoia and depression with suicide attempt by overdosing on home meds. Pt was apparently found unconscious in her apartment surrounded by empty morphine bottles, an SI note, and an eviction notice. Pt was emergently intubated and admitted to ICU for 5 days where she was treated for RAKAN and aspiration pneumonia. Also had elevated troponins that were attributed to demand ischemia. Medical consult for admission H&P. Mood disorder Plan as per psychiatry Recent hx of intubation in the ICU Denies difficulty swallowing, no sore throat or SOB Continue albuterol inhaler Peripheral neuropathy of right lower extremity Foot warm, pedal pulses 2+, well perfused No known hx of DM Unclear etiology Consider gabapentin if persistent Right foot wounds Unclear etiology Superficial, healing well No sign of infection No further intervention or workup needed at this time Hx of CVA Continue statin, aspirin Chronic pain disorder Continue fentanyl pathch, po morphine GERD PPI Plan 1. Continue with same medications. 2. Guardianship papers already filed. 3. Waiting for placement 4. Adding Aricept 5 mg p.o. q.h.s. on April 05 5. It seems that the patient has already a guardian, we are going to try to contact him and get more collateral information for placement 6. Her status has been changed to DNR DNI as per legal paperwork. Reason for continued inpatient stay Substantial Risk for: inability to function, rapid decompensation and med/psych decompensation Time Spent With Patient Time: Total time managing care of this patient today __20__ minutes.
[2024-04-19] MEDS: diphenhydrAMINE HCL 25 MG CAPSULE 50 MG PO ×2 (10:26→20:56)
[2024-04-19 20:00] VITALS: BP 119/63; PULSE 81; RESP 18; TEMP 36.7; O2SAT 94
[2024-04-19] MEDS: hydrOXYzine HCL 25 MG TABLET PO (23:47)
[2024-04-20] MEDS: diphenhydrAMINE HCL 25 MG CAPSULE PO (03:38)
[2024-04-20] MEDS: Omeprazole 20 MG CAPSULE.DR PO (06:05)
[2024-04-20 08:00] VITALS: BP 118/60; PULSE 74; RESP 18; TEMP 36.3; O2SAT 95
[2024-04-20] MEDS: Escitalopram Oxalate 5 MG TABLET PO (08:44)
[2024-04-20] MEDS: diazePAM 5 MG TABLET 10 MG PO ×2 (08:44→21:28)
[2024-04-20] MEDS: diphenhydrAMINE HCL 25 MG CAPSULE 50 MG PO ×2 (08:44→21:29)
[2024-04-20] MEDS: hydrOXYzine HCL 25 MG TABLET PO ×2 (12:03→21:29)
--- NOTE | 2024-04-20 14:06 | P.PNPSI_ITS ---
Subjective Subjective Date of Service: 04/20/24 Reason For Visit: Status post suicide attempt Subjective Notes: Conditional Voluntary Healthcare Proxy: No Guardianship: Yes Medical Problems Affecting Mental Status: No Interim History: 63 yo reports doing ok less depression/anxiety , denies current si - Talked about winning eviction but that landlord called police telling them lies about her- that landed her in psych . hospital - ( however pt left si note and serious od requiring intubation) Hoping to meet with supervisor plastering 04/26 and thinks it will be good news about housing - Medication Compliance: Yes Side effects from medications: No Attending Groups: Intermittent Review of Systems Acute medical concerns: No Medical Review of Systems: unchanged Mental Status Exam Mental Status Exam Patient Appearance: Well Grooomed and Appropriate Patient Orientation: Person, Place, Time and Situation Level of Consciousness: Awake Patient Behavior: Appropriate, Cooperative and Good Eye Contact Mood Description: Withdrawn (spending more time in room after relational issues with another patient) and Appropriate Affect Description: Blunted Patient Cognition Impaired: No Ability to Follow Directions: Good Speech Pattern: Clear Thought Process: Intact and Goal Oriented Judgement: Fair Diagnostics Vital Signs (24Hr): Vital Signs - 24 hr 04/19/24 20:00 04/20/24 08:00 Temperature 98.1 F 97.4 F Pulse Rate 81 74 Respiratory Rate 18 18 Blood Pressure 119/63 118/60 Pulse Oximetry 94 95 Oxygen Delivery Method Room Air Room Air BMI result Body Mass Index 29.1 Labs 03/16/24 07:32 Medications Medications Current Medications Al Hydroxide/Mg Hydroxide (Magnesium Hydrox/Alum Hydrox 30 Ml Oral.Susp) 30 ml PO Q6H PRN PRN Reason: Heartburn/Nausea Albuterol Sulfate (Albuterol Sulfate 90 Mcg 8 Gm Inhaler) 2 puff INHALE Q4H PRN PRN Reason: Shortness Of Breath Or Wheezing Last Admin: 04/06/24 11:22 Dose: 2 puff Artificial Tears (Artificial Tears 15 Ml Drops) 1 drop EYE-BOTH DAILY PRN PRN Reason: Dry Eye(S) Diazepam (Diazepam 5 Mg Tablet) 10 mg PO BID [facility] Last Admin: 04/20/24 08:44 Dose: 10 mg Diphenhydramine HCl (Diphenhydramine Hcl 25 Mg Capsule) 25 mg PO Q6H PRN PRN Reason: Anxiety, Itching Last Admin: 04/20/24 03:38 Dose: 25 mg Diphenhydramine HCl (Diphenhydramine Hcl 25 Mg Capsule) 50 mg PO BID [facility] Last Admin: 04/20/24 08:44 Dose: 50 mg Donepezil HCl (Donepezil Hcl 5 Mg Tablet) 5 mg PO BEDTIME [facility] Last Admin: 04/19/24 21:05 Dose: Not Given Escitalopram Oxalate (Escitalopram Oxalate 5 Mg Tablet) 5 mg PO DAILY [facility] Last Admin: 04/20/24 08:44 Dose: 5 mg Fentanyl (Fentanyl 50 Mcg Patch.Td72) 50 mcg TRANSDERMA Q72H [facility] Last Admin: 04/18/24 10:20 Dose: 50 mcg Ferrous Sulfate (Ferrous Sulfate 324 Mg Tablet.) 324 mg PO Q48H [facility] Last Admin: 04/20/24 08:48 Dose: Not Given Hydrocortisone (Hydrocortisone 1 % Cream 28.35 Gm Tube) 1 appl TOPICAL BID [facility]; Protocol Last Admin: 04/20/24 08:50 Dose: Not Given Hydroxyzine HCl (Hydroxyzine Hcl 25 Mg Tablet) 25 mg PO Q8H PRN PRN Reason: Anxiety Last Admin: 04/20/24 12:03 Dose: 25 mg Magnesium Hydroxide (Milk Of Magnesia 30 Ml Oral.Susp) 30 ml PO DAILY PRN PRN Reason: Constipation Morphine Sulfate (Morphine Sulfate Immed Release 15 Mg Tablet) 30 mg PO Q6H PRN PRN Reason: pain Last Admin: 04/19/24 20:56 Dose: 30 mg Nicotine (Nicotine 21 Mg Patch.Td24) 21 mg TRANSDERMA DAILY PRN PRN Reason: smoking cessation Nicotine Polacrilex (Nicotine Polacrilex 2 Mg Gum) 4 mg BUCCAL Q2H PRN PRN Reason: Nicotine Cravings Olanzapine (Olanzapine 2.5 Mg Tablet) 2.5 mg PO TID PRN PRN Reason: agitation Olanzapine (Olanzapine 2.5 Mg Tablet) 2.5 mg PO BEDTIME [facility] Last Admin: 04/19/24 21:05 Dose: Not Given Omeprazole (Omeprazole 20 Mg Capsule.) 20 mg PO 0630 [facility] Last Admin: 04/20/24 06:05 Dose: 20 mg Trazodone HCl (Trazodone Hcl 50 Mg Tablet) 50 mg PO BEDTIME MRX1 PRN PRN Reason: Insomnia Allergies Allergies Allergy/AdvReac Type Severity Reaction Status Date / Time Egg Derived Allergy Unknown Unknown Verified 08/31/24 15:22 acetaminophen [From Percocet] AdvReac Severe Hives Verified 03/14/24 23:07 alprazolam AdvReac Severe Hives Verified 03/14/24 23:09 atorvastatin AdvReac Severe Hives Verified 03/14/24 23:10 azithromycin AdvReac Severe Swelling Verified 03/14/24 23:11 cholestyramine AdvReac Severe Hives Verified 03/14/24 23:08 [From Questran] ciprofloxacin AdvReac Severe Hives Verified 03/14/24 23:11 codeine AdvReac Severe Hives Verified 03/14/24 23:12 colesevelam AdvReac Severe Hives Verified 03/14/24 23:12 egg AdvReac Severe Hives Verified 03/15/24 01:39 Estrogens AdvReac Severe Swelling Verified 03/14/24 23:13 gemfibrozil AdvReac Severe Hives Verified 03/14/24 23:14 hydrocortisone AdvReac Severe Blurry Verified 03/14/24 23:07 [From Cortenema] Vision hydromorphone [From Dilaudid] AdvReac Severe Swelling Verified 03/14/24 23:13 Iodinated Contrast Media AdvReac Severe Hives Verified 03/14/24 23:14 isoniazid AdvReac Severe Hives Verified 03/14/24 23:15 mercaptopurine AdvReac Severe Vomiting Verified 03/14/24 23:16 methylprednisolone AdvReac Severe Hives Verified 03/14/24 23:16 minocycline AdvReac Severe Hives Verified 03/14/24 23:24 naproxen AdvReac Severe Rash Verified 03/14/24 23:17 oxycodone [From Percocet] AdvReac Severe Hives Verified 03/14/24 23:07 propoxyphene AdvReac Severe Hives Verified 03/14/24 23:19 quetiapine AdvReac Severe Rash Verified 03/14/24 23:20 risperidone AdvReac Severe Hives Verified 03/14/24 23:20 seafood AdvReac Severe Swelling Verified 03/14/24 23:21 shellfish derived AdvReac Severe Swelling Verified 03/14/24 23:21 [id number] Reductase AdvReac Severe Swelling Verified 03/14/24 23:22 Inhibitor sucrose [From Questran] AdvReac Severe Hives Verified 03/14/24 23:08 Sulfa (Sulfonamide AdvReac Severe Hives Verified 03/14/24 23:24 Antibiotics) tramadol AdvReac Severe Rash Verified 03/14/24 23:22 wool AdvReac Severe Hives Verified 03/14/24 23:23 Assessment & Plan Assessment & Plan (1) Post traumatic stress disorder (PTSD): Status: Acute Code(s): F43.10 - Post-traumatic stress disorder, unspecified (2) Cognitive disorder: Status: Acute Code(s): F09 - Unspecified mental disorder due to known physiological condition (3) Generalized anxiety disorder: Status: Acute Code(s): F41.1 - Generalized anxiety disorder (4) Suicide attempt by fentanyl overdose: Status: Acute Code(s): T40.412A - Poisoning by fentanyl or fentanyl analogs, intentional self-harm, initial encounter (5) Psychosis: Status: Acute Code(s): F29 - Unspecified psychosis not due to a substance or known physiological condition Plan Pt is a 63-year-old female with a PMH significant for?CVA, chronic pain disorder, HLD, ulcerative colitis s/p colectomy with colostomy in place, chronic anemia, and GERD who is admitted to [facility] for increasing paranoia and depression with suicide attempt by overdosing on home meds. Pt was apparently found unconscious in her apartment surrounded by empty morphine bottles, an SI note, and an eviction notice. Pt was emergently intubated and admitted to ICU for 5 days where she was treated for RAKAN and aspiration pneumonia. Also had elevated troponins that were attributed to demand ischemia. Medical consult for admission H&P. Mood disorder Plan as per psychiatry Recent hx of intubation in the ICU Denies difficulty swallowing, no sore throat or SOB Continue albuterol inhaler Peripheral neuropathy of right lower extremity Foot warm, pedal pulses 2+, well perfused No known hx of DM Unclear etiology Consider gabapentin if persistent Right foot wounds Unclear etiology Superficial, healing well No sign of infection No further intervention or workup needed at this time Hx of CVA Continue statin, aspirin Chronic pain disorder Continue fentanyl pathch, po morphine GERD PPI Plan 1. Continue with same medications. 2. Guardianship papers already filed. 3. Waiting for placement 4. Adding Aricept 5 mg p.o. q.h.s. on April 05 5. It seems that the patient has already a guardian, we are going to try to contact him and get more collateral information for placement 6. Her status has been changed to DNR DNI as per legal paperwork. Patient educated on: medication risk/benefits and other Informed Consent: understands Reason for continued inpatient stay Substantial Risk for: inability to function and rapid decompensation Time Spent With Patient Time: Total time managing care of this patient today ____ minutes.
[2024-04-20] MEDS: Morphine Sulfate Immed Release 15 MG TABLET 30 MG PO (17:15)
[2024-04-20 20:00] VITALS: BP 117/61; PULSE 79; RESP 18; TEMP 36.7; O2SAT 94
[2024-04-20] MEDS: Hydrocortisone 1 % Cream 28.35 GM TUBE 1 APPL TOPICAL (22:11)
[2024-04-21] MEDS: Omeprazole 20 MG CAPSULE.DR PO (06:05)
[2024-04-21 08:00] VITALS: BP 135/65; PULSE 74; RESP 18; TEMP 36.4; O2SAT 95
[2024-04-21] MEDS: diazePAM 5 MG TABLET 10 MG PO ×2 (08:23→20:39)
[2024-04-21] MEDS: diphenhydrAMINE HCL 25 MG CAPSULE 50 MG PO ×2 (08:23→20:39)
[2024-04-21] MEDS: Escitalopram Oxalate 5 MG TABLET PO (08:23)
[2024-04-21] MEDS: fentaNYL 50 MCG PATCH.TD72 TRANSDERMA (08:24)
[2024-04-21] MEDS: Morphine Sulfate Immed Release 15 MG TABLET 30 MG PO ×2 (13:24→23:12)
--- NOTE | 2024-04-21 14:20 | P.PNPSI_ITS ---
Subjective Subjective Date of Service: 04/21/24 Reason For Visit: Status post suicide attempt Subjective Notes: Conditional Voluntary Healthcare Proxy: No Guardianship: No Medical Problems Affecting Mental Status: Yes (back pain) Interim History: 63 yo lying in bed flat co severe back pain , has high opiate with morphine and fentanyl- Denying depression/si - currently- denies side effects of medication- just waiting to hear good news from her associate partner about housing. Medication Compliance: Yes Side effects from medications: No Attending Groups: No Review of Systems Acute medical concerns: No Medical Review of Systems: changed Review of Systems: worsened back pain today Mental Status Exam Mental Status Exam Patient Appearance: Well Grooomed and Appropriate Patient Orientation: Person, Place, Time and Situation Level of Consciousness: Awake Patient Behavior: Appropriate, Cooperative and Good Eye Contact Mood Description: Withdrawn (spending more time in room after relational issues with another patient) and Appropriate Affect Description: Blunted Patient Cognition Impaired: No Ability to Follow Directions: Good Speech Pattern: Clear Thought Process: Intact and Goal Oriented Judgement: Fair Diagnostics Vital Signs (24Hr): Vital Signs - 24 hr 04/20/24 20:00 04/21/24 08:00 Temperature 98.1 F 97.5 F Pulse Rate 79 74 Respiratory Rate 18 18 Blood Pressure 117/61 135/65 Pulse Oximetry 94 95 Oxygen Delivery Method Room Air Room Air BMI result Body Mass Index 29.1 Labs 03/16/24 07:32 Medications Medications Current Medications Al Hydroxide/Mg Hydroxide (Magnesium Hydrox/Alum Hydrox 30 Ml Oral.Susp) 30 ml PO Q6H PRN PRN Reason: Heartburn/Nausea Albuterol Sulfate (Albuterol Sulfate 90 Mcg 8 Gm Inhaler) 2 puff INHALE Q4H PRN PRN Reason: Shortness Of Breath Or Wheezing Last Admin: 04/06/24 11:22 Dose: 2 puff Artificial Tears (Artificial Tears 15 Ml Drops) 1 drop EYE-BOTH DAILY PRN PRN Reason: Dry Eye(S) Diazepam (Diazepam 5 Mg Tablet) 10 mg PO BID [facility] Last Admin: 04/21/24 08:23 Dose: 10 mg Diphenhydramine HCl (Diphenhydramine Hcl 25 Mg Capsule) 25 mg PO Q6H PRN PRN Reason: Anxiety, Itching Last Admin: 04/20/24 03:38 Dose: 25 mg Diphenhydramine HCl (Diphenhydramine Hcl 25 Mg Capsule) 50 mg PO BID [facility] Last Admin: 04/21/24 08:23 Dose: 50 mg Donepezil HCl (Donepezil Hcl 5 Mg Tablet) 5 mg PO BEDTIME [facility] Last Admin: 04/20/24 21:30 Dose: Not Given Escitalopram Oxalate (Escitalopram Oxalate 5 Mg Tablet) 5 mg PO DAILY [facility] Last Admin: 04/21/24 08:23 Dose: 5 mg Fentanyl (Fentanyl 50 Mcg Patch.Td72) 50 mcg TRANSDERMA Q72H [facility] Last Admin: 04/21/24 08:24 Dose: 50 mcg Ferrous Sulfate (Ferrous Sulfate 324 Mg Tablet.) 324 mg PO Q48H [facility] Last Admin: 04/20/24 08:48 Dose: Not Given Hydrocortisone (Hydrocortisone 1 % Cream 28.35 Gm Tube) 1 appl TOPICAL BID [facility]; Protocol Last Admin: 04/21/24 09:45 Dose: Not Given Hydroxyzine HCl (Hydroxyzine Hcl 25 Mg Tablet) 25 mg PO Q8H PRN PRN Reason: Anxiety Last Admin: 04/20/24 21:29 Dose: 25 mg Magnesium Hydroxide (Milk Of Magnesia 30 Ml Oral.Susp) 30 ml PO DAILY PRN PRN Reason: Constipation Morphine Sulfate (Morphine Sulfate Immed Release 15 Mg Tablet) 30 mg PO Q6H PRN PRN Reason: pain Last Admin: 04/21/24 13:24 Dose: 30 mg Nicotine (Nicotine 21 Mg Patch.Td24) 21 mg TRANSDERMA DAILY PRN PRN Reason: smoking cessation Nicotine Polacrilex (Nicotine Polacrilex 2 Mg Gum) 4 mg BUCCAL Q2H PRN PRN Reason: Nicotine Cravings Olanzapine (Olanzapine 2.5 Mg Tablet) 2.5 mg PO TID PRN PRN Reason: agitation Olanzapine (Olanzapine 2.5 Mg Tablet) 2.5 mg PO BEDTIME [facility] Last Admin: 04/20/24 21:30 Dose: Not Given Omeprazole (Omeprazole 20 Mg Capsule.) 20 mg PO 0630 [facility] Last Admin: 04/21/24 06:05 Dose: 20 mg Trazodone HCl (Trazodone Hcl 50 Mg Tablet) 50 mg PO BEDTIME MRX1 PRN PRN Reason: Insomnia Allergies Allergies Allergy/AdvReac Type Severity Reaction Status Date / Time Egg Derived Allergy Unknown Unknown Verified 03/16/24 15:22 acetaminophen [From Percocet] AdvReac Severe Hives Verified 03/14/24 23:07 alprazolam AdvReac Severe Hives Verified 03/14/24 23:09 atorvastatin AdvReac Severe Hives Verified 03/14/24 23:10 azithromycin AdvReac Severe Swelling Verified 03/14/24 23:11 cholestyramine AdvReac Severe Hives Verified 03/14/24 23:08 [From Questran] ciprofloxacin AdvReac Severe Hives Verified 03/14/24 23:11 codeine AdvReac Severe Hives Verified 03/14/24 23:12 colesevelam AdvReac Severe Hives Verified 03/14/24 23:12 egg AdvReac Severe Hives Verified 03/15/24 01:39 Estrogens AdvReac Severe Swelling Verified 03/14/24 23:13 gemfibrozil AdvReac Severe Hives Verified 03/14/24 23:14 hydrocortisone AdvReac Severe Blurry Verified 03/14/24 23:07 [From Cortenema] Vision hydromorphone [From Dilaudid] AdvReac Severe Swelling Verified 03/14/24 23:13 Iodinated Contrast Media AdvReac Severe Hives Verified 03/14/24 23:14 isoniazid AdvReac Severe Hives Verified 03/14/24 23:15 mercaptopurine AdvReac Severe Vomiting Verified 03/14/24 23:16 methylprednisolone AdvReac Severe Hives Verified 03/14/24 23:16 minocycline AdvReac Severe Hives Verified 03/14/24 23:24 naproxen AdvReac Severe Rash Verified 03/14/24 23:17 oxycodone [From Percocet] AdvReac Severe Hives Verified 03/14/24 23:07 propoxyphene AdvReac Severe Hives Verified 03/14/24 23:19 quetiapine AdvReac Severe Rash Verified 03/14/24 23:20 risperidone AdvReac Severe Hives Verified 03/14/24 23:20 seafood AdvReac Severe Swelling Verified 03/14/24 23:21 shellfish derived AdvReac Severe Swelling Verified 03/14/24 23:21 [id number] Reductase AdvReac Severe Swelling Verified 03/14/24 23:22 Inhibitor sucrose [From Questran] AdvReac Severe Hives Verified 03/14/24 23:08 Sulfa (Sulfonamide AdvReac Severe Hives Verified 03/14/24 23:24 Antibiotics) tramadol AdvReac Severe Rash Verified 03/14/24 23:22 wool AdvReac Severe Hives Verified 03/14/24 23:23 Assessment & Plan Assessment & Plan (1) Post traumatic stress disorder (PTSD): Status: Acute Code(s): F43.10 - Post-traumatic stress disorder, unspecified (2) Cognitive disorder: Status: Acute Code(s): F09 - Unspecified mental disorder due to known physiological condition (3) Generalized anxiety disorder: Status: Acute Code(s): F41.1 - Generalized anxiety disorder (4) Suicide attempt by fentanyl overdose: Status: Acute Code(s): T40.412A - Poisoning by fentanyl or fentanyl analogs, intentional self-harm, initial encounter (5) Psychosis: Status: Acute Code(s): F29 - Unspecified psychosis not due to a substance or known physiological condition Plan Pt is a 63-year-old female with a PMH significant for?CVA, chronic pain disorder, HLD, ulcerative colitis s/p colectomy with colostomy in place, chronic anemia, and GERD who is admitted to [facility] for increasing paranoia and depression with suicide attempt by overdosing on home meds. Pt was apparently found unconscious in her apartment surrounded by empty morphine bottles, an SI note, and an eviction notice. Pt was emergently intubated and admitted to ICU for 5 days where she was treated for RAKAN and aspiration pneumonia. Also had elevated troponins that were attributed to demand ischemia. Medical consult for admission H&P. Mood disorder Plan as per psychiatry Recent hx of intubation in the ICU Denies difficulty swallowing, no sore throat or SOB Continue albuterol inhaler Peripheral neuropathy of right lower extremity Foot warm, pedal pulses 2+, well perfused No known hx of DM Unclear etiology Consider gabapentin if persistent Right foot wounds Unclear etiology Superficial, healing well No sign of infection No further intervention or workup needed at this time Hx of CVA Continue statin, aspirin Chronic pain disorder Continue fentanyl pathch, po morphine GERD PPI Plan 1. Continue with same medications. 2. Guardianship papers already filed. 3. Waiting for placement 4. Adding Aricept 5 mg p.o. q.h.s. on April 05 5. It seems that the patient has already a guardian, we are going to try to contact him and get more collateral information for placement 6. Her status has been changed to DNR DNI as per legal paperwork. Patient educated on: therapeutic strategies and medical condition Informed Consent: understands Reason for continued inpatient stay Substantial Risk for: rapid decompensation Time Spent With Patient Time: Total time managing care of this patient today ____ minutes.
[2024-04-21] MEDS: hydrOXYzine HCL 25 MG TABLET PO (16:32)
[2024-04-21 19:53] VITALS: BP 133/72; PULSE 97; RESP 18; TEMP 36.7; O2SAT 95
[2024-04-21] MEDS: Hydrocortisone 1 % Cream 28.35 GM TUBE 1 APPL TOPICAL (20:40)
[2024-04-22] MEDS: hydrOXYzine HCL 25 MG TABLET PO ×3 (02:01→20:38)
[2024-04-22] MEDS: diphenhydrAMINE HCL 25 MG CAPSULE PO ×2 (02:01→16:48)
[2024-04-22] MEDS: Omeprazole 20 MG CAPSULE.DR PO (05:52)
[2024-04-22 08:00] VITALS: BP 121/60; PULSE 70; RESP 16; TEMP 36.8; O2SAT 94
[2024-04-22] MEDS: diphenhydrAMINE HCL 25 MG CAPSULE 50 MG PO ×2 (08:30→20:38)
[2024-04-22] MEDS: Escitalopram Oxalate 5 MG TABLET PO (08:31)
[2024-04-22] MEDS: Morphine Sulfate Immed Release 15 MG TABLET 30 MG PO ×2 (08:32→20:37)
[2024-04-22] MEDS: Ferrous Sulfate 324 MG TABLET.DR PO (08:33)
[2024-04-22] MEDS: diazePAM 5 MG TABLET 10 MG PO ×2 (08:33→20:38)
[2024-04-22 11:02] VITALS: RESP 15
--- NOTE | 2024-04-22 11:54 | P.PNPSI_ITS ---
Subjective Subjective Date of Service: 04/22/24 Reason For Visit: Status post suicide attempt Subjective Notes: Conditional Voluntary Interim History: The nursing staff reported the patient had been isolative, she refused breakfast and lunch yesterday. She had been intrusive with peers but easily redirectable. On interview the patient denies new symptoms. Waiting for placement. Mental Status Exam Mental Status Exam Patient Appearance: Appropriate Patient Orientation: Person and Situation Level of Consciousness: Awake and Appropriate Patient Behavior: Guarded and Passive Mood Description: Withdrawn Affect Description: Constricted Patient Cognition Impaired: Yes Ability to Follow Directions: Good Speech Pattern: Clear Hallucinations: None Delusions: Not Present Thought Process: Distracted and Slowed Thinking Thought Content: positive for [place] and positive for Poverty of Content Judgement: Fair Diagnostics Vital Signs (24Hr): Vital Signs - 24 hr 04/21/24 19:53 04/22/24 11:02 Temperature 98.1 F Pulse Rate 97 Respiratory Rate 18 15 Blood Pressure 133/72 Pulse Oximetry 95 Oxygen Delivery Method Room Air BMI result Body Mass Index 29.1 Labs 03/16/24 07:32 Medications Medications Current Medications Al Hydroxide/Mg Hydroxide (Magnesium Hydrox/Alum Hydrox 30 Ml Oral.Susp) 30 ml PO Q6H PRN PRN Reason: Heartburn/Nausea Albuterol Sulfate (Albuterol Sulfate 90 Mcg 8 Gm Inhaler) 2 puff INHALE Q4H PRN PRN Reason: Shortness Of Breath Or Wheezing Last Admin: 04/06/24 11:22 Dose: 2 puff Artificial Tears (Artificial Tears 15 Ml Drops) 1 drop EYE-BOTH DAILY PRN PRN Reason: Dry Eye(S) Diazepam (Diazepam 5 Mg Tablet) 10 mg PO BID [facility] Last Admin: 04/22/24 08:33 Dose: 10 mg Diphenhydramine HCl (Diphenhydramine Hcl 25 Mg Capsule) 25 mg PO Q6H PRN PRN Reason: Anxiety, Itching Last Admin: 04/22/24 02:01 Dose: 25 mg Diphenhydramine HCl (Diphenhydramine Hcl 25 Mg Capsule) 50 mg PO BID [facility] Last Admin: 04/22/24 08:30 Dose: 50 mg Donepezil HCl (Donepezil Hcl 5 Mg Tablet) 5 mg PO BEDTIME [facility] Last Admin: 04/21/24 20:41 Dose: Not Given Escitalopram Oxalate (Escitalopram Oxalate 5 Mg Tablet) 5 mg PO DAILY [facility] Last Admin: 04/22/24 08:31 Dose: 5 mg Fentanyl (Fentanyl 50 Mcg Patch.Td72) 50 mcg TRANSDERMA Q72H [facility] Last Admin: 04/21/24 08:24 Dose: 50 mcg Ferrous Sulfate (Ferrous Sulfate 324 Mg Tablet.) 324 mg PO Q48H [facility] Last Admin: 04/22/24 08:33 Dose: 324 mg Hydrocortisone (Hydrocortisone 1 % Cream 28.35 Gm Tube) 1 appl TOPICAL BID [facility]; Protocol Last Admin: 04/22/24 08:34 Dose: Not Given Hydroxyzine HCl (Hydroxyzine Hcl 25 Mg Tablet) 25 mg PO Q8H PRN PRN Reason: Anxiety Last Admin: 04/22/24 11:04 Dose: 25 mg Magnesium Hydroxide (Milk Of Magnesia 30 Ml Oral.Susp) 30 ml PO DAILY PRN PRN Reason: Constipation Morphine Sulfate (Morphine Sulfate Immed Release 15 Mg Tablet) 30 mg PO Q6H PRN PRN Reason: Pain, Severe (Pain Scale 7-10) Nicotine (Nicotine 21 Mg Patch.Td24) 21 mg TRANSDERMA DAILY PRN PRN Reason: smoking cessation Nicotine Polacrilex (Nicotine Polacrilex 2 Mg Gum) 4 mg BUCCAL Q2H PRN PRN Reason: Nicotine Cravings Olanzapine (Olanzapine 2.5 Mg Tablet) 2.5 mg PO TID PRN PRN Reason: agitation Olanzapine (Olanzapine 2.5 Mg Tablet) 2.5 mg PO BEDTIME [facility] Last Admin: 04/21/24 20:41 Dose: Not Given Omeprazole (Omeprazole 20 Mg Capsule.) 20 mg PO 0630 [facility] Last Admin: 04/22/24 05:52 Dose: 20 mg Ondansetron HCl (Ondansetron Odt 4 Mg Tab.Rapdis) 4 mg TRANSLINGU Q12H PRN PRN Reason: Nausea and Vomiting Trazodone HCl (Trazodone Hcl 50 Mg Tablet) 50 mg PO BEDTIME MRX1 PRN PRN Reason: Insomnia Allergies Allergies Allergy/AdvReac Type Severity Reaction Status Date / Time Egg Derived Allergy Unknown Unknown Verified 03/16/24 15:22 acetaminophen [From Percocet] AdvReac Severe Hives Verified 03/14/24 23:07 alprazolam AdvReac Severe Hives Verified 03/14/24 23:09 atorvastatin AdvReac Severe Hives Verified 03/14/24 23:10 azithromycin AdvReac Severe Swelling Verified 03/14/24 23:11 cholestyramine AdvReac Severe Hives Verified 03/14/24 23:08 [From Questran] ciprofloxacin AdvReac Severe Hives Verified 03/14/24 23:11 codeine AdvReac Severe Hives Verified 03/14/24 23:12 colesevelam AdvReac Severe Hives Verified 03/14/24 23:12 egg AdvReac Severe Hives Verified 03/15/24 01:39 Estrogens AdvReac Severe Swelling Verified 03/14/24 23:13 gemfibrozil AdvReac Severe Hives Verified 03/14/24 23:14 hydrocortisone AdvReac Severe Blurry Verified 03/14/24 23:07 [From Cortenema] Vision hydromorphone [From Dilaudid] AdvReac Severe Swelling Verified 03/14/24 23:13 Iodinated Contrast Media AdvReac Severe Hives Verified 03/14/24 23:14 isoniazid AdvReac Severe Hives Verified 03/14/24 23:15 mercaptopurine AdvReac Severe Vomiting Verified 03/14/24 23:16 methylprednisolone AdvReac Severe Hives Verified 03/14/24 23:16 minocycline AdvReac Severe Hives Verified 03/14/24 23:24 naproxen AdvReac Severe Rash Verified 03/14/24 23:17 oxycodone [From Percocet] AdvReac Severe Hives Verified 03/14/24 23:07 propoxyphene AdvReac Severe Hives Verified 03/14/24 23:19 quetiapine AdvReac Severe Rash Verified 03/14/24 23:20 risperidone AdvReac Severe Hives Verified 03/14/24 23:20 seafood AdvReac Severe Swelling Verified 03/14/24 23:21 shellfish derived AdvReac Severe Swelling Verified 03/14/24 23:21 [id number] Reductase AdvReac Severe Swelling Verified 03/14/24 23:22 Inhibitor sucrose [From Questran] AdvReac Severe Hives Verified 03/14/24 23:08 Sulfa (Sulfonamide AdvReac Severe Hives Verified 03/14/24 23:24 Antibiotics) tramadol AdvReac Severe Rash Verified 03/14/24 23:22 wool AdvReac Severe Hives Verified 03/14/24 23:23 Assessment & Plan Assessment & Plan (1) Post traumatic stress disorder (PTSD): Status: Acute Code(s): F43.10 - Post-traumatic stress disorder, unspecified (2) Cognitive disorder: Status: Acute Code(s): F09 - Unspecified mental disorder due to known physiological condition (3) Generalized anxiety disorder: Status: Acute Code(s): F41.1 - Generalized anxiety disorder (4) Suicide attempt by fentanyl overdose: Status: Acute Code(s): T40.412A - Poisoning by fentanyl or fentanyl analogs, intentional self-harm, initial encounter (5) Psychosis: Status: Acute Code(s): F29 - Unspecified psychosis not due to a substance or known physiological condition Plan Pt is a 63-year-old female with a PMH significant for?CVA, chronic pain disorder, HLD, ulcerative colitis s/p colectomy with colostomy in place, chronic anemia, and GERD who is admitted to [facility] for increasing paranoia and depression with suicide attempt by overdosing on home meds. Pt was apparently found unconscious in her apartment surrounded by empty morphine bottles, an SI note, and an eviction notice. Pt was emergently intubated and admitted to ICU for 5 days where she was treated for RAKAN and aspiration pneumonia. Also had elevated troponins that were attributed to demand ischemia. Medical consult for admission H&P. Mood disorder Plan as per psychiatry Recent hx of intubation in the ICU Denies difficulty swallowing, no sore throat or SOB Continue albuterol inhaler Peripheral neuropathy of right lower extremity Foot warm, pedal pulses 2+, well perfused No known hx of DM Unclear etiology Consider gabapentin if persistent Right foot wounds Unclear etiology Superficial, healing well No sign of infection No further intervention or workup needed at this time Hx of CVA Continue statin, aspirin Chronic pain disorder Continue fentanyl pathch, po morphine GERD PPI Plan 1. Continue with same medications. 2. Guardianship papers already filed. 3. Waiting for placement 4. Adding Aricept 5 mg p.o. q.h.s. on April 05 5. It seems that the patient has already a guardian, we are going to try to contact him and get more collateral information for placement 6. Her status has been changed to DNR DNI as per legal paperwork. Reason for continued inpatient stay Substantial Risk for: inability to function, rapid decompensation and med/psych decompensation Time Spent With Patient Time: Total time managing care of this patient today __20__ minutes.
[2024-04-22] MEDS: Albuterol Sulfate 90 MCG 8 GM INHALER 2 PUFF INHALE (17:47)
[2024-04-22] MEDS: Hydrocortisone 1 % Cream 28.35 GM TUBE 1 APPL TOPICAL (18:16)
[2024-04-22 20:00] VITALS: BP 124/59; PULSE 81; RESP 18; TEMP 36.6; O2SAT 93
[2024-04-23] MEDS: Omeprazole 20 MG CAPSULE.DR PO (05:51)
[2024-04-23] MEDS: diphenhydrAMINE HCL 25 MG CAPSULE 50 MG PO ×2 (10:06→21:25)
[2024-04-23] MEDS: Escitalopram Oxalate 5 MG TABLET PO (10:06)
[2024-04-23] MEDS: diazePAM 5 MG TABLET 10 MG PO ×2 (10:06→21:24)
[2024-04-23] MEDS: Morphine Sulfate Immed Release 15 MG TABLET 30 MG PO ×2 (10:07→17:00)
--- NOTE | 2024-04-23 10:15 | P.PNPSI_ITS ---
Subjective Subjective Date of Service: 04/23/24 Reason For Visit: Status post suicide attempt Subjective Notes: Conditional Voluntary Interim History: The nursing staff reported the patient has been isolative, self dialogue in at times and slept 6 hours. The social science research assistant reported the guardianship hearing is going to be this Monday. On interview the patient denies new symptoms, waiting for placement. Mental Status Exam Mental Status Exam Patient Appearance: Appropriate Patient Orientation: Person and Situation Level of Consciousness: Awake and Appropriate Patient Behavior: Guarded and Passive Mood Description: Withdrawn Affect Description: Constricted Patient Cognition Impaired: Yes Ability to Follow Directions: Good Speech Pattern: Clear Hallucinations: None Delusions: Not Present Thought Process: Distracted and Slowed Thinking Thought Content: positive for [place] and positive for Poverty of Content Judgement: Fair Diagnostics Vital Signs (24Hr): Vital Signs - 24 hr 04/22/24 11:02 04/22/24 20:00 Temperature 97.9 F Pulse Rate 81 Respiratory Rate 15 18 Blood Pressure 124/59 L Pulse Oximetry 93 Oxygen Delivery Method Room Air BMI result Body Mass Index 29.1 Labs 03/16/24 07:32 Medications Medications Current Medications Al Hydroxide/Mg Hydroxide (Magnesium Hydrox/Alum Hydrox 30 Ml Oral.Susp) 30 ml PO Q6H PRN PRN Reason: Heartburn/Nausea Albuterol Sulfate (Albuterol Sulfate 90 Mcg 8 Gm Inhaler) 2 puff INHALE Q4H PRN PRN Reason: Shortness Of Breath Or Wheezing Last Admin: 04/22/24 17:47 Dose: 2 puff Artificial Tears (Artificial Tears 15 Ml Drops) 1 drop EYE-BOTH DAILY PRN PRN Reason: Dry Eye(S) Diazepam (Diazepam 5 Mg Tablet) 10 mg PO BID [facility] Last Admin: 04/23/24 10:06 Dose: 10 mg Diphenhydramine HCl (Diphenhydramine Hcl 25 Mg Capsule) 25 mg PO Q6H PRN PRN Reason: Anxiety, Itching Last Admin: 04/22/24 16:48 Dose: 25 mg Diphenhydramine HCl (Diphenhydramine Hcl 25 Mg Capsule) 50 mg PO BID [facility] Last Admin: 04/23/24 10:06 Dose: 50 mg Donepezil HCl (Donepezil Hcl 5 Mg Tablet) 5 mg PO BEDTIME [facility] Last Admin: 04/22/24 20:39 Dose: Not Given Escitalopram Oxalate (Escitalopram Oxalate 5 Mg Tablet) 5 mg PO DAILY [facility] Last Admin: 04/23/24 10:06 Dose: 5 mg Fentanyl (Fentanyl 50 Mcg Patch.Td72) 50 mcg TRANSDERMA Q72H [facility] Last Admin: 04/21/24 08:24 Dose: 50 mcg Ferrous Sulfate (Ferrous Sulfate 324 Mg Tablet.) 324 mg PO Q48H [facility] Last Admin: 04/22/24 08:33 Dose: 324 mg Hydrocortisone (Hydrocortisone 1 % Cream 28.35 Gm Tube) 1 appl TOPICAL BID [facility]; Protocol Last Admin: 04/23/24 10:09 Dose: Not Given Hydroxyzine HCl (Hydroxyzine Hcl 25 Mg Tablet) 25 mg PO Q8H PRN PRN Reason: Anxiety Last Admin: 04/22/24 20:38 Dose: 25 mg Magnesium Hydroxide (Milk Of Magnesia 30 Ml Oral.Susp) 30 ml PO DAILY PRN PRN Reason: Constipation Morphine Sulfate (Morphine Sulfate Immed Release 15 Mg Tablet) 30 mg PO Q6H PRN PRN Reason: Pain, Severe (Pain Scale 7-10) Last Admin: 04/23/24 10:07 Dose: 30 mg Nicotine (Nicotine 21 Mg Patch.Td24) 21 mg TRANSDERMA DAILY PRN PRN Reason: smoking cessation Nicotine Polacrilex (Nicotine Polacrilex 2 Mg Gum) 4 mg BUCCAL Q2H PRN PRN Reason: Nicotine Cravings Olanzapine (Olanzapine 2.5 Mg Tablet) 2.5 mg PO TID PRN PRN Reason: agitation Olanzapine (Olanzapine 2.5 Mg Tablet) 2.5 mg PO BEDTIME [facility] Last Admin: 04/22/24 20:39 Dose: Not Given Omeprazole (Omeprazole 20 Mg Capsule.) 20 mg PO 0630 [facility] Last Admin: 04/23/24 05:51 Dose: 20 mg Ondansetron HCl (Ondansetron Odt 4 Mg Tab.Rapdis) 4 mg TRANSLINGU Q12H PRN PRN Reason: Nausea and Vomiting Trazodone HCl (Trazodone Hcl 50 Mg Tablet) 50 mg PO BEDTIME MRX1 PRN PRN Reason: Insomnia Allergies Allergies Allergy/AdvReac Type Severity Reaction Status Date / Time Egg Derived Allergy Unknown Unknown Verified 03/16/24 15:22 acetaminophen [From Percocet] AdvReac Severe Hives Verified 03/14/24 23:07 alprazolam AdvReac Severe Hives Verified 03/14/24 23:09 atorvastatin AdvReac Severe Hives Verified 03/14/24 23:10 azithromycin AdvReac Severe Swelling Verified 03/14/24 23:11 cholestyramine AdvReac Severe Hives Verified 03/14/24 23:08 [From Questran] ciprofloxacin AdvReac Severe Hives Verified 03/14/24 23:11 codeine AdvReac Severe Hives Verified 03/14/24 23:12 colesevelam AdvReac Severe Hives Verified 03/14/24 23:12 egg AdvReac Severe Hives Verified 03/15/24 01:39 Estrogens AdvReac Severe Swelling Verified 03/14/24 23:13 gemfibrozil AdvReac Severe Hives Verified 03/14/24 23:14 hydrocortisone AdvReac Severe Blurry Verified 03/14/24 23:07 [From Cortenema] Vision hydromorphone [From Dilaudid] AdvReac Severe Swelling Verified 03/14/24 23:13 Iodinated Contrast Media AdvReac Severe Hives Verified 03/14/24 23:14 isoniazid AdvReac Severe Hives Verified 03/14/24 23:15 mercaptopurine AdvReac Severe Vomiting Verified 03/14/24 23:16 methylprednisolone AdvReac Severe Hives Verified 03/14/24 23:16 minocycline AdvReac Severe Hives Verified 03/14/24 23:24 naproxen AdvReac Severe Rash Verified 03/14/24 23:17 oxycodone [From Percocet] AdvReac Severe Hives Verified 03/14/24 23:07 propoxyphene AdvReac Severe Hives Verified 03/14/24 23:19 quetiapine AdvReac Severe Rash Verified 03/14/24 23:20 risperidone AdvReac Severe Hives Verified 03/14/24 23:20 seafood AdvReac Severe Swelling Verified 03/14/24 23:21 shellfish derived AdvReac Severe Swelling Verified 03/14/24 23:21 [id number] Reductase AdvReac Severe Swelling Verified 03/14/24 23:22 Inhibitor sucrose [From Questran] AdvReac Severe Hives Verified 03/14/24 23:08 Sulfa (Sulfonamide AdvReac Severe Hives Verified 03/14/24 23:24 Antibiotics) tramadol AdvReac Severe Rash Verified 03/14/24 23:22 wool AdvReac Severe Hives Verified 03/14/24 23:23 Assessment & Plan Assessment & Plan (1) Post traumatic stress disorder (PTSD): Status: Acute Code(s): F43.10 - Post-traumatic stress disorder, unspecified (2) Cognitive disorder: Status: Acute Code(s): F09 - Unspecified mental disorder due to known physiological condition (3) Generalized anxiety disorder: Status: Acute Code(s): F41.1 - Generalized anxiety disorder (4) Suicide attempt by fentanyl overdose: Status: Acute Code(s): T40.412A - Poisoning by fentanyl or fentanyl analogs, intentional self-harm, initial encounter (5) Psychosis: Status: Acute Code(s): F29 - Unspecified psychosis not due to a substance or known physiological condition Plan Pt is a 63-year-old female with a PMH significant for?CVA, chronic pain disorder, HLD, ulcerative colitis s/p colectomy with colostomy in place, chronic anemia, and GERD who is admitted to [facility] for increasing paranoia and depression with suicide attempt by overdosing on home meds. Pt was apparently found unconscious in her apartment surrounded by empty morphine bottles, an SI note, and an eviction notice. Pt was emergently intubated and admitted to ICU for 5 days where she was treated for RAKAN and aspiration pneumonia. Also had elevated troponins that were attributed to demand ischemia. Medical consult for admission H&P. Mood disorder Plan as per psychiatry Recent hx of intubation in the ICU Denies difficulty swallowing, no sore throat or SOB Continue albuterol inhaler Peripheral neuropathy of right lower extremity Foot warm, pedal pulses 2+, well perfused No known hx of DM Unclear etiology Consider gabapentin if persistent Right foot wounds Unclear etiology Superficial, healing well No sign of infection No further intervention or workup needed at this time Hx of CVA Continue statin, aspirin Chronic pain disorder Continue fentanyl pathch, po morphine GERD PPI Plan 1. Continue with same medications. 2. Guardianship papers already filed. 3. Waiting for placement 4. Adding Aricept 5 mg p.o. q.h.s. on April 05 5. It seems that the patient has already a guardian, we are going to try to contact him and get more collateral information for placement 6. Her status has been changed to DNR DNI as per legal paperwork. Reason for continued inpatient stay Substantial Risk for: inability to function, rapid decompensation and med/psych decompensation Time Spent With Patient Time: Total time managing care of this patient today __20__ minutes.
[2024-04-23 12:15] VITALS: BP 131/64; PULSE 94; RESP 16; TEMP 36.6; O2SAT 95
[2024-04-23] MEDS: hydrOXYzine HCL 25 MG TABLET PO (17:00)
[2024-04-23 20:00] VITALS: BP 127/70; PULSE 81; RESP 18; TEMP 36.6; O2SAT 95
[2024-04-23] MEDS: Hydrocortisone 1 % Cream 28.35 GM TUBE 1 APPL TOPICAL (21:36)
[2024-04-24] MEDS: Morphine Sulfate Immed Release 15 MG TABLET 30 MG PO ×3 (03:24→18:17)
[2024-04-24] MEDS: hydrOXYzine HCL 25 MG TABLET PO ×2 (03:27→18:17)
[2024-04-24] MEDS: Omeprazole 20 MG CAPSULE.DR PO (06:28)
[2024-04-24] MEDS: diphenhydrAMINE HCL 25 MG CAPSULE PO (06:32)
[2024-04-24 08:15] VITALS: BP 111/61; PULSE 70; RESP 18; TEMP 36.6; O2SAT 96
[2024-04-24] MEDS: diazePAM 5 MG TABLET 10 MG PO ×2 (08:46→21:05)
[2024-04-24] MEDS: diphenhydrAMINE HCL 25 MG CAPSULE 50 MG PO ×2 (08:46→21:05)
[2024-04-24] MEDS: Escitalopram Oxalate 5 MG TABLET PO (08:47)
[2024-04-24] MEDS: fentaNYL 50 MCG PATCH.TD72 TRANSDERMA (08:50)
--- NOTE | 2024-04-24 12:35 | P.PNPSI_ITS ---
Subjective Subjective Date of Service: 04/24/24 Reason For Visit: Status post suicide attempt Interim History: The nursing staff reported the patient had been compliant of staff, attention seeking she had poor sleep she required Atarax and morphine p.r.n.. On interview the patient denies new symptoms, waiting for placement. Mental Status Exam Mental Status Exam Patient Appearance: Well Grooomed and Appropriate Patient Orientation: Person, Place and Situation Level of Consciousness: Awake and Appropriate Patient Behavior: Guarded and Passive Mood Description: Withdrawn Affect Description: Constricted Patient Cognition Impaired: Yes Ability to Follow Directions: Good Speech Pattern: Clear Hallucinations: None Delusions: Not Present Thought Process: Distracted and Slowed Thinking Thought Content: positive for [place] and positive for Poverty of Content Judgement: Fair Diagnostics Vital Signs (24Hr): Vital Signs - 24 hr 04/23/24 20:00 04/24/24 08:15 Temperature 98 F 97.9 F Pulse Rate 81 70 Respiratory Rate 18 18 Blood Pressure 127/70 111/61 Pulse Oximetry 95 96 Oxygen Delivery Method Room Air Room Air BMI result Body Mass Index 29.1 Labs 03/16/24 07:32 Medications Medications Current Medications Al Hydroxide/Mg Hydroxide (Magnesium Hydrox/Alum Hydrox 30 Ml Oral.Susp) 30 ml PO Q6H PRN PRN Reason: Heartburn/Nausea Albuterol Sulfate (Albuterol Sulfate 90 Mcg 8 Gm Inhaler) 2 puff INHALE Q4H PRN PRN Reason: Shortness Of Breath Or Wheezing Last Admin: 04/22/24 17:47 Dose: 2 puff Artificial Tears (Artificial Tears 15 Ml Drops) 1 drop EYE-BOTH DAILY PRN PRN Reason: Dry Eye(S) Diazepam (Diazepam 5 Mg Tablet) 10 mg PO BID [facility] Last Admin: 04/24/24 08:46 Dose: 10 mg Diphenhydramine HCl (Diphenhydramine Hcl 25 Mg Capsule) 25 mg PO Q6H PRN PRN Reason: Anxiety, Itching Last Admin: 04/24/24 06:32 Dose: 25 mg Diphenhydramine HCl (Diphenhydramine Hcl 25 Mg Capsule) 50 mg PO BID [facility] Last Admin: 04/24/24 08:46 Dose: 50 mg Donepezil HCl (Donepezil Hcl 5 Mg Tablet) 5 mg PO BEDTIME [facility] Last Admin: 04/23/24 21:26 Dose: Not Given Escitalopram Oxalate (Escitalopram Oxalate 5 Mg Tablet) 5 mg PO DAILY [facility] Last Admin: 04/24/24 08:47 Dose: 5 mg Fentanyl (Fentanyl 50 Mcg Patch.Td72) 50 mcg TRANSDERMA Q72H [facility] Last Admin: 04/24/24 08:50 Dose: 50 mcg Ferrous Sulfate (Ferrous Sulfate 324 Mg Tablet.) 324 mg PO Q48H [facility] Last Admin: 04/24/24 08:57 Dose: Not Given Hydrocortisone (Hydrocortisone 1 % Cream 28.35 Gm Tube) 1 appl TOPICAL BID [facility]; Protocol Last Admin: 04/24/24 08:47 Dose: Not Given Hydroxyzine HCl (Hydroxyzine Hcl 25 Mg Tablet) 25 mg PO Q8H PRN PRN Reason: Anxiety Last Admin: 04/24/24 03:27 Dose: 25 mg Magnesium Hydroxide (Milk Of Magnesia 30 Ml Oral.Susp) 30 ml PO DAILY PRN PRN Reason: Constipation Morphine Sulfate (Morphine Sulfate Immed Release 15 Mg Tablet) 30 mg PO Q6H PRN PRN Reason: Pain, Severe (Pain Scale 7-10) Last Admin: 04/24/24 09:47 Dose: 30 mg Nicotine (Nicotine 21 Mg Patch.Td24) 21 mg TRANSDERMA DAILY PRN PRN Reason: smoking cessation Nicotine Polacrilex (Nicotine Polacrilex 2 Mg Gum) 4 mg BUCCAL Q2H PRN PRN Reason: Nicotine Cravings Olanzapine (Olanzapine 2.5 Mg Tablet) 2.5 mg PO TID PRN PRN Reason: agitation Olanzapine (Olanzapine 2.5 Mg Tablet) 2.5 mg PO BEDTIME [facility] Last Admin: 04/23/24 21:27 Dose: Not Given Omeprazole (Omeprazole 20 Mg Capsule.) 20 mg PO 0630 [facility] Last Admin: 04/24/24 06:28 Dose: 20 mg Ondansetron HCl (Ondansetron Odt 4 Mg Tab.Rapdis) 4 mg TRANSLINGU Q12H PRN PRN Reason: Nausea and Vomiting Trazodone HCl (Trazodone Hcl 50 Mg Tablet) 50 mg PO BEDTIME MRX1 PRN PRN Reason: Insomnia Allergies Allergies Allergy/AdvReac Type Severity Reaction Status Date / Time Egg Derived Allergy Unknown Unknown Verified 03/16/24 15:22 acetaminophen [From Percocet] AdvReac Severe Hives Verified 03/14/24 23:07 alprazolam AdvReac Severe Hives Verified 03/14/24 23:09 atorvastatin AdvReac Severe Hives Verified 03/14/24 23:10 azithromycin AdvReac Severe Swelling Verified 03/14/24 23:11 cholestyramine AdvReac Severe Hives Verified 03/14/24 23:08 [From Questran] ciprofloxacin AdvReac Severe Hives Verified 03/14/24 23:11 codeine AdvReac Severe Hives Verified 03/14/24 23:12 colesevelam AdvReac Severe Hives Verified 03/14/24 23:12 egg AdvReac Severe Hives Verified 03/15/24 01:39 Estrogens AdvReac Severe Swelling Verified 03/14/24 23:13 gemfibrozil AdvReac Severe Hives Verified 03/14/24 23:14 hydrocortisone AdvReac Severe Blurry Verified 03/14/24 23:07 [From Cortenema] Vision hydromorphone [From Dilaudid] AdvReac Severe Swelling Verified 03/14/24 23:13 Iodinated Contrast Media AdvReac Severe Hives Verified 03/14/24 23:14 isoniazid AdvReac Severe Hives Verified 03/14/24 23:15 mercaptopurine AdvReac Severe Vomiting Verified 03/14/24 23:16 methylprednisolone AdvReac Severe Hives Verified 03/14/24 23:16 minocycline AdvReac Severe Hives Verified 03/14/24 23:24 naproxen AdvReac Severe Rash Verified 03/14/24 23:17 oxycodone [From Percocet] AdvReac Severe Hives Verified 03/14/24 23:07 propoxyphene AdvReac Severe Hives Verified 03/14/24 23:19 quetiapine AdvReac Severe Rash Verified 03/14/24 23:20 risperidone AdvReac Severe Hives Verified 03/14/24 23:20 seafood AdvReac Severe Swelling Verified 03/14/24 23:21 shellfish derived AdvReac Severe Swelling Verified 03/14/24 23:21 [id number] Reductase AdvReac Severe Swelling Verified 03/14/24 23:22 Inhibitor sucrose [From Questran] AdvReac Severe Hives Verified 03/14/24 23:08 Sulfa (Sulfonamide AdvReac Severe Hives Verified 03/14/24 23:24 Antibiotics) tramadol AdvReac Severe Rash Verified 03/14/24 23:22 wool AdvReac Severe Hives Verified 03/14/24 23:23 Assessment & Plan Assessment & Plan (1) Post traumatic stress disorder (PTSD): Status: Acute Code(s): F43.10 - Post-traumatic stress disorder, unspecified (2) Cognitive disorder: Status: Acute Code(s): F09 - Unspecified mental disorder due to known physiological condition (3) Generalized anxiety disorder: Status: Acute Code(s): F41.1 - Generalized anxiety disorder (4) Suicide attempt by fentanyl overdose: Status: Acute Code(s): T40.412A - Poisoning by fentanyl or fentanyl analogs, intentional self-harm, initial encounter (5) Psychosis: Status: Acute Code(s): F29 - Unspecified psychosis not due to a substance or known physiological condition Plan Pt is a 63-year-old female with a PMH significant for?CVA, chronic pain disorder, HLD, ulcerative colitis s/p colectomy with colostomy in place, chronic anemia, and GERD who is admitted to [facility] for increasing paranoia and depression with suicide attempt by overdosing on home meds. Pt was apparently found unconscious in her apartment surrounded by empty morphine bottles, an SI note, and an eviction notice. Pt was emergently intubated and admitted to ICU for 5 days where she was treated for RAKAN and aspiration pneumonia. Also had elevated troponins that were attributed to demand ischemia. Medical consult for admission H&P. Mood disorder Plan as per psychiatry Recent hx of intubation in the ICU Denies difficulty swallowing, no sore throat or SOB Continue albuterol inhaler Peripheral neuropathy of right lower extremity Foot warm, pedal pulses 2+, well perfused No known hx of DM Unclear etiology Consider gabapentin if persistent Right foot wounds Unclear etiology Superficial, healing well No sign of infection No further intervention or workup needed at this time Hx of CVA Continue statin, aspirin Chronic pain disorder Continue fentanyl pathch, po morphine GERD PPI Plan 1. Continue with same medications. 2. Guardianship papers already filed. 3. Waiting for placement 4. Adding Aricept 5 mg p.o. q.h.s. on April 05 5. It seems that the patient has already a guardian, we are going to try to contact him and get more collateral information for placement 6. Her status has been changed to DNR DNI as per legal paperwork. Reason for continued inpatient stay Substantial Risk for: inability to function, rapid decompensation and med/psych decompensation Time Spent With Patient Time: Total time managing care of this patient today __20__ minutes.
[2024-04-24] MEDS: Hydrocortisone 1 % Cream 28.35 GM TUBE 1 APPL TOPICAL (14:06)
[2024-04-24 20:00] VITALS: BP 107/58; PULSE 77; RESP 16; TEMP 36.5; O2SAT 94
[2024-04-25] MEDS: hydrOXYzine HCL 25 MG TABLET PO ×2 (02:37→15:15)
[2024-04-25] MEDS: Morphine Sulfate Immed Release 15 MG TABLET 30 MG PO ×3 (02:37→22:03)
[2024-04-25] MEDS: Hydrocortisone 1 % Cream 28.35 GM TUBE 1 APPL TOPICAL (05:48)
[2024-04-25] MEDS: Omeprazole 20 MG CAPSULE.DR PO (05:49)
[2024-04-25 07:00] VITALS: BMI 28.9
[2024-04-25] MEDS: Escitalopram Oxalate 5 MG TABLET PO (08:32)
[2024-04-25] MEDS: diphenhydrAMINE HCL 25 MG CAPSULE 50 MG PO ×2 (08:32→22:04)
[2024-04-25] MEDS: diazePAM 5 MG TABLET 10 MG PO ×2 (08:32→22:04)
[2024-04-25 08:55] VITALS: BP 107/57; PULSE 73; RESP 18; TEMP 36.8; O2SAT 98
--- NOTE | 2024-04-25 11:31 | HO.PSYCHPN ---
Subjective Subjective Date of Service: 04/25/24 Reason For Visit: Status post suicide attempt Subjective Notes: Conditional Voluntary Interim History: The nursing staff reported no changes in her mental status, anxious for court tomorrow since she is going to have her guardianship hearing. On interview the patient denies new symptoms, refusing as usual her Zyprexa and Aricept. Waiting for placement. Mental Status Exam Mental Status Exam Patient Appearance: Well Grooomed and Appropriate Patient Orientation: Person and Situation Level of Consciousness: Awake and Appropriate Patient Behavior: Guarded and Passive Mood Description: Withdrawn Affect Description: Constricted Patient Cognition Impaired: Yes Ability to Follow Directions: Good Speech Pattern: Clear Hallucinations: None Delusions: Not Present Thought Process: Distracted and Slowed Thinking Thought Content: positive for [place] and positive for Poverty of Content Judgement: Fair Diagnostics Vital Signs (24Hr): Vital Signs - 24 hr 04/24/24 20:00 04/25/24 08:55 Temperature 97.7 F 98.3 F Pulse Rate 77 73 Respiratory Rate 16 18 Blood Pressure 107/58 L 107/57 L Pulse Oximetry 94 98 Oxygen Delivery Method Room Air Room Air BMI result Body Mass Index 29.1 Labs 03/16/24 07:32 Medications Medications Current Medications Al Hydroxide/Mg Hydroxide (Magnesium Hydrox/Alum Hydrox 30 Ml Oral.Susp) 30 ml PO Q6H PRN PRN Reason: Heartburn/Nausea Albuterol Sulfate (Albuterol Sulfate 90 Mcg 8 Gm Inhaler) 2 puff INHALE Q4H PRN PRN Reason: Shortness Of Breath Or Wheezing Last Admin: 04/22/24 17:47 Dose: 2 puff Artificial Tears (Artificial Tears 15 Ml Drops) 1 drop EYE-BOTH DAILY PRN PRN Reason: Dry Eye(S) Diazepam (Diazepam 5 Mg Tablet) 10 mg PO BID [facility] Last Admin: 04/25/24 08:32 Dose: 10 mg Diphenhydramine HCl (Diphenhydramine Hcl 25 Mg Capsule) 25 mg PO Q6H PRN PRN Reason: Anxiety, Itching Last Admin: 04/24/24 06:32 Dose: 25 mg Diphenhydramine HCl (Diphenhydramine Hcl 25 Mg Capsule) 50 mg PO BID [facility] Last Admin: 04/25/24 08:32 Dose: 50 mg Donepezil HCl (Donepezil Hcl 5 Mg Tablet) 5 mg PO BEDTIME [facility] Last Admin: 04/24/24 22:17 Dose: Not Given Escitalopram Oxalate (Escitalopram Oxalate 5 Mg Tablet) 5 mg PO DAILY [facility] Last Admin: 04/25/24 08:32 Dose: 5 mg Fentanyl (Fentanyl 50 Mcg Patch.Td72) 50 mcg TRANSDERMA Q72H [facility] Last Admin: 04/24/24 08:50 Dose: 50 mcg Ferrous Sulfate (Ferrous Sulfate 324 Mg Tablet.) 324 mg PO Q48H [facility] Last Admin: 04/24/24 08:57 Dose: Not Given Hydrocortisone (Hydrocortisone 1 % Cream 28.35 Gm Tube) 1 appl TOPICAL BID [facility]; Protocol Last Admin: 04/25/24 05:48 Dose: 1 appl Hydroxyzine HCl (Hydroxyzine Hcl 25 Mg Tablet) 25 mg PO Q8H PRN PRN Reason: Anxiety Last Admin: 04/25/24 02:37 Dose: 25 mg Magnesium Hydroxide (Milk Of Magnesia 30 Ml Oral.Susp) 30 ml PO DAILY PRN PRN Reason: Constipation Morphine Sulfate (Morphine Sulfate Immed Release 15 Mg Tablet) 30 mg PO Q6H PRN PRN Reason: Pain, Severe (Pain Scale 7-10) Last Admin: 04/25/24 02:37 Dose: 30 mg Nicotine (Nicotine 21 Mg Patch.Td24) 21 mg TRANSDERMA DAILY PRN PRN Reason: smoking cessation Nicotine Polacrilex (Nicotine Polacrilex 2 Mg Gum) 4 mg BUCCAL Q2H PRN PRN Reason: Nicotine Cravings Olanzapine (Olanzapine 2.5 Mg Tablet) 2.5 mg PO TID PRN PRN Reason: agitation Olanzapine (Olanzapine 2.5 Mg Tablet) 2.5 mg PO BEDTIME [facility] Last Admin: 04/24/24 22:17 Dose: Not Given Omeprazole (Omeprazole 20 Mg Capsule.) 20 mg PO 0630 [facility] Last Admin: 04/25/24 05:49 Dose: 20 mg Ondansetron HCl (Ondansetron Odt 4 Mg Tab.Rapdis) 4 mg TRANSLINGU Q12H PRN PRN Reason: Nausea and Vomiting Trazodone HCl (Trazodone Hcl 50 Mg Tablet) 50 mg PO BEDTIME MRX1 PRN PRN Reason: Insomnia Allergies Allergies Allergy/AdvReac Type Severity Reaction Status Date / Time Egg Derived Allergy Unknown Unknown Verified 03/16/24 15:22 acetaminophen [From Percocet] AdvReac Severe Hives Verified 03/14/24 23:07 alprazolam AdvReac Severe Hives Verified 03/14/24 23:09 atorvastatin AdvReac Severe Hives Verified 03/14/24 23:10 azithromycin AdvReac Severe Swelling Verified 03/14/24 23:11 cholestyramine AdvReac Severe Hives Verified 03/14/24 23:08 [From Questran] ciprofloxacin AdvReac Severe Hives Verified 03/14/24 23:11 codeine AdvReac Severe Hives Verified 03/14/24 23:12 colesevelam AdvReac Severe Hives Verified 03/14/24 23:12 egg AdvReac Severe Hives Verified 03/15/24 01:39 Estrogens AdvReac Severe Swelling Verified 03/14/24 23:13 gemfibrozil AdvReac Severe Hives Verified 03/14/24 23:14 hydrocortisone AdvReac Severe Blurry Verified 03/14/24 23:07 [From Cortenema] Vision hydromorphone [From Dilaudid] AdvReac Severe Swelling Verified 03/14/24 23:13 Iodinated Contrast Media AdvReac Severe Hives Verified 03/14/24 23:14 isoniazid AdvReac Severe Hives Verified 03/14/24 23:15 mercaptopurine AdvReac Severe Vomiting Verified 03/14/24 23:16 methylprednisolone AdvReac Severe Hives Verified 03/14/24 23:16 minocycline AdvReac Severe Hives Verified 03/14/24 23:24 naproxen AdvReac Severe Rash Verified 03/14/24 23:17 oxycodone [From Percocet] AdvReac Severe Hives Verified 03/14/24 23:07 propoxyphene AdvReac Severe Hives Verified 03/14/24 23:19 quetiapine AdvReac Severe Rash Verified 03/14/24 23:20 risperidone AdvReac Severe Hives Verified 03/14/24 23:20 seafood AdvReac Severe Swelling Verified 03/14/24 23:21 shellfish derived AdvReac Severe Swelling Verified 03/14/24 23:21 [id number] Reductase AdvReac Severe Swelling Verified 03/14/24 23:22 Inhibitor sucrose [From Questran] AdvReac Severe Hives Verified 03/14/24 23:08 Sulfa (Sulfonamide AdvReac Severe Hives Verified 03/14/24 23:24 Antibiotics) tramadol AdvReac Severe Rash Verified 03/14/24 23:22 wool AdvReac Severe Hives Verified 03/14/24 23:23 Assessment & Plan Assessment & Plan (1) Post traumatic stress disorder (PTSD): Status: Acute Code(s): F43.10 - Post-traumatic stress disorder, unspecified (2) Cognitive disorder: Status: Acute Code(s): F09 - Unspecified mental disorder due to known physiological condition (3) Generalized anxiety disorder: Status: Acute Code(s): F41.1 - Generalized anxiety disorder (4) Suicide attempt by fentanyl overdose: Status: Acute Code(s): T40.412A - Poisoning by fentanyl or fentanyl analogs, intentional self-harm, initial encounter (5) Psychosis: Status: Acute Code(s): F29 - Unspecified psychosis not due to a substance or known physiological condition Plan Pt is a 63-year-old female with a PMH significant for?CVA, chronic pain disorder, HLD, ulcerative colitis s/p colectomy with colostomy in place, chronic anemia, and GERD who is admitted to [facility] for increasing paranoia and depression with suicide attempt by overdosing on home meds. Pt was apparently found unconscious in her apartment surrounded by empty morphine bottles, an SI note, and an eviction notice. Pt was emergently intubated and admitted to ICU for 5 days where she was treated for RAKAN and aspiration pneumonia. Also had elevated troponins that were attributed to demand ischemia. Medical consult for admission H&P. Mood disorder Plan as per psychiatry Recent hx of intubation in the ICU Denies difficulty swallowing, no sore throat or SOB Continue albuterol inhaler Peripheral neuropathy of right lower extremity Foot warm, pedal pulses 2+, well perfused No known hx of DM Unclear etiology Consider gabapentin if persistent Right foot wounds Unclear etiology Superficial, healing well No sign of infection No further intervention or workup needed at this time Hx of CVA Continue statin, aspirin Chronic pain disorder Continue fentanyl pathch, po morphine GERD PPI Plan 1. Continue with same medications. 2. Guardianship papers already filed. 3. Waiting for placement 4. Adding Aricept 5 mg p.o. q.h.s. on April 05 5. It seems that the patient has already a guardian, we are going to try to contact him and get more collateral information for placement 6. Her status has been changed to DNR DNI as per legal paperwork. Reason for continued inpatient stay Substantial Risk for: inability to function, rapid decompensation and med/psych decompensation Time Spent With Patient Time: Total time managing care of this patient today __20__ minutes.
[2024-04-25 20:00] VITALS: BP 104/71; PULSE 74; RESP 16; TEMP 36.4; O2SAT 96
[2024-04-26] MEDS: diphenhydrAMINE HCL 25 MG CAPSULE PO (00:28)
[2024-04-26] MEDS: hydrOXYzine HCL 25 MG TABLET PO ×2 (00:28→18:07)
[2024-04-26] MEDS: Omeprazole 20 MG CAPSULE.DR PO (06:54)
[2024-04-26] MEDS: Morphine Sulfate Immed Release 15 MG TABLET 30 MG PO ×2 (06:54→18:06)
[2024-04-26 07:50] VITALS: BP 126/62; PULSE 84; RESP 18; TEMP 36.6; O2SAT 95
[2024-04-26] MEDS: diphenhydrAMINE HCL 25 MG CAPSULE 50 MG PO ×2 (08:19→21:33)
[2024-04-26] MEDS: Escitalopram Oxalate 5 MG TABLET PO (08:19)
[2024-04-26] MEDS: diazePAM 5 MG TABLET 10 MG PO ×2 (08:19→21:33)
--- NOTE | 2024-04-26 12:01 | HO.PSYCHPN ---
Subjective Subjective Date of Service: 04/26/24 Reason For Visit: Status post suicide attempt Subjective Notes: Conditional Voluntary Interim History: The nursing staff reported no changes in her mental status remains seclusive. She had been refusing consistently antipsychotics and Aricept. On interview the patient denies new symptoms, waiting for placement. Yesterday she had a hearing for guardianship. Mental Status Exam Mental Status Exam Patient Appearance: Well Grooomed and Appropriate Patient Orientation: Person and Situation Level of Consciousness: Awake and Appropriate Patient Behavior: Guarded and Passive Mood Description: Withdrawn Affect Description: Constricted Patient Cognition Impaired: Yes Ability to Follow Directions: Good Speech Pattern: Clear Hallucinations: None Delusions: Not Present Thought Process: Distracted and Slowed Thinking Thought Content: positive for [place] and positive for Poverty of Content Judgement: Fair Diagnostics Vital Signs (24Hr): Vital Signs - 24 hr 04/25/24 20:00 04/26/24 07:50 Temperature 97.5 F 97.9 F Pulse Rate 74 84 Respiratory Rate 16 18 Blood Pressure 104/71 126/62 Pulse Oximetry 96 95 Oxygen Delivery Method Room Air Room Air BMI result Body Mass Index 28.9 Labs 03/16/24 07:32 Medications Medications Current Medications Al Hydroxide/Mg Hydroxide (Magnesium Hydrox/Alum Hydrox 30 Ml Oral.Susp) 30 ml PO Q6H PRN PRN Reason: Heartburn/Nausea Albuterol Sulfate (Albuterol Sulfate 90 Mcg 8 Gm Inhaler) 2 puff INHALE Q4H PRN PRN Reason: Shortness Of Breath Or Wheezing Last Admin: 04/22/24 17:47 Dose: 2 puff Artificial Tears (Artificial Tears 15 Ml Drops) 1 drop EYE-BOTH DAILY PRN PRN Reason: Dry Eye(S) Diazepam (Diazepam 5 Mg Tablet) 10 mg PO BID [facility] Last Admin: 04/26/24 08:19 Dose: 10 mg Diphenhydramine HCl (Diphenhydramine Hcl 25 Mg Capsule) 25 mg PO Q6H PRN PRN Reason: Anxiety, Itching Last Admin: 04/26/24 00:28 Dose: 25 mg Diphenhydramine HCl (Diphenhydramine Hcl 25 Mg Capsule) 50 mg PO BID [facility] Last Admin: 04/26/24 08:19 Dose: 50 mg Donepezil HCl (Donepezil Hcl 5 Mg Tablet) 5 mg PO BEDTIME [facility] Last Admin: 04/25/24 22:05 Dose: Not Given Escitalopram Oxalate (Escitalopram Oxalate 5 Mg Tablet) 5 mg PO DAILY [facility] Last Admin: 04/26/24 08:19 Dose: 5 mg Fentanyl (Fentanyl 50 Mcg Patch.Td72) 50 mcg TRANSDERMA Q72H [facility] Last Admin: 04/24/24 08:50 Dose: 50 mcg Hydrocortisone (Hydrocortisone 1 % Cream 28.35 Gm Tube) 1 appl TOPICAL BID [facility]; Protocol Last Admin: 04/26/24 08:55 Dose: Not Given Hydroxyzine HCl (Hydroxyzine Hcl 25 Mg Tablet) 25 mg PO Q8H PRN PRN Reason: Anxiety Last Admin: 04/26/24 00:28 Dose: 25 mg Magnesium Hydroxide (Milk Of Magnesia 30 Ml Oral.Susp) 30 ml PO DAILY PRN PRN Reason: Constipation Morphine Sulfate (Morphine Sulfate Immed Release 15 Mg Tablet) 30 mg PO Q6H PRN PRN Reason: Pain, Severe (Pain Scale 7-10) Last Admin: 04/26/24 06:54 Dose: 30 mg Nicotine (Nicotine 21 Mg Patch.Td24) 21 mg TRANSDERMA DAILY PRN PRN Reason: smoking cessation Nicotine Polacrilex (Nicotine Polacrilex 2 Mg Gum) 4 mg BUCCAL Q2H PRN PRN Reason: Nicotine Cravings Olanzapine (Olanzapine 2.5 Mg Tablet) 2.5 mg PO TID PRN PRN Reason: agitation Olanzapine (Olanzapine 2.5 Mg Tablet) 2.5 mg PO BEDTIME [facility] Last Admin: 04/25/24 22:06 Dose: Not Given Omeprazole (Omeprazole 20 Mg Capsule.) 20 mg PO 0630 [facility] Last Admin: 04/26/24 06:54 Dose: 20 mg Ondansetron HCl (Ondansetron Odt 4 Mg Tab.Rapdis) 4 mg TRANSLINGU Q12H PRN PRN Reason: Nausea and Vomiting Trazodone HCl (Trazodone Hcl 50 Mg Tablet) 50 mg PO BEDTIME MRX1 PRN PRN Reason: Insomnia Allergies Allergies Allergy/AdvReac Type Severity Reaction Status Date / Time Egg Derived Allergy Unknown Unknown Verified 03/16/24 15:22 acetaminophen [From Percocet] AdvReac Severe Hives Verified 03/14/24 23:07 alprazolam AdvReac Severe Hives Verified 03/14/24 23:09 atorvastatin AdvReac Severe Hives Verified 03/14/24 23:10 azithromycin AdvReac Severe Swelling Verified 03/14/24 23:11 cholestyramine AdvReac Severe Hives Verified 03/14/24 23:08 [From Questran] ciprofloxacin AdvReac Severe Hives Verified 03/14/24 23:11 codeine AdvReac Severe Hives Verified 03/14/24 23:12 colesevelam AdvReac Severe Hives Verified 03/14/24 23:12 egg AdvReac Severe Hives Verified 03/15/24 01:39 Estrogens AdvReac Severe Swelling Verified 03/14/24 23:13 gemfibrozil AdvReac Severe Hives Verified 03/14/24 23:14 hydrocortisone AdvReac Severe Blurry Verified 03/14/24 23:07 [From Cortenema] Vision hydromorphone [From Dilaudid] AdvReac Severe Swelling Verified 03/14/24 23:13 Iodinated Contrast Media AdvReac Severe Hives Verified 03/14/24 23:14 isoniazid AdvReac Severe Hives Verified 03/14/24 23:15 mercaptopurine AdvReac Severe Vomiting Verified 03/14/24 23:16 methylprednisolone AdvReac Severe Hives Verified 03/14/24 23:16 minocycline AdvReac Severe Hives Verified 03/14/24 23:24 naproxen AdvReac Severe Rash Verified 03/14/24 23:17 oxycodone [From Percocet] AdvReac Severe Hives Verified 03/14/24 23:07 propoxyphene AdvReac Severe Hives Verified 03/14/24 23:19 quetiapine AdvReac Severe Rash Verified 03/14/24 23:20 risperidone AdvReac Severe Hives Verified 03/14/24 23:20 seafood AdvReac Severe Swelling Verified 03/14/24 23:21 shellfish derived AdvReac Severe Swelling Verified 03/14/24 23:21 [id number]-[id number] Reductase AdvReac Severe Swelling Verified 03/14/24 23:22 Inhibitor sucrose [From Questran] AdvReac Severe Hives Verified 03/14/24 23:08 Sulfa (Sulfonamide AdvReac Severe Hives Verified 03/14/24 23:24 Antibiotics) tramadol AdvReac Severe Rash Verified 03/14/24 23:22 wool AdvReac Severe Hives Verified 03/14/24 23:23 Assessment & Plan Assessment & Plan (1) Post traumatic stress disorder (PTSD): Status: Acute Code(s): F43.10 - Post-traumatic stress disorder, unspecified (2) Cognitive disorder: Status: Acute Code(s): F09 - Unspecified mental disorder due to known physiological condition (3) Generalized anxiety disorder: Status: Acute Code(s): F41.1 - Generalized anxiety disorder (4) Suicide attempt by fentanyl overdose: Status: Acute Code(s): T40.412A - Poisoning by fentanyl or fentanyl analogs, intentional self-harm, initial encounter (5) Psychosis: Status: Acute Code(s): F29 - Unspecified psychosis not due to a substance or known physiological condition Plan Pt is a 63-year-old female with a PMH significant for?CVA, chronic pain disorder, HLD, ulcerative colitis s/p colectomy with colostomy in place, chronic anemia, and GERD who is admitted to [facility] for increasing paranoia and depression with suicide attempt by overdosing on home meds. Pt was apparently found unconscious in her apartment surrounded by empty morphine bottles, an SI note, and an eviction notice. Pt was emergently intubated and admitted to ICU for 5 days where she was treated for RAKAN and aspiration pneumonia. Also had elevated troponins that were attributed to demand ischemia. Medical consult for admission H&P. Mood disorder Plan as per psychiatry Recent hx of intubation in the ICU Denies difficulty swallowing, no sore throat or SOB Continue albuterol inhaler Peripheral neuropathy of right lower extremity Foot warm, pedal pulses 2+, well perfused No known hx of DM Unclear etiology Consider gabapentin if persistent Right foot wounds Unclear etiology Superficial, healing well No sign of infection No further intervention or workup needed at this time Hx of CVA Continue statin, aspirin Chronic pain disorder Continue fentanyl pathch, po morphine GERD PPI Plan 1. Continue with same medications. 2. Guardianship papers already filed. 3. Waiting for placement 4. Adding Aricept 5 mg p.o. q.h.s. on April 05 5. It seems that the patient has already a guardian, we are going to try to contact him and get more collateral information for placement 6. Her status has been changed to DNR DNI as per legal paperwork. Reason for continued inpatient stay Substantial Risk for: inability to function, rapid decompensation and med/psych decompensation Time Spent With Patient Time: Total time managing care of this patient today __20__ minutes.
[2024-04-26 20:00] VITALS: BP 117/59; PULSE 72; RESP 18; TEMP 36.1; O2SAT 95
[2024-04-27] MEDS: Morphine Sulfate Immed Release 15 MG TABLET 30 MG PO ×2 (00:15→05:55)
[2024-04-27] MEDS: Omeprazole 20 MG CAPSULE.DR PO (05:55)
[2024-04-27] MEDS: diphenhydrAMINE HCL 25 MG CAPSULE PO (05:55)
[2024-04-27] MEDS: hydrOXYzine HCL 25 MG TABLET PO (05:55)
[2024-04-27 09:31] VITALS: BP 112/55; PULSE 73; RESP 18; TEMP 36.2; O2SAT 97
[2024-04-27] MEDS: fentaNYL 50 MCG PATCH.TD72 TRANSDERMA (10:00)
[2024-04-27] MEDS: diphenhydrAMINE HCL 25 MG CAPSULE 50 MG PO ×2 (10:03→21:08)
[2024-04-27] MEDS: diazePAM 5 MG TABLET 10 MG PO ×2 (10:04→21:08)
[2024-04-27] MEDS: Escitalopram Oxalate 5 MG TABLET PO (10:04)
[2024-04-27] MEDS: Hydrocortisone 1 % Cream 28.35 GM TUBE 1 APPL TOPICAL ×2 (15:45→21:11)
[2024-04-27 20:00] VITALS: BP 122/60; PULSE 75; RESP 15; TEMP 36.4; O2SAT 93
--- NOTE | 2024-04-27 20:37 | HO.PSYCHPN ---
Subjective Subjective Date of Service: 04/27/24 Reason For Visit: Status post suicide attempt Interim History: no issues, sleeping, eating well. per staff, tearful, depressed due to having been assigned a guardian. Mental Status Exam Mental Status Exam Patient Appearance: Well Grooomed and Appropriate Patient Orientation: Person and Situation Level of Consciousness: Awake and Appropriate Patient Behavior: Guarded and Passive Mood Description: Withdrawn Affect Description: Constricted Patient Cognition Impaired: Yes Ability to Follow Directions: Good Speech Pattern: Clear Hallucinations: None Delusions: Not Present Thought Process: Distracted and Slowed Thinking Thought Content: positive for [place] and positive for Poverty of Content Judgement: Fair Diagnostics Vital Signs (24Hr): Vital Signs - 24 hr 04/27/24 09:31 Temperature 97.1 F Pulse Rate 73 Respiratory Rate 18 Blood Pressure 112/55 L Pulse Oximetry 97 Oxygen Delivery Method Room Air BMI result Body Mass Index 28.9 Labs 03/16/24 07:32 Medications Medications Current Medications Al Hydroxide/Mg Hydroxide (Magnesium Hydrox/Alum Hydrox 30 Ml Oral.Susp) 30 ml PO Q6H PRN PRN Reason: Heartburn/Nausea Albuterol Sulfate (Albuterol Sulfate 90 Mcg 8 Gm Inhaler) 2 puff INHALE Q4H PRN PRN Reason: Shortness Of Breath Or Wheezing Last Admin: 04/22/24 17:47 Dose: 2 puff Artificial Tears (Artificial Tears 15 Ml Drops) 1 drop EYE-BOTH DAILY PRN PRN Reason: Dry Eye(S) Diazepam (Diazepam 5 Mg Tablet) 10 mg PO BID [facility] Last Admin: 04/27/24 10:04 Dose: 10 mg Diphenhydramine HCl (Diphenhydramine Hcl 25 Mg Capsule) 25 mg PO Q6H PRN PRN Reason: Anxiety, Itching Last Admin: 04/27/24 05:55 Dose: 25 mg Diphenhydramine HCl (Diphenhydramine Hcl 25 Mg Capsule) 50 mg PO BID [facility] Last Admin: 04/27/24 10:03 Dose: 50 mg Donepezil HCl (Donepezil Hcl 5 Mg Tablet) 5 mg PO BEDTIME [facility] Last Admin: 04/26/24 22:12 Dose: Not Given Escitalopram Oxalate (Escitalopram Oxalate 5 Mg Tablet) 5 mg PO DAILY [facility] Last Admin: 04/27/24 10:04 Dose: 5 mg Fentanyl (Fentanyl 50 Mcg Patch.Td72) 50 mcg TRANSDERMA Q72H [facility] Last Admin: 04/27/24 10:00 Dose: 50 mcg Hydrocortisone (Hydrocortisone 1 % Cream 28.35 Gm Tube) 1 appl TOPICAL BID [facility]; Protocol Last Admin: 04/27/24 15:45 Dose: 1 appl Hydroxyzine HCl (Hydroxyzine Hcl 25 Mg Tablet) 25 mg PO Q8H PRN PRN Reason: Anxiety Last Admin: 04/27/24 05:55 Dose: 25 mg Magnesium Hydroxide (Milk Of Magnesia 30 Ml Oral.Susp) 30 ml PO DAILY PRN PRN Reason: Constipation Morphine Sulfate (Morphine Sulfate Immed Release 15 Mg Tablet) 30 mg PO Q6H PRN PRN Reason: Pain, Severe (Pain Scale 7-10) Last Admin: 04/27/24 05:55 Dose: 30 mg Nicotine (Nicotine 21 Mg Patch.Td24) 21 mg TRANSDERMA DAILY PRN PRN Reason: smoking cessation Nicotine Polacrilex (Nicotine Polacrilex 2 Mg Gum) 4 mg BUCCAL Q2H PRN PRN Reason: Nicotine Cravings Olanzapine (Olanzapine 2.5 Mg Tablet) 2.5 mg PO TID PRN PRN Reason: agitation Olanzapine (Olanzapine 2.5 Mg Tablet) 2.5 mg PO BEDTIME [facility] Last Admin: 04/26/24 22:12 Dose: Not Given Omeprazole (Omeprazole 20 Mg Capsule.Dr) 20 mg PO 0630 [facility] Last Admin: 04/27/24 05:55 Dose: 20 mg Ondansetron HCl (Ondansetron Odt 4 Mg Tab.Rapdis) 4 mg TRANSLINGU Q12H PRN PRN Reason: Nausea and Vomiting Trazodone HCl (Trazodone Hcl 50 Mg Tablet) 50 mg PO BEDTIME MRX1 PRN PRN Reason: Insomnia Allergies Allergies Allergy/AdvReac Type Severity Reaction Status Date / Time Egg Derived Allergy Unknown Unknown Verified 03/16/24 15:22 acetaminophen [From Percocet] AdvReac Severe Hives Verified 03/14/24 23:07 alprazolam AdvReac Severe Hives Verified 03/14/24 23:09 atorvastatin AdvReac Severe Hives Verified 03/14/24 23:10 azithromycin AdvReac Severe Swelling Verified 03/14/24 23:11 cholestyramine AdvReac Severe Hives Verified 03/14/24 23:08 [From Questran] ciprofloxacin AdvReac Severe Hives Verified 03/14/24 23:11 codeine AdvReac Severe Hives Verified 03/14/24 23:12 colesevelam AdvReac Severe Hives Verified 03/14/24 23:12 egg AdvReac Severe Hives Verified 03/15/24 01:39 Estrogens AdvReac Severe Swelling Verified 03/14/24 23:13 gemfibrozil AdvReac Severe Hives Verified 03/14/24 23:14 hydrocortisone AdvReac Severe Blurry Verified 03/14/24 23:07 [From Cortenema] Vision hydromorphone [From Dilaudid] AdvReac Severe Swelling Verified 03/14/24 23:13 Iodinated Contrast Media AdvReac Severe Hives Verified 03/14/24 23:14 isoniazid AdvReac Severe Hives Verified 03/14/24 23:15 mercaptopurine AdvReac Severe Vomiting Verified 03/14/24 23:16 methylprednisolone AdvReac Severe Hives Verified 03/14/24 23:16 minocycline AdvReac Severe Hives Verified 03/14/24 23:24 naproxen AdvReac Severe Rash Verified 03/14/24 23:17 oxycodone [From Percocet] AdvReac Severe Hives Verified 03/14/24 23:07 propoxyphene AdvReac Severe Hives Verified 03/14/24 23:19 quetiapine AdvReac Severe Rash Verified 03/14/24 23:20 risperidone AdvReac Severe Hives Verified 03/14/24 23:20 seafood AdvReac Severe Swelling Verified 03/14/24 23:21 shellfish derived AdvReac Severe Swelling Verified 03/14/24 23:21 [id number]-[id number] Reductase AdvReac Severe Swelling Verified 03/14/24 23:22 Inhibitor sucrose [From Questran] AdvReac Severe Hives Verified 03/14/24 23:08 Sulfa (Sulfonamide AdvReac Severe Hives Verified 03/14/24 23:24 Antibiotics) tramadol AdvReac Severe Rash Verified 03/14/24 23:22 wool AdvReac Severe Hives Verified 03/14/24 23:23 Assessment & Plan Assessment & Plan (1) Post traumatic stress disorder (PTSD): Status: Acute Code(s): F43.10 - Post-traumatic stress disorder, unspecified (2) Cognitive disorder: Status: Acute Code(s): F09 - Unspecified mental disorder due to known physiological condition (3) Generalized anxiety disorder: Status: Acute Code(s): F41.1 - Generalized anxiety disorder (4) Suicide attempt by fentanyl overdose: Status: Acute Code(s): T40.412A - Poisoning by fentanyl or fentanyl analogs, intentional self-harm, initial encounter (5) Psychosis: Status: Acute Code(s): F29 - Unspecified psychosis not due to a substance or known physiological condition Plan Pt is a 63-year-old female with a PMH significant for?CVA, chronic pain disorder, HLD, ulcerative colitis s/p colectomy with colostomy in place, chronic anemia, and GERD who is admitted to [facility] for increasing paranoia and depression with suicide attempt by overdosing on home meds. Pt was apparently found unconscious in her apartment surrounded by empty morphine bottles, an SI note, and an eviction notice. Pt was emergently intubated and admitted to ICU for 5 days where she was treated for RAKAN and aspiration pneumonia. Also had elevated troponins that were attributed to demand ischemia. Medical consult for admission H&P. Mood disorder Plan as per psychiatry Recent hx of intubation in the ICU Denies difficulty swallowing, no sore throat or SOB Continue albuterol inhaler Peripheral neuropathy of right lower extremity Foot warm, pedal pulses 2+, well perfused No known hx of DM Unclear etiology Consider gabapentin if persistent Right foot wounds Unclear etiology Superficial, healing well No sign of infection No further intervention or workup needed at this time Hx of CVA Continue statin, aspirin Chronic pain disorder Continue fentanyl pathch, po morphine GERD PPI Plan 1. Continue with same medications. 2. Guardianship papers already filed. 3. Waiting for placement 4. Adding Aricept 5 mg p.o. q.h.s. on April 05 5. It seems that the patient has already a guardian, we are going to try to contact him and get more collateral information for placement 6. Her status has been changed to DNR DNI as per legal paperwork. Reason for continued inpatient stay Substantial Risk for: harm to self and inability to function Time Spent With Patient Time: Total time managing care of this patient today ____ minutes.
[2024-04-28] MEDS: Omeprazole 20 MG CAPSULE.DR PO (06:17)
[2024-04-28] MEDS: Morphine Sulfate Immed Release 15 MG TABLET 30 MG PO ×2 (06:17→18:47)
[2024-04-28] MEDS: hydrOXYzine HCL 25 MG TABLET PO ×2 (06:23→18:50)
[2024-04-28 08:00] VITALS: BP 133/58; PULSE 71; RESP 18; TEMP 36.2; O2SAT 94
[2024-04-28] MEDS: diazePAM 5 MG TABLET 10 MG PO ×2 (08:53→20:52)
[2024-04-28] MEDS: Escitalopram Oxalate 5 MG TABLET PO (08:54)
[2024-04-28] MEDS: diphenhydrAMINE HCL 25 MG CAPSULE 50 MG PO ×2 (08:56→20:52)
--- NOTE | 2024-04-28 15:07 | HO.PSYCHPN ---
Subjective Subjective Date of Service: 04/28/24 Reason For Visit: Status post suicide attempt Interim History: irritable, scathing. diatribe re claim of mixed messages re eating in the sensory room. awaiting assisted living. minimizing loss in court resulting in her having a guardian appointed. Mental Status Exam Mental Status Exam Patient Appearance: Well Grooomed and Appropriate Patient Orientation: Person and Situation Level of Consciousness: Awake and Appropriate Patient Behavior: Guarded and Passive Mood Description: Angry Affect Description: Constricted Patient Cognition Impaired: Yes Ability to Follow Directions: Good Speech Pattern: Clear Hallucinations: None Delusions: Not Present Thought Process: Distracted and Slowed Thinking Thought Content: positive for [place] and positive for Poverty of Content Judgement: Fair Diagnostics Vital Signs (24Hr): Vital Signs - 24 hr 04/27/24 20:00 04/28/24 08:00 Temperature 97.5 F 97.1 F Pulse Rate 75 71 Respiratory Rate 15 18 Blood Pressure 122/60 133/58 L Pulse Oximetry 93 94 Oxygen Delivery Method Room Air Room Air BMI result Body Mass Index 28.9 Labs 03/16/24 07:32 Medications Medications Current Medications Al Hydroxide/Mg Hydroxide (Magnesium Hydrox/Alum Hydrox 30 Ml Oral.Susp) 30 ml PO Q6H PRN PRN Reason: Heartburn/Nausea Albuterol Sulfate (Albuterol Sulfate 90 Mcg 8 Gm Inhaler) 2 puff INHALE Q4H PRN PRN Reason: Shortness Of Breath Or Wheezing Last Admin: 04/22/24 17:47 Dose: 2 puff Artificial Tears (Artificial Tears 15 Ml Drops) 1 drop EYE-BOTH DAILY PRN PRN Reason: Dry Eye(S) Diazepam (Diazepam 5 Mg Tablet) 10 mg PO BID [facility] Last Admin: 04/28/24 08:53 Dose: 10 mg Diphenhydramine HCl (Diphenhydramine Hcl 25 Mg Capsule) 25 mg PO Q6H PRN PRN Reason: Anxiety, Itching Last Admin: 04/27/24 05:55 Dose: 25 mg Diphenhydramine HCl (Diphenhydramine Hcl 25 Mg Capsule) 50 mg PO BID [facility] Last Admin: 04/28/24 08:56 Dose: 50 mg Donepezil HCl (Donepezil Hcl 5 Mg Tablet) 5 mg PO BEDTIME [facility] Last Admin: 04/27/24 21:09 Dose: Not Given Escitalopram Oxalate (Escitalopram Oxalate 5 Mg Tablet) 5 mg PO DAILY [facility] Last Admin: 04/28/24 08:54 Dose: 5 mg Fentanyl (Fentanyl 50 Mcg Patch.Td72) 50 mcg TRANSDERMA Q72H [facility] Last Admin: 04/27/24 10:00 Dose: 50 mcg Hydrocortisone (Hydrocortisone 1 % Cream 28.35 Gm Tube) 1 appl TOPICAL BID [facility]; Protocol Last Admin: 04/28/24 09:30 Dose: Not Given Hydroxyzine HCl (Hydroxyzine Hcl 25 Mg Tablet) 25 mg PO Q8H PRN PRN Reason: Anxiety Last Admin: 04/28/24 06:23 Dose: 25 mg Magnesium Hydroxide (Milk Of Magnesia 30 Ml Oral.Susp) 30 ml PO DAILY PRN PRN Reason: Constipation Morphine Sulfate (Morphine Sulfate Immed Release 15 Mg Tablet) 30 mg PO Q6H PRN PRN Reason: Pain, Severe (Pain Scale 7-10) Last Admin: 04/28/24 06:17 Dose: 30 mg Nicotine (Nicotine 21 Mg Patch.Td24) 21 mg TRANSDERMA DAILY PRN PRN Reason: smoking cessation Nicotine Polacrilex (Nicotine Polacrilex 2 Mg Gum) 4 mg BUCCAL Q2H PRN PRN Reason: Nicotine Cravings Olanzapine (Olanzapine 2.5 Mg Tablet) 2.5 mg PO TID PRN PRN Reason: agitation Olanzapine (Olanzapine 2.5 Mg Tablet) 2.5 mg PO BEDTIME [facility] Last Admin: 04/27/24 21:10 Dose: Not Given Omeprazole (Omeprazole 20 Mg Capsule.Dr) 20 mg PO 0630 [facility] Last Admin: 04/28/24 06:17 Dose: 20 mg Ondansetron HCl (Ondansetron Odt 4 Mg Tab.Rapdis) 4 mg TRANSLINGU Q12H PRN PRN Reason: Nausea and Vomiting Trazodone HCl (Trazodone Hcl 50 Mg Tablet) 50 mg PO BEDTIME MRX1 PRN PRN Reason: Insomnia Allergies Allergies Allergy/AdvReac Type Severity Reaction Status Date / Time Egg Derived Allergy Unknown Unknown Verified 03/16/24 15:22 acetaminophen [From Percocet] AdvReac Severe Hives Verified 03/14/24 23:07 alprazolam AdvReac Severe Hives Verified 03/14/24 23:09 atorvastatin AdvReac Severe Hives Verified 03/14/24 23:10 azithromycin AdvReac Severe Swelling Verified 03/14/24 23:11 cholestyramine AdvReac Severe Hives Verified 03/14/24 23:08 [From Questran] ciprofloxacin AdvReac Severe Hives Verified 03/14/24 23:11 codeine AdvReac Severe Hives Verified 03/14/24 23:12 colesevelam AdvReac Severe Hives Verified 03/14/24 23:12 egg AdvReac Severe Hives Verified 03/15/24 01:39 Estrogens AdvReac Severe Swelling Verified 03/14/24 23:13 gemfibrozil AdvReac Severe Hives Verified 03/14/24 23:14 hydrocortisone AdvReac Severe Blurry Verified 03/14/24 23:07 [From Cortenema] Vision hydromorphone [From Dilaudid] AdvReac Severe Swelling Verified 03/14/24 23:13 Iodinated Contrast Media AdvReac Severe Hives Verified 03/14/24 23:14 isoniazid AdvReac Severe Hives Verified 03/14/24 23:15 mercaptopurine AdvReac Severe Vomiting Verified 03/14/24 23:16 methylprednisolone AdvReac Severe Hives Verified 03/14/24 23:16 minocycline AdvReac Severe Hives Verified 03/14/24 23:24 naproxen AdvReac Severe Rash Verified 03/14/24 23:17 oxycodone [From Percocet] AdvReac Severe Hives Verified 03/14/24 23:07 propoxyphene AdvReac Severe Hives Verified 03/14/24 23:19 quetiapine AdvReac Severe Rash Verified 03/14/24 23:20 risperidone AdvReac Severe Hives Verified 03/14/24 23:20 seafood AdvReac Severe Swelling Verified 03/14/24 23:21 shellfish derived AdvReac Severe Swelling Verified 03/14/24 23:21 Aulsycm-NVI-FuC Reductase AdvReac Severe Swelling Verified 03/14/24 23:22 Inhibitor sucrose [From Questran] AdvReac Severe Hives Verified 03/14/24 23:08 Sulfa (Sulfonamide AdvReac Severe Hives Verified 03/14/24 23:24 Antibiotics) tramadol AdvReac Severe Rash Verified 03/14/24 23:22 wool AdvReac Severe Hives Verified 03/14/24 23:23 Assessment & Plan Assessment & Plan (1) Post traumatic stress disorder (PTSD): Status: Acute Code(s): F43.10 - Post-traumatic stress disorder, unspecified (2) Cognitive disorder: Status: Acute Code(s): F09 - Unspecified mental disorder due to known physiological condition (3) Generalized anxiety disorder: Status: Acute Code(s): F41.1 - Generalized anxiety disorder (4) Suicide attempt by fentanyl overdose: Status: Acute Code(s): T40.412A - Poisoning by fentanyl or fentanyl analogs, intentional self-harm, initial encounter (5) Psychosis: Status: Acute Code(s): F29 - Unspecified psychosis not due to a substance or known physiological condition Plan Pt is a 63-year-old female with a PMH significant for?CVA, chronic pain disorder, HLD, ulcerative colitis s/p colectomy with colostomy in place, chronic anemia, and GERD who is admitted to [facility] for increasing paranoia and depression with suicide attempt by overdosing on home meds. Pt was apparently found unconscious in her apartment surrounded by empty morphine bottles, an SI note, and an eviction notice. Pt was emergently intubated and admitted to ICU for 5 days where she was treated for RAKAN and aspiration pneumonia. Also had elevated troponins that were attributed to demand ischemia. Medical consult for admission H&P. Mood disorder Plan as per psychiatry Recent hx of intubation in the ICU Denies difficulty swallowing, no sore throat or SOB Continue albuterol inhaler Peripheral neuropathy of right lower extremity Foot warm, pedal pulses 2+, well perfused No known hx of DM Unclear etiology Consider gabapentin if persistent Right foot wounds Unclear etiology Superficial, healing well No sign of infection No further intervention or workup needed at this time Hx of CVA Continue statin, aspirin Chronic pain disorder Continue fentanyl pathch, po morphine GERD PPI Plan 1. Continue with same medications. 2. Guardianship papers already filed. 3. Waiting for placement 4. Adding Aricept 5 mg p.o. q.h.s. on April 05 5. It seems that the patient has already a guardian, we are going to try to contact him and get more collateral information for placement 6. Her status has been changed to DNR DNI as per legal paperwork. Reason for continued inpatient stay Substantial Risk for: inability to function Time Spent With Patient Time: Total time managing care of this patient today __25__ minutes.
--- NOTE | 2024-04-28 18:13 | PC.NURSE ---
The patient approached me in the [place] after breakfast this morning and asked me how the patient was that fell this morning. She stated, Fiona fell and the charge nurse was yelling for help to get her off the floor but nobody came to help her. She hurt her hip. There wasn't a fall on the unit today. The patient is delusional.
[2024-04-28 20:00] VITALS: BP 113/66; PULSE 79; RESP 17; TEMP 36.6; O2SAT 93
[2024-04-29] MEDS: hydrOXYzine HCL 25 MG TABLET PO ×2 (04:41→17:00)
[2024-04-29] MEDS: Morphine Sulfate Immed Release 15 MG TABLET 30 MG PO ×2 (04:41→17:00)
[2024-04-29] MEDS: Omeprazole 20 MG CAPSULE.DR PO (06:14)
[2024-04-29 07:38] VITALS: BP 137/81; PULSE 76; RESP 16; TEMP 36.6; O2SAT 96
[2024-04-29] MEDS: diphenhydrAMINE HCL 25 MG CAPSULE 50 MG PO ×2 (08:05→21:15)
[2024-04-29] MEDS: Escitalopram Oxalate 5 MG TABLET PO (08:05)
[2024-04-29] MEDS: diazePAM 5 MG TABLET 10 MG PO ×2 (08:05→21:15)
[2024-04-29] MEDS: Hydrocortisone 1 % Cream 28.35 GM TUBE 1 APPL TOPICAL ×2 (08:31→21:15)
--- NOTE | 2024-04-29 09:07 | MHC.CLN ---
F/U ALERTED BY [employer]ING SERVICES THAT ORDERING ENSURE USUALLY AT EACH MEAL. SELECTS LIMITED FOODS. OK FOR ENSURE TID TO INCREASE KCAL INTAKE. SUPPLEMENT PROVIDES 1050 KCALS, 60 G PROTEIN.
--- NOTE | 2024-04-29 13:01 | P.PNPSI_ITS ---
Subjective Subjective Date of Service: 04/29/24 Reason For Visit: Status post suicide attempt Interim History: asking for bags and stoma powder. otherwise no complaints or requests. lying in bed. per staff, no changes, no notable behaviors. Mental Status Exam Mental Status Exam Patient Appearance: Well Grooomed and Appropriate Patient Orientation: Person and Situation Level of Consciousness: Awake and Appropriate Patient Behavior: Guarded and Passive Mood Description: Withdrawn and Apprehensive Affect Description: Constricted Patient Cognition Impaired: Yes Ability to Follow Directions: Good Speech Pattern: Clear Hallucinations: None Delusions: Not Present Thought Process: Distracted and Slowed Thinking Thought Content: positive for [place] and positive for Poverty of Content Judgement: Fair Diagnostics Vital Signs (24Hr): Vital Signs - 24 hr 04/28/24 20:00 04/29/24 07:38 Temperature 98 F 97.9 F Pulse Rate 79 76 Respiratory Rate 17 16 Blood Pressure 113/66 137/81 Pulse Oximetry 93 96 Oxygen Delivery Method Room Air Room Air BMI result Body Mass Index 28.9 Labs 03/16/24 07:32 Medications Medications Current Medications Al Hydroxide/Mg Hydroxide (Magnesium Hydrox/Alum Hydrox 30 Ml Oral.Susp) 30 ml PO Q6H PRN PRN Reason: Heartburn/Nausea Albuterol Sulfate (Albuterol Sulfate 90 Mcg 8 Gm Inhaler) 2 puff INHALE Q4H PRN PRN Reason: Shortness Of Breath Or Wheezing Last Admin: 04/22/24 17:47 Dose: 2 puff Artificial Tears (Artificial Tears 15 Ml Drops) 1 drop EYE-BOTH DAILY PRN PRN Reason: Dry Eye(S) Diazepam (Diazepam 5 Mg Tablet) 10 mg PO BID [facility] Last Admin: 04/29/24 08:05 Dose: 10 mg Diphenhydramine HCl (Diphenhydramine Hcl 25 Mg Capsule) 25 mg PO Q6H PRN PRN Reason: Anxiety, Itching Last Admin: 04/27/24 05:55 Dose: 25 mg Diphenhydramine HCl (Diphenhydramine Hcl 25 Mg Capsule) 50 mg PO BID [facility] Last Admin: 04/29/24 08:05 Dose: 50 mg Donepezil HCl (Donepezil Hcl 5 Mg Tablet) 5 mg PO BEDTIME [facility] Last Admin: 04/28/24 20:52 Dose: Not Given Escitalopram Oxalate (Escitalopram Oxalate 5 Mg Tablet) 5 mg PO DAILY [facility] Last Admin: 04/29/24 08:05 Dose: 5 mg Fentanyl (Fentanyl 50 Mcg Patch.Td72) 50 mcg TRANSDERMA Q72H [facility] Last Admin: 04/27/24 10:00 Dose: 50 mcg Hydrocortisone (Hydrocortisone 1 % Cream 28.35 Gm Tube) 1 appl TOPICAL BID [facility]; Protocol Last Admin: 04/29/24 08:31 Dose: 1 appl Hydroxyzine HCl (Hydroxyzine Hcl 25 Mg Tablet) 25 mg PO Q8H PRN PRN Reason: Anxiety Last Admin: 04/29/24 04:41 Dose: 25 mg Magnesium Hydroxide (Milk Of Magnesia 30 Ml Oral.Susp) 30 ml PO DAILY PRN PRN Reason: Constipation Morphine Sulfate (Morphine Sulfate Immed Release 15 Mg Tablet) 30 mg PO Q6H PRN PRN Reason: Pain, Severe (Pain Scale 7-10) Last Admin: 04/29/24 04:41 Dose: 30 mg Nicotine (Nicotine 21 Mg Patch.Td24) 21 mg TRANSDERMA DAILY PRN PRN Reason: smoking cessation Nicotine Polacrilex (Nicotine Polacrilex 2 Mg Gum) 4 mg BUCCAL Q2H PRN PRN Reason: Nicotine Cravings Olanzapine (Olanzapine 2.5 Mg Tablet) 2.5 mg PO TID PRN PRN Reason: agitation Olanzapine (Olanzapine 2.5 Mg Tablet) 2.5 mg PO BEDTIME [facility] Last Admin: 04/28/24 20:53 Dose: Not Given Omeprazole (Omeprazole 20 Mg Capsule.Dr) 20 mg PO 0630 [facility] Last Admin: 04/29/24 06:14 Dose: 20 mg Ondansetron HCl (Ondansetron Odt 4 Mg Tab.Rapdis) 4 mg TRANSLINGU Q12H PRN PRN Reason: Nausea and Vomiting Trazodone HCl (Trazodone Hcl 50 Mg Tablet) 50 mg PO BEDTIME MRX1 PRN PRN Reason: Insomnia Allergies Allergies Allergy/AdvReac Type Severity Reaction Status Date / Time Egg Derived Allergy Unknown Unknown Verified 03/16/24 15:22 acetaminophen [From Percocet] AdvReac Severe Hives Verified 03/14/24 23:07 alprazolam AdvReac Severe Hives Verified 03/14/24 23:09 atorvastatin AdvReac Severe Hives Verified 03/14/24 23:10 azithromycin AdvReac Severe Swelling Verified 03/14/24 23:11 cholestyramine AdvReac Severe Hives Verified 03/14/24 23:08 [From Questran] ciprofloxacin AdvReac Severe Hives Verified 03/14/24 23:11 codeine AdvReac Severe Hives Verified 03/14/24 23:12 colesevelam AdvReac Severe Hives Verified 03/14/24 23:12 egg AdvReac Severe Hives Verified 03/15/24 01:39 Estrogens AdvReac Severe Swelling Verified 03/14/24 23:13 gemfibrozil AdvReac Severe Hives Verified 03/14/24 23:14 hydrocortisone AdvReac Severe Blurry Verified 03/14/24 23:07 [From Cortenema] Vision hydromorphone [From Dilaudid] AdvReac Severe Swelling Verified 03/14/24 23:13 Iodinated Contrast Media AdvReac Severe Hives Verified 03/14/24 23:14 isoniazid AdvReac Severe Hives Verified 03/14/24 23:15 mercaptopurine AdvReac Severe Vomiting Verified 03/14/24 23:16 methylprednisolone AdvReac Severe Hives Verified 03/14/24 23:16 minocycline AdvReac Severe Hives Verified 03/14/24 23:24 naproxen AdvReac Severe Rash Verified 03/14/24 23:17 oxycodone [From Percocet] AdvReac Severe Hives Verified 03/14/24 23:07 propoxyphene AdvReac Severe Hives Verified 03/14/24 23:19 quetiapine AdvReac Severe Rash Verified 03/14/24 23:20 risperidone AdvReac Severe Hives Verified 03/14/24 23:20 seafood AdvReac Severe Swelling Verified 03/14/24 23:21 shellfish derived AdvReac Severe Swelling Verified 03/14/24 23:21 Zpifdek-VSB-GtK Reductase AdvReac Severe Swelling Verified 03/14/24 23:22 Inhibitor sucrose [From Questran] AdvReac Severe Hives Verified 03/14/24 23:08 Sulfa (Sulfonamide AdvReac Severe Hives Verified 03/14/24 23:24 Antibiotics) tramadol AdvReac Severe Rash Verified 03/14/24 23:22 wool AdvReac Severe Hives Verified 03/14/24 23:23 Assessment & Plan Assessment & Plan (1) Post traumatic stress disorder (PTSD): Status: Acute Code(s): F43.10 - Post-traumatic stress disorder, unspecified (2) Cognitive disorder: Status: Acute Code(s): F09 - Unspecified mental disorder due to known physiological condition (3) Generalized anxiety disorder: Status: Acute Code(s): F41.1 - Generalized anxiety disorder (4) Suicide attempt by fentanyl overdose: Status: Acute Code(s): T40.412A - Poisoning by fentanyl or fentanyl analogs, intentional self-harm, initial encounter (5) Psychosis: Status: Acute Code(s): F29 - Unspecified psychosis not due to a substance or known physiological condition Plan Pt is a 63-year-old female with a PMH significant for?CVA, chronic pain disorder, HLD, ulcerative colitis s/p colectomy with colostomy in place, chronic anemia, and GERD who is admitted to [facility] for increasing paranoia and depression with suicide attempt by overdosing on home meds. Pt was apparently found unconscious in her apartment surrounded by empty morphine bottles, an SI note, and an eviction notice. Pt was emergently intubated and admitted to ICU for 5 days where she was treated for RAKAN and aspiration pneumonia. Also had elevated troponins that were attributed to demand ischemia. Medical consult for admission H&P. Mood disorder Plan as per psychiatry Recent hx of intubation in the ICU Denies difficulty swallowing, no sore throat or SOB Continue albuterol inhaler Peripheral neuropathy of right lower extremity Foot warm, pedal pulses 2+, well perfused No known hx of DM Unclear etiology Consider gabapentin if persistent Right foot wounds Unclear etiology Superficial, healing well No sign of infection No further intervention or workup needed at this time Hx of CVA Continue statin, aspirin Chronic pain disorder Continue fentanyl pathch, po morphine GERD PPI Plan 1. Continue with same medications. 2. Guardianship papers already filed. 3. Waiting for placement 4. Adding Aricept 5 mg p.o. q.h.s. on April 05 5. It seems that the patient has already a guardian, we are going to try to contact him and get more collateral information for placement 6. Her status has been changed to DNR DNI as per legal paperwork. Reason for continued inpatient stay Substantial Risk for: inability to function and rapid decompensation Time Spent With Patient Time: Total time managing care of this patient today ____ minutes.
--- NOTE | 2024-04-29 17:10 | PC.NURSE ---
Pt reports her Ileostomy bag is leaking and she is able to care for it herself. She refused Ileostomy paste stating she is allergic. She continues to insist on wanting the powder. Finish Mill Operator reached out to Surgical Instrument Technician for supplies. Was not able to locate powder offered patient paste strips she refused. Stoma pink/red in color, moist and shiny, surrounding skin dry and intact. liquid light brown stool noted. no swelling bleeding or pain noted. Pt reports in her own words It looks stoked Finish Mill Operator notified hospitalist for evaluation
[2024-04-29 20:00] VITALS: BP 111/59; PULSE 82; RESP 18; TEMP 36.2; O2SAT 93
[2024-04-30] MEDS: hydrOXYzine HCL 25 MG TABLET PO ×3 (03:41→21:40)
[2024-04-30] MEDS: Morphine Sulfate Immed Release 15 MG TABLET 30 MG PO ×3 (03:41→21:40)
[2024-04-30] MEDS: Omeprazole 20 MG CAPSULE.DR PO (06:40)
[2024-04-30 08:00] VITALS: BP 111/56; PULSE 75; RESP 18; TEMP 36.9; O2SAT 96
[2024-04-30] MEDS: fentaNYL 50 MCG PATCH.TD72 TRANSDERMA (08:56)
[2024-04-30] MEDS: diphenhydrAMINE HCL 25 MG CAPSULE 50 MG PO ×2 (09:05→20:30)
[2024-04-30] MEDS: diazePAM 5 MG TABLET 10 MG PO ×2 (09:06→20:30)
[2024-04-30] MEDS: Escitalopram Oxalate 5 MG TABLET PO (09:06)
--- NOTE | 2024-04-30 10:47 | P.PNPSI_ITS ---
Subjective Subjective Date of Service: 04/30/24 Reason For Visit: Status post suicide attempt Subjective Notes: Conditional Voluntary Interim History: The nursing staff reported the patient had been angry and frustrated with her colostomy back. She slept 4 hours. Last Monday she got her guardianship hearing and she has a temporary guardian now. On interview the patient denies new symptoms, waiting for placement. Mental Status Exam Mental Status Exam Patient Appearance: Appropriate Patient Orientation: Person and Situation Level of Consciousness: Awake and Appropriate Patient Behavior: Guarded and Passive Mood Description: Withdrawn Affect Description: Constricted Patient Cognition Impaired: Yes Ability to Follow Directions: Good Speech Pattern: Clear Hallucinations: None Delusions: Not Present Thought Process: Distracted and Slowed Thinking Thought Content: positive for Poverty of Content and positive for Thought Blocking Judgement: Poor Diagnostics Vital Signs (24Hr): Vital Signs - 24 hr 04/29/24 20:00 04/30/24 08:00 Temperature 97.1 F 98.4 F Pulse Rate 82 75 Respiratory Rate 18 18 Blood Pressure 111/59 L 111/56 L Pulse Oximetry 93 96 Oxygen Delivery Method Room Air Room Air BMI result Body Mass Index 28.9 Labs 03/16/24 07:32 Medications Medications Current Medications Al Hydroxide/Mg Hydroxide (Magnesium Hydrox/Alum Hydrox 30 Ml Oral.Susp) 30 ml PO Q6H PRN PRN Reason: Heartburn/Nausea Albuterol Sulfate (Albuterol Sulfate 90 Mcg 8 Gm Inhaler) 2 puff INHALE Q4H PRN PRN Reason: Shortness Of Breath Or Wheezing Last Admin: 04/22/24 17:47 Dose: 2 puff Artificial Tears (Artificial Tears 15 Ml Drops) 1 drop EYE-BOTH DAILY PRN PRN Reason: Dry Eye(S) Diazepam (Diazepam 5 Mg Tablet) 10 mg PO BID [facility] Last Admin: 04/30/24 09:06 Dose: 10 mg Diphenhydramine HCl (Diphenhydramine Hcl 25 Mg Capsule) 25 mg PO Q6H PRN PRN Reason: Anxiety, Itching Last Admin: 04/27/24 05:55 Dose: 25 mg Diphenhydramine HCl (Diphenhydramine Hcl 25 Mg Capsule) 50 mg PO BID [facility] Last Admin: 04/30/24 09:05 Dose: 50 mg Donepezil HCl (Donepezil Hcl 5 Mg Tablet) 5 mg PO BEDTIME [facility] Last Admin: 04/29/24 21:19 Dose: Not Given Escitalopram Oxalate (Escitalopram Oxalate 5 Mg Tablet) 5 mg PO DAILY [facility] Last Admin: 04/30/24 09:06 Dose: 5 mg Fentanyl (Fentanyl 50 Mcg Patch.Td72) 50 mcg TRANSDERMA Q72H [facility] Last Admin: 04/30/24 08:56 Dose: 50 mcg Hydrocortisone (Hydrocortisone 1 % Cream 28.35 Gm Tube) 1 appl TOPICAL BID [facility]; Protocol Last Admin: 04/30/24 09:09 Dose: Not Given Hydroxyzine HCl (Hydroxyzine Hcl 25 Mg Tablet) 25 mg PO Q8H PRN PRN Reason: Anxiety Last Admin: 04/30/24 03:41 Dose: 25 mg Magnesium Hydroxide (Milk Of Magnesia 30 Ml Oral.Susp) 30 ml PO DAILY PRN PRN Reason: Constipation Morphine Sulfate (Morphine Sulfate Immed Release 15 Mg Tablet) 30 mg PO Q6H PRN PRN Reason: Pain, Severe (Pain Scale 7-10) Last Admin: 04/30/24 10:06 Dose: 30 mg Nicotine (Nicotine 21 Mg Patch.Td24) 21 mg TRANSDERMA DAILY PRN PRN Reason: smoking cessation Nicotine Polacrilex (Nicotine Polacrilex 2 Mg Gum) 4 mg BUCCAL Q2H PRN PRN Reason: Nicotine Cravings Olanzapine (Olanzapine 2.5 Mg Tablet) 2.5 mg PO TID PRN PRN Reason: agitation Olanzapine (Olanzapine 2.5 Mg Tablet) 2.5 mg PO BEDTIME [facility] Last Admin: 04/29/24 21:20 Dose: Not Given Omeprazole (Omeprazole 20 Mg Capsule.) 20 mg PO 0630 [facility] Last Admin: 04/30/24 06:40 Dose: 20 mg Ondansetron HCl (Ondansetron Odt 4 Mg Tab.Rapdis) 4 mg TRANSLINGU Q12H PRN PRN Reason: Nausea and Vomiting Trazodone HCl (Trazodone Hcl 50 Mg Tablet) 50 mg PO BEDTIME MRX1 PRN PRN Reason: Insomnia Allergies Allergies Allergy/AdvReac Type Severity Reaction Status Date / Time Egg Derived Allergy Unknown Unknown Verified 03/16/24 15:22 acetaminophen [From Percocet] AdvReac Severe Hives Verified 03/14/24 23:07 alprazolam AdvReac Severe Hives Verified 03/14/24 23:09 atorvastatin AdvReac Severe Hives Verified 03/14/24 23:10 azithromycin AdvReac Severe Swelling Verified 03/14/24 23:11 cholestyramine AdvReac Severe Hives Verified 03/14/24 23:08 [From Questran] ciprofloxacin AdvReac Severe Hives Verified 03/14/24 23:11 codeine AdvReac Severe Hives Verified 03/14/24 23:12 colesevelam AdvReac Severe Hives Verified 03/14/24 23:12 egg AdvReac Severe Hives Verified 03/15/24 01:39 Estrogens AdvReac Severe Swelling Verified 03/14/24 23:13 gemfibrozil AdvReac Severe Hives Verified 03/14/24 23:14 hydrocortisone AdvReac Severe Blurry Verified 03/14/24 23:07 [From Cortenema] Vision hydromorphone [From Dilaudid] AdvReac Severe Swelling Verified 03/14/24 23:13 Iodinated Contrast Media AdvReac Severe Hives Verified 03/14/24 23:14 isoniazid AdvReac Severe Hives Verified 03/14/24 23:15 mercaptopurine AdvReac Severe Vomiting Verified 03/14/24 23:16 methylprednisolone AdvReac Severe Hives Verified 03/14/24 23:16 minocycline AdvReac Severe Hives Verified 03/14/24 23:24 naproxen AdvReac Severe Rash Verified 03/14/24 23:17 oxycodone [From Percocet] AdvReac Severe Hives Verified 03/14/24 23:07 propoxyphene AdvReac Severe Hives Verified 03/14/24 23:19 quetiapine AdvReac Severe Rash Verified 03/14/24 23:20 risperidone AdvReac Severe Hives Verified 03/14/24 23:20 seafood AdvReac Severe Swelling Verified 03/14/24 23:21 shellfish derived AdvReac Severe Swelling Verified 03/14/24 23:21 Zavsybz-PSE-MuA Reductase AdvReac Severe Swelling Verified 03/14/24 23:22 Inhibitor sucrose [From Questran] AdvReac Severe Hives Verified 03/14/24 23:08 Sulfa (Sulfonamide AdvReac Severe Hives Verified 03/14/24 23:24 Antibiotics) tramadol AdvReac Severe Rash Verified 03/14/24 23:22 wool AdvReac Severe Hives Verified 03/14/24 23:23 Assessment & Plan Assessment & Plan (1) Post traumatic stress disorder (PTSD): Status: Acute Code(s): F43.10 - Post-traumatic stress disorder, unspecified (2) Cognitive disorder: Status: Acute Code(s): F09 - Unspecified mental disorder due to known physiological condition (3) Generalized anxiety disorder: Status: Acute Code(s): F41.1 - Generalized anxiety disorder (4) Suicide attempt by fentanyl overdose: Status: Acute Code(s): T40.412A - Poisoning by fentanyl or fentanyl analogs, intentional self-harm, initial encounter (5) Psychosis: Status: Acute Code(s): F29 - Unspecified psychosis not due to a substance or known physiological condition Plan Pt is a 63-year-old female with a PMH significant for?CVA, chronic pain disorder, HLD, ulcerative colitis s/p colectomy with colostomy in place, chronic anemia, and GERD who is admitted to [facility] for increasing paranoia and depression with suicide attempt by overdosing on home meds. Pt was apparently found unconscious in her apartment surrounded by empty morphine bottles, an SI note, and an eviction notice. Pt was emergently intubated and admitted to ICU for 5 days where she was treated for RAKAN and aspiration pneumonia. Also had elevated troponins that were attributed to demand ischemia. Medical consult for admission H&P. Mood disorder Plan as per psychiatry Recent hx of intubation in the ICU Denies difficulty swallowing, no sore throat or SOB Continue albuterol inhaler Peripheral neuropathy of right lower extremity Foot warm, pedal pulses 2+, well perfused No known hx of DM Unclear etiology Consider gabapentin if persistent Right foot wounds Unclear etiology Superficial, healing well No sign of infection No further intervention or workup needed at this time Hx of CVA Continue statin, aspirin Chronic pain disorder Continue fentanyl pathch, po morphine GERD PPI Plan 1. Continue with same medications. 2. Guardianship papers already filed. 3. Waiting for placement 4. Adding Aricept 5 mg p.o. q.h.s. on April 05. The patient had been partially compliant with his medication she does not have insight into her cognitive impairment. 5. It seems that the patient has already a guardian, we are going to try to contact him and get more collateral information for placement. Last April 26 she got to temporal guardianship who will help her on placement. 6. Her status has been changed to DNR DNI as per legal paperwork. Reason for continued inpatient stay Substantial Risk for: inability to function, rapid decompensation and med/psych decompensation Time Spent With Patient Time: Total time managing care of this patient today __20__ minutes.
[2024-04-30] MEDS: diphenhydrAMINE HCL 25 MG CAPSULE PO (15:13)
[2024-04-30 20:00] VITALS: BP 106/57; PULSE 70; RESP 18; TEMP 36.2; O2SAT 94
[2024-04-30] MEDS: Hydrocortisone 1 % Cream 28.35 GM TUBE 1 APPL TOPICAL (20:29)
[2024-05-01] MEDS: hydrOXYzine HCL 25 MG TABLET PO (05:54)
[2024-05-01] MEDS: Omeprazole 20 MG CAPSULE.DR PO (05:54)
[2024-05-01] MEDS: Morphine Sulfate Immed Release 15 MG TABLET 30 MG PO ×2 (05:54→12:25)
[2024-05-01 08:31] VITALS: BP 133/67; PULSE 83; RESP 20; TEMP 36.9; O2SAT 94
[2024-05-01] MEDS: diazePAM 5 MG TABLET 10 MG PO ×2 (08:33→20:37)
[2024-05-01] MEDS: Escitalopram Oxalate 5 MG TABLET PO (08:33)
[2024-05-01] MEDS: diphenhydrAMINE HCL 25 MG CAPSULE 50 MG PO ×2 (08:34→20:37)
[2024-05-01] MEDS: Hydrocortisone 1 % Cream 28.35 GM TUBE 1 APPL TOPICAL ×2 (08:40→21:36)
[2024-05-01] MEDS: diphenhydrAMINE HCL 25 MG CAPSULE PO (12:57)
--- NOTE | 2024-05-01 15:01 | P.PNPSI_ITS ---
Subjective Subjective Date of Service: 05/01/24 Reason For Visit: Status post suicide attempt Subjective Notes: Conditional Voluntary Interim History: The nursing staff reported the patient had been intrusive, she in-person 8 a staff member and called the sister of 1 of the other patients. She wants to go back to [place] she slept 2 hours. The 7th grade social studies teacher reported that her brother called. So far no discharge planning yet. On interview the patient was entitled and disruptive. No changes in her mental status Mental Status Exam Mental Status Exam Patient Appearance: Well Grooomed and Appropriate Patient Orientation: Person and Situation Level of Consciousness: Awake and Appropriate Patient Behavior: Guarded and Passive Mood Description: Withdrawn Affect Description: Constricted Patient Cognition Impaired: Yes Ability to Follow Directions: Good Speech Pattern: Clear Hallucinations: None Delusions: Not Present Thought Process: Distracted and Slowed Thinking Thought Content: positive for [place] and positive for Poverty of Content Judgement: Fair Diagnostics Vital Signs (24Hr): Vital Signs - 24 hr 04/30/24 20:00 05/01/24 08:31 Temperature 97.1 F 98.4 F Pulse Rate 70 83 Respiratory Rate 18 20 Blood Pressure 106/57 L 133/67 Pulse Oximetry 94 94 Oxygen Delivery Method Room Air Room Air BMI result Body Mass Index 28.9 Labs 03/16/24 07:32 Medications Medications Current Medications Al Hydroxide/Mg Hydroxide (Magnesium Hydrox/Alum Hydrox 30 Ml Oral.Susp) 30 ml PO Q6H PRN PRN Reason: Heartburn/Nausea Albuterol Sulfate (Albuterol Sulfate 90 Mcg 8 Gm Inhaler) 2 puff INHALE Q4H PRN PRN Reason: Shortness Of Breath Or Wheezing Last Admin: 04/22/24 17:47 Dose: 2 puff Artificial Tears (Artificial Tears 15 Ml Drops) 1 drop EYE-BOTH DAILY PRN PRN Reason: Dry Eye(S) Diazepam (Diazepam 5 Mg Tablet) 10 mg PO BID [facility] Last Admin: 05/01/24 08:33 Dose: 10 mg Diphenhydramine HCl (Diphenhydramine Hcl 25 Mg Capsule) 25 mg PO Q6H PRN PRN Reason: Anxiety, Itching Last Admin: 05/01/24 12:57 Dose: 25 mg Diphenhydramine HCl (Diphenhydramine Hcl 25 Mg Capsule) 50 mg PO BID [facility] Last Admin: 05/01/24 08:34 Dose: 50 mg Donepezil HCl (Donepezil Hcl 5 Mg Tablet) 5 mg PO BEDTIME [facility] Last Admin: 04/30/24 20:30 Dose: Not Given Escitalopram Oxalate (Escitalopram Oxalate 5 Mg Tablet) 5 mg PO DAILY [facility] Last Admin: 05/01/24 08:33 Dose: 5 mg Fentanyl (Fentanyl 50 Mcg Patch.Td72) 50 mcg TRANSDERMA Q72H [facility] Last Admin: 04/30/24 08:56 Dose: 50 mcg Hydrocortisone (Hydrocortisone 1 % Cream 28.35 Gm Tube) 1 appl TOPICAL BID [facility]; Protocol Last Admin: 05/01/24 08:40 Dose: 1 appl Hydroxyzine HCl (Hydroxyzine Hcl 25 Mg Tablet) 25 mg PO Q8H PRN PRN Reason: Anxiety Last Admin: 05/01/24 05:54 Dose: 25 mg Magnesium Hydroxide (Milk Of Magnesia 30 Ml Oral.Susp) 30 ml PO DAILY PRN PRN Reason: Constipation Morphine Sulfate (Morphine Sulfate Immed Release 15 Mg Tablet) 30 mg PO Q6H PRN PRN Reason: Pain, Severe (Pain Scale 7-10) Last Admin: 05/01/24 12:25 Dose: 30 mg Nicotine (Nicotine 21 Mg Patch.Td24) 21 mg TRANSDERMA DAILY PRN PRN Reason: smoking cessation Nicotine Polacrilex (Nicotine Polacrilex 2 Mg Gum) 4 mg BUCCAL Q2H PRN PRN Reason: Nicotine Cravings Olanzapine (Olanzapine 2.5 Mg Tablet) 2.5 mg PO TID PRN PRN Reason: agitation Olanzapine (Olanzapine 2.5 Mg Tablet) 2.5 mg PO BEDTIME [facility] Last Admin: 04/30/24 20:31 Dose: Not Given Omeprazole (Omeprazole 20 Mg Capsule.Dr) 20 mg PO 0630 [facility] Last Admin: 05/01/24 05:54 Dose: 20 mg Ondansetron HCl (Ondansetron Odt 4 Mg Tab.Rapdis) 4 mg TRANSLINGU Q12H PRN PRN Reason: Nausea and Vomiting Trazodone HCl (Trazodone Hcl 50 Mg Tablet) 50 mg PO BEDTIME MRX1 PRN PRN Reason: Insomnia Allergies Allergies Allergy/AdvReac Type Severity Reaction Status Date / Time Egg Derived Allergy Unknown Unknown Verified 03/16/24 15:22 acetaminophen [From Percocet] AdvReac Severe Hives Verified 03/14/24 23:07 alprazolam AdvReac Severe Hives Verified 03/14/24 23:09 atorvastatin AdvReac Severe Hives Verified 03/14/24 23:10 azithromycin AdvReac Severe Swelling Verified 03/14/24 23:11 cholestyramine AdvReac Severe Hives Verified 03/14/24 23:08 [From Questran] ciprofloxacin AdvReac Severe Hives Verified 03/14/24 23:11 codeine AdvReac Severe Hives Verified 03/14/24 23:12 colesevelam AdvReac Severe Hives Verified 03/14/24 23:12 egg AdvReac Severe Hives Verified 03/15/24 01:39 Estrogens AdvReac Severe Swelling Verified 03/14/24 23:13 gemfibrozil AdvReac Severe Hives Verified 03/14/24 23:14 hydrocortisone AdvReac Severe Blurry Verified 03/14/24 23:07 [From Cortenema] Vision hydromorphone [From Dilaudid] AdvReac Severe Swelling Verified 03/14/24 23:13 Iodinated Contrast Media AdvReac Severe Hives Verified 03/14/24 23:14 isoniazid AdvReac Severe Hives Verified 03/14/24 23:15 mercaptopurine AdvReac Severe Vomiting Verified 03/14/24 23:16 methylprednisolone AdvReac Severe Hives Verified 03/14/24 23:16 minocycline AdvReac Severe Hives Verified 03/14/24 23:24 naproxen AdvReac Severe Rash Verified 03/14/24 23:17 oxycodone [From Percocet] AdvReac Severe Hives Verified 03/14/24 23:07 propoxyphene AdvReac Severe Hives Verified 03/14/24 23:19 quetiapine AdvReac Severe Rash Verified 03/14/24 23:20 risperidone AdvReac Severe Hives Verified 03/14/24 23:20 seafood AdvReac Severe Swelling Verified 03/14/24 23:21 shellfish derived AdvReac Severe Swelling Verified 03/14/24 23:21 Omzyzam-TSU-KuS Reductase AdvReac Severe Swelling Verified 03/14/24 23:22 Inhibitor sucrose [From Questran] AdvReac Severe Hives Verified 03/14/24 23:08 Sulfa (Sulfonamide AdvReac Severe Hives Verified 03/14/24 23:24 Antibiotics) tramadol AdvReac Severe Rash Verified 03/14/24 23:22 wool AdvReac Severe Hives Verified 03/14/24 23:23 Assessment & Plan Assessment & Plan (1) Post traumatic stress disorder (PTSD): Status: Acute Code(s): F43.10 - Post-traumatic stress disorder, unspecified (2) Cognitive disorder: Status: Acute Code(s): F09 - Unspecified mental disorder due to known physiological condition (3) Generalized anxiety disorder: Status: Acute Code(s): F41.1 - Generalized anxiety disorder (4) Suicide attempt by fentanyl overdose: Status: Acute Code(s): T40.412A - Poisoning by fentanyl or fentanyl analogs, intentional self-harm, initial encounter (5) Psychosis: Status: Acute Code(s): F29 - Unspecified psychosis not due to a substance or known physiological condition Plan Pt is a 63-year-old female with a PMH significant for?CVA, chronic pain disorder, HLD, ulcerative colitis s/p colectomy with colostomy in place, chronic anemia, and GERD who is admitted to [facility] for increasing paranoia and depression with suicide attempt by overdosing on home meds. Pt was apparently found unconscious in her apartment surrounded by empty morphine bottles, an SI note, and an eviction notice. Pt was emergently intubated and admitted to ICU for 5 days where she was treated for RAKAN and aspiration pneumonia. Also had elevated troponins that were attributed to demand ischemia. Medical consult for admission H&P. Mood disorder Plan as per psychiatry Recent hx of intubation in the ICU Denies difficulty swallowing, no sore throat or SOB Continue albuterol inhaler Peripheral neuropathy of right lower extremity Foot warm, pedal pulses 2+, well perfused No known hx of DM Unclear etiology Consider gabapentin if persistent Right foot wounds Unclear etiology Superficial, healing well No sign of infection No further intervention or workup needed at this time Hx of CVA Continue statin, aspirin Chronic pain disorder Continue fentanyl pathch, po morphine GERD PPI Plan 1. Continue with same medications. 2. Guardianship papers already filed. 3. Waiting for placement 4. Adding Aricept 5 mg p.o. q.h.s. on April 05. The patient had been partially compliant with his medication she does not have insight into her cognitive impairment. 5. It seems that the patient has already a guardian, we are going to try to contact him and get more collateral information for placement. Last April 26 she got to temporal guardianship who will help her on placement. 6. Her status has been changed to DNR DNI as per legal paperwork. Reason for continued inpatient stay Substantial Risk for: inability to function, rapid decompensation and med/psych decompensation Time Spent With Patient Time: Total time managing care of this patient today __20__ minutes.
[2024-05-01 20:00] VITALS: BP 115/55; PULSE 74; RESP 18; TEMP 36.6; O2SAT 94
[2024-05-02] MEDS: hydrOXYzine HCL 25 MG TABLET PO ×2 (00:37→13:21)
[2024-05-02] MEDS: Morphine Sulfate Immed Release 15 MG TABLET 30 MG PO ×4 (00:37→20:10)
[2024-05-02] MEDS: diphenhydrAMINE HCL 25 MG CAPSULE PO (04:45)
[2024-05-02] MEDS: Omeprazole 20 MG CAPSULE.DR PO (05:39)
[2024-05-02 08:00] VITALS: BP 114/60; PULSE 73; RESP 18; TEMP 36.2; O2SAT 93
[2024-05-02] MEDS: diphenhydrAMINE HCL 25 MG CAPSULE 50 MG PO ×2 (09:01→20:10)
[2024-05-02] MEDS: Escitalopram Oxalate 5 MG TABLET PO (09:01)
[2024-05-02] MEDS: diazePAM 5 MG TABLET 10 MG PO ×2 (09:01→20:10)
[2024-05-02] MEDS: Hydrocortisone 1 % Cream 28.35 GM TUBE 1 APPL TOPICAL (12:58)
--- NOTE | 2024-05-02 13:29 | P.PNPSI_ITS ---
Subjective Subjective Date of Service: 05/02/24 Reason For Visit: Status post suicide attempt Subjective Notes: Conditional Voluntary Interim History: The nursing staff reported no changes in her mental status, manipulative redirectable. On interview the patient denies new symptoms, waiting for placement. Mental Status Exam Mental Status Exam Patient Appearance: Well Grooomed and Appropriate Patient Orientation: Person and Situation Level of Consciousness: Awake and Appropriate Patient Behavior: Guarded and Passive Mood Description: Withdrawn Affect Description: Constricted Patient Cognition Impaired: Yes Ability to Follow Directions: Good Speech Pattern: Clear Hallucinations: None Delusions: Not Present Thought Process: Distracted and Slowed Thinking Thought Content: positive for [place] and positive for Poverty of Content Judgement: Poor Diagnostics Vital Signs (24Hr): Vital Signs - 24 hr 05/01/24 20:00 05/02/24 08:00 Temperature 98 F 97.1 F Pulse Rate 74 73 Respiratory Rate 18 18 Blood Pressure 115/55 L 114/60 Pulse Oximetry 94 93 Oxygen Delivery Method Room Air Room Air BMI result Body Mass Index 28.9 Labs 03/16/24 07:32 Medications Medications Current Medications Al Hydroxide/Mg Hydroxide (Magnesium Hydrox/Alum Hydrox 30 Ml Oral.Susp) 30 ml PO Q6H PRN PRN Reason: Heartburn/Nausea Albuterol Sulfate (Albuterol Sulfate 90 Mcg 8 Gm Inhaler) 2 puff INHALE Q4H PRN PRN Reason: Shortness Of Breath Or Wheezing Last Admin: 04/22/24 17:47 Dose: 2 puff Artificial Tears (Artificial Tears 15 Ml Drops) 1 drop EYE-BOTH DAILY PRN PRN Reason: Dry Eye(S) Diazepam (Diazepam 5 Mg Tablet) 10 mg PO BID [facility] Last Admin: 05/02/24 09:01 Dose: 10 mg Diphenhydramine HCl (Diphenhydramine Hcl 25 Mg Capsule) 25 mg PO Q6H PRN PRN Reason: Anxiety, Itching Last Admin: 05/02/24 04:45 Dose: 25 mg Diphenhydramine HCl (Diphenhydramine Hcl 25 Mg Capsule) 50 mg PO BID [facility] Last Admin: 05/02/24 09:01 Dose: 50 mg Donepezil HCl (Donepezil Hcl 5 Mg Tablet) 5 mg PO BEDTIME [facility] Last Admin: 05/01/24 20:57 Dose: Not Given Escitalopram Oxalate (Escitalopram Oxalate 5 Mg Tablet) 5 mg PO DAILY [facility] Last Admin: 05/02/24 09:01 Dose: 5 mg Fentanyl (Fentanyl 50 Mcg Patch.Td72) 50 mcg TRANSDERMA Q72H [facility] Last Admin: 04/30/24 08:56 Dose: 50 mcg Hydrocortisone (Hydrocortisone 1 % Cream 28.35 Gm Tube) 1 appl TOPICAL BID [facility]; Protocol Last Admin: 05/02/24 12:58 Dose: 1 appl Hydroxyzine HCl (Hydroxyzine Hcl 25 Mg Tablet) 25 mg PO Q8H PRN PRN Reason: Anxiety Last Admin: 05/02/24 13:21 Dose: 25 mg Magnesium Hydroxide (Milk Of Magnesia 30 Ml Oral.Susp) 30 ml PO DAILY PRN PRN Reason: Constipation Morphine Sulfate (Morphine Sulfate Immed Release 15 Mg Tablet) 30 mg PO Q6H PRN PRN Reason: Pain, Severe (Pain Scale 7-10) Last Admin: 05/02/24 13:21 Dose: 30 mg Nicotine (Nicotine 21 Mg Patch.Td24) 21 mg TRANSDERMA DAILY PRN PRN Reason: smoking cessation Nicotine Polacrilex (Nicotine Polacrilex 2 Mg Gum) 4 mg BUCCAL Q2H PRN PRN Reason: Nicotine Cravings Olanzapine (Olanzapine 2.5 Mg Tablet) 2.5 mg PO TID PRN PRN Reason: agitation Olanzapine (Olanzapine 2.5 Mg Tablet) 2.5 mg PO BEDTIME [facility] Last Admin: 05/01/24 20:58 Dose: Not Given Omeprazole (Omeprazole 20 Mg Capsule.Dr) 20 mg PO 0630 [facility] Last Admin: 05/02/24 05:39 Dose: 20 mg Ondansetron HCl (Ondansetron Odt 4 Mg Tab.Rapdis) 4 mg TRANSLINGU Q12H PRN PRN Reason: Nausea and Vomiting Trazodone HCl (Trazodone Hcl 50 Mg Tablet) 50 mg PO BEDTIME MRX1 PRN PRN Reason: Insomnia Allergies Allergies Allergy/AdvReac Type Severity Reaction Status Date / Time Egg Derived Allergy Unknown Unknown Verified 03/16/24 15:22 acetaminophen [From Percocet] AdvReac Severe Hives Verified 03/14/24 23:07 alprazolam AdvReac Severe Hives Verified 03/14/24 23:09 atorvastatin AdvReac Severe Hives Verified 03/14/24 23:10 azithromycin AdvReac Severe Swelling Verified 03/14/24 23:11 cholestyramine AdvReac Severe Hives Verified 03/14/24 23:08 [From Questran] ciprofloxacin AdvReac Severe Hives Verified 03/14/24 23:11 codeine AdvReac Severe Hives Verified 03/14/24 23:12 colesevelam AdvReac Severe Hives Verified 03/14/24 23:12 egg AdvReac Severe Hives Verified 03/15/24 01:39 Estrogens AdvReac Severe Swelling Verified 03/14/24 23:13 gemfibrozil AdvReac Severe Hives Verified 03/14/24 23:14 hydrocortisone AdvReac Severe Blurry Verified 03/14/24 23:07 [From Cortenema] Vision hydromorphone [From Dilaudid] AdvReac Severe Swelling Verified 03/14/24 23:13 Iodinated Contrast Media AdvReac Severe Hives Verified 03/14/24 23:14 isoniazid AdvReac Severe Hives Verified 03/14/24 23:15 mercaptopurine AdvReac Severe Vomiting Verified 03/14/24 23:16 methylprednisolone AdvReac Severe Hives Verified 03/14/24 23:16 minocycline AdvReac Severe Hives Verified 03/14/24 23:24 naproxen AdvReac Severe Rash Verified 03/14/24 23:17 oxycodone [From Percocet] AdvReac Severe Hives Verified 03/14/24 23:07 propoxyphene AdvReac Severe Hives Verified 03/14/24 23:19 quetiapine AdvReac Severe Rash Verified 03/14/24 23:20 risperidone AdvReac Severe Hives Verified 03/14/24 23:20 seafood AdvReac Severe Swelling Verified 03/14/24 23:21 shellfish derived AdvReac Severe Swelling Verified 03/14/24 23:21 Ezavwak-ELC-NpH Reductase AdvReac Severe Swelling Verified 03/14/24 23:22 Inhibitor sucrose [From Questran] AdvReac Severe Hives Verified 03/14/24 23:08 Sulfa (Sulfonamide AdvReac Severe Hives Verified 03/14/24 23:24 Antibiotics) tramadol AdvReac Severe Rash Verified 03/14/24 23:22 wool AdvReac Severe Hives Verified 03/14/24 23:23 Assessment & Plan Assessment & Plan (1) Post traumatic stress disorder (PTSD): Status: Acute Code(s): F43.10 - Post-traumatic stress disorder, unspecified (2) Cognitive disorder: Status: Acute Code(s): F09 - Unspecified mental disorder due to known physiological condition (3) Generalized anxiety disorder: Status: Acute Code(s): F41.1 - Generalized anxiety disorder (4) Suicide attempt by fentanyl overdose: Status: Acute Code(s): T40.412A - Poisoning by fentanyl or fentanyl analogs, intentional self-harm, initial encounter (5) Psychosis: Status: Acute Code(s): F29 - Unspecified psychosis not due to a substance or known physiological condition Plan Pt is a 63-year-old female with a PMH significant for?CVA, chronic pain disorder, HLD, ulcerative colitis s/p colectomy with colostomy in place, chronic anemia, and GERD who is admitted to [facility] for increasing paranoia and depression with suicide attempt by overdosing on home meds. Pt was apparently found unconscious in her apartment surrounded by empty morphine bottles, an SI note, and an eviction notice. Pt was emergently intubated and admitted to ICU for 5 days where she was treated for RAKAN and aspiration pneumonia. Also had elevated troponins that were attributed to demand ischemia. Medical consult for admission H&P. Mood disorder Plan as per psychiatry Recent hx of intubation in the ICU Denies difficulty swallowing, no sore throat or SOB Continue albuterol inhaler Peripheral neuropathy of right lower extremity Foot warm, pedal pulses 2+, well perfused No known hx of DM Unclear etiology Consider gabapentin if persistent Right foot wounds Unclear etiology Superficial, healing well No sign of infection No further intervention or workup needed at this time Hx of CVA Continue statin, aspirin Chronic pain disorder Continue fentanyl pathch, po morphine GERD PPI Plan 1. Continue with same medications. 2. Guardianship papers already filed. 3. Waiting for placement 4. Adding Aricept 5 mg p.o. q.h.s. on April 05. The patient had been partially compliant with his medication she does not have insight into her cognitive impairment. 5. It seems that the patient has already a guardian, we are going to try to contact him and get more collateral information for placement. Last April 26 she got to temporal guardianship who will help her on placement. 6. Her status has been changed to DNR DNI as per legal paperwork. Reason for continued inpatient stay Substantial Risk for: inability to function, rapid decompensation and med/psych decompensation Time Spent With Patient Time: Total time managing care of this patient today __20__ minutes.
[2024-05-02 20:00] VITALS: BP 119/66; PULSE 84; RESP 18; TEMP 37; O2SAT 96
--- NOTE | 2024-05-02 20:47 | P.EN_ITS ---
Event Note Date of Service: 05/02/24 Event Note: The patient is a 63-year-old female with a PMH significant for CVA, chronic pain disorder, HLD, ulcerative colitis s/p colectomy with colostomy in place, chronic anemia, peripheral neuropathy, and GERD who is admitted to [facility] for increasing paranoia and depression with suicide attempt by overdosing on home meds. Hospitalist consult for evaluation of left breast lump as reported per patient. Patient initially seen by hospitalist services on 03/18/2024 for same issue. As per then, workup and imaging needs to be done on an outpatient basis with PCP. While we do have access to ultrasound in the hospital, do not have access to mammography, and imaging of choice for patient's symptoms are a combination of both mammogram and ultrasound. Workup and imaging can be ordered by patient's PCP who she can follow up with for further recommendations based on imaging results. If pt persists in need for additional workup while in the hospital, can consider consult to general surgery, especially Dr. Youngblood who specializes in breast cancer. Time Spent With Patient Time: Total time managing care of this patient today ____ minutes.
[2024-05-03] MEDS: Omeprazole 20 MG CAPSULE.DR PO (05:44)
[2024-05-03 08:00] VITALS: BP 117/59; PULSE 74; RESP 18; TEMP 36; O2SAT 96
[2024-05-03] MEDS: Escitalopram Oxalate 5 MG TABLET PO (08:45)
[2024-05-03] MEDS: diphenhydrAMINE HCL 25 MG CAPSULE 50 MG PO ×2 (08:45→20:29)
[2024-05-03] MEDS: diazePAM 5 MG TABLET 10 MG PO ×2 (08:46→20:29)
[2024-05-03] MEDS: fentaNYL 50 MCG PATCH.TD72 TRANSDERMA (08:46)
[2024-05-03] MEDS: Hydrocortisone 1 % Cream 28.35 GM TUBE 1 APPL TOPICAL ×2 (08:49→20:38)
[2024-05-03] MEDS: Morphine Sulfate Immed Release 15 MG TABLET 30 MG PO (09:09)
--- NOTE | 2024-05-03 12:14 | P.PNPSI_ITS ---
Subjective Subjective Date of Service: 05/03/24 Reason For Visit: Status post suicide attempt Subjective Notes: Conditional Voluntary Guardianship: Yes Interim History: The nursing staff reported the patient had been complaining and being resistant to care. Yesterday we called the hospitalist and the patient reported that she has a lump in her breast. We have addressed that before but she has refused care here. The hospitalist recommended to contact surgery and we put a consult today. On interview the patient reports that she wants to be transferred to a different hospital. No changes in her mental status. Waiting for placement. Mental Status Exam Mental Status Exam Patient Appearance: Appropriate Patient Orientation: Person and Situation Level of Consciousness: Awake and Appropriate Patient Behavior: Guarded and Passive Mood Description: Withdrawn Affect Description: Constricted Patient Cognition Impaired: Yes Ability to Follow Directions: Good Speech Pattern: Clear Hallucinations: None Delusions: Not Present Thought Process: Distracted and Slowed Thinking Thought Content: positive for [place]overty of Content Judgement: Fair Diagnostics Vital Signs (24Hr): Vital Signs - 24 hr 05/02/24 20:00 05/03/24 08:00 Temperature 98.6 F 96.8 F Pulse Rate 84 74 Respiratory Rate 18 18 Blood Pressure 119/66 117/59 L Pulse Oximetry 96 96 Oxygen Delivery Method Room Air Room Air BMI result Body Mass Index 28.9 Labs 03/16/24 07:32 Medications Medications Current Medications Al Hydroxide/Mg Hydroxide (Magnesium Hydrox/Alum Hydrox 30 Ml Oral.Susp) 30 ml PO Q6H PRN PRN Reason: Heartburn/Nausea Albuterol Sulfate (Albuterol Sulfate 90 Mcg 8 Gm Inhaler) 2 puff INHALE Q4H PRN PRN Reason: Shortness Of Breath Or Wheezing Last Admin: 04/22/24 17:47 Dose: 2 puff Artificial Tears (Artificial Tears 15 Ml Drops) 1 drop EYE-BOTH DAILY PRN PRN Reason: Dry Eye(S) Diazepam (Diazepam 5 Mg Tablet) 10 mg PO BID [facility] Last Admin: 05/03/24 08:46 Dose: 10 mg Diphenhydramine HCl (Diphenhydramine Hcl 25 Mg Capsule) 25 mg PO Q6H PRN PRN Reason: Anxiety, Itching Last Admin: 05/02/24 04:45 Dose: 25 mg Diphenhydramine HCl (Diphenhydramine Hcl 25 Mg Capsule) 50 mg PO BID [facility] Last Admin: 05/03/24 08:45 Dose: 50 mg Donepezil HCl (Donepezil Hcl 5 Mg Tablet) 5 mg PO BEDTIME [facility] Last Admin: 05/02/24 20:12 Dose: Not Given Escitalopram Oxalate (Escitalopram Oxalate 5 Mg Tablet) 5 mg PO DAILY [facility] Last Admin: 05/03/24 08:45 Dose: 5 mg Fentanyl (Fentanyl 50 Mcg Patch.Td72) 50 mcg TRANSDERMA Q72H [facility] Last Admin: 05/03/24 08:46 Dose: 50 mcg Hydrocortisone (Hydrocortisone 1 % Cream 28.35 Gm Tube) 1 appl TOPICAL BID [facility]; Protocol Last Admin: 05/03/24 08:49 Dose: 1 appl Hydroxyzine HCl (Hydroxyzine Hcl 25 Mg Tablet) 25 mg PO Q8H PRN PRN Reason: Anxiety Last Admin: 05/02/24 13:21 Dose: 25 mg Magnesium Hydroxide (Milk Of Magnesia 30 Ml Oral.Susp) 30 ml PO DAILY PRN PRN Reason: Constipation Morphine Sulfate (Morphine Sulfate Immed Release 15 Mg Tablet) 30 mg PO Q6H PRN PRN Reason: Pain, Severe (Pain Scale 7-10) Last Admin: 05/03/24 09:09 Dose: 30 mg Nicotine (Nicotine 21 Mg Patch.Td24) 21 mg TRANSDERMA DAILY PRN PRN Reason: smoking cessation Nicotine Polacrilex (Nicotine Polacrilex 2 Mg Gum) 4 mg BUCCAL Q2H PRN PRN Reason: Nicotine Cravings Olanzapine (Olanzapine 2.5 Mg Tablet) 2.5 mg PO TID PRN PRN Reason: agitation Olanzapine (Olanzapine 2.5 Mg Tablet) 2.5 mg PO BEDTIME [facility] Last Admin: 05/02/24 20:12 Dose: Not Given Omeprazole (Omeprazole 20 Mg Capsule.Dr) 20 mg PO 0630 [facility] Last Admin: 05/03/24 05:44 Dose: 20 mg Ondansetron HCl (Ondansetron Odt 4 Mg Tab.Rapdis) 4 mg TRANSLINGU Q12H PRN PRN Reason: Nausea and Vomiting Trazodone HCl (Trazodone Hcl 50 Mg Tablet) 50 mg PO BEDTIME MRX1 PRN PRN Reason: Insomnia Allergies Allergies Allergy/AdvReac Type Severity Reaction Status Date / Time Egg Derived Allergy Unknown Unknown Verified 03/16/24 15:22 acetaminophen [From Percocet] AdvReac Severe Hives Verified 03/14/24 23:07 alprazolam AdvReac Severe Hives Verified 03/14/24 23:09 atorvastatin AdvReac Severe Hives Verified 03/14/24 23:10 azithromycin AdvReac Severe Swelling Verified 03/14/24 23:11 cholestyramine AdvReac Severe Hives Verified 03/14/24 23:08 [From Questran] ciprofloxacin AdvReac Severe Hives Verified 03/14/24 23:11 codeine AdvReac Severe Hives Verified 03/14/24 23:12 colesevelam AdvReac Severe Hives Verified 03/14/24 23:12 egg AdvReac Severe Hives Verified 03/15/24 01:39 Estrogens AdvReac Severe Swelling Verified 03/14/24 23:13 gemfibrozil AdvReac Severe Hives Verified 03/14/24 23:14 hydrocortisone AdvReac Severe Blurry Verified 03/14/24 23:07 [From Cortenema] Vision hydromorphone [From Dilaudid] AdvReac Severe Swelling Verified 03/14/24 23:13 Iodinated Contrast Media AdvReac Severe Hives Verified 03/14/24 23:14 isoniazid AdvReac Severe Hives Verified 03/14/24 23:15 mercaptopurine AdvReac Severe Vomiting Verified 03/14/24 23:16 methylprednisolone AdvReac Severe Hives Verified 03/14/24 23:16 minocycline AdvReac Severe Hives Verified 03/14/24 23:24 naproxen AdvReac Severe Rash Verified 03/14/24 23:17 oxycodone [From Percocet] AdvReac Severe Hives Verified 03/14/24 23:07 propoxyphene AdvReac Severe Hives Verified 03/14/24 23:19 quetiapine AdvReac Severe Rash Verified 03/14/24 23:20 risperidone AdvReac Severe Hives Verified 03/14/24 23:20 seafood AdvReac Severe Swelling Verified 03/14/24 23:21 shellfish derived AdvReac Severe Swelling Verified 03/14/24 23:21 Jqkyyio-XDQ-TbB Reductase AdvReac Severe Swelling Verified 03/14/24 23:22 Inhibitor sucrose [From Questran] AdvReac Severe Hives Verified 03/14/24 23:08 Sulfa (Sulfonamide AdvReac Severe Hives Verified 03/14/24 23:24 Antibiotics) tramadol AdvReac Severe Rash Verified 03/14/24 23:22 wool AdvReac Severe Hives Verified 03/14/24 23:23 Assessment & Plan Assessment & Plan (1) Post traumatic stress disorder (PTSD): Status: Acute Code(s): F43.10 - Post-traumatic stress disorder, unspecified (2) Cognitive disorder: Status: Acute Code(s): F09 - Unspecified mental disorder due to known physiological condition (3) Generalized anxiety disorder: Status: Acute Code(s): F41.1 - Generalized anxiety disorder (4) Suicide attempt by fentanyl overdose: Status: Acute Code(s): T40.412A - Poisoning by fentanyl or fentanyl analogs, intentional self-harm, initial encounter (5) Psychosis: Status: Acute Code(s): F29 - Unspecified psychosis not due to a substance or known physiological condition Plan Pt is a 63-year-old female with a PMH significant for?CVA, chronic pain disorder, HLD, ulcerative colitis s/p colectomy with colostomy in place, chronic anemia, and GERD who is admitted to [facility] for increasing paranoia and depression with suicide attempt by overdosing on home meds. Pt was apparently found unconscious in her apartment surrounded by empty morphine bottles, an SI note, and an eviction notice. Pt was emergently intubated and admitted to ICU for 5 days where she was treated for RAKAN and aspiration pneumonia. Also had elevated troponins that were attributed to demand ischemia. Medical consult for admission H&P. Mood disorder Plan as per psychiatry Recent hx of intubation in the ICU Denies difficulty swallowing, no sore throat or SOB Continue albuterol inhaler Peripheral neuropathy of right lower extremity Foot warm, pedal pulses 2+, well perfused No known hx of DM Unclear etiology Consider gabapentin if persistent Right foot wounds Unclear etiology Superficial, healing well No sign of infection No further intervention or workup needed at this time Hx of CVA Continue statin, aspirin Chronic pain disorder Continue fentanyl pathch, po morphine GERD PPI Plan 1. Continue with same medications. 2. Guardianship papers already filed. 3. Waiting for placement 4. Adding Aricept 5 mg p.o. q.h.s. on April 05. The patient had been partially compliant with his medication she does not have insight into her cognitive impairment. 5. It seems that the patient has already a guardian, we are going to try to contact him and get more collateral information for placement. Last April 26 she got to temporal guardianship who will help her on placement. 6. Her status has been changed to DNR DNI as per legal paperwork. Reason for continued inpatient stay Substantial Risk for: inability to function, rapid decompensation and med/psych decompensation Time Spent With Patient Time: Total time managing care of this patient today __20__ minutes.
[2024-05-03] MEDS: hydrOXYzine HCL 25 MG TABLET PO ×2 (12:57→20:38)
--- NOTE | 2024-05-03 13:10 | PC.NURSE ---
Pt has a new order for consult to general surgery for c/o lump in a left breast. Pt also awaiting a wound nurse to assess her stoma.
--- NOTE | 2024-05-03 13:26 | P.CONGS_ITS ---
History of Present Illness Consult details Consult date: 05/03/24 Requesting physician: Madhu Monteiro Narrative: 63-year-old female patient with a past history of CVA, chronic pain disorder, hyperlipidemia, ulcerative colitis status post total colectomy with ileostomy presenting with complaints of a left breast lump. She reports that this was previously investigated with mammogram at an outside institution and she was told they would just watch it. She feels she has breast cancer on the left side. She was admitted to [facility] for increasing paranoia and depression with a suicide attempt. She also complains of pain in the left breast but denies any skin changes or nipple discharge. She denies a previous history of breast surgeries or breast cancer. The patient also complains of swelling in the site of the ileostomy. She feels this was performed due to colon cancer and is concerned that the colon cancer is now spread to the breast. Review of Systems 2 Review of Systems: Yes Unobtainable due to mental condition PMFSH Past Medical History Medical History Ileostomy in place Ulcerative colitis Post traumatic stress disorder (PTSD) Surgical History Surgical History H/O total colectomy Social History Social History Household Members: None Housing: Apartment Do you presently have visiting nurse or other home services: No Patient Tobacco Use Status: Never used Tobacco Use of substances other than those prescribed or required for medical reasons: No Substance Use Type: Other Currently Displaying Signs/Symptoms of Drug Intoxication Withdrawal: No Have you been hit, kicked, punched, or otherwise hurt by someone within the past year? If so, by whom?: No Do you feel safe in your current relationship?: No Is there a partner from a previous relationship who is making you feel unsafe now?: No Are you made to feel afraid or neglected: No Spiritual Healthcare Practices: Gage Colón Advance Directives: No Advance Directives Information Provided: No Do you have thoughts of harming others: None Do you have a plan to hurt others: No Plan Recently lost weight without trying: Yes How much weight loss: 14-23 pounds Eating poorly because of decreased appetite: Yes Nutrition screen score: 5 Nutrition Risks: Dental problems Patient : No : No Poor oral hygiene: No service: No Meds Allergies Allergy/AdvReac Type Severity Reaction Status Date / Time Egg Derived Allergy Unknown Unknown Verified 03/16/24 15:22 acetaminophen [From Percocet] AdvReac Severe Hives Verified 03/14/24 23:07 alprazolam AdvReac Severe Hives Verified 03/14/24 23:09 atorvastatin AdvReac Severe Hives Verified 03/14/24 23:10 azithromycin AdvReac Severe Swelling Verified 03/14/24 23:11 cholestyramine AdvReac Severe Hives Verified 03/14/24 23:08 [From Questran] ciprofloxacin AdvReac Severe Hives Verified 03/14/24 23:11 codeine AdvReac Severe Hives Verified 03/14/24 23:12 colesevelam AdvReac Severe Hives Verified 03/14/24 23:12 egg AdvReac Severe Hives Verified 03/15/24 01:39 Estrogens AdvReac Severe Swelling Verified 03/14/24 23:13 gemfibrozil AdvReac Severe Hives Verified 03/14/24 23:14 hydrocortisone AdvReac Severe Blurry Verified 03/14/24 23:07 [From Cortenema] Vision hydromorphone [From Dilaudid] AdvReac Severe Swelling Verified 03/14/24 23:13 Iodinated Contrast Media AdvReac Severe Hives Verified 03/14/24 23:14 isoniazid AdvReac Severe Hives Verified 03/14/24 23:15 mercaptopurine AdvReac Severe Vomiting Verified 03/14/24 23:16 methylprednisolone AdvReac Severe Hives Verified 03/14/24 23:16 minocycline AdvReac Severe Hives Verified 03/14/24 23:24 naproxen AdvReac Severe Rash Verified 03/14/24 23:17 oxycodone [From Percocet] AdvReac Severe Hives Verified 03/14/24 23:07 propoxyphene AdvReac Severe Hives Verified 03/14/24 23:19 quetiapine AdvReac Severe Rash Verified 03/14/24 23:20 risperidone AdvReac Severe Hives Verified 03/14/24 23:20 seafood AdvReac Severe Swelling Verified 03/14/24 23:21 shellfish derived AdvReac Severe Swelling Verified 03/14/24 23:21 [id number] Reductase AdvReac Severe Swelling Verified 03/14/24 23:22 Inhibitor sucrose [From Questran] AdvReac Severe Hives Verified 03/14/24 23:08 Sulfa (Sulfonamide AdvReac Severe Hives Verified 03/14/24 23:24 Antibiotics) tramadol AdvReac Severe Rash Verified 03/14/24 23:22 wool AdvReac Severe Hives Verified 03/14/24 23:23 Active Medications: Current Medications Al Hydroxide/Mg Hydroxide (Magnesium Hydrox/Alum Hydrox 30 Ml Oral.Susp) 30 ml PO Q6H PRN PRN Reason: Heartburn/Nausea Albuterol Sulfate (Albuterol Sulfate 90 Mcg 8 Gm Inhaler) 2 puff INHALE Q4H PRN PRN Reason: Shortness Of Breath Or Wheezing Last Admin: 04/22/24 17:47 Dose: 2 puff Artificial Tears (Artificial Tears 15 Ml Drops) 1 drop EYE-BOTH DAILY PRN PRN Reason: Dry Eye(S) Diazepam (Diazepam 5 Mg Tablet) 10 mg PO BID [facility] Last Admin: 05/03/24 08:46 Dose: 10 mg Diphenhydramine HCl (Diphenhydramine Hcl 25 Mg Capsule) 25 mg PO Q6H PRN PRN Reason: Anxiety, Itching Last Admin: 05/02/24 04:45 Dose: 25 mg Diphenhydramine HCl (Diphenhydramine Hcl 25 Mg Capsule) 50 mg PO BID [facility] Last Admin: 05/03/24 08:45 Dose: 50 mg Donepezil HCl (Donepezil Hcl 5 Mg Tablet) 5 mg PO BEDTIME [facility] Last Admin: 05/02/24 20:12 Dose: Not Given Escitalopram Oxalate (Escitalopram Oxalate 5 Mg Tablet) 5 mg PO DAILY [facility] Last Admin: 05/03/24 08:45 Dose: 5 mg Fentanyl (Fentanyl 50 Mcg Patch.Td72) 50 mcg TRANSDERMA Q72H [facility] Last Admin: 05/03/24 08:46 Dose: 50 mcg Hydrocortisone (Hydrocortisone 1 % Cream 28.35 Gm Tube) 1 appl TOPICAL BID [facility]; Protocol Last Admin: 05/03/24 08:49 Dose: 1 appl Hydroxyzine HCl (Hydroxyzine Hcl 25 Mg Tablet) 25 mg PO Q8H PRN PRN Reason: Anxiety Last Admin: 05/03/24 12:57 Dose: 25 mg Magnesium Hydroxide (Milk Of Magnesia 30 Ml Oral.Susp) 30 ml PO DAILY PRN PRN Reason: Constipation Morphine Sulfate (Morphine Sulfate Immed Release 15 Mg Tablet) 30 mg PO Q6H PRN PRN Reason: Pain, Severe (Pain Scale 7-10) Last Admin: 05/03/24 09:09 Dose: 30 mg Nicotine (Nicotine 21 Mg Patch.Td24) 21 mg TRANSDERMA DAILY PRN PRN Reason: smoking cessation Nicotine Polacrilex (Nicotine Polacrilex 2 Mg Gum) 4 mg BUCCAL Q2H PRN PRN Reason: Nicotine Cravings Olanzapine (Olanzapine 2.5 Mg Tablet) 2.5 mg PO TID PRN PRN Reason: agitation Olanzapine (Olanzapine 2.5 Mg Tablet) 2.5 mg PO BEDTIME [facility] Last Admin: 05/02/24 20:12 Dose: Not Given Omeprazole (Omeprazole 20 Mg Capsule.Dr) 20 mg PO 0630 [facility] Last Admin: 05/03/24 05:44 Dose: 20 mg Ondansetron HCl (Ondansetron Odt 4 Mg Tab.Rapdis) 4 mg TRANSLINGU Q12H PRN PRN Reason: Nausea and Vomiting Trazodone HCl (Trazodone Hcl 50 Mg Tablet) 50 mg PO BEDTIME MRX1 PRN PRN Reason: Insomnia Home Medications ?Medication ?Instructions ?Recorded ?Confirmed ?Last Taken ?Type albuterol sulfate 90 mcg/actuation 2 puff inhalation Q4H PRN 03/14/24 03/14/24 Unknown History aerosol inhaler Shortness Of Breath Or Wheezing artificial tears solution eye drops 1 drp ophthalmic (eye) DAILY PRN 03/14/24 03/14/24 Unknown History Dry Eye(S) aspirin 81 mg tablet,delayed 81 mg PO DAILY 03/14/24 03/14/24 Unknown History release clotrimazole 1 % topical cream 2 appl topical BID 03/14/24 03/14/24 Unknown History escitalopram oxalate 5 mg tablet 5 mg PO DAILY 03/14/24 03/14/24 03/14/24 07:57 History fentanyl 50 mcg/hr transdermal 1 patch topical Q3D 03/14/24 03/14/24 03/13/24 09:20 History patch ferrous gluconate 324 mg (38 mg 324 mg PO Q OTHER DAY 03/14/24 03/14/24 Unknown History iron) tablet folic acid 1 mg tablet 1 mg PO DAILY 03/14/24 03/14/24 03/14/24 07:50 History hydroxyzine HCl 50 mg tablet 50 mg PO TID PRN Anxiety 03/14/24 03/14/24 Unknown History morphine 30 mg immediate release 30 mg PO Q6H PRN pain 03/14/24 03/14/24 03/14/24 19:30 History tablet nystatin 100,000 unit/gram topical 1 appl topical BID 03/14/24 03/14/24 Unknown History cream pantoprazole 40 mg tablet,delayed 40 mg PO BID 03/14/24 03/14/24 Unknown History release Physical Exam 2 Vital Signs: Vital Signs: Last Vital Signs Temp 96.8 F 05/03/24 08:00 Pulse 74 05/03/24 08:00 Resp 18 05/03/24 08:00 BP 117/59 L 05/03/24 08:00 Pulse Ox 96 05/03/24 08:00 O2 Del Method Room Air 05/03/24 08:00 BMI result Body Mass Index 28.9 Const: General: no acute distress Nutritional Appearance: well nourished Chest: Other: Examination with health care liaison present in the room Left breast: No skin changes, nipple retraction, nipple discharge, palpable mass or enlarged lymph nodes appreciated. Breast is exquisitely tender especially in the upper outer quadrant but with no associated mass. Mild fibrocystic pattern noted. Right breast: No skin change, nipple discharge, nipple retraction, palpable mass or enlarged lymph nodes. Resp: Effort & Inspection: normal respiratory effort, no audible wheezes, no cough and no respiratory distress GI: Other: Soft, nondistended, ileostomy in the right lower quadrant with a parastomal hernia palpable surrounding this. Ostomy is patent and functioning. No blood appreciated. Skin: Other: Warm, dry, no rashes Extrem: Other: No peripheral edema Results Labs 03/16/24 07:32 Labs: All other labs normal. Assessment and Plan (1) Mastodynia of left breast: Status: Acute (2) Parastomal hernia: Qualifiers: Obstruction and gangrene presence: without obstruction or gangrene Q ualified Code(s): K43.5 - Parastomal hernia without obstruction or gangrene Status: Acute Plan 63-year-old female patient with multiple medical problems presenting with complaints of a mass in the left breast. She apparently recently underwent a mammogram at an outside institution ([facility]?) to workup this mass, the results of which are not available at the time of this examination. Apparently she was told that she would need a repeat mammogram in 1 year. Reports from this mammogram hopefully can be obtained from the outside institution if possible. Examination today reveals no definite palpable mass although exam is limited due to the patient's marked tenderness in the left breast. No other suspicious findings are identified. Obtaining a left breast ultrasound may be helpful to further evaluate the left breast pain. Patient can certainly follow-up in our office post discharge for further workup of her breast pain. As for her parastomal hernia, a CT abdomen and pelvis may also be helpful if she becomes symptomatic, although generally non operative management is preferred. Procedures Date of Service Date of Service: 05/03/24
--- NOTE | 2024-05-03 16:09 | HO.OSTOMY ---
Ostomy consult: Initial 63yr old female admitted to the [facility] on 03/14/24 - see H&P for detailed history. Ostomy consult place for leaking pouch. Arrival to bedside patient was dismissive of my offering to hep her with her ostomy care. We discussed issues she may be having and ultimately she was agreeable to my consultation. The patient reports she has had the Ileostomy for 8 years. She reports she has several hernias around the stoma. She allowed me to assess her stoma in the pouch the stoma is red and moist, pouch intact not overt leaking noted on first assessment. We continued to discuss issues she was having she was fixated on the fact that she has not felt she has been receiving good care while on the inpatient unit. Therapeutic listening offered. She allowed a closer assessment of her pouch and she was noted to be silent leaking from 3-9 oclock. she was agreeable to a pouch change. She would not allow me to remove the pouch she did so herself and was very comfortable with emptying her pouch independently. She was in a [employer] #[id number] but was also noted to be using a clip in addition to awkwardly folding the pouch around the clip. I attempted to educate her on the pouch end and the velcro closure she was skeptical that this would hold but was agreeable to use the new pouch without the addition of the clip on a trial basis . She reported she cuts her pouch to a 20mm round opening. She did allow me to measure her pouch she measured just below 35mm. The too small opening could account for the leaking and the frequent need for pouch changes. She was agreeable to letting me apply the 35mm opening but was worried too much skin would be exposed she was agreeable to use of a barrier ring to create a seal. Note the patient is noted for irregular bulging around the stoma with landscape that changes with position changes against I suspect this adds to her leaking and need for frequent pouch changes. I am hopefully with the appropriate cut opening and barrier ring the patient will experience less leaking. Barrier ring and barrier C strips (for the outside of the pouch instead of tape) left with staff Latasha BRAGG incase patient needs record changer assembler the weekend. Will plan to see the patient early next week to assess pouch adherence. Of importance the patient washed her skin around the stoma with baby soap When I discussed with the patient this unfortunately leaves behind a residue and additives to soften the skin that overall are likely impacting the pouch adherence. She disagreed with this and reports she has been using baby soap to the area and not rinsing for 8 years and will not change these steps since her skin is healthy. Although I do not recommend soap to be used and then especially to be not rinsed she does make a valid point that her peristomal skin is intact and healthy. I will attempt to readdress at Mondays followup. Steps to pouch change: 1. Empty pouch before pouch change 2. Remove pouch using push/pull technique from top to bottom 3. Cleanse stoma and skin with tap water only - no soap or baby wipes 4. Pat dry 5. Measure stoma and cut new pouch no more than 1/8 inch larger than stoma and no smaller than stoma - cut pouch to just under 35mm. 6. Stretch barrier seal to back of pouch prior to application given her quick output from the stoma. 7. Press the new pouch into place and hold for several minutes (close pouch tail) 8. Complete the pouch change with application of the C shaped barrier strips to seal the outside edges of the pouch.
[2024-05-03 20:00] VITALS: BP 128/85; PULSE 75; RESP 16; TEMP 36.9; O2SAT 94
[2024-05-04] MEDS: hydrOXYzine HCL 25 MG TABLET PO (04:47)
[2024-05-04] MEDS: Morphine Sulfate Immed Release 15 MG TABLET 30 MG PO ×2 (04:48→17:27)
[2024-05-04] MEDS: Omeprazole 20 MG CAPSULE.DR PO (05:10)
--- NOTE | 2024-05-04 06:37 | HO.PSYCHPN ---
Subjective Subjective Date of Service: 05/04/24 Reason For Visit: Status post suicide attempt Subjective Notes: Conditional Voluntary Interim History: The nursing staff reported the patient had been visible in the unit, minimally interactive with staff. She was seen socializing with peers. On interview the patient denies new symptoms, waiting for placement. Still noncompliant with antipsychotics since she does not have insight into her condition but behaviorally no safety concerns. Mental Status Exam Mental Status Exam Patient Appearance: Appropriate Patient Orientation: Person and Situation Level of Consciousness: Awake Patient Behavior: Guarded and Passive Mood Description: Calm Affect Description: Constricted Patient Cognition Impaired: Yes Ability to Follow Directions: Good Speech Pattern: Clear Hallucinations: None Delusions: Ideas of Reference Thought Process: Distracted and Slowed Thinking Thought Content: positive for Clarissa and positive for Poverty of Content Judgement: Poor Diagnostics Vital Signs (24Hr): Vital Signs - 24 hr 05/03/24 08:00 05/03/24 20:00 Temperature 96.8 F 98.5 F Pulse Rate 74 75 Respiratory Rate 18 16 Blood Pressure 117/59 L 128/85 Pulse Oximetry 96 94 Oxygen Delivery Method Room Air Room Air BMI result Body Mass Index 28.9 Labs 03/16/24 07:32 Medications Medications Current Medications Al Hydroxide/Mg Hydroxide (Magnesium Hydrox/Alum Hydrox 30 Ml Oral.Susp) 30 ml PO Q6H PRN PRN Reason: Heartburn/Nausea Albuterol Sulfate (Albuterol Sulfate 90 Mcg 8 Gm Inhaler) 2 puff INHALE Q4H PRN PRN Reason: Shortness Of Breath Or Wheezing Last Admin: 04/22/24 17:47 Dose: 2 puff Artificial Tears (Artificial Tears 15 Ml Drops) 1 drop EYE-BOTH DAILY PRN PRN Reason: Dry Eye(S) Diazepam (Diazepam 5 Mg Tablet) 10 mg PO BID [facility] Last Admin: 05/03/24 20:29 Dose: 10 mg Diphenhydramine HCl (Diphenhydramine Hcl 25 Mg Capsule) 25 mg PO Q6H PRN PRN Reason: Anxiety, Itching Last Admin: 05/02/24 04:45 Dose: 25 mg Diphenhydramine HCl (Diphenhydramine Hcl 25 Mg Capsule) 50 mg PO BID [facility] Last Admin: 05/03/24 20:29 Dose: 50 mg Donepezil HCl (Donepezil Hcl 5 Mg Tablet) 5 mg PO BEDTIME [facility] Last Admin: 05/03/24 20:30 Dose: Not Given Escitalopram Oxalate (Escitalopram Oxalate 5 Mg Tablet) 5 mg PO DAILY [facility] Last Admin: 05/03/24 08:45 Dose: 5 mg Fentanyl (Fentanyl 50 Mcg Patch.Td72) 50 mcg TRANSDERMA Q72H [facility] Last Admin: 05/03/24 08:46 Dose: 50 mcg Hydrocortisone (Hydrocortisone 1 % Cream 28.35 Gm Tube) 1 appl TOPICAL BID [facility]; Protocol Last Admin: 05/03/24 20:38 Dose: 1 appl Hydroxyzine HCl (Hydroxyzine Hcl 25 Mg Tablet) 25 mg PO Q8H PRN PRN Reason: Anxiety Last Admin: 05/04/24 04:47 Dose: 25 mg Magnesium Hydroxide (Milk Of Magnesia 30 Ml Oral.Susp) 30 ml PO DAILY PRN PRN Reason: Constipation Morphine Sulfate (Morphine Sulfate Immed Release 15 Mg Tablet) 30 mg PO Q6H PRN PRN Reason: Pain, Severe (Pain Scale 7-10) Last Admin: 05/04/24 04:48 Dose: 30 mg Nicotine (Nicotine 21 Mg Patch.Td24) 21 mg TRANSDERMA DAILY PRN PRN Reason: smoking cessation Nicotine Polacrilex (Nicotine Polacrilex 2 Mg Gum) 4 mg BUCCAL Q2H PRN PRN Reason: Nicotine Cravings Olanzapine (Olanzapine 2.5 Mg Tablet) 2.5 mg PO TID PRN PRN Reason: agitation Olanzapine (Olanzapine 2.5 Mg Tablet) 2.5 mg PO BEDTIME [facility] Last Admin: 05/03/24 20:30 Dose: Not Given Omeprazole (Omeprazole 20 Mg Capsule.Dr) 20 mg PO 0630 [facility] Last Admin: 05/04/24 05:10 Dose: 20 mg Ondansetron HCl (Ondansetron Odt 4 Mg Tab.Rapdis) 4 mg TRANSLINGU Q12H PRN PRN Reason: Nausea and Vomiting Trazodone HCl (Trazodone Hcl 50 Mg Tablet) 50 mg PO BEDTIME MRX1 PRN PRN Reason: Insomnia Allergies Allergies Allergy/AdvReac Type Severity Reaction Status Date / Time Egg Derived Allergy Unknown Unknown Verified 03/16/24 15:22 acetaminophen [From Percocet] AdvReac Severe Hives Verified 03/14/24 23:07 alprazolam AdvReac Severe Hives Verified 03/14/24 23:09 atorvastatin AdvReac Severe Hives Verified 03/14/24 23:10 azithromycin AdvReac Severe Swelling Verified 03/14/24 23:11 cholestyramine AdvReac Severe Hives Verified 03/14/24 23:08 [From Questran] ciprofloxacin AdvReac Severe Hives Verified 03/14/24 23:11 codeine AdvReac Severe Hives Verified 03/14/24 23:12 colesevelam AdvReac Severe Hives Verified 03/14/24 23:12 egg AdvReac Severe Hives Verified 03/15/24 01:39 Estrogens AdvReac Severe Swelling Verified 03/14/24 23:13 gemfibrozil AdvReac Severe Hives Verified 03/14/24 23:14 hydrocortisone AdvReac Severe Blurry Verified 03/14/24 23:07 [From Cortenema] Vision hydromorphone [From Dilaudid] AdvReac Severe Swelling Verified 03/14/24 23:13 Iodinated Contrast Media AdvReac Severe Hives Verified 03/14/24 23:14 isoniazid AdvReac Severe Hives Verified 03/14/24 23:15 mercaptopurine AdvReac Severe Vomiting Verified 03/14/24 23:16 methylprednisolone AdvReac Severe Hives Verified 03/14/24 23:16 minocycline AdvReac Severe Hives Verified 03/14/24 23:24 naproxen AdvReac Severe Rash Verified 03/14/24 23:17 oxycodone [From Percocet] AdvReac Severe Hives Verified 03/14/24 23:07 propoxyphene AdvReac Severe Hives Verified 03/14/24 23:19 quetiapine AdvReac Severe Rash Verified 03/14/24 23:20 risperidone AdvReac Severe Hives Verified 03/14/24 23:20 seafood AdvReac Severe Swelling Verified 03/14/24 23:21 shellfish derived AdvReac Severe Swelling Verified 03/14/24 23:21 [id number] Reductase AdvReac Severe Swelling Verified 03/14/24 23:22 Inhibitor sucrose [From Questran] AdvReac Severe Hives Verified 03/14/24 23:08 Sulfa (Sulfonamide AdvReac Severe Hives Verified 03/14/24 23:24 Antibiotics) tramadol AdvReac Severe Rash Verified 03/14/24 23:22 wool AdvReac Severe Hives Verified 03/14/24 23:23 Assessment & Plan Assessment & Plan (1) Post traumatic stress disorder (PTSD): Status: Acute Code(s): F43.10 - Post-traumatic stress disorder, unspecified (2) Cognitive disorder: Status: Acute Code(s): F09 - Unspecified mental disorder due to known physiological condition (3) Generalized anxiety disorder: Status: Acute Code(s): F41.1 - Generalized anxiety disorder (4) Suicide attempt by fentanyl overdose: Status: Acute Code(s): T40.412A - Poisoning by fentanyl or fentanyl analogs, intentional self-harm, initial encounter (5) Psychosis: Status: Acute Code(s): F29 - Unspecified psychosis not due to a substance or known physiological condition Plan Pt is a 63-year-old female with a PMH significant for?CVA, chronic pain disorder, HLD, ulcerative colitis s/p colectomy with colostomy in place, chronic anemia, and GERD who is admitted to [facility] for increasing paranoia and depression with suicide attempt by overdosing on home meds. Pt was apparently found unconscious in her apartment surrounded by empty morphine bottles, an SI note, and an eviction notice. Pt was emergently intubated and admitted to ICU for 5 days where she was treated for RAKAN and aspiration pneumonia. Also had elevated troponins that were attributed to demand ischemia. Medical consult for admission H&P. Mood disorder Plan as per psychiatry Recent hx of intubation in the ICU Denies difficulty swallowing, no sore throat or SOB Continue albuterol inhaler Peripheral neuropathy of right lower extremity Foot warm, pedal pulses 2+, well perfused No known hx of DM Unclear etiology Consider gabapentin if persistent Right foot wounds Unclear etiology Superficial, healing well No sign of infection No further intervention or workup needed at this time Hx of CVA Continue statin, aspirin Chronic pain disorder Continue fentanyl pathch, po morphine GERD PPI Plan 1. Continue with same medications. 2. Guardianship papers already filed. 3. Waiting for placement 4. Adding Aricept 5 mg p.o. q.h.s. on April 05. The patient had been partially compliant with his medication she does not have insight into her cognitive impairment. 5. It seems that the patient has already a guardian, we are going to try to contact him and get more collateral information for placement. Last April 26 she got to temporal guardianship who will help her on placement. 6. Her status has been changed to DNR DNI as per legal paperwork. Reason for continued inpatient stay Substantial Risk for: inability to function, rapid decompensation and med/psych decompensation Time Spent With Patient Time: Total time managing care of this patient today _20___ minutes.
[2024-05-04 08:00] VITALS: BP 138/69; PULSE 86; RESP 18; TEMP 36.1; O2SAT 95
[2024-05-04] MEDS: Albuterol Sulfate 90 MCG 8 GM INHALER 2 PUFF INHALE (08:45)
[2024-05-04] MEDS: Escitalopram Oxalate 5 MG TABLET PO (08:46)
[2024-05-04] MEDS: diphenhydrAMINE HCL 25 MG CAPSULE 50 MG PO ×2 (08:46→20:35)
[2024-05-04] MEDS: diazePAM 5 MG TABLET 10 MG PO ×2 (08:46→20:35)
[2024-05-04] MEDS: Hydrocortisone 1 % Cream 28.35 GM TUBE 1 APPL TOPICAL ×2 (08:49→20:36)
[2024-05-04 20:00] VITALS: BP 112/57; PULSE 71; RESP 17; TEMP 36; O2SAT 96
[2024-05-05] MEDS: hydrOXYzine HCL 25 MG TABLET PO (02:01)
[2024-05-05] MEDS: Morphine Sulfate Immed Release 15 MG TABLET 30 MG PO ×2 (02:01→17:06)
[2024-05-05] MEDS: Omeprazole 20 MG CAPSULE.DR PO (05:32)
--- NOTE | 2024-05-05 06:24 | P.PNPSI_ITS ---
Subjective Subjective Date of Service: 05/05/24 Reason For Visit: Status post suicide attempt Subjective Notes: Conditional Voluntary Interim History: The nursing staff reported that she had been consistently refusing her Aricept and Zyprexa at night. She had been intrusive. On interview the patient remains oppositional at times but redirectable. Mental Status Exam Mental Status Exam Patient Appearance: Appropriate Patient Orientation: Person and Situation Level of Consciousness: Awake Patient Behavior: Guarded Mood Description: Calm Affect Description: Constricted Patient Cognition Impaired: Yes Ability to Follow Directions: Fair Speech Pattern: Clear Hallucinations: None Delusions: Ideas of Reference Thought Process: Distracted and Slowed Thinking Thought Content: positive for [place] and positive for Poverty of Content Judgement: Poor Diagnostics Vital Signs (24Hr): Vital Signs - 24 hr 05/04/24 08:00 05/04/24 20:00 Temperature 96.9 F 96.8 F Pulse Rate 86 71 Respiratory Rate 18 17 Blood Pressure 138/69 112/57 L Pulse Oximetry 95 96 Oxygen Delivery Method Room Air Room Air BMI result Body Mass Index 28.9 Labs 03/16/24 07:32 Medications Medications Current Medications Al Hydroxide/Mg Hydroxide (Magnesium Hydrox/Alum Hydrox 30 Ml Oral.Susp) 30 ml PO Q6H PRN PRN Reason: Heartburn/Nausea Albuterol Sulfate (Albuterol Sulfate 90 Mcg 8 Gm Inhaler) 2 puff INHALE Q4H PRN PRN Reason: Shortness Of Breath Or Wheezing Last Admin: 05/04/24 08:45 Dose: 2 puff Artificial Tears (Artificial Tears 15 Ml Drops) 1 drop EYE-BOTH DAILY PRN PRN Reason: Dry Eye(S) Diazepam (Diazepam 5 Mg Tablet) 10 mg PO BID [facility] Last Admin: 05/04/24 20:35 Dose: 10 mg Diphenhydramine HCl (Diphenhydramine Hcl 25 Mg Capsule) 25 mg PO Q6H PRN PRN Reason: Anxiety, Itching Last Admin: 05/02/24 04:45 Dose: 25 mg Diphenhydramine HCl (Diphenhydramine Hcl 25 Mg Capsule) 50 mg PO BID [facility] Last Admin: 05/04/24 20:35 Dose: 50 mg Donepezil HCl (Donepezil Hcl 5 Mg Tablet) 5 mg PO BEDTIME [facility] Last Admin: 05/04/24 20:36 Dose: Not Given Escitalopram Oxalate (Escitalopram Oxalate 5 Mg Tablet) 5 mg PO DAILY [facility] Last Admin: 05/04/24 08:46 Dose: 5 mg Fentanyl (Fentanyl 50 Mcg Patch.Td72) 50 mcg TRANSDERMA Q72H [facility] Last Admin: 05/03/24 08:46 Dose: 50 mcg Hydrocortisone (Hydrocortisone 1 % Cream 28.35 Gm Tube) 1 appl TOPICAL BID [facility]; Protocol Last Admin: 05/04/24 20:36 Dose: 1 appl Hydroxyzine HCl (Hydroxyzine Hcl 25 Mg Tablet) 25 mg PO Q8H PRN PRN Reason: Anxiety Last Admin: 05/05/24 02:01 Dose: 25 mg Magnesium Hydroxide (Milk Of Magnesia 30 Ml Oral.Susp) 30 ml PO DAILY PRN PRN Reason: Constipation Morphine Sulfate (Morphine Sulfate Immed Release 15 Mg Tablet) 30 mg PO Q6H PRN PRN Reason: Pain, Severe (Pain Scale 7-10) Last Admin: 05/05/24 02:01 Dose: 30 mg Nicotine (Nicotine 21 Mg Patch.Td24) 21 mg TRANSDERMA DAILY PRN PRN Reason: smoking cessation Nicotine Polacrilex (Nicotine Polacrilex 2 Mg Gum) 4 mg BUCCAL Q2H PRN PRN Reason: Nicotine Cravings Olanzapine (Olanzapine 2.5 Mg Tablet) 2.5 mg PO TID PRN PRN Reason: agitation Olanzapine (Olanzapine 2.5 Mg Tablet) 2.5 mg PO BEDTIME [facility] Last Admin: 05/04/24 20:36 Dose: Not Given Omeprazole (Omeprazole 20 Mg Capsule.Dr) 20 mg PO 0630 [facility] Last Admin: 05/05/24 05:32 Dose: 20 mg Ondansetron HCl (Ondansetron Odt 4 Mg Tab.Rapdis) 4 mg TRANSLINGU Q12H PRN PRN Reason: Nausea and Vomiting Trazodone HCl (Trazodone Hcl 50 Mg Tablet) 50 mg PO BEDTIME MRX1 PRN PRN Reason: Insomnia Allergies Allergies Allergy/AdvReac Type Severity Reaction Status Date / Time Egg Derived Allergy Unknown Unknown Verified 03/16/24 15:22 acetaminophen [From Percocet] AdvReac Severe Hives Verified 03/14/24 23:07 alprazolam AdvReac Severe Hives Verified 03/14/24 23:09 atorvastatin AdvReac Severe Hives Verified 03/14/24 23:10 azithromycin AdvReac Severe Swelling Verified 03/14/24 23:11 cholestyramine AdvReac Severe Hives Verified 03/14/24 23:08 [From Questran] ciprofloxacin AdvReac Severe Hives Verified 03/14/24 23:11 codeine AdvReac Severe Hives Verified 03/14/24 23:12 colesevelam AdvReac Severe Hives Verified 03/14/24 23:12 egg AdvReac Severe Hives Verified 03/15/24 01:39 Estrogens AdvReac Severe Swelling Verified 03/14/24 23:13 gemfibrozil AdvReac Severe Hives Verified 03/14/24 23:14 hydrocortisone AdvReac Severe Blurry Verified 03/14/24 23:07 [From Cortenema] Vision hydromorphone [From Dilaudid] AdvReac Severe Swelling Verified 03/14/24 23:13 Iodinated Contrast Media AdvReac Severe Hives Verified 03/14/24 23:14 isoniazid AdvReac Severe Hives Verified 03/14/24 23:15 mercaptopurine AdvReac Severe Vomiting Verified 03/14/24 23:16 methylprednisolone AdvReac Severe Hives Verified 03/14/24 23:16 minocycline AdvReac Severe Hives Verified 03/14/24 23:24 naproxen AdvReac Severe Rash Verified 03/14/24 23:17 oxycodone [From Percocet] AdvReac Severe Hives Verified 03/14/24 23:07 propoxyphene AdvReac Severe Hives Verified 03/14/24 23:19 quetiapine AdvReac Severe Rash Verified 03/14/24 23:20 risperidone AdvReac Severe Hives Verified 03/14/24 23:20 seafood AdvReac Severe Swelling Verified 03/14/24 23:21 shellfish derived AdvReac Severe Swelling Verified 03/14/24 23:21 [id number] Reductase AdvReac Severe Swelling Verified 03/14/24 23:22 Inhibitor sucrose [From Questran] AdvReac Severe Hives Verified 03/14/24 23:08 Sulfa (Sulfonamide AdvReac Severe Hives Verified 03/14/24 23:24 Antibiotics) tramadol AdvReac Severe Rash Verified 03/14/24 23:22 wool AdvReac Severe Hives Verified 03/14/24 23:23 Assessment & Plan Assessment & Plan (1) Post traumatic stress disorder (PTSD): Status: Acute Code(s): F43.10 - Post-traumatic stress disorder, unspecified (2) Cognitive disorder: Status: Acute Code(s): F09 - Unspecified mental disorder due to known physiological condition (3) Generalized anxiety disorder: Status: Acute Code(s): F41.1 - Generalized anxiety disorder (4) Suicide attempt by fentanyl overdose: Status: Acute Code(s): T40.412A - Poisoning by fentanyl or fentanyl analogs, intentional self-harm, initial encounter (5) Psychosis: Status: Acute Code(s): F29 - Unspecified psychosis not due to a substance or known physiological condition Plan Pt is a 63-year-old female with a PMH significant for?CVA, chronic pain disorder, HLD, ulcerative colitis s/p colectomy with colostomy in place, chronic anemia, and GERD who is admitted to [facility] for increasing paranoia and depression with suicide attempt by overdosing on home meds. Pt was apparently found unconscious in her apartment surrounded by empty morphine bottles, an SI note, and an eviction notice. Pt was emergently intubated and admitted to ICU for 5 days where she was treated for RAKAN and aspiration pneumonia. Also had elevated troponins that were attributed to demand ischemia. Medical consult for admission H&P. Mood disorder Plan as per psychiatry Recent hx of intubation in the ICU Denies difficulty swallowing, no sore throat or SOB Continue albuterol inhaler Peripheral neuropathy of right lower extremity Foot warm, pedal pulses 2+, well perfused No known hx of DM Unclear etiology Consider gabapentin if persistent Right foot wounds Unclear etiology Superficial, healing well No sign of infection No further intervention or workup needed at this time Hx of CVA Continue statin, aspirin Chronic pain disorder Continue fentanyl pathch, po morphine GERD PPI Plan 1. Continue with same medications. 2. Guardianship papers already filed. 3. Waiting for placement 4. Adding Aricept 5 mg p.o. q.h.s. on April 05. The patient had been partially compliant with his medication she does not have insight into her cognitive impairment. 5. It seems that the patient has already a guardian, we are going to try to contact him and get more collateral information for placement. Last April 26 she got to temporal guardianship who will help her on placement. 6. Her status has been changed to DNR DNI as per legal paperwork. Reason for continued inpatient stay Substantial Risk for: inability to function, rapid decompensation and med/psych decompensation Time Spent With Patient Time: Total time managing care of this patient today __20__ minutes.
[2024-05-05] MEDS: diazePAM 5 MG TABLET 10 MG PO ×2 (08:11→20:27)
[2024-05-05] MEDS: diphenhydrAMINE HCL 25 MG CAPSULE 50 MG PO ×2 (08:12→20:28)
[2024-05-05] MEDS: Hydrocortisone 1 % Cream 28.35 GM TUBE 1 APPL TOPICAL ×2 (08:15→20:29)
[2024-05-05 08:17] VITALS: BP 122/58; PULSE 71; RESP 16; TEMP 37.1; O2SAT 94
[2024-05-05] MEDS: Albuterol Sulfate 90 MCG 8 GM INHALER 2 PUFF INHALE (17:02)
[2024-05-05] MEDS: diphenhydrAMINE HCL 25 MG CAPSULE PO (17:08)
[2024-05-05 20:00] VITALS: BP 119/61; PULSE 98; RESP 18; TEMP 36.3; O2SAT 94
[2024-05-06] MEDS: hydrOXYzine HCL 25 MG TABLET PO ×2 (03:49→23:14)
[2024-05-06] MEDS: Morphine Sulfate Immed Release 15 MG TABLET 30 MG PO ×2 (03:50→23:14)
[2024-05-06] MEDS: Omeprazole 20 MG CAPSULE.DR PO (06:11)
[2024-05-06] MEDS: Albuterol Sulfate 90 MCG 8 GM INHALER 2 PUFF INHALE (06:13)
[2024-05-06] MEDS: diphenhydrAMINE HCL 25 MG CAPSULE 50 MG PO ×2 (10:00→20:23)
[2024-05-06] MEDS: diazePAM 5 MG TABLET 10 MG PO ×2 (10:01→20:23)
[2024-05-06] MEDS: fentaNYL 50 MCG PATCH.TD72 TRANSDERMA (10:02)
[2024-05-06] MEDS: Hydrocortisone 1 % Cream 28.35 GM TUBE 1 APPL TOPICAL (10:08)
--- NOTE | 2024-05-06 11:15 | P.PNPSI_ITS ---
Subjective Subjective Date of Service: 05/06/24 Reason For Visit: Status post suicide attempt Subjective Notes: Conditional Voluntary Interim History: The nursing staff reported the patient had been isolative manipulative slept 3 hours. The nursing staff reported that consistently she has refused to take her Zyprexa and Aricept. On interview the patient denies new symptoms, waiting for placement Mental Status Exam Mental Status Exam Patient Appearance: Appropriate Patient Orientation: Person and Situation Level of Consciousness: Awake and Appropriate Patient Behavior: Guarded and Passive Mood Description: Withdrawn Affect Description: Constricted Patient Cognition Impaired: Yes Ability to Follow Directions: Good Speech Pattern: Clear Hallucinations: None Delusions: Ideas of Reference Thought Process: Distracted and Slowed Thinking Thought Content: positive for [place] and positive for Poverty of Content Judgement: Fair Diagnostics Vital Signs (24Hr): Vital Signs - 24 hr 05/05/24 20:00 Temperature 97.3 F Pulse Rate 98 Respiratory Rate 18 Blood Pressure 119/61 Pulse Oximetry 94 Oxygen Delivery Method Nasal Cannula BMI result Body Mass Index 28.9 Labs 03/16/24 07:32 Medications Medications Current Medications Al Hydroxide/Mg Hydroxide (Magnesium Hydrox/Alum Hydrox 30 Ml Oral.Susp) 30 ml PO Q6H PRN PRN Reason: Heartburn/Nausea Albuterol Sulfate (Albuterol Sulfate 90 Mcg 8 Gm Inhaler) 2 puff INHALE Q4H PRN PRN Reason: Shortness Of Breath Or Wheezing Last Admin: 05/06/24 06:13 Dose: 2 puff Artificial Tears (Artificial Tears 15 Ml Drops) 1 drop EYE-BOTH DAILY PRN PRN Reason: Dry Eye(S) Diazepam (Diazepam 5 Mg Tablet) 10 mg PO BID [facility] Last Admin: 05/06/24 10:01 Dose: 10 mg Diphenhydramine HCl (Diphenhydramine Hcl 25 Mg Capsule) 25 mg PO Q6H PRN PRN Reason: Anxiety, Itching Last Admin: 05/05/24 17:08 Dose: 25 mg Diphenhydramine HCl (Diphenhydramine Hcl 25 Mg Capsule) 50 mg PO BID [facility] Last Admin: 05/06/24 10:00 Dose: 50 mg Donepezil HCl (Donepezil Hcl 5 Mg Tablet) 5 mg PO BEDTIME [facility] Last Admin: 05/05/24 20:56 Dose: Not Given Escitalopram Oxalate (Escitalopram Oxalate 5 Mg Tablet) 5 mg PO DAILY [facility] Last Admin: 05/06/24 10:00 Dose: Not Given Fentanyl (Fentanyl 50 Mcg Patch.Td72) 50 mcg TRANSDERMA Q72H [facility] Last Admin: 05/06/24 10:02 Dose: 50 mcg Hydrocortisone (Hydrocortisone 1 % Cream 28.35 Gm Tube) 1 appl TOPICAL BID [facility]; Protocol Last Admin: 05/06/24 10:08 Dose: 1 appl Hydroxyzine HCl (Hydroxyzine Hcl 25 Mg Tablet) 25 mg PO Q8H PRN PRN Reason: Anxiety Last Admin: 05/06/24 03:49 Dose: 25 mg Magnesium Hydroxide (Milk Of Magnesia 30 Ml Oral.Susp) 30 ml PO DAILY PRN PRN Reason: Constipation Morphine Sulfate (Morphine Sulfate Immed Release 15 Mg Tablet) 30 mg PO Q6H PRN PRN Reason: Pain, Severe (Pain Scale 7-10) Last Admin: 05/06/24 03:50 Dose: 30 mg Nicotine (Nicotine 21 Mg Patch.Td24) 21 mg TRANSDERMA DAILY PRN PRN Reason: smoking cessation Nicotine Polacrilex (Nicotine Polacrilex 2 Mg Gum) 4 mg BUCCAL Q2H PRN PRN Reason: Nicotine Cravings Olanzapine (Olanzapine 2.5 Mg Tablet) 2.5 mg PO TID PRN PRN Reason: agitation Olanzapine (Olanzapine 2.5 Mg Tablet) 2.5 mg PO BEDTIME [facility] Last Admin: 05/05/24 20:56 Dose: Not Given Omeprazole (Omeprazole 20 Mg Capsule.Dr) 20 mg PO 0630 [facility] Last Admin: 05/06/24 06:11 Dose: 20 mg Ondansetron HCl (Ondansetron Odt 4 Mg Tab.Rapdis) 4 mg TRANSLINGU Q12H PRN PRN Reason: Nausea and Vomiting Trazodone HCl (Trazodone Hcl 50 Mg Tablet) 50 mg PO BEDTIME MRX1 PRN PRN Reason: Insomnia Allergies Allergies Allergy/AdvReac Type Severity Reaction Status Date / Time Egg Derived Allergy Unknown Unknown Verified 03/16/24 15:22 acetaminophen [From Percocet] AdvReac Severe Hives Verified 03/14/24 23:07 alprazolam AdvReac Severe Hives Verified 03/14/24 23:09 atorvastatin AdvReac Severe Hives Verified 03/14/24 23:10 azithromycin AdvReac Severe Swelling Verified 03/14/24 23:11 cholestyramine AdvReac Severe Hives Verified 03/14/24 23:08 [From Questran] ciprofloxacin AdvReac Severe Hives Verified 03/14/24 23:11 codeine AdvReac Severe Hives Verified 03/14/24 23:12 colesevelam AdvReac Severe Hives Verified 03/14/24 23:12 egg AdvReac Severe Hives Verified 03/15/24 01:39 Estrogens AdvReac Severe Swelling Verified 03/14/24 23:13 gemfibrozil AdvReac Severe Hives Verified 03/14/24 23:14 hydrocortisone AdvReac Severe Blurry Verified 03/14/24 23:07 [From Cortenema] Vision hydromorphone [From Dilaudid] AdvReac Severe Swelling Verified 03/14/24 23:13 Iodinated Contrast Media AdvReac Severe Hives Verified 03/14/24 23:14 isoniazid AdvReac Severe Hives Verified 03/14/24 23:15 mercaptopurine AdvReac Severe Vomiting Verified 03/14/24 23:16 methylprednisolone AdvReac Severe Hives Verified 03/14/24 23:16 minocycline AdvReac Severe Hives Verified 03/14/24 23:24 naproxen AdvReac Severe Rash Verified 03/14/24 23:17 oxycodone [From Percocet] AdvReac Severe Hives Verified 03/14/24 23:07 propoxyphene AdvReac Severe Hives Verified 03/14/24 23:19 quetiapine AdvReac Severe Rash Verified 03/14/24 23:20 risperidone AdvReac Severe Hives Verified 03/14/24 23:20 seafood AdvReac Severe Swelling Verified 03/14/24 23:21 shellfish derived AdvReac Severe Swelling Verified 03/14/24 23:21 Wfjbfme-KYM-OxY Reductase AdvReac Severe Swelling Verified 03/14/24 23:22 Inhibitor sucrose [From Questran] AdvReac Severe Hives Verified 03/14/24 23:08 Sulfa (Sulfonamide AdvReac Severe Hives Verified 03/14/24 23:24 Antibiotics) tramadol AdvReac Severe Rash Verified 03/14/24 23:22 wool AdvReac Severe Hives Verified 03/14/24 23:23 Assessment & Plan Assessment & Plan (1) Dementia: Status: Acute Code(s): F03.90 - Unspecified dementia, unspecified severity, without behavioral disturbance, psychotic disturbance, mood disturbance, and anxiety (2) Post traumatic stress disorder (PTSD): Status: Acute Code(s): F43.10 - Post-traumatic stress disorder, unspecified (3) Cognitive disorder: Status: Acute Code(s): F09 - Unspecified mental disorder due to known physiological condition (4) Generalized anxiety disorder: Status: Acute Code(s): F41.1 - Generalized anxiety disorder (5) Suicide attempt by fentanyl overdose: Status: Acute Code(s): T40.412A - Poisoning by fentanyl or fentanyl analogs, intentional self-harm, initial encounter (6) Psychosis: Status: Acute Code(s): F29 - Unspecified psychosis not due to a substance or known physiological condition Plan Pt is a 63-year-old female with a PMH significant for?CVA, chronic pain disorder, HLD, ulcerative colitis s/p colectomy with colostomy in place, chronic anemia, and GERD who is admitted to [facility] for increasing paranoia and depression with suicide attempt by overdosing on home meds. Pt was apparently found unconscious in her apartment surrounded by empty morphine bottles, an SI note, and an eviction notice. Pt was emergently intubated and admitted to ICU for 5 days where she was treated for RAKAN and aspiration pneumonia. Also had elevated troponins that were attributed to demand ischemia. Medical consult for admission H&P. Mood disorder Plan as per psychiatry Recent hx of intubation in the ICU Denies difficulty swallowing, no sore throat or SOB Continue albuterol inhaler Peripheral neuropathy of right lower extremity Foot warm, pedal pulses 2+, well perfused No known hx of DM Unclear etiology Consider gabapentin if persistent Right foot wounds Unclear etiology Superficial, healing well No sign of infection No further intervention or workup needed at this time Hx of CVA Continue statin, aspirin Chronic pain disorder Continue fentanyl pathch, po morphine GERD PPI Plan 1. Continue with same medications. 2. Guardianship papers already filed. 3. Waiting for placement 4. Adding Aricept 5 mg p.o. q.h.s. on April 05. The patient had been partially compliant with his medication she does not have insight into her cognitive impairment. 5. It seems that the patient has already a guardian, we are going to try to contact him and get more collateral information for placement. Last April 26 she got to temporal guardianship who will help her on placement. 6. Her status has been changed to DNR DNI as per legal paperwork. Reason for continued inpatient stay Substantial Risk for: inability to function, rapid decompensation and med/psych decompensation Time Spent With Patient Time: Total time managing care of this patient today __20__ minutes.
--- NOTE | 2024-05-06 12:43 | HO.OSTOMY ---
Ostomy consult: Follow up 63yr old female admitted to the [facility] on 03/14/24 - see H&P for detailed history. Ostomy consult follow up for ileostomy. Arrival to bedside patient was in bed and reported she had changed her pouch this morning with night staff. She reports they did not have barrier C strips or the barrier ring. Patient demonstrates understanding of there role in her pouch application but reports she was told they did not have them available. Today supplies left for two more pouch changes with two rings and two sets of barrier strips left in med room in her box of supplies. Reference # provided to staff to special order supplies. Pouch assessed noted to not be leaking at this time. Tape is in place but given this is new application will defer to future date and time of pouch change. Patient is agreeable to this plan, will follow up in future. Steps to pouch change: 1. Empty pouch before pouch change 2. Remove pouch using push/pull technique from top to bottom 3. Cleanse stoma and skin with tap water only - no soap or baby wipes 4. Pat dry 5. Measure stoma and cut new pouch no more than 1/8 inch larger than stoma and no smaller than stoma - cut pouch to just under 35mm. 6. Stretch barrier seal to back of pouch prior to application given her quick output from the stoma. 7. Press the new pouch into place and hold for several minutes (close pouch tail) 8. Complete the pouch change with application of the C shaped barrier strips to seal the outside edges of the pouch.
[2024-05-06 20:00] VITALS: RESP 18
[2024-05-06 21:00] VITALS: BP 128/73; PULSE 90; RESP 16; O2SAT 97
[2024-05-07] MEDS: Hydrocortisone 1 % Cream 28.35 GM TUBE 1 APPL TOPICAL ×3 (02:02→20:45)
[2024-05-07] MEDS: Omeprazole 20 MG CAPSULE.DR PO (05:45)
[2024-05-07] MEDS: hydrOXYzine HCL 25 MG TABLET PO ×2 (08:38→18:05)
[2024-05-07] MEDS: diazePAM 5 MG TABLET 10 MG PO ×2 (08:38→20:45)
[2024-05-07] MEDS: Morphine Sulfate Immed Release 15 MG TABLET 30 MG PO ×2 (08:38→18:05)
--- NOTE | 2024-05-07 08:45 | HO.PSYCHPN ---
Subjective Subjective Date of Service: 05/07/24 Reason For Visit: Status post suicide attempt Subjective Notes: Conditional Voluntary Interim History: Pt slept most of the night. She continues to make complaints about staff here and treatment. She denies any physical concerns. She declines some medications including lexapro and olanzapine. She is visible on the unit, social with select peers but also prone to be confrontational with them as well as with staff. Medication Compliance: Intermittent Side effects from medications: No Review of Systems Review of Systems L breast lump-identified to team 03/17/24 evening. Yes all other systems are reviewed and are negative and Unobtainable due to mental condition Diagnostics Vital Signs (24Hr): Vital Signs - 24 hr 05/06/24 20:00 Respiratory Rate 18 BMI result Body Mass Index 28.9 Labs 03/16/24 07:32 Medications Medications Current Medications Al Hydroxide/Mg Hydroxide (Magnesium Hydrox/Alum Hydrox 30 Ml Oral.Susp) 30 ml PO Q6H PRN PRN Reason: Heartburn/Nausea Albuterol Sulfate (Albuterol Sulfate 90 Mcg 8 Gm Inhaler) 2 puff INHALE Q4H PRN PRN Reason: Shortness Of Breath Or Wheezing Last Admin: 05/06/24 06:13 Dose: 2 puff Artificial Tears (Artificial Tears 15 Ml Drops) 1 drop EYE-BOTH DAILY PRN PRN Reason: Dry Eye(S) Diazepam (Diazepam 5 Mg Tablet) 10 mg PO BID [facility] Last Admin: 05/07/24 08:38 Dose: 10 mg Diphenhydramine HCl (Diphenhydramine Hcl 25 Mg Capsule) 25 mg PO Q6H PRN PRN Reason: Anxiety, Itching Last Admin: 05/05/24 17:08 Dose: 25 mg Diphenhydramine HCl (Diphenhydramine Hcl 25 Mg Capsule) 50 mg PO BID [facility] Last Admin: 05/06/24 20:23 Dose: 50 mg Donepezil HCl (Donepezil Hcl 5 Mg Tablet) 5 mg PO BEDTIME [facility] Last Admin: 05/06/24 20:25 Dose: Not Given Escitalopram Oxalate (Escitalopram Oxalate 5 Mg Tablet) 5 mg PO DAILY [facility] Last Admin: 05/07/24 08:41 Dose: Not Given Fentanyl (Fentanyl 50 Mcg Patch.Td72) 50 mcg TRANSDERMA Q72H [facility] Last Admin: 05/06/24 10:02 Dose: 50 mcg Hydrocortisone (Hydrocortisone 1 % Cream 28.35 Gm Tube) 1 appl TOPICAL BID [facility]; Protocol Last Admin: 05/07/24 02:03 Dose: Not Given Hydroxyzine HCl (Hydroxyzine Hcl 25 Mg Tablet) 25 mg PO Q8H PRN PRN Reason: Anxiety Last Admin: 05/07/24 08:38 Dose: 25 mg Magnesium Hydroxide (Milk Of Magnesia 30 Ml Oral.Susp) 30 ml PO DAILY PRN PRN Reason: Constipation Morphine Sulfate (Morphine Sulfate Immed Release 15 Mg Tablet) 30 mg PO Q6H PRN PRN Reason: Pain, Severe (Pain Scale 7-10) Last Admin: 05/07/24 08:38 Dose: 30 mg Nicotine (Nicotine 21 Mg Patch.Td24) 21 mg TRANSDERMA DAILY PRN PRN Reason: smoking cessation Nicotine Polacrilex (Nicotine Polacrilex 2 Mg Gum) 4 mg BUCCAL Q2H PRN PRN Reason: Nicotine Cravings Olanzapine (Olanzapine 2.5 Mg Tablet) 2.5 mg PO TID PRN PRN Reason: agitation Olanzapine (Olanzapine 2.5 Mg Tablet) 2.5 mg PO BEDTIME [facility] Last Admin: 05/06/24 20:26 Dose: Not Given Omeprazole (Omeprazole 20 Mg Capsule.Dr) 20 mg PO 0630 [facility] Last Admin: 05/07/24 05:45 Dose: 20 mg Ondansetron HCl (Ondansetron Odt 4 Mg Tab.Rapdis) 4 mg TRANSLINGU Q12H PRN PRN Reason: Nausea and Vomiting Trazodone HCl (Trazodone Hcl 50 Mg Tablet) 50 mg PO BEDTIME MRX1 PRN PRN Reason: Insomnia Allergies Allergies Allergy/AdvReac Type Severity Reaction Status Date / Time Egg Derived Allergy Unknown Unknown Verified 03/16/24 15:22 acetaminophen [From Percocet] AdvReac Severe Hives Verified 03/14/24 23:07 alprazolam AdvReac Severe Hives Verified 03/14/24 23:09 atorvastatin AdvReac Severe Hives Verified 03/14/24 23:10 azithromycin AdvReac Severe Swelling Verified 03/14/24 23:11 cholestyramine AdvReac Severe Hives Verified 03/14/24 23:08 [From Questran] ciprofloxacin AdvReac Severe Hives Verified 03/14/24 23:11 codeine AdvReac Severe Hives Verified 03/14/24 23:12 colesevelam AdvReac Severe Hives Verified 03/14/24 23:12 egg AdvReac Severe Hives Verified 03/15/24 01:39 Estrogens AdvReac Severe Swelling Verified 03/14/24 23:13 gemfibrozil AdvReac Severe Hives Verified 03/14/24 23:14 hydrocortisone AdvReac Severe Blurry Verified 03/14/24 23:07 [From Cortenema] Vision hydromorphone [From Dilaudid] AdvReac Severe Swelling Verified 03/14/24 23:13 Iodinated Contrast Media AdvReac Severe Hives Verified 03/14/24 23:14 isoniazid AdvReac Severe Hives Verified 03/14/24 23:15 mercaptopurine AdvReac Severe Vomiting Verified 03/14/24 23:16 methylprednisolone AdvReac Severe Hives Verified 03/14/24 23:16 minocycline AdvReac Severe Hives Verified 03/14/24 23:24 naproxen AdvReac Severe Rash Verified 03/14/24 23:17 oxycodone [From Percocet] AdvReac Severe Hives Verified 03/14/24 23:07 propoxyphene AdvReac Severe Hives Verified 03/14/24 23:19 quetiapine AdvReac Severe Rash Verified 03/14/24 23:20 risperidone AdvReac Severe Hives Verified 03/14/24 23:20 seafood AdvReac Severe Swelling Verified 03/14/24 23:21 shellfish derived AdvReac Severe Swelling Verified 03/14/24 23:21 [id number]-QiP Reductase AdvReac Severe Swelling Verified 03/14/24 23:22 Inhibitor sucrose [From Questran] AdvReac Severe Hives Verified 03/14/24 23:08 Sulfa (Sulfonamide AdvReac Severe Hives Verified 03/14/24 23:24 Antibiotics) tramadol AdvReac Severe Rash Verified 03/14/24 23:22 wool AdvReac Severe Hives Verified 03/14/24 23:23 Assessment & Plan Assessment & Plan (1) Dementia: Status: Acute Code(s): F03.90 - Unspecified dementia, unspecified severity, without behavioral disturbance, psychotic disturbance, mood disturbance, and anxiety (2) Post traumatic stress disorder (PTSD): Status: Acute Code(s): F43.10 - Post-traumatic stress disorder, unspecified (3) Cognitive disorder: Status: Acute Code(s): F09 - Unspecified mental disorder due to known physiological condition (4) Generalized anxiety disorder: Status: Acute Code(s): F41.1 - Generalized anxiety disorder (5) Suicide attempt by fentanyl overdose: Status: Acute Code(s): T40.412A - Poisoning by fentanyl or fentanyl analogs, intentional self-harm, initial encounter (6) Psychosis: Status: Acute Code(s): F29 - Unspecified psychosis not due to a substance or known physiological condition Plan Pt is a 63-year-old female with a PMH significant for?CVA, chronic pain disorder, HLD, ulcerative colitis s/p colectomy with colostomy in place, chronic anemia, and GERD who is admitted to [facility] for increasing paranoia and depression with suicide attempt by overdosing on home meds. Pt was apparently found unconscious in her apartment surrounded by empty morphine bottles, an SI note, and an eviction notice. Pt was emergently intubated and admitted to ICU for 5 days where she was treated for RAKAN and aspiration pneumonia. Also had elevated troponins that were attributed to demand ischemia. Medical consult for admission H&P. Mood disorder Plan as per psychiatry Recent hx of intubation in the ICU Denies difficulty swallowing, no sore throat or SOB Continue albuterol inhaler Peripheral neuropathy of right lower extremity Foot warm, pedal pulses 2+, well perfused No known hx of DM Unclear etiology Consider gabapentin if persistent Right foot wounds Unclear etiology Superficial, healing well No sign of infection No further intervention or workup needed at this time Hx of CVA Continue statin, aspirin Chronic pain disorder Continue fentanyl pathch, po morphine GERD PPI Plan 05/07 continue tx. Reason for continued inpatient stay Substantial Risk for: inability to function Time Spent With Patient Time: Total time managing care of this patient today ____ minutes.
--- NOTE | 2024-05-07 17:09 | HO.OSTOMY ---
Ostomy consult: Follow up 63yr old female admitted to the [facility] unit on 03/14/24 - see H&P for detailed history. Ostomy consult follow up for ileostomy. Followed up with the patient twice today second request was reported by the patient when she felt something was wrong with her pouch . Arrival to bedside patient was in bed and reported she had changed her pouch this morning with staff. Pouch assessed and the opening was noted to be cut too large and peristomal skin was exposed. She was agreeable to a pouch change. The patient was educated on the brava barrier strip paste being comparable to the barrier ring - she refused its use and was only willing to use the barrier ring. Her pouch was cut to just under 35mm and barrier ring was used - I cut the opening but other guardado the patient performed the pouch change. We discussed barrier wipe to the peristomal skin - she refused. We discussed not rinsing the pouch with water as this may be weakening the seal at the stoma she was agreeable to not rinsing the pouch out at each pouch change. After the pouch change was completed she requested I hand her a cup of cream - she reported this was topical steroid cream she has been using around the pouch to help heal her skin. I educated her that this cream is moist and likely leading to the pouch loosening and lifting and leaking - she disagreed and verbally reported she felt I was calling her dumb by suggesting the cream application near the pouch was causing unintended consequences. While at the bedside the communication with the patient feels like it goes in circles never truly completing. When she feels I am offering different advice than what she is doing she appears to shut down and direct the conversation towards her poor treatment. Patient continued to report complaints of care she is receiving - therapeutic listing and attempts at redirecting and offering different views were offered. She kindly shut down communication and asked that I leave. At the second assessment the patient reported concerns there was no output from the stoma. It had been approximately 2.5 hours since my first assessment where output was noted - we discussed the lack of concern and that she should have output within 24hours total. Direct care team nurse at bedside noted that provider should be notified if patient does not have out put for 24 hr period or if pain at stoma site or nausea and vomiting develops. Patient reports her diet intake to this life underwriter and reports she only has liquids - will place nutrition consult for assessment and educational needs regarding ileostomy dietary restrictions. I attempted to advise her she is able to eat solid foods and there are foods she might need to avoid - she was not willing to listen to this at that time. Confirmed supplies to be ordered by unit. Confirmed some supplies available on unit until ordered supplies arrive. Precut two pouches for staff and patient. Steps to pouch change: 1. Empty pouch before pouch change 2. Remove pouch using push/pull technique from top to bottom 3. Cleanse stoma and skin with tap water only - no soap or baby wipes 4. Pat dry 5. Measure stoma and cut new pouch no more than 1/8 inch larger than stoma and no smaller than stoma - cut pouch to just under 35mm. 6. Stretch barrier seal to back of pouch prior to application given her quick output from the stoma. 7. Press the new pouch into place and hold for several minutes (close pouch tail) 8. Complete the pouch change with application of the C shaped barrier strips to seal the outside edges of the pouch.
[2024-05-07] MEDS: diphenhydrAMINE HCL 25 MG CAPSULE 50 MG PO (20:46)
[2024-05-08] MEDS: hydrOXYzine HCL 25 MG TABLET PO ×3 (04:28→23:31)
[2024-05-08] MEDS: Morphine Sulfate Immed Release 15 MG TABLET 30 MG PO ×3 (04:28→20:37)
[2024-05-08] MEDS: Omeprazole 20 MG CAPSULE.DR PO (05:57)
[2024-05-08] MEDS: diphenhydrAMINE HCL 25 MG CAPSULE 50 MG PO ×2 (08:38→20:36)
[2024-05-08] MEDS: diazePAM 5 MG TABLET 10 MG PO ×2 (08:39→20:36)
[2024-05-08] MEDS: Hydrocortisone 1 % Cream 28.35 GM TUBE 1 APPL TOPICAL ×2 (09:57→23:28)
--- NOTE | 2024-05-08 11:39 | P.PNPSI_ITS ---
Subjective Subjective Date of Service: 05/08/24 Reason For Visit: Status post suicide attempt Subjective Notes: Conditional Voluntary Interim History: Pt slept most of the night. We received copy of temporary marco's including olanzapine and risperidone. Pt informed that if she declines oral olanzapine, IM olanzapine will be given. She has been visible on the unit, accusatory with staff and peers. Pt again informed of dx of dementia, which she reports is not possible. Diagnostics Vital Signs (24Hr): BMI result Body Mass Index 28.9 Labs 03/16/24 07:32 Medications Medications Current Medications Al Hydroxide/Mg Hydroxide (Magnesium Hydrox/Alum Hydrox 30 Ml Oral.Susp) 30 ml PO Q6H PRN PRN Reason: Heartburn/Nausea Albuterol Sulfate (Albuterol Sulfate 90 Mcg 8 Gm Inhaler) 2 puff INHALE Q4H PRN PRN Reason: Shortness Of Breath Or Wheezing Last Admin: 05/06/24 06:13 Dose: 2 puff Artificial Tears (Artificial Tears 15 Ml Drops) 1 drop EYE-BOTH DAILY PRN PRN Reason: Dry Eye(S) Diazepam (Diazepam 5 Mg Tablet) 10 mg PO BID [facility] Last Admin: 05/08/24 08:39 Dose: 10 mg Diphenhydramine HCl (Diphenhydramine Hcl 25 Mg Capsule) 25 mg PO Q6H PRN PRN Reason: Anxiety, Itching Last Admin: 05/05/24 17:08 Dose: 25 mg Diphenhydramine HCl (Diphenhydramine Hcl 25 Mg Capsule) 50 mg PO BID [facility] Last Admin: 05/08/24 08:38 Dose: 50 mg Donepezil HCl (Donepezil Hcl 5 Mg Tablet) 5 mg PO BEDTIME [facility] Last Admin: 05/07/24 20:45 Dose: Not Given Escitalopram Oxalate (Escitalopram Oxalate 5 Mg Tablet) 5 mg PO DAILY [facility] Last Admin: 05/08/24 08:38 Dose: Not Given Fentanyl (Fentanyl 50 Mcg Patch.Td72) 50 mcg TRANSDERMA Q72H [facility] Last Admin: 05/06/24 10:02 Dose: 50 mcg Hydrocortisone (Hydrocortisone 1 % Cream 28.35 Gm Tube) 1 appl TOPICAL BID [facility]; Protocol Last Admin: 05/08/24 09:57 Dose: 1 appl Hydroxyzine HCl (Hydroxyzine Hcl 25 Mg Tablet) 25 mg PO Q8H PRN PRN Reason: Anxiety Last Admin: 05/08/24 04:28 Dose: 25 mg Magnesium Hydroxide (Milk Of Magnesia 30 Ml Oral.Susp) 30 ml PO DAILY PRN PRN Reason: Constipation Morphine Sulfate (Morphine Sulfate Immed Release 15 Mg Tablet) 30 mg PO Q6H PRN PRN Reason: Pain, Severe (Pain Scale 7-10) Last Admin: 05/08/24 04:28 Dose: 30 mg Nicotine (Nicotine 21 Mg Patch.Td24) 21 mg TRANSDERMA DAILY PRN PRN Reason: smoking cessation Nicotine Polacrilex (Nicotine Polacrilex 2 Mg Gum) 4 mg BUCCAL Q2H PRN PRN Reason: Nicotine Cravings Olanzapine (Olanzapine 2.5 Mg Tablet) 2.5 mg PO TID PRN PRN Reason: agitation Olanzapine (Olanzapine 2.5 Mg Tablet) 2.5 mg PO BEDTIME [facility] Last Admin: 05/07/24 20:45 Dose: Not Given Omeprazole (Omeprazole 20 Mg Capsule.Dr) 20 mg PO 0630 [facility] Last Admin: 05/08/24 05:57 Dose: 20 mg Ondansetron HCl (Ondansetron Odt 4 Mg Tab.Rapdis) 4 mg TRANSLINGU Q12H PRN PRN Reason: Nausea and Vomiting Trazodone HCl (Trazodone Hcl 50 Mg Tablet) 50 mg PO BEDTIME MRX1 PRN PRN Reason: Insomnia Allergies Allergies Allergy/AdvReac Type Severity Reaction Status Date / Time Egg Derived Allergy Unknown Unknown Verified 03/16/24 15:22 acetaminophen [From Percocet] AdvReac Severe Hives Verified 03/14/24 23:07 alprazolam AdvReac Severe Hives Verified 03/14/24 23:09 atorvastatin AdvReac Severe Hives Verified 03/14/24 23:10 azithromycin AdvReac Severe Swelling Verified 03/14/24 23:11 cholestyramine AdvReac Severe Hives Verified 03/14/24 23:08 [From Questran] ciprofloxacin AdvReac Severe Hives Verified 03/14/24 23:11 codeine AdvReac Severe Hives Verified 03/14/24 23:12 colesevelam AdvReac Severe Hives Verified 03/14/24 23:12 egg AdvReac Severe Hives Verified 03/15/24 01:39 Estrogens AdvReac Severe Swelling Verified 03/14/24 23:13 gemfibrozil AdvReac Severe Hives Verified 03/14/24 23:14 hydrocortisone AdvReac Severe Blurry Verified 03/14/24 23:07 [From Cortenema] Vision hydromorphone [From Dilaudid] AdvReac Severe Swelling Verified 03/14/24 23:13 Iodinated Contrast Media AdvReac Severe Hives Verified 03/14/24 23:14 isoniazid AdvReac Severe Hives Verified 03/14/24 23:15 mercaptopurine AdvReac Severe Vomiting Verified 03/14/24 23:16 methylprednisolone AdvReac Severe Hives Verified 03/14/24 23:16 minocycline AdvReac Severe Hives Verified 03/14/24 23:24 naproxen AdvReac Severe Rash Verified 03/14/24 23:17 oxycodone [From Percocet] AdvReac Severe Hives Verified 03/14/24 23:07 propoxyphene AdvReac Severe Hives Verified 03/14/24 23:19 quetiapine AdvReac Severe Rash Verified 03/14/24 23:20 risperidone AdvReac Severe Hives Verified 03/14/24 23:20 seafood AdvReac Severe Swelling Verified 03/14/24 23:21 shellfish derived AdvReac Severe Swelling Verified 03/14/24 23:21 [id number]-PpH Reductase AdvReac Severe Swelling Verified 03/14/24 23:22 Inhibitor sucrose [From Questran] AdvReac Severe Hives Verified 03/14/24 23:08 Sulfa (Sulfonamide AdvReac Severe Hives Verified 03/14/24 23:24 Antibiotics) tramadol AdvReac Severe Rash Verified 03/14/24 23:22 wool AdvReac Severe Hives Verified 03/14/24 23:23 Assessment & Plan Assessment & Plan (1) Dementia: Status: Acute Code(s): F03.90 - Unspecified dementia, unspecified severity, without behavioral disturbance, psychotic disturbance, mood disturbance, and anxiety (2) Post traumatic stress disorder (PTSD): Status: Acute Code(s): F43.10 - Post-traumatic stress disorder, unspecified (3) Cognitive disorder: Status: Acute Code(s): F09 - Unspecified mental disorder due to known physiological condition (4) Generalized anxiety disorder: Status: Acute Code(s): F41.1 - Generalized anxiety disorder (5) Suicide attempt by fentanyl overdose: Status: Acute Code(s): T40.412A - Poisoning by fentanyl or fentanyl analogs, intentional self-harm, initial encounter (6) Psychosis: Status: Acute Code(s): F29 - Unspecified psychosis not due to a substance or known physiological condition Plan Pt is a 63-year-old female with a PMH significant for?CVA, chronic pain disorder, HLD, ulcerative colitis s/p colectomy with colostomy in place, chronic anemia, and GERD who is admitted to [facility] for increasing paranoia and depression with suicide attempt by overdosing on home meds. Pt was apparently found unconscious in her apartment surrounded by empty morphine bottles, an SI note, and an eviction notice. Pt was emergently intubated and admitted to ICU for 5 days where she was treated for RAKAN and aspiration pneumonia. Also had elevated troponins that were attributed to demand ischemia. Medical consult for admission H&P. Mood disorder Plan as per psychiatry Recent hx of intubation in the ICU Denies difficulty swallowing, no sore throat or SOB Continue albuterol inhaler Peripheral neuropathy of right lower extremity Foot warm, pedal pulses 2+, well perfused No known hx of DM Unclear etiology Consider gabapentin if persistent Right foot wounds Unclear etiology Superficial, healing well No sign of infection No further intervention or workup needed at this time Hx of CVA Continue statin, aspirin Chronic pain disorder Continue fentanyl pathch, po morphine GERD PPI Plan 05/07 continue tx. 05/08 olanzapine 5mg po qhs with back IM olanzapine per [facility]. Reason for continued inpatient stay Substantial Risk for: inability to function Time Spent With Patient Time: Total time managing care of this patient today ____ minutes.
--- NOTE | 2024-05-08 15:52 | MHC.CLN ---
NUTRITION CONSULT FOR CONCERNS THAT PATIENT TAKING LIQUID DIET. VISITED WITH PATIENT ON UNIT AND WITH STAFF. DIET=REGULAR WITH ENSURE TID. WEIGHT STABLE SINCE ADMISSION. ACCEPTS ENSURE SUPPLEMENT. DISCUSSED MODIFIED CONSISTENCY DIET. PATIENT TO CONTINUE ON REGULAR DIET AND SELECT FOODS SHE IS ABLE TO EAT. RD WILL CONTINUE TO MONITOR WEEKLY.
[2024-05-08] MEDS: OLANZapine 5 MG TABLET PO (20:38)
[2024-05-09] MEDS: Omeprazole 20 MG CAPSULE.DR PO (06:16)
[2024-05-09] MEDS: diphenhydrAMINE HCL 25 MG CAPSULE PO (06:22)
[2024-05-09] MEDS: Morphine Sulfate Immed Release 15 MG TABLET 30 MG PO ×2 (06:22→21:12)
[2024-05-09] MEDS: fentaNYL 50 MCG PATCH.TD72 TRANSDERMA (08:59)
[2024-05-09] MEDS: diazePAM 5 MG TABLET 10 MG PO ×2 (09:02→21:13)
[2024-05-09] MEDS: Hydrocortisone 1 % Cream 28.35 GM TUBE 1 APPL TOPICAL ×2 (09:03→21:11)
[2024-05-09 09:09] VITALS: BP 119/71; PULSE 92; RESP 20; TEMP 36.4; O2SAT 95
--- NOTE | 2024-05-09 10:28 | PC.NURSE ---
Fentanyl patch change today. Old patch removed and destroyed, witnessed by Helen Dhillon RN
[2024-05-09] MEDS: Artificial Tears 15 ML DROPS 1 DROP EYE-BOTH (11:11)
[2024-05-09 11:29] VITALS: BMI 29.4
--- NOTE | 2024-05-09 17:56 | HO.PSYCHPN ---
Subjective Subjective Date of Service: 05/09/24 Reason For Visit: Status post suicide attempt Subjective Notes: Conditional Voluntary Interim History: Pt slept most of the night. Pt has number of concerns about staff (which are not new and its been pattern throughout this admission), especially staff mistreating peers and herself. Pt with very poor boundaries with peers, interfering in their treatment, asking them not to follow recommendation of their treatment team. Needing re-direction to give privacy to peers when they meet with their providers or their assigned nurse or family visiting. She does not appear particularly psychotic or delusional but more with sense of needing to save others. When asked about it, she reports she is not helping other times report she did not intervene. She denies SI/HI. She is very future focused, awaiting placement with support of Kar, her court appointed guardian. She had first dose of olanzapine last night. She reports numbness around mouth and difficulty talking but non actually noted when she is talking. She also reports dry eyes, which is not new. Review of Systems Review of Systems L breast lump-identified to team 03/17/24 evening. Yes all other systems are reviewed and are negative and Unobtainable due to mental condition Diagnostics Vital Signs (24Hr): Vital Signs - 24 hr 05/09/24 09:09 Temperature 97.6 F Pulse Rate 92 Respiratory Rate 20 Blood Pressure 119/71 Pulse Oximetry 95 Oxygen Delivery Method Room Air BMI result Body Mass Index 29.4 Labs 03/16/24 07:32 Medications Medications Current Medications Al Hydroxide/Mg Hydroxide (Magnesium Hydrox/Alum Hydrox 30 Ml Oral.Susp) 30 ml PO Q6H PRN PRN Reason: Heartburn/Nausea Albuterol Sulfate (Albuterol Sulfate 90 Mcg 8 Gm Inhaler) 2 puff INHALE Q4H PRN PRN Reason: Shortness Of Breath Or Wheezing Last Admin: 05/06/24 06:13 Dose: 2 puff Artificial Tears (Artificial Tears 15 Ml Drops) 1 drop EYE-BOTH DAILY PRN PRN Reason: Dry Eye(S) Last Admin: 05/09/24 11:11 Dose: 1 drop Diazepam (Diazepam 5 Mg Tablet) 10 mg PO BID [facility] Last Admin: 05/09/24 09:02 Dose: 10 mg Diphenhydramine HCl (Diphenhydramine Hcl 25 Mg Capsule) 25 mg PO Q6H PRN PRN Reason: Anxiety, Itching Last Admin: 05/09/24 06:22 Dose: 25 mg Diphenhydramine HCl (Diphenhydramine Hcl 25 Mg Capsule) 50 mg PO BEDTIME [facility] Last Admin: 05/08/24 20:36 Dose: 50 mg Donepezil HCl (Donepezil Hcl 5 Mg Tablet) 5 mg PO BEDTIME [facility] Last Admin: 05/08/24 20:40 Dose: Not Given Escitalopram Oxalate (Escitalopram Oxalate 5 Mg Tablet) 5 mg PO DAILY [facility] Last Admin: 05/09/24 09:03 Dose: Not Given Fentanyl (Fentanyl 50 Mcg Patch.Td72) 50 mcg TRANSDERMA Q72H [facility] Last Admin: 05/09/24 08:59 Dose: 50 mcg Hydrocortisone (Hydrocortisone 1 % Cream 28.35 Gm Tube) 1 appl TOPICAL BID [facility]; Protocol Last Admin: 05/09/24 09:03 Dose: 1 appl Hydroxyzine HCl (Hydroxyzine Hcl 25 Mg Tablet) 25 mg PO Q8H PRN PRN Reason: Anxiety Last Admin: 05/08/24 23:31 Dose: 25 mg Magnesium Hydroxide (Milk Of Magnesia 30 Ml Oral.Susp) 30 ml PO DAILY PRN PRN Reason: Constipation Morphine Sulfate (Morphine Sulfate Immed Release 15 Mg Tablet) 30 mg PO Q6H PRN PRN Reason: Pain, Severe (Pain Scale 7-10) Last Admin: 05/09/24 06:22 Dose: 30 mg Nicotine (Nicotine 21 Mg Patch.Td24) 21 mg TRANSDERMA DAILY PRN PRN Reason: smoking cessation Nicotine Polacrilex (Nicotine Polacrilex 2 Mg Gum) 4 mg BUCCAL Q2H PRN PRN Reason: Nicotine Cravings Olanzapine (Olanzapine 2.5 Mg Tablet) 2.5 mg PO TID PRN PRN Reason: agitation Olanzapine (Olanzapine 5 Mg Tablet) 5 mg PO BEDTIME [facility] Last Admin: 05/08/24 20:38 Dose: 5 mg Olanzapine (Olanzapine 10 Mg Vial) 5 mg IM DAILY PRN PRN Reason: per marco if refuses oral Omeprazole (Omeprazole 20 Mg Capsule.Dr) 20 mg PO 0630 [facility] Last Admin: 05/09/24 06:16 Dose: 20 mg Ondansetron HCl (Ondansetron Odt 4 Mg Tab.Rapdis) 4 mg TRANSLINGU Q12H PRN PRN Reason: Nausea and Vomiting Trazodone HCl (Trazodone Hcl 50 Mg Tablet) 50 mg PO BEDTIME MRX1 PRN PRN Reason: Insomnia Allergies Allergies Allergy/AdvReac Type Severity Reaction Status Date / Time Egg Derived Allergy Unknown Unknown Verified 03/16/24 15:22 acetaminophen [From Percocet] AdvReac Severe Hives Verified 03/14/24 23:07 alprazolam AdvReac Severe Hives Verified 03/14/24 23:09 atorvastatin AdvReac Severe Hives Verified 03/14/24 23:10 azithromycin AdvReac Severe Swelling Verified 03/14/24 23:11 cholestyramine AdvReac Severe Hives Verified 03/14/24 23:08 [From Questran] ciprofloxacin AdvReac Severe Hives Verified 03/14/24 23:11 codeine AdvReac Severe Hives Verified 03/14/24 23:12 colesevelam AdvReac Severe Hives Verified 03/14/24 23:12 egg AdvReac Severe Hives Verified 03/15/24 01:39 Estrogens AdvReac Severe Swelling Verified 03/14/24 23:13 gemfibrozil AdvReac Severe Hives Verified 03/14/24 23:14 hydrocortisone AdvReac Severe Blurry Verified 03/14/24 23:07 [From Cortenema] Vision hydromorphone [From Dilaudid] AdvReac Severe Swelling Verified 03/14/24 23:13 Iodinated Contrast Media AdvReac Severe Hives Verified 03/14/24 23:14 isoniazid AdvReac Severe Hives Verified 03/14/24 23:15 mercaptopurine AdvReac Severe Vomiting Verified 03/14/24 23:16 methylprednisolone AdvReac Severe Hives Verified 03/14/24 23:16 minocycline AdvReac Severe Hives Verified 03/14/24 23:24 naproxen AdvReac Severe Rash Verified 03/14/24 23:17 oxycodone [From Percocet] AdvReac Severe Hives Verified 03/14/24 23:07 propoxyphene AdvReac Severe Hives Verified 03/14/24 23:19 quetiapine AdvReac Severe Rash Verified 03/14/24 23:20 risperidone AdvReac Severe Hives Verified 03/14/24 23:20 seafood AdvReac Severe Swelling Verified 03/14/24 23:21 shellfish derived AdvReac Severe Swelling Verified 03/14/24 23:21 [id number] Reductase AdvReac Severe Swelling Verified 03/14/24 23:22 Inhibitor sucrose [From Questran] AdvReac Severe Hives Verified 03/14/24 23:08 Sulfa (Sulfonamide AdvReac Severe Hives Verified 03/14/24 23:24 Antibiotics) tramadol AdvReac Severe Rash Verified 03/14/24 23:22 wool AdvReac Severe Hives Verified 03/14/24 23:23 Assessment & Plan Assessment & Plan (1) Major neurocognitive disorder due to vascular disease, with behavioral disturbance, moderate: Status: Acute Code(s): F01.B18 - Vascular dementia, moderate, with other behavioral disturbance Plan Pt is a 63-year-old female with a PMH significant for?CVA, chronic pain disorder, HLD, ulcerative colitis s/p colectomy with colostomy in place, chronic anemia, and GERD who is admitted to [facility] for increasing paranoia and depression with suicide attempt by overdosing on home meds. Pt was apparently found unconscious in her apartment surrounded by empty morphine bottles, an SI note, and an eviction notice. Pt was emergently intubated and admitted to ICU for 5 days where she was treated for RAKAN and aspiration pneumonia. Also had elevated troponins that were attributed to demand ischemia. Medical consult for admission H&P. Mood disorder Plan as per psychiatry Recent hx of intubation in the ICU Denies difficulty swallowing, no sore throat or SOB Continue albuterol inhaler Peripheral neuropathy of right lower extremity Foot warm, pedal pulses 2+, well perfused No known hx of DM Unclear etiology Consider gabapentin if persistent Right foot wounds Unclear etiology Superficial, healing well No sign of infection No further intervention or workup needed at this time Hx of CVA Continue statin, aspirin Chronic pain disorder Continue fentanyl pathch, po morphine GERD PPI Plan 05/07 continue tx. 05/08 olanzapine 5mg po qhs with back IM olanzapine per Marco[facility]. 05/09 continue tx. Reason for continued inpatient stay Substantial Risk for: inability to function Time Spent With Patient Time: Total time managing care of this patient today ____ minutes.
[2024-05-09 20:00] VITALS: BP 155/82; PULSE 89; RESP 18; TEMP 36.6; O2SAT 95
[2024-05-09] MEDS: Albuterol Sulfate 90 MCG 8 GM INHALER 2 PUFF INHALE (20:59)
[2024-05-09] MEDS: diphenhydrAMINE HCL 25 MG CAPSULE 50 MG PO (21:13)
[2024-05-09] MEDS: OLANZapine 5 MG TABLET PO (21:15)
[2024-05-10] MEDS: hydrOXYzine HCL 25 MG TABLET PO ×2 (01:50→11:40)
[2024-05-10] MEDS: Omeprazole 20 MG CAPSULE.DR PO (05:39)
[2024-05-10] MEDS: Morphine Sulfate Immed Release 15 MG TABLET 30 MG PO (06:44)
[2024-05-10 07:56] VITALS: BP 126/82; PULSE 93; RESP 18; TEMP 37.1; O2SAT 96
[2024-05-10] MEDS: diazePAM 5 MG TABLET 10 MG PO ×2 (08:55→20:28)
--- NOTE | 2024-05-10 18:31 | HO.PSYCHPN ---
Subjective Subjective Date of Service: 05/10/24 Reason For Visit: Status post suicide attempt Subjective Notes: Conditional Voluntary Interim History: Pt sleeping most of the night. She reports difficulty talking with olanzapine, but none observed during almost 30 minute interview with pt. Pt intrusive with other pts, but able to be redirected. Pt offered 3 day as she reported wanting to leave but declined as she states no current place to go. accusatory to staff mostly seems as a manner of control than overt psychosis although line is blurry. encouraged to continue working with tx team and plan as mandated by court. discussed with her guardian. Medication Compliance: Yes Side effects from medications: No Attending Groups: No Review of Systems Review of Systems L breast lump-identified to team 03/17/24 evening. Yes all other systems are reviewed and are negative and Unobtainable due to mental condition Mental Status Exam Mental Status Exam Patient Appearance: Appropriate Patient Orientation: Person and Situation Level of Consciousness: Awake and Appropriate Patient Behavior: Guarded and Passive Mood Description: Withdrawn Affect Description: Constricted Patient Cognition Impaired: Yes Ability to Follow Directions: Good Speech Pattern: Clear Memory Description: Intact Diagnostics Vital Signs (24Hr): Vital Signs - 24 hr 05/09/24 20:00 05/10/24 07:56 Temperature 97.8 F 98.8 F Pulse Rate 89 93 Respiratory Rate 18 18 Blood Pressure 155/82 H 126/82 Pulse Oximetry 95 96 Oxygen Delivery Method Room Air Room Air BMI result Body Mass Index 29.4 Labs 03/16/24 07:32 Medications Medications Current Medications Al Hydroxide/Mg Hydroxide (Magnesium Hydrox/Alum Hydrox 30 Ml Oral.Susp) 30 ml PO Q6H PRN PRN Reason: Heartburn/Nausea Albuterol Sulfate (Albuterol Sulfate 90 Mcg 8 Gm Inhaler) 2 puff INHALE Q4H PRN PRN Reason: Shortness Of Breath Or Wheezing Last Admin: 05/09/24 20:59 Dose: 2 puff Artificial Tears (Artificial Tears 15 Ml Drops) 1 drop EYE-BOTH DAILY PRN PRN Reason: Dry Eye(S) Last Admin: 05/09/24 11:11 Dose: 1 drop Diazepam (Diazepam 5 Mg Tablet) 10 mg PO BID [facility] Last Admin: 05/10/24 08:55 Dose: 10 mg Diphenhydramine HCl (Diphenhydramine Hcl 25 Mg Capsule) 25 mg PO Q6H PRN PRN Reason: Anxiety, Itching Last Admin: 05/09/24 06:22 Dose: 25 mg Diphenhydramine HCl (Diphenhydramine Hcl 25 Mg Capsule) 50 mg PO BEDTIME [facility] Last Admin: 05/09/24 21:13 Dose: 50 mg Donepezil HCl (Donepezil Hcl 5 Mg Tablet) 5 mg PO BEDTIME [facility] Last Admin: 05/09/24 21:15 Dose: Not Given Escitalopram Oxalate (Escitalopram Oxalate 5 Mg Tablet) 5 mg PO DAILY [facility] Last Admin: 05/10/24 08:57 Dose: Not Given Fentanyl (Fentanyl 50 Mcg Patch.Td72) 50 mcg TRANSDERMA Q72H [facility] Last Admin: 05/09/24 08:59 Dose: 50 mcg Hydrocortisone (Hydrocortisone 1 % Cream 28.35 Gm Tube) 1 appl TOPICAL BID [facility]; Protocol Last Admin: 05/10/24 09:09 Dose: Not Given Hydroxyzine HCl (Hydroxyzine Hcl 25 Mg Tablet) 25 mg PO Q8H PRN PRN Reason: Anxiety Last Admin: 05/10/24 11:40 Dose: 25 mg Magnesium Hydroxide (Milk Of Magnesia 30 Ml Oral.Susp) 30 ml PO DAILY PRN PRN Reason: Constipation Morphine Sulfate (Morphine Sulfate Immed Release 15 Mg Tablet) 30 mg PO Q6H PRN PRN Reason: Pain, Severe (Pain Scale 7-10) Last Admin: 05/10/24 06:44 Dose: 30 mg Nicotine (Nicotine 21 Mg Patch.Td24) 21 mg TRANSDERMA DAILY PRN PRN Reason: smoking cessation Nicotine Polacrilex (Nicotine Polacrilex 2 Mg Gum) 4 mg BUCCAL Q2H PRN PRN Reason: Nicotine Cravings Olanzapine (Olanzapine 2.5 Mg Tablet) 2.5 mg PO TID PRN PRN Reason: agitation Olanzapine (Olanzapine 5 Mg Tablet) 5 mg PO BEDTIME [facility] Last Admin: 05/09/24 21:15 Dose: 5 mg Olanzapine (Olanzapine 10 Mg Vial) 5 mg IM DAILY PRN PRN Reason: per marco if refuses oral Omeprazole (Omeprazole 20 Mg Capsule.Dr) 20 mg PO 0630 [facility] Last Admin: 05/10/24 05:39 Dose: 20 mg Ondansetron HCl (Ondansetron Odt 4 Mg Tab.Rapdis) 4 mg TRANSLINGU Q12H PRN PRN Reason: Nausea and Vomiting Trazodone HCl (Trazodone Hcl 50 Mg Tablet) 50 mg PO BEDTIME MRX1 PRN PRN Reason: Insomnia Allergies Allergies Allergy/AdvReac Type Severity Reaction Status Date / Time Egg Derived Allergy Unknown Unknown Verified 03/16/24 15:22 acetaminophen [From Percocet] AdvReac Severe Hives Verified 03/14/24 23:07 alprazolam AdvReac Severe Hives Verified 03/14/24 23:09 atorvastatin AdvReac Severe Hives Verified 03/14/24 23:10 azithromycin AdvReac Severe Swelling Verified 03/14/24 23:11 cholestyramine AdvReac Severe Hives Verified 03/14/24 23:08 [From Questran] ciprofloxacin AdvReac Severe Hives Verified 03/14/24 23:11 codeine AdvReac Severe Hives Verified 03/14/24 23:12 colesevelam AdvReac Severe Hives Verified 03/14/24 23:12 egg AdvReac Severe Hives Verified 03/15/24 01:39 Estrogens AdvReac Severe Swelling Verified 03/14/24 23:13 gemfibrozil AdvReac Severe Hives Verified 03/14/24 23:14 hydrocortisone AdvReac Severe Blurry Verified 03/14/24 23:07 [From Cortenema] Vision hydromorphone [From Dilaudid] AdvReac Severe Swelling Verified 03/14/24 23:13 Iodinated Contrast Media AdvReac Severe Hives Verified 03/14/24 23:14 isoniazid AdvReac Severe Hives Verified 03/14/24 23:15 mercaptopurine AdvReac Severe Vomiting Verified 03/14/24 23:16 methylprednisolone AdvReac Severe Hives Verified 03/14/24 23:16 minocycline AdvReac Severe Hives Verified 03/14/24 23:24 naproxen AdvReac Severe Rash Verified 03/14/24 23:17 oxycodone [From Percocet] AdvReac Severe Hives Verified 03/14/24 23:07 propoxyphene AdvReac Severe Hives Verified 03/14/24 23:19 quetiapine AdvReac Severe Rash Verified 03/14/24 23:20 risperidone AdvReac Severe Hives Verified 03/14/24 23:20 seafood AdvReac Severe Swelling Verified 03/14/24 23:21 shellfish derived AdvReac Severe Swelling Verified 03/14/24 23:21 [id number] Reductase AdvReac Severe Swelling Verified 03/14/24 23:22 Inhibitor sucrose [From Questran] AdvReac Severe Hives Verified 03/14/24 23:08 Sulfa (Sulfonamide AdvReac Severe Hives Verified 03/14/24 23:24 Antibiotics) tramadol AdvReac Severe Rash Verified 03/14/24 23:22 wool AdvReac Severe Hives Verified 03/14/24 23:23 Assessment & Plan Assessment & Plan (1) Major neurocognitive disorder due to vascular disease, with behavioral disturbance, moderate: Status: Acute Code(s): F01.B18 - Vascular dementia, moderate, with other behavioral disturbance Plan Pt is a 63-year-old female with a PMH significant for?CVA, chronic pain disorder, HLD, ulcerative colitis s/p colectomy with colostomy in place, chronic anemia, and GERD who is admitted to [facility] for increasing paranoia and depression with suicide attempt by overdosing on home meds. Pt was apparently found unconscious in her apartment surrounded by empty morphine bottles, an SI note, and an eviction notice. Pt was emergently intubated and admitted to ICU for 5 days where she was treated for RAKAN and aspiration pneumonia. Also had elevated troponins that were attributed to demand ischemia. Medical consult for admission H&P. Mood disorder Plan as per psychiatry Recent hx of intubation in the ICU Denies difficulty swallowing, no sore throat or SOB Continue albuterol inhaler Peripheral neuropathy of right lower extremity Foot warm, pedal pulses 2+, well perfused No known hx of DM Unclear etiology Consider gabapentin if persistent Right foot wounds Unclear etiology Superficial, healing well No sign of infection No further intervention or workup needed at this time Hx of CVA Continue statin, aspirin Chronic pain disorder Continue fentanyl pathch, po morphine GERD PPI Plan 05/07 continue tx. 05/08 olanzapine 5mg po qhs with back IM olanzapine per Marco[facility]. 05/09 continue tx. 05/10 continue tx. Reason for continued inpatient stay Substantial Risk for: inability to function Time Spent With Patient Time: Total time managing care of this patient today ____ minutes.
[2024-05-10 20:00] VITALS: BP 122/68; PULSE 82; RESP 16; TEMP 36.2; O2SAT 96
[2024-05-10] MEDS: diphenhydrAMINE HCL 25 MG CAPSULE 50 MG PO (20:28)
--- NOTE | 2024-05-10 20:43 | PM.EVENT ---
Event Note Date of Service: 05/10/24 Event Note: Was called at bedside due to concern for lower lip swelling. Patient is adamant that the increase in Zyprexa dose from 2.5 mg to 5 mg caused the swelling. ?Minimal lower lip swelling noted. No tongue swelling. No evidence of airway compromise. No facial droop. Hemodynamically stable. No urticaria. No concern for anaphylaxis. Patient is not on an AJAY-inhibitor. No evidence of underlying infection. Will treat with antihistamines and steroids. Time Spent With Patient Time: Total time managing care of this patient today ____ minutes.
[2024-05-10 21:00] VITALS: BP 128/73; PULSE 90; RESP 16; O2SAT 97
[2024-05-10] MEDS: predniSONE 20 MG TABLET 40 MG PO (21:53)
--- NOTE | 2024-05-10 22:33 | PC.NURSE ---
summoned to common area for pt c/of lip swelling and difficulty articulating speech. pt found eating sherbert ice cream in a seated position. she is intermittently wearing a surgical mask. her bottom lip has mild to moderate swelling. pt states that she has been drooling. no excess secretions noted. tongue is midline. at times speech is mildly slurred. facial expressions are symmetrical. hand grasps equal and firm. pt is able to stand and demonstrate a stable gait. airway is grossly patent. resp effort is regular unlabored.-plan 1. phosphatic fertilizer supervisor marnie yuan notified of situation and responded to evaluate 2. dr mathew notified to situation and responded to evaluate. 3. prednisone 40 mg po stat 4. scheduled benedryl 50 mg po given 5. spoke with provider marlen flood above documentation reviewed. 6. possibility of an allergic reaction to zyprexa discussed with provider marlen flood 7. will hold zyprexa tonight.
[2024-05-11] MEDS: hydrOXYzine HCL 25 MG TABLET PO ×2 (00:26→10:37)
[2024-05-11] MEDS: Morphine Sulfate Immed Release 15 MG TABLET 30 MG PO ×3 (00:27→16:40)
[2024-05-11] MEDS: diphenhydrAMINE HCL 25 MG CAPSULE PO ×2 (03:39→16:40)
[2024-05-11] MEDS: Albuterol Sulfate 90 MCG 8 GM INHALER 2 PUFF INHALE (03:39)
[2024-05-11] MEDS: Omeprazole 20 MG CAPSULE.DR PO (06:02)
[2024-05-11 08:00] VITALS: BP 140/89; PULSE 89; RESP 20; TEMP 35.9; O2SAT 95
[2024-05-11] MEDS: diazePAM 5 MG TABLET 10 MG PO ×2 (09:56→20:24)
[2024-05-11 20:00] VITALS: BP 130/83; PULSE 88; RESP 16; TEMP 36.4; O2SAT 97
--- NOTE | 2024-05-11 20:08 | P.PNPSI_ITS ---
Subjective Subjective Date of Service: 05/11/24 Reason For Visit: Status post suicide attempt Subjective Notes: Conditional Voluntary Interim History: Pt reported difficulty talking with olanzapine, RN did not dispense medication due to concern of anaphylasis which hospitalist after assessing pt did not think was the case. met with pt and her guardian to go over treatment plan. discuss at length goal of medication, interventions, boundaries in the unit. Pt presents as future oriented, no SI/HI. agreement to take risperidone instead, with back up IM of olanzapine. we discussed sedation during the day- will try to decrease other sedating medications. Review of Systems Review of Systems L breast lump-identified to team 03/17/24 evening. Yes all other systems are reviewed and are negative and Unobtainable due to mental condition Mental Status Exam Mental Status Exam Patient Appearance: Appropriate Patient Orientation: Person and Situation Level of Consciousness: Awake and Appropriate Patient Behavior: Guarded and Passive Mood Description: Withdrawn Affect Description: Constricted Patient Cognition Impaired: Yes Ability to Follow Directions: Good Speech Pattern: Clear Memory Description: Intact Diagnostics Vital Signs (24Hr): Vital Signs - 24 hr 05/10/24 21:00 05/11/24 08:00 Temperature 96.7 F L Pulse Rate 90 89 Respiratory Rate 16 20 Blood Pressure 128/73 140/89 H Pulse Oximetry 97 95 Oxygen Delivery Method Room Air Room Air BMI result Body Mass Index 29.4 Labs 03/16/24 07:32 Medications Medications Current Medications Al Hydroxide/Mg Hydroxide (Magnesium Hydrox/Alum Hydrox 30 Ml Oral.Susp) 30 ml PO Q6H PRN PRN Reason: Heartburn/Nausea Albuterol Sulfate (Albuterol Sulfate 90 Mcg 8 Gm Inhaler) 2 puff INHALE Q4H PRN PRN Reason: Shortness Of Breath Or Wheezing Last Admin: 05/11/24 03:39 Dose: 2 puff Artificial Tears (Artificial Tears 15 Ml Drops) 1 drop EYE-BOTH DAILY PRN PRN Reason: Dry Eye(S) Last Admin: 05/09/24 11:11 Dose: 1 drop Diazepam (Diazepam 5 Mg Tablet) 10 mg PO BID [facility] Last Admin: 05/11/24 09:56 Dose: 10 mg Diphenhydramine HCl (Diphenhydramine Hcl 25 Mg Capsule) 50 mg PO BEDTIME [facility] Last Admin: 05/10/24 20:28 Dose: 50 mg Donepezil HCl (Donepezil Hcl 5 Mg Tablet) 5 mg PO BEDTIME [facility] Last Admin: 05/10/24 22:05 Dose: Not Given Escitalopram Oxalate (Escitalopram Oxalate 5 Mg Tablet) 5 mg PO DAILY [facility] Last Admin: 05/11/24 09:56 Dose: Not Given Fentanyl (Fentanyl 50 Mcg Patch.Td72) 50 mcg TRANSDERMA Q72H [facility] Last Admin: 05/09/24 08:59 Dose: 50 mcg Hydrocortisone (Hydrocortisone 1 % Cream 28.35 Gm Tube) 1 appl TOPICAL BID [facility]; Protocol Last Admin: 05/11/24 09:59 Dose: Not Given Hydroxyzine HCl (Hydroxyzine Hcl 25 Mg Tablet) 25 mg PO Q8H PRN PRN Reason: Anxiety Last Admin: 05/11/24 10:37 Dose: 25 mg Magnesium Hydroxide (Milk Of Magnesia 30 Ml Oral.Susp) 30 ml PO DAILY PRN PRN Reason: Constipation Morphine Sulfate (Morphine Sulfate Immed Release 15 Mg Tablet) 30 mg PO Q8H PRN PRN Reason: Pain, Severe (Pain Scale 7-10) Nicotine (Nicotine 21 Mg Patch.Td24) 21 mg TRANSDERMA DAILY PRN PRN Reason: smoking cessation Nicotine Polacrilex (Nicotine Polacrilex 2 Mg Gum) 4 mg BUCCAL Q2H PRN PRN Reason: Nicotine Cravings Olanzapine (Olanzapine 10 Mg Vial) 5 mg IM DAILY PRN PRN Reason: per marco if refuses oral Omeprazole (Omeprazole 20 Mg Capsule.Dr) 20 mg PO 0630 [facility] Last Admin: 05/11/24 06:02 Dose: 20 mg Ondansetron HCl (Ondansetron Odt 4 Mg Tab.Rapdis) 4 mg TRANSLINGU Q12H PRN PRN Reason: Nausea and Vomiting Risperidone (Risperidone 1 Mg Tablet) 1 mg PO DAILY [facility] Trazodone HCl (Trazodone Hcl 50 Mg Tablet) 50 mg PO BEDTIME MRX1 PRN PRN Reason: Insomnia Allergies Allergies Allergy/AdvReac Type Severity Reaction Status Date / Time Egg Derived Allergy Unknown Unknown Verified 03/16/24 15:22 acetaminophen [From Percocet] AdvReac Severe Hives Verified 03/14/24 23:07 alprazolam AdvReac Severe Hives Verified 03/14/24 23:09 atorvastatin AdvReac Severe Hives Verified 03/14/24 23:10 azithromycin AdvReac Severe Swelling Verified 03/14/24 23:11 cholestyramine AdvReac Severe Hives Verified 03/14/24 23:08 [From Questran] ciprofloxacin AdvReac Severe Hives Verified 03/14/24 23:11 codeine AdvReac Severe Hives Verified 03/14/24 23:12 colesevelam AdvReac Severe Hives Verified 03/14/24 23:12 egg AdvReac Severe Hives Verified 03/15/24 01:39 Estrogens AdvReac Severe Swelling Verified 03/14/24 23:13 gemfibrozil AdvReac Severe Hives Verified 03/14/24 23:14 hydrocortisone AdvReac Severe Blurry Verified 03/14/24 23:07 [From Cortenema] Vision hydromorphone [From Dilaudid] AdvReac Severe Swelling Verified 03/14/24 23:13 Iodinated Contrast Media AdvReac Severe Hives Verified 03/14/24 23:14 isoniazid AdvReac Severe Hives Verified 03/14/24 23:15 mercaptopurine AdvReac Severe Vomiting Verified 03/14/24 23:16 methylprednisolone AdvReac Severe Hives Verified 03/14/24 23:16 minocycline AdvReac Severe Hives Verified 03/14/24 23:24 naproxen AdvReac Severe Rash Verified 03/14/24 23:17 oxycodone [From Percocet] AdvReac Severe Hives Verified 03/14/24 23:07 propoxyphene AdvReac Severe Hives Verified 03/14/24 23:19 quetiapine AdvReac Severe Rash Verified 03/14/24 23:20 risperidone AdvReac Severe Hives Verified 03/14/24 23:20 seafood AdvReac Severe Swelling Verified 03/14/24 23:21 shellfish derived AdvReac Severe Swelling Verified 03/14/24 23:21 Mdvvogj-LAC-HyT Reductase AdvReac Severe Swelling Verified 03/14/24 23:22 Inhibitor sucrose [From Questran] AdvReac Severe Hives Verified 03/14/24 23:08 Sulfa (Sulfonamide AdvReac Severe Hives Verified 03/14/24 23:24 Antibiotics) tramadol AdvReac Severe Rash Verified 03/14/24 23:22 wool AdvReac Severe Hives Verified 03/14/24 23:23 Assessment & Plan Assessment & Plan (1) Major neurocognitive disorder due to vascular disease, with behavioral disturbance, moderate: Status: Acute Code(s): F01.B18 - Vascular dementia, moderate, with other behavioral disturbance (2) Personality disorder: Status: Acute Code(s): F60.9 - Personality disorder, unspecified Plan Pt is a 63-year-old female with a PMH significant for?CVA, chronic pain disorder, HLD, ulcerative colitis s/p colectomy with colostomy in place, chronic anemia, and GERD who is admitted to [facility] for increasing paranoia and depression with suicide attempt by overdosing on home meds. Pt was apparently found unconscious in her apartment surrounded by empty morphine bottles, an SI note, and an eviction notice. Pt was emergently intubated and admitted to ICU for 5 days where she was treated for RAKAN and aspiration pneumonia. Also had elevated troponins that were attributed to demand ischemia. Medical consult for admission H&P. Mood disorder Plan as per psychiatry Recent hx of intubation in the ICU Denies difficulty swallowing, no sore throat or SOB Continue albuterol inhaler Peripheral neuropathy of right lower extremity Foot warm, pedal pulses 2+, well perfused No known hx of DM Unclear etiology Consider gabapentin if persistent Right foot wounds Unclear etiology Superficial, healing well No sign of infection No further intervention or workup needed at this time Hx of CVA Continue statin, aspirin Chronic pain disorder Continue fentanyl pathch, po morphine GERD PPI Plan 05/07 continue tx. 05/08 olanzapine 5mg po qhs with back IM olanzapine per [facility]. 05/09 continue tx. 05/10 continue tx. 05/11 continue tx. Reason for continued inpatient stay Substantial Risk for: inability to function Time Spent With Patient Time: Total time managing care of this patient today ____ minutes.
[2024-05-11] MEDS: diphenhydrAMINE HCL 25 MG CAPSULE 50 MG PO (20:24)
[2024-05-11] MEDS: Hydrocortisone 1 % Cream 28.35 GM TUBE 1 APPL TOPICAL (20:25)
[2024-05-12] MEDS: hydrOXYzine HCL 25 MG TABLET PO (04:06)
[2024-05-12] MEDS: Morphine Sulfate Immed Release 15 MG TABLET 30 MG PO ×2 (04:06→20:24)
[2024-05-12] MEDS: Omeprazole 20 MG CAPSULE.DR PO (06:20)
[2024-05-12 07:55] VITALS: BP 139/72; PULSE 88; RESP 20; TEMP 36.6; O2SAT 95
[2024-05-12] MEDS: fentaNYL 50 MCG PATCH.TD72 TRANSDERMA (08:02)
[2024-05-12] MEDS: risperiDONE 1 MG TABLET PO (08:02)
[2024-05-12] MEDS: diazePAM 5 MG TABLET 10 MG PO ×2 (08:02→20:23)
--- NOTE | 2024-05-12 08:05 | PC.NURSE ---
Old fentanyl patch removed and destreo
--- NOTE | 2024-05-12 08:06 | PC.NURSE ---
Old fentanyl patch removed and destroyed. Witnessed by Helen Dhillon RN
--- NOTE | 2024-05-12 15:59 | P.PNPSI_ITS ---
Subjective Subjective Date of Service: 05/12/24 Reason For Visit: Status post suicide attempt Subjective Notes: Conditional Voluntary Interim History: Pt did not sleep much last night. She was in bed most of the morning, up only close to lunch. She is focused on finding placement so she can be discharged soon. Review of Systems Review of Systems L breast lump-identified to team 03/17/24 evening. Yes all other systems are reviewed and are negative and Unobtainable due to mental condition Mental Status Exam Mental Status Exam Patient Appearance: Appropriate Patient Orientation: Person and Situation Level of Consciousness: Awake and Appropriate Patient Behavior: Guarded and Passive Mood Description: Withdrawn Affect Description: Constricted Patient Cognition Impaired: Yes Ability to Follow Directions: Good Speech Pattern: Clear Memory Description: Intact Diagnostics Vital Signs (24Hr): Vital Signs - 24 hr 05/11/24 20:00 05/12/24 07:55 Temperature 97.6 F 97.8 F Pulse Rate 88 88 Respiratory Rate 16 20 Blood Pressure 130/83 139/72 Pulse Oximetry 97 95 Oxygen Delivery Method Room Air Room Air BMI result Body Mass Index 29.4 Labs 03/16/24 07:32 Medications Medications Current Medications Al Hydroxide/Mg Hydroxide (Magnesium Hydrox/Alum Hydrox 30 Ml Oral.Susp) 30 ml PO Q6H PRN PRN Reason: Heartburn/Nausea Albuterol Sulfate (Albuterol Sulfate 90 Mcg 8 Gm Inhaler) 2 puff INHALE Q4H PRN PRN Reason: Shortness Of Breath Or Wheezing Last Admin: 05/11/24 03:39 Dose: 2 puff Artificial Tears (Artificial Tears 15 Ml Drops) 1 drop EYE-BOTH DAILY PRN PRN Reason: Dry Eye(S) Last Admin: 05/09/24 11:11 Dose: 1 drop Diazepam (Diazepam 5 Mg Tablet) 10 mg PO BID [facility] Last Admin: 05/12/24 08:02 Dose: 10 mg Diphenhydramine HCl (Diphenhydramine Hcl 25 Mg Capsule) 50 mg PO BEDTIME [facility] Last Admin: 05/11/24 20:24 Dose: 50 mg Donepezil HCl (Donepezil Hcl 5 Mg Tablet) 5 mg PO BEDTIME [facility] Last Admin: 05/11/24 20:26 Dose: Not Given Escitalopram Oxalate (Escitalopram Oxalate 5 Mg Tablet) 5 mg PO DAILY [facility] Last Admin: 05/12/24 09:43 Dose: Not Given Fentanyl (Fentanyl 50 Mcg Patch.Td72) 50 mcg TRANSDERMA Q72H [facility] Last Admin: 05/12/24 08:02 Dose: 50 mcg Hydrocortisone (Hydrocortisone 1 % Cream 28.35 Gm Tube) 1 appl TOPICAL BID [facility]; Protocol Last Admin: 05/12/24 09:48 Dose: Not Given Hydroxyzine HCl (Hydroxyzine Hcl 25 Mg Tablet) 25 mg PO Q8H PRN PRN Reason: Anxiety Last Admin: 05/12/24 04:06 Dose: 25 mg Magnesium Hydroxide (Milk Of Magnesia 30 Ml Oral.Susp) 30 ml PO DAILY PRN PRN Reason: Constipation Morphine Sulfate (Morphine Sulfate Immed Release 15 Mg Tablet) 30 mg PO Q8H PRN PRN Reason: Pain, Severe (Pain Scale 7-10) Last Admin: 05/12/24 04:06 Dose: 30 mg Nicotine (Nicotine 21 Mg Patch.Td24) 21 mg TRANSDERMA DAILY PRN PRN Reason: smoking cessation Nicotine Polacrilex (Nicotine Polacrilex 2 Mg Gum) 4 mg BUCCAL Q2H PRN PRN Reason: Nicotine Cravings Olanzapine (Olanzapine 10 Mg Vial) 5 mg IM DAILY PRN PRN Reason: per marco if refuses oral Omeprazole (Omeprazole 20 Mg Capsule.Dr) 20 mg PO 0630 [facility] Last Admin: 05/12/24 06:20 Dose: 20 mg Ondansetron HCl (Ondansetron Odt 4 Mg Tab.Rapdis) 4 mg TRANSLINGU Q12H PRN PRN Reason: Nausea and Vomiting Risperidone (Risperidone 1 Mg Tablet) 1 mg PO DAILY [facility] Last Admin: 05/12/24 08:02 Dose: 1 mg Trazodone HCl (Trazodone Hcl 50 Mg Tablet) 50 mg PO BEDTIME MRX1 PRN PRN Reason: Insomnia Allergies Allergies Allergy/AdvReac Type Severity Reaction Status Date / Time Egg Derived Allergy Unknown Unknown Verified 03/16/24 15:22 acetaminophen [From Percocet] AdvReac Severe Hives Verified 03/14/24 23:07 alprazolam AdvReac Severe Hives Verified 03/14/24 23:09 atorvastatin AdvReac Severe Hives Verified 03/14/24 23:10 azithromycin AdvReac Severe Swelling Verified 03/14/24 23:11 cholestyramine AdvReac Severe Hives Verified 03/14/24 23:08 [From Questran] ciprofloxacin AdvReac Severe Hives Verified 03/14/24 23:11 codeine AdvReac Severe Hives Verified 03/14/24 23:12 colesevelam AdvReac Severe Hives Verified 03/14/24 23:12 egg AdvReac Severe Hives Verified 03/15/24 01:39 Estrogens AdvReac Severe Swelling Verified 03/14/24 23:13 gemfibrozil AdvReac Severe Hives Verified 03/14/24 23:14 hydrocortisone AdvReac Severe Blurry Verified 03/14/24 23:07 [From Cortenema] Vision hydromorphone [From Dilaudid] AdvReac Severe Swelling Verified 03/14/24 23:13 Iodinated Contrast Media AdvReac Severe Hives Verified 03/14/24 23:14 isoniazid AdvReac Severe Hives Verified 03/14/24 23:15 mercaptopurine AdvReac Severe Vomiting Verified 03/14/24 23:16 methylprednisolone AdvReac Severe Hives Verified 03/14/24 23:16 minocycline AdvReac Severe Hives Verified 03/14/24 23:24 naproxen AdvReac Severe Rash Verified 03/14/24 23:17 oxycodone [From Percocet] AdvReac Severe Hives Verified 03/14/24 23:07 propoxyphene AdvReac Severe Hives Verified 03/14/24 23:19 quetiapine AdvReac Severe Rash Verified 03/14/24 23:20 risperidone AdvReac Severe Hives Verified 03/14/24 23:20 seafood AdvReac Severe Swelling Verified 03/14/24 23:21 shellfish derived AdvReac Severe Swelling Verified 03/14/24 23:21 [id number] Reductase AdvReac Severe Swelling Verified 03/14/24 23:22 Inhibitor sucrose [From Questran] AdvReac Severe Hives Verified 03/14/24 23:08 Sulfa (Sulfonamide AdvReac Severe Hives Verified 03/14/24 23:24 Antibiotics) tramadol AdvReac Severe Rash Verified 03/14/24 23:22 wool AdvReac Severe Hives Verified 03/14/24 23:23 Assessment & Plan Assessment & Plan (1) Major neurocognitive disorder due to vascular disease, with behavioral disturbance, moderate: Status: Acute Code(s): F01.B18 - Vascular dementia, moderate, with other behavioral disturbance Plan Pt is a 63-year-old female with a PMH significant for?CVA, chronic pain disorder, HLD, ulcerative colitis s/p colectomy with colostomy in place, chronic anemia, and GERD who is admitted to [facility] for increasing paranoia and depression with suicide attempt by overdosing on home meds. Pt was apparently found unconscious in her apartment surrounded by empty morphine bottles, an SI note, and an eviction notice. Pt was emergently intubated and admitted to ICU for 5 days where she was treated for RAKAN and aspiration pneumonia. Also had elevated troponins that were attributed to demand ischemia. Medical consult for admission H&P. Mood disorder Plan as per psychiatry Recent hx of intubation in the ICU Denies difficulty swallowing, no sore throat or SOB Continue albuterol inhaler Peripheral neuropathy of right lower extremity Foot warm, pedal pulses 2+, well perfused No known hx of DM Unclear etiology Consider gabapentin if persistent Right foot wounds Unclear etiology Superficial, healing well No sign of infection No further intervention or workup needed at this time Hx of CVA Continue statin, aspirin Chronic pain disorder Continue fentanyl pathch, po morphine GERD PPI Plan 05/07 continue tx. 05/08 olanzapine 5mg po qhs with back IM olanzapine per [facility]. 05/09 continue tx. 05/10 change olanzapine to risperidone 1mg po daily, back up olanzapine. Reason for continued inpatient stay Substantial Risk for: inability to function Time Spent With Patient Time: Total time managing care of this patient today ____ minutes.
[2024-05-12 20:00] VITALS: BP 130/59; PULSE 81; RESP 16; TEMP 36.9; O2SAT 95
[2024-05-12] MEDS: diphenhydrAMINE HCL 25 MG CAPSULE 50 MG PO (20:23)
[2024-05-13] MEDS: hydrOXYzine HCL 25 MG TABLET PO ×2 (05:09→13:10)
[2024-05-13] MEDS: Omeprazole 20 MG CAPSULE.DR PO (05:09)
[2024-05-13] MEDS: Morphine Sulfate Immed Release 15 MG TABLET 30 MG PO ×3 (05:10→21:17)
[2024-05-13] MEDS: diazePAM 5 MG TABLET 10 MG PO ×2 (07:44→21:18)
[2024-05-13] MEDS: risperiDONE 1 MG TABLET PO ×2 (07:44→07:45)
[2024-05-13 07:46] VITALS: BP 134/75; PULSE 109; RESP 20; TEMP 37; O2SAT 93
[2024-05-13] MEDS: Hydrocortisone 1 % Cream 28.35 GM TUBE 1 APPL TOPICAL ×2 (10:27→21:17)
--- NOTE | 2024-05-13 10:58 | PC.NURSE ---
Pt. removed old fentanyl patch due to it having been reapplied after coming loose. Provider informed. Old patch destroyed with Kristal Branch RN.
[2024-05-13] MEDS: fentaNYL 50 MCG PATCH.TD72 TRANSDERMA (11:22)
[2024-05-13 20:00] VITALS: BP 96/57; PULSE 73; RESP 16; TEMP 36.6; O2SAT 94
--- NOTE | 2024-05-13 20:23 | P.PNPSI_ITS ---
Subjective Subjective Date of Service: 05/13/24 Reason For Visit: Status post suicide attempt Subjective Notes: Conditional Voluntary Interim History: Pt did not sleep much last night. she removed fentanyl patch, requesting a new one. during meeting she denies any concerns other than housing, but was up after lunch telling other pts they should not trust anyone here, advising them not to take medications or follow recommended treatment. some degree of paranoia is noted, which is reason for risperidone. no behavioral concerns. Review of Systems Review of Systems L breast lump-identified to team 03/17/24 evening. Yes all other systems are reviewed and are negative and Unobtainable due to mental condition Mental Status Exam Mental Status Exam Patient Appearance: Appropriate Patient Orientation: Person and Situation Level of Consciousness: Awake and Appropriate Patient Behavior: Guarded and Passive Mood Description: Withdrawn Affect Description: Constricted Patient Cognition Impaired: Yes Ability to Follow Directions: Good Speech Pattern: Clear Memory Description: Intact Diagnostics Vital Signs (24Hr): Vital Signs - 24 hr 05/13/24 07:46 Temperature 98.6 F Pulse Rate 109 H Respiratory Rate 20 Blood Pressure 134/75 Pulse Oximetry 93 BMI result Body Mass Index 29.4 Labs 03/16/24 07:32 Medications Medications Current Medications Al Hydroxide/Mg Hydroxide (Magnesium Hydrox/Alum Hydrox 30 Ml Oral.Susp) 30 ml PO Q6H PRN PRN Reason: Heartburn/Nausea Albuterol Sulfate (Albuterol Sulfate 90 Mcg 8 Gm Inhaler) 2 puff INHALE Q4H PRN PRN Reason: Shortness Of Breath Or Wheezing Last Admin: 05/11/24 03:39 Dose: 2 puff Artificial Tears (Artificial Tears 15 Ml Drops) 1 drop EYE-BOTH DAILY PRN PRN Reason: Dry Eye(S) Last Admin: 05/09/24 11:11 Dose: 1 drop Diazepam (Diazepam 5 Mg Tablet) 10 mg PO BID [facility] Last Admin: 05/13/24 07:44 Dose: 10 mg Diphenhydramine HCl (Diphenhydramine Hcl 25 Mg Capsule) 50 mg PO BEDTIME [facility] Last Admin: 05/12/24 20:23 Dose: 50 mg Donepezil HCl (Donepezil Hcl 5 Mg Tablet) 5 mg PO BEDTIME [facility] Last Admin: 05/12/24 20:25 Dose: Not Given Fentanyl (Fentanyl 50 Mcg Patch.Td72) 50 mcg TRANSDERMA Q72H [facility] Last Admin: 05/13/24 11:22 Dose: 50 mcg Hydrocortisone (Hydrocortisone 1 % Cream 28.35 Gm Tube) 1 appl TOPICAL BID [facility]; Protocol Last Admin: 05/13/24 10:27 Dose: 1 appl Hydroxyzine HCl (Hydroxyzine Hcl 25 Mg Tablet) 25 mg PO Q8H PRN PRN Reason: Anxiety Last Admin: 05/13/24 13:10 Dose: 25 mg Magnesium Hydroxide (Milk Of Magnesia 30 Ml Oral.Susp) 30 ml PO DAILY PRN PRN Reason: Constipation Morphine Sulfate (Morphine Sulfate Immed Release 15 Mg Tablet) 30 mg PO Q8H PRN PRN Reason: Pain, Severe (Pain Scale 7-10) Last Admin: 05/13/24 13:10 Dose: 30 mg Nicotine (Nicotine 21 Mg Patch.Td24) 21 mg TRANSDERMA DAILY PRN PRN Reason: smoking cessation Nicotine Polacrilex (Nicotine Polacrilex 2 Mg Gum) 4 mg BUCCAL Q2H PRN PRN Reason: Nicotine Cravings Olanzapine (Olanzapine 10 Mg Vial) 5 mg IM DAILY PRN PRN Reason: per marco if refuses oral Omeprazole (Omeprazole 20 Mg Capsule.Dr) 20 mg PO 0630 [facility] Last Admin: 05/13/24 05:09 Dose: 20 mg Ondansetron HCl (Ondansetron Odt 4 Mg Tab.Rapdis) 4 mg TRANSLINGU Q12H PRN PRN Reason: Nausea and Vomiting Risperidone (Risperidone 1 Mg Tablet) 1 mg PO DAILY [facility] Last Admin: 05/13/24 07:45 Dose: 1 mg Trazodone HCl (Trazodone Hcl 50 Mg Tablet) 50 mg PO BEDTIME MRX1 PRN PRN Reason: Insomnia Allergies Allergies Allergy/AdvReac Type Severity Reaction Status Date / Time Egg Derived Allergy Unknown Unknown Verified 03/16/24 15:22 acetaminophen [From Percocet] AdvReac Severe Hives Verified 03/14/24 23:07 alprazolam AdvReac Severe Hives Verified 03/14/24 23:09 atorvastatin AdvReac Severe Hives Verified 03/14/24 23:10 azithromycin AdvReac Severe Swelling Verified 03/14/24 23:11 cholestyramine AdvReac Severe Hives Verified 03/14/24 23:08 [From Questran] ciprofloxacin AdvReac Severe Hives Verified 03/14/24 23:11 codeine AdvReac Severe Hives Verified 03/14/24 23:12 colesevelam AdvReac Severe Hives Verified 03/14/24 23:12 egg AdvReac Severe Hives Verified 03/15/24 01:39 Estrogens AdvReac Severe Swelling Verified 03/14/24 23:13 gemfibrozil AdvReac Severe Hives Verified 03/14/24 23:14 hydrocortisone AdvReac Severe Blurry Verified 03/14/24 23:07 [From Cortenema] Vision hydromorphone [From Dilaudid] AdvReac Severe Swelling Verified 03/14/24 23:13 Iodinated Contrast Media AdvReac Severe Hives Verified 03/14/24 23:14 isoniazid AdvReac Severe Hives Verified 03/14/24 23:15 mercaptopurine AdvReac Severe Vomiting Verified 03/14/24 23:16 methylprednisolone AdvReac Severe Hives Verified 03/14/24 23:16 minocycline AdvReac Severe Hives Verified 03/14/24 23:24 naproxen AdvReac Severe Rash Verified 03/14/24 23:17 oxycodone [From Percocet] AdvReac Severe Hives Verified 03/14/24 23:07 propoxyphene AdvReac Severe Hives Verified 03/14/24 23:19 quetiapine AdvReac Severe Rash Verified 03/14/24 23:20 risperidone AdvReac Severe Hives Verified 03/14/24 23:20 seafood AdvReac Severe Swelling Verified 03/14/24 23:21 shellfish derived AdvReac Severe Swelling Verified 03/14/24 23:21 Aazvkrp-PYT-OwG Reductase AdvReac Severe Swelling Verified 03/14/24 23:22 Inhibitor sucrose [From Questran] AdvReac Severe Hives Verified 03/14/24 23:08 Sulfa (Sulfonamide AdvReac Severe Hives Verified 03/14/24 23:24 Antibiotics) tramadol AdvReac Severe Rash Verified 03/14/24 23:22 wool AdvReac Severe Hives Verified 03/14/24 23:23 Assessment & Plan Assessment & Plan (1) Major neurocognitive disorder due to vascular disease, with behavioral disturbance, moderate: Status: Acute Code(s): F01.B18 - Vascular dementia, moderate, with other behavioral disturbance (2) Personality disorder: Status: Acute Code(s): F60.9 - Personality disorder, unspecified Plan Pt is a 63-year-old female with a PMH significant for?CVA, chronic pain disorder, HLD, ulcerative colitis s/p colectomy with colostomy in place, chronic anemia, and GERD who is admitted to [facility] for increasing paranoia and depression with suicide attempt by overdosing on home meds. Pt was apparently found unconscious in her apartment surrounded by empty morphine bottles, an SI note, and an eviction notice. Pt was emergently intubated and admitted to ICU for 5 days where she was treated for RAKAN and aspiration pneumonia. Also had elevated troponins that were attributed to demand ischemia. Medical consult for admission H&P. Mood disorder Plan as per psychiatry Recent hx of intubation in the ICU Denies difficulty swallowing, no sore throat or SOB Continue albuterol inhaler Peripheral neuropathy of right lower extremity Foot warm, pedal pulses 2+, well perfused No known hx of DM Unclear etiology Consider gabapentin if persistent Right foot wounds Unclear etiology Superficial, healing well No sign of infection No further intervention or workup needed at this time Hx of CVA Continue statin, aspirin Chronic pain disorder Continue fentanyl pathch, po morphine GERD PPI Plan 05/07 continue tx. 05/08 olanzapine 5mg po qhs with back IM olanzapine per [facility]. 05/09 continue tx. 05/10 continue tx. 05/11 continue tx. 05/12 continue tx. risperidone 1mg po daily with back up IM. Reason for continued inpatient stay Substantial Risk for: inability to function Time Spent With Patient Time: Total time managing care of this patient today ____ minutes.
[2024-05-13] MEDS: diphenhydrAMINE HCL 25 MG CAPSULE 50 MG PO (21:18)
[2024-05-14] MEDS: hydrOXYzine HCL 25 MG TABLET PO ×2 (03:18→14:08)
[2024-05-14] MEDS: Omeprazole 20 MG CAPSULE.DR PO (05:19)
[2024-05-14] MEDS: Morphine Sulfate Immed Release 15 MG TABLET 30 MG PO ×2 (05:19→14:07)
[2024-05-14 08:22] VITALS: BP 134/72; PULSE 85; RESP 20; TEMP 36.6; O2SAT 98
[2024-05-14] MEDS: risperiDONE 1 MG TABLET PO (08:23)
[2024-05-14] MEDS: diazePAM 5 MG TABLET 10 MG PO ×2 (08:23→21:18)
[2024-05-14] MEDS: Hydrocortisone 1 % Cream 28.35 GM TUBE 1 APPL TOPICAL (08:30)
--- NOTE | 2024-05-14 16:24 | HO.PSYCHPN ---
Subjective Subjective Date of Service: 05/14/24 Reason For Visit: Status post suicide attempt Subjective Notes: Conditional Voluntary Interim History: Pt again did not sleep during the night although sleeping part of the morning and later in the day. She denies SI/HI. intrusive with some peers. Review of Systems Review of Systems L breast lump-identified to team 03/17/24 evening. Yes all other systems are reviewed and are negative and Unobtainable due to mental condition Mental Status Exam Mental Status Exam Patient Appearance: Appropriate Patient Orientation: Person and Situation Level of Consciousness: Awake and Appropriate Patient Behavior: Guarded and Passive Mood Description: Withdrawn Affect Description: Constricted Patient Cognition Impaired: Yes Ability to Follow Directions: Good Speech Pattern: Clear Memory Description: Intact Diagnostics Vital Signs (24Hr): Vital Signs - 24 hr 05/13/24 20:00 05/14/24 08:22 Temperature 98 F 97.9 F Pulse Rate 73 85 Respiratory Rate 16 20 Blood Pressure 96/57 L 134/72 Pulse Oximetry 94 98 Oxygen Delivery Method Room Air Room Air BMI result Body Mass Index 29.4 Labs 03/16/24 07:32 Medications Medications Current Medications Al Hydroxide/Mg Hydroxide (Magnesium Hydrox/Alum Hydrox 30 Ml Oral.Susp) 30 ml PO Q6H PRN PRN Reason: Heartburn/Nausea Albuterol Sulfate (Albuterol Sulfate 90 Mcg 8 Gm Inhaler) 2 puff INHALE Q4H PRN PRN Reason: Shortness Of Breath Or Wheezing Last Admin: 05/11/24 03:39 Dose: 2 puff Artificial Tears (Artificial Tears 15 Ml Drops) 1 drop EYE-BOTH DAILY PRN PRN Reason: Dry Eye(S) Last Admin: 05/09/24 11:11 Dose: 1 drop Diazepam (Diazepam 5 Mg Tablet) 10 mg PO BID [facility] Last Admin: 05/14/24 08:23 Dose: 10 mg Diphenhydramine HCl (Diphenhydramine Hcl 25 Mg Capsule) 50 mg PO BEDTIME [facility] Last Admin: 05/13/24 21:18 Dose: 50 mg Donepezil HCl (Donepezil Hcl 5 Mg Tablet) 5 mg PO BEDTIME [facility] Last Admin: 05/13/24 21:20 Dose: Not Given Fentanyl (Fentanyl 50 Mcg Patch.Td72) 50 mcg TRANSDERMA Q72H [facility] Last Admin: 05/13/24 11:22 Dose: 50 mcg Hydrocortisone (Hydrocortisone 1 % Cream 28.35 Gm Tube) 1 appl TOPICAL BID [facility]; Protocol Last Admin: 05/14/24 08:30 Dose: 1 appl Hydroxyzine HCl (Hydroxyzine Hcl 25 Mg Tablet) 25 mg PO Q8H PRN PRN Reason: Anxiety Last Admin: 05/14/24 14:08 Dose: 25 mg Magnesium Hydroxide (Milk Of Magnesia 30 Ml Oral.Susp) 30 ml PO DAILY PRN PRN Reason: Constipation Morphine Sulfate (Morphine Sulfate Immed Release 15 Mg Tablet) 30 mg PO Q8H PRN PRN Reason: Pain, Severe (Pain Scale 7-10) Last Admin: 05/14/24 14:07 Dose: 30 mg Nicotine (Nicotine 21 Mg Patch.Td24) 21 mg TRANSDERMA DAILY PRN PRN Reason: smoking cessation Nicotine Polacrilex (Nicotine Polacrilex 2 Mg Gum) 4 mg BUCCAL Q2H PRN PRN Reason: Nicotine Cravings Olanzapine (Olanzapine 10 Mg Vial) 5 mg IM DAILY PRN PRN Reason: per marco if refuses oral Omeprazole (Omeprazole 20 Mg Capsule.Dr) 20 mg PO 0630 [facility] Last Admin: 05/14/24 05:19 Dose: 20 mg Ondansetron HCl (Ondansetron Odt 4 Mg Tab.Rapdis) 4 mg TRANSLINGU Q12H PRN PRN Reason: Nausea and Vomiting Risperidone (Risperidone 1 Mg Tablet) 1 mg PO DAILY [facility] Last Admin: 05/14/24 08:23 Dose: 1 mg Trazodone HCl (Trazodone Hcl 50 Mg Tablet) 50 mg PO BEDTIME MRX1 PRN PRN Reason: Insomnia Allergies Allergies Allergy/AdvReac Type Severity Reaction Status Date / Time Egg Derived Allergy Unknown Unknown Verified 03/16/24 15:22 acetaminophen [From Percocet] AdvReac Severe Hives Verified 03/14/24 23:07 alprazolam AdvReac Severe Hives Verified 03/14/24 23:09 atorvastatin AdvReac Severe Hives Verified 03/14/24 23:10 azithromycin AdvReac Severe Swelling Verified 03/14/24 23:11 cholestyramine AdvReac Severe Hives Verified 03/14/24 23:08 [From Questran] ciprofloxacin AdvReac Severe Hives Verified 03/14/24 23:11 codeine AdvReac Severe Hives Verified 03/14/24 23:12 colesevelam AdvReac Severe Hives Verified 03/14/24 23:12 egg AdvReac Severe Hives Verified 03/15/24 01:39 Estrogens AdvReac Severe Swelling Verified 03/14/24 23:13 gemfibrozil AdvReac Severe Hives Verified 03/14/24 23:14 hydrocortisone AdvReac Severe Blurry Verified 03/14/24 23:07 [From Cortenema] Vision hydromorphone [From Dilaudid] AdvReac Severe Swelling Verified 03/14/24 23:13 Iodinated Contrast Media AdvReac Severe Hives Verified 03/14/24 23:14 isoniazid AdvReac Severe Hives Verified 03/14/24 23:15 mercaptopurine AdvReac Severe Vomiting Verified 03/14/24 23:16 methylprednisolone AdvReac Severe Hives Verified 03/14/24 23:16 minocycline AdvReac Severe Hives Verified 03/14/24 23:24 naproxen AdvReac Severe Rash Verified 03/14/24 23:17 oxycodone [From Percocet] AdvReac Severe Hives Verified 03/14/24 23:07 propoxyphene AdvReac Severe Hives Verified 03/14/24 23:19 quetiapine AdvReac Severe Rash Verified 03/14/24 23:20 risperidone AdvReac Severe Hives Verified 03/14/24 23:20 seafood AdvReac Severe Swelling Verified 03/14/24 23:21 shellfish derived AdvReac Severe Swelling Verified 03/14/24 23:21 Utddlsr-RMT-KwI Reductase AdvReac Severe Swelling Verified 03/14/24 23:22 Inhibitor sucrose [From Questran] AdvReac Severe Hives Verified 03/14/24 23:08 Sulfa (Sulfonamide AdvReac Severe Hives Verified 03/14/24 23:24 Antibiotics) tramadol AdvReac Severe Rash Verified 03/14/24 23:22 wool AdvReac Severe Hives Verified 03/14/24 23:23 Assessment & Plan Assessment & Plan (1) Major neurocognitive disorder due to vascular disease, with behavioral disturbance, moderate: Status: Acute Code(s): F01.B18 - Vascular dementia, moderate, with other behavioral disturbance (2) Personality disorder: Status: Acute Code(s): F60.9 - Personality disorder, unspecified Plan Pt is a 63-year-old female with a PMH significant for?CVA, chronic pain disorder, HLD, ulcerative colitis s/p colectomy with colostomy in place, chronic anemia, and GERD who is admitted to [facility] for increasing paranoia and depression with suicide attempt by overdosing on home meds. Pt was apparently found unconscious in her apartment surrounded by empty morphine bottles, an SI note, and an eviction notice. Pt was emergently intubated and admitted to ICU for 5 days where she was treated for RAKAN and aspiration pneumonia. Also had elevated troponins that were attributed to demand ischemia. Medical consult for admission H&P. Mood disorder Plan as per psychiatry Recent hx of intubation in the ICU Denies difficulty swallowing, no sore throat or SOB Continue albuterol inhaler Peripheral neuropathy of right lower extremity Foot warm, pedal pulses 2+, well perfused No known hx of DM Unclear etiology Consider gabapentin if persistent Right foot wounds Unclear etiology Superficial, healing well No sign of infection No further intervention or workup needed at this time Hx of CVA Continue statin, aspirin Chronic pain disorder Continue fentanyl pathch, po morphine GERD PPI Plan 05/07 continue tx. 05/08 olanzapine 5mg po qhs with back IM olanzapine per Marco's. 05/09 continue tx. 05/10 continue tx. 05/11 continue tx. 05/12 continue tx. risperidone 1mg po daily with back up IM. 05/13 continue tx. 05/14 continue tx. Reason for continued inpatient stay Substantial Risk for: inability to function Time Spent With Patient Time: Total time managing care of this patient today ____ minutes.
[2024-05-14 20:00] VITALS: BP 128/78; PULSE 78; RESP 18; TEMP 36.7; O2SAT 95
[2024-05-14] MEDS: diphenhydrAMINE HCL 25 MG CAPSULE 50 MG PO (21:18)
[2024-05-15] MEDS: hydrOXYzine HCL 25 MG TABLET PO ×2 (01:41→11:48)
[2024-05-15] MEDS: Morphine Sulfate Immed Release 15 MG TABLET 30 MG PO ×3 (01:42→16:19)
[2024-05-15] MEDS: Omeprazole 20 MG CAPSULE.DR PO (05:22)
[2024-05-15 08:00] VITALS: BP 122/75; PULSE 98; RESP 18; TEMP 36.5; O2SAT 94
[2024-05-15] MEDS: risperiDONE 1 MG TABLET PO (08:23)
[2024-05-15] MEDS: diazePAM 5 MG TABLET 10 MG PO ×2 (08:23→20:37)
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
[2024-05-15 20:00] VITALS: BP 120/60; PULSE 71; RESP 15; TEMP 36.7; O2SAT 94
[2024-05-15] MEDS: Hydrocortisone 1 % Cream 28.35 GM TUBE 1 APPL TOPICAL (20:37)
[2024-05-15] MEDS: diphenhydrAMINE HCL 25 MG CAPSULE 50 MG PO (20:37)
--- NOTE | 2024-05-15 21:31 | HO.PSYCHPN ---
Subjective Subjective Date of Service: 05/15/24 Reason For Visit: Status post suicide attempt Interim History: Pt again did not sleep during the night although sleeping part of the morning and later in the day. She denies SI/HI. intrusive with some peers. Review of Systems Review of Systems L breast lump-identified to team 03/17/24 evening. Yes all other systems are reviewed and are negative and Unobtainable due to mental condition Mental Status Exam Mental Status Exam Patient Appearance: Appropriate Patient Orientation: Person and Situation Level of Consciousness: Awake and Appropriate Patient Behavior: Guarded and Passive Mood Description: Withdrawn Affect Description: Constricted Patient Cognition Impaired: Yes Ability to Follow Directions: Good Speech Pattern: Clear Memory Description: Intact Diagnostics Vital Signs (24Hr): Vital Signs - 24 hr 05/15/24 08:00 Temperature 97.7 F Pulse Rate 98 Respiratory Rate 18 Blood Pressure 122/75 Pulse Oximetry 94 Oxygen Delivery Method Room Air BMI result Body Mass Index 29.4 Labs 03/16/24 07:32 Medications Medications Current Medications Al Hydroxide/Mg Hydroxide (Magnesium Hydrox/Alum Hydrox 30 Ml Oral.Susp) 30 ml PO Q6H PRN PRN Reason: Heartburn/Nausea Albuterol Sulfate (Albuterol Sulfate 90 Mcg 8 Gm Inhaler) 2 puff INHALE Q4H PRN PRN Reason: Shortness Of Breath Or Wheezing Last Admin: 05/11/24 03:39 Dose: 2 puff Artificial Tears (Artificial Tears 15 Ml Drops) 1 drop EYE-BOTH DAILY PRN PRN Reason: Dry Eye(S) Last Admin: 05/09/24 11:11 Dose: 1 drop Diazepam (Diazepam 5 Mg Tablet) 10 mg PO BID [facility] Last Admin: 05/15/24 20:37 Dose: 10 mg Diphenhydramine HCl (Diphenhydramine Hcl 25 Mg Capsule) 50 mg PO BEDTIME [facility] Last Admin: 05/15/24 20:37 Dose: 50 mg Donepezil HCl (Donepezil Hcl 5 Mg Tablet) 5 mg PO BEDTIME [facility] Last Admin: 05/15/24 20:37 Dose: Not Given Fentanyl (Fentanyl 50 Mcg Patch.Td72) 50 mcg TRANSDERMA Q72H [facility] Last Admin: 05/13/24 11:22 Dose: 50 mcg Hydrocortisone (Hydrocortisone 1 % Cream 28.35 Gm Tube) 1 appl TOPICAL BID [facility]; Protocol Last Admin: 05/15/24 20:37 Dose: 1 appl Hydroxyzine HCl (Hydroxyzine Hcl 25 Mg Tablet) 25 mg PO Q8H PRN PRN Reason: Anxiety Last Admin: 05/15/24 11:48 Dose: 25 mg Magnesium Hydroxide (Milk Of Magnesia 30 Ml Oral.Susp) 30 ml PO DAILY PRN PRN Reason: Constipation Morphine Sulfate (Morphine Sulfate Immed Release 15 Mg Tablet) 30 mg PO Q6H PRN PRN Reason: Pain, Severe (Pain Scale 7-10) Last Admin: 05/15/24 16:19 Dose: 30 mg Nicotine (Nicotine 21 Mg Patch.Td24) 21 mg TRANSDERMA DAILY PRN PRN Reason: smoking cessation Nicotine Polacrilex (Nicotine Polacrilex 2 Mg Gum) 4 mg BUCCAL Q2H PRN PRN Reason: Nicotine Cravings Olanzapine (Olanzapine 10 Mg Vial) 5 mg IM DAILY PRN PRN Reason: per marco if refuses oral Omeprazole (Omeprazole 20 Mg Capsule.Dr) 20 mg PO 0630 [facility] Last Admin: 05/15/24 05:22 Dose: 20 mg Ondansetron HCl (Ondansetron Odt 4 Mg Tab.Rapdis) 4 mg TRANSLINGU Q12H PRN PRN Reason: Nausea and Vomiting Risperidone (Risperidone 1 Mg Tablet) 1 mg PO DAILY [facility] Last Admin: 05/15/24 08:23 Dose: 1 mg Trazodone HCl (Trazodone Hcl 50 Mg Tablet) 50 mg PO BEDTIME MRX1 PRN PRN Reason: Insomnia Trazodone HCl (Trazodone Hcl 100 Mg Tablet) 100 mg PO BEDTIME [facility] Allergies Allergies Allergy/AdvReac Type Severity Reaction Status Date / Time Egg Derived Allergy Unknown Unknown Verified 03/16/24 15:22 acetaminophen [From Percocet] AdvReac Severe Hives Verified 03/14/24 23:07 alprazolam AdvReac Severe Hives Verified 03/14/24 23:09 atorvastatin AdvReac Severe Hives Verified 03/14/24 23:10 azithromycin AdvReac Severe Swelling Verified 03/14/24 23:11 cholestyramine AdvReac Severe Hives Verified 03/14/24 23:08 [From Questran] ciprofloxacin AdvReac Severe Hives Verified 03/14/24 23:11 codeine AdvReac Severe Hives Verified 03/14/24 23:12 colesevelam AdvReac Severe Hives Verified 03/14/24 23:12 egg AdvReac Severe Hives Verified 03/15/24 01:39 Estrogens AdvReac Severe Swelling Verified 03/14/24 23:13 gemfibrozil AdvReac Severe Hives Verified 03/14/24 23:14 hydrocortisone AdvReac Severe Blurry Verified 03/14/24 23:07 [From Cortenema] Vision hydromorphone [From Dilaudid] AdvReac Severe Swelling Verified 03/14/24 23:13 Iodinated Contrast Media AdvReac Severe Hives Verified 03/14/24 23:14 isoniazid AdvReac Severe Hives Verified 03/14/24 23:15 mercaptopurine AdvReac Severe Vomiting Verified 03/14/24 23:16 methylprednisolone AdvReac Severe Hives Verified 03/14/24 23:16 minocycline AdvReac Severe Hives Verified 03/14/24 23:24 naproxen AdvReac Severe Rash Verified 03/14/24 23:17 oxycodone [From Percocet] AdvReac Severe Hives Verified 03/14/24 23:07 propoxyphene AdvReac Severe Hives Verified 03/14/24 23:19 quetiapine AdvReac Severe Rash Verified 03/14/24 23:20 risperidone AdvReac Severe Hives Verified 03/14/24 23:20 seafood AdvReac Severe Swelling Verified 03/14/24 23:21 shellfish derived AdvReac Severe Swelling Verified 03/14/24 23:21 Tstozdl-QLH-IzJ Reductase AdvReac Severe Swelling Verified 03/14/24 23:22 Inhibitor sucrose [From Questran] AdvReac Severe Hives Verified 03/14/24 23:08 Sulfa (Sulfonamide AdvReac Severe Hives Verified 03/14/24 23:24 Antibiotics) tramadol AdvReac Severe Rash Verified 03/14/24 23:22 wool AdvReac Severe Hives Verified 03/14/24 23:23 Assessment & Plan Assessment & Plan (1) Major neurocognitive disorder due to vascular disease, with behavioral disturbance, moderate: Status: Acute Code(s): F01.B18 - Vascular dementia, moderate, with other behavioral disturbance (2) Personality disorder: Status: Acute Code(s): F60.9 - Personality disorder, unspecified Plan Pt is a 63-year-old female with a PMH significant for?CVA, chronic pain disorder, HLD, ulcerative colitis s/p colectomy with colostomy in place, chronic anemia, and GERD who is admitted to [facility] for increasing paranoia and depression with suicide attempt by overdosing on home meds. Pt was apparently found unconscious in her apartment surrounded by empty morphine bottles, an SI note, and an eviction notice. Pt was emergently intubated and admitted to ICU for 5 days where she was treated for RAKAN and aspiration pneumonia. Also had elevated troponins that were attributed to demand ischemia. Medical consult for admission H&P. Mood disorder Plan as per psychiatry Recent hx of intubation in the ICU Denies difficulty swallowing, no sore throat or SOB Continue albuterol inhaler Peripheral neuropathy of right lower extremity Foot warm, pedal pulses 2+, well perfused No known hx of DM Unclear etiology Consider gabapentin if persistent Right foot wounds Unclear etiology Superficial, healing well No sign of infection No further intervention or workup needed at this time Hx of CVA Continue statin, aspirin Chronic pain disorder Continue fentanyl pathch, po morphine GERD PPI Plan 05/07 continue tx. 05/08 olanzapine 5mg po qhs with back IM olanzapine per Marco's. 05/09 continue tx. 05/10 continue tx. 05/11 continue tx. 05/12 continue tx. risperidone 1mg po daily with back up IM. 05/13 continue tx. 05/14 continue tx. Reason for continued inpatient stay Substantial Risk for: inability to function Time Spent With Patient Time: Total time managing care of this patient today ____ minutes.
[2024-05-16] MEDS: Morphine Sulfate Immed Release 15 MG TABLET 30 MG PO ×3 (03:50→22:42)
[2024-05-16] MEDS: Albuterol Sulfate 90 MCG 8 GM INHALER 2 PUFF INHALE (04:25)
[2024-05-16] MEDS: Omeprazole 20 MG CAPSULE.DR PO (05:34)
[2024-05-16] MEDS: hydrOXYzine HCL 25 MG TABLET PO ×2 (05:37→16:12)
[2024-05-16 08:35] VITALS: BP 127/61; PULSE 100; RESP 17; TEMP 36.3; O2SAT 95
[2024-05-16] MEDS: risperiDONE 1 MG TABLET PO (08:42)
[2024-05-16] MEDS: diazePAM 5 MG TABLET 10 MG PO ×2 (08:42→20:41)
[2024-05-16] MEDS: Hydrocortisone 1 % Cream 28.35 GM TUBE 1 APPL TOPICAL (08:43)
[2024-05-16] MEDS: fentaNYL 50 MCG PATCH.TD72 TRANSDERMA (11:21)
--- NOTE | 2024-05-16 13:09 | HO.PSYCHPN ---
Subjective Subjective Date of Service: 05/16/24 Reason For Visit: Status post suicide attempt Subjective Notes: Conditional Voluntary Interim History: The nursing staff reported the patient has been intrusive, needing multiple redirections, slept 8 hours. The licensed clinical social worker still looking for placement. On interview the patient denies new symptoms, waiting for placement Mental Status Exam Mental Status Exam Patient Appearance: Well Grooomed and Appropriate Patient Orientation: Person and Situation Level of Consciousness: Awake and Appropriate Patient Behavior: Guarded and Passive Mood Description: Withdrawn Affect Description: Constricted Patient Cognition Impaired: Yes Ability to Follow Directions: Good Speech Pattern: Clear Hallucinations: None Delusions: Not Present Thought Process: Distracted and Slowed Thinking Thought Content: positive for Logan and positive for Poverty of Content Judgement: Poor Diagnostics Vital Signs (24Hr): Vital Signs - 24 hr 05/15/24 20:00 05/16/24 08:35 Temperature 98.0 F 97.3 F Pulse Rate 71 100 Respiratory Rate 15 17 Blood Pressure 120/60 127/61 Pulse Oximetry 94 95 Oxygen Delivery Method Room Air Room Air BMI result Body Mass Index 29.4 Labs 03/16/24 07:32 Medications Medications Current Medications Al Hydroxide/Mg Hydroxide (Magnesium Hydrox/Alum Hydrox 30 Ml Oral.Susp) 30 ml PO Q6H PRN PRN Reason: Heartburn/Nausea Albuterol Sulfate (Albuterol Sulfate 90 Mcg 8 Gm Inhaler) 2 puff INHALE Q4H PRN PRN Reason: Shortness Of Breath Or Wheezing Last Admin: 05/16/24 04:25 Dose: 2 puff Artificial Tears (Artificial Tears 15 Ml Drops) 1 drop EYE-BOTH DAILY PRN PRN Reason: Dry Eye(S) Last Admin: 05/09/24 11:11 Dose: 1 drop Diazepam (Diazepam 5 Mg Tablet) 10 mg PO BID [facility] Last Admin: 05/16/24 08:42 Dose: 10 mg Diphenhydramine HCl (Diphenhydramine Hcl 25 Mg Capsule) 50 mg PO BEDTIME [facility] Last Admin: 05/15/24 20:37 Dose: 50 mg Donepezil HCl (Donepezil Hcl 5 Mg Tablet) 5 mg PO BEDTIME [facility] Last Admin: 05/15/24 20:37 Dose: Not Given Fentanyl (Fentanyl 50 Mcg Patch.Td72) 50 mcg TRANSDERMA Q72H [facility] Last Admin: 10/31/24 11:21 Dose: 50 mcg Hydrocortisone (Hydrocortisone 1 % Cream 28.35 Gm Tube) 1 appl TOPICAL BID [facility]; Protocol Last Admin: 05/16/24 08:43 Dose: 1 appl Hydroxyzine HCl (Hydroxyzine Hcl 25 Mg Tablet) 25 mg PO Q8H PRN PRN Reason: Anxiety Last Admin: 05/16/24 05:37 Dose: 25 mg Magnesium Hydroxide (Milk Of Magnesia 30 Ml Oral.Susp) 30 ml PO DAILY PRN PRN Reason: Constipation Morphine Sulfate (Morphine Sulfate Immed Release 15 Mg Tablet) 30 mg PO Q6H PRN PRN Reason: Pain, Severe (Pain Scale 7-10) Last Admin: 05/16/24 11:31 Dose: 30 mg Nicotine (Nicotine 21 Mg Patch.Td24) 21 mg TRANSDERMA DAILY PRN PRN Reason: smoking cessation Nicotine Polacrilex (Nicotine Polacrilex 2 Mg Gum) 4 mg BUCCAL Q2H PRN PRN Reason: Nicotine Cravings Olanzapine (Olanzapine 10 Mg Vial) 5 mg IM DAILY PRN PRN Reason: per michael if refuses oral Omeprazole (Omeprazole 20 Mg Capsule.Dr) 20 mg PO 0630 [facility] Last Admin: 05/16/24 05:34 Dose: 20 mg Ondansetron HCl (Ondansetron Odt 4 Mg Tab.Rapdis) 4 mg TRANSLINGU Q12H PRN PRN Reason: Nausea and Vomiting Risperidone (Risperidone 1 Mg Tablet) 1 mg PO DAILY [facility] Last Admin: 05/16/24 08:42 Dose: 1 mg Trazodone HCl (Trazodone Hcl 50 Mg Tablet) 50 mg PO BEDTIME MRX1 PRN PRN Reason: Insomnia Trazodone HCl (Trazodone Hcl 100 Mg Tablet) 100 mg PO BEDTIME [facility] Allergies Allergies Allergy/AdvReac Type Severity Reaction Status Date / Time Egg Derived Allergy Unknown Unknown Verified 03/16/24 15:22 acetaminophen [From Percocet] AdvReac Severe Hives Verified 03/14/24 23:07 alprazolam AdvReac Severe Hives Verified 03/14/24 23:09 atorvastatin AdvReac Severe Hives Verified 03/14/24 23:10 azithromycin AdvReac Severe Swelling Verified 03/14/24 23:11 cholestyramine AdvReac Severe Hives Verified 03/14/24 23:08 [From Questran] ciprofloxacin AdvReac Severe Hives Verified 03/14/24 23:11 codeine AdvReac Severe Hives Verified 03/14/24 23:12 colesevelam AdvReac Severe Hives Verified 03/14/24 23:12 egg AdvReac Severe Hives Verified 03/15/24 01:39 Estrogens AdvReac Severe Swelling Verified 03/14/24 23:13 gemfibrozil AdvReac Severe Hives Verified 03/14/24 23:14 hydrocortisone AdvReac Severe Blurry Verified 03/14/24 23:07 [From Cortenema] Vision hydromorphone [From Dilaudid] AdvReac Severe Swelling Verified 03/14/24 23:13 Iodinated Contrast Media AdvReac Severe Hives Verified 03/14/24 23:14 isoniazid AdvReac Severe Hives Verified 03/14/24 23:15 mercaptopurine AdvReac Severe Vomiting Verified 03/14/24 23:16 methylprednisolone AdvReac Severe Hives Verified 03/14/24 23:16 minocycline AdvReac Severe Hives Verified 03/14/24 23:24 naproxen AdvReac Severe Rash Verified 03/14/24 23:17 oxycodone [From Percocet] AdvReac Severe Hives Verified 03/14/24 23:07 propoxyphene AdvReac Severe Hives Verified 03/14/24 23:19 quetiapine AdvReac Severe Rash Verified 03/14/24 23:20 risperidone AdvReac Severe Hives Verified 03/14/24 23:20 seafood AdvReac Severe Swelling Verified 03/14/24 23:21 shellfish derived AdvReac Severe Swelling Verified 03/14/24 23:21 Lfvvnra-DJL-MoG Reductase AdvReac Severe Swelling Verified 03/14/24 23:22 Inhibitor sucrose [From Questran] AdvReac Severe Hives Verified 03/14/24 23:08 Sulfa (Sulfonamide AdvReac Severe Hives Verified 03/14/24 23:24 Antibiotics) tramadol AdvReac Severe Rash Verified 03/14/24 23:22 wool AdvReac Severe Hives Verified 03/14/24 23:23 Assessment & Plan Assessment & Plan (1) Major neurocognitive disorder due to vascular disease, with behavioral disturbance, moderate: Status: Acute Code(s): F01.B18 - Vascular dementia, moderate, with other behavioral disturbance (2) Personality disorder: Status: Acute Code(s): F60.9 - Personality disorder, unspecified Plan Pt is a 63-year-old female with a PMH significant for?CVA, chronic pain disorder, HLD, ulcerative colitis s/p colectomy with colostomy in place, chronic anemia, and GERD who is admitted to [facility] for increasing paranoia and depression with suicide attempt by overdosing on home meds. Pt was apparently found unconscious in her apartment surrounded by empty morphine bottles, an SI note, and an eviction notice. Pt was emergently intubated and admitted to ICU for 5 days where she was treated for RAKAN and aspiration pneumonia. Also had elevated troponins that were attributed to demand ischemia. Medical consult for admission H&P. Mood disorder Plan as per psychiatry Recent hx of intubation in the ICU Denies difficulty swallowing, no sore throat or SOB Continue albuterol inhaler Peripheral neuropathy of right lower extremity Foot warm, pedal pulses 2+, well perfused No known hx of DM Unclear etiology Consider gabapentin if persistent Right foot wounds Unclear etiology Superficial, healing well No sign of infection No further intervention or workup needed at this time Hx of CVA Continue statin, aspirin Chronic pain disorder Continue fentanyl pathch, po morphine GERD PPI Plan 1. Continue with same treatment. 2. The patient has consistently refused Zyprexa and Aricept, compliance is encouraged. 3. Waiting for placement. Reason for continued inpatient stay Substantial Risk for: inability to function, rapid decompensation and med/psych decompensation Time Spent With Patient Time: Total time managing care of this patient today _20___ minutes.
--- NOTE | 2024-05-16 13:49 | HO.OSTOMY ---
Ostomy consult: Follow up 63yr old female admitted to the [facility] on 03/14/24 - see H&P for detailed history. Ostomy consult follow up for ileostomy. Request made by patient yesterday for Ostomy nurse visit. Today was able to consult on patient - arrival to unit staff reports the patient changed her pouch yesterday without incident and has not reported issues today. Yesterday the patient voiced concerns for Hernia like areas around the stoma. this was observed in the past and is likely due to either hernia presence or abdominal tissue abnormalities. There was no reported prolapse or stoma changes noted by the pt or direct care nurse. Arrival to the bedside the patient requested privacy. She was informed I would not likely be able to return today she reported understanding. Will continue to follow her chart and will check in with staff early next week.
[2024-05-16 20:00] VITALS: RESP 16
[2024-05-16] MEDS: diphenhydrAMINE HCL 25 MG CAPSULE 50 MG PO (20:41)
[2024-05-17] MEDS: Omeprazole 20 MG CAPSULE.DR PO (05:38)
[2024-05-17] MEDS: hydrOXYzine HCL 25 MG TABLET PO ×2 (06:21→16:06)
[2024-05-17] MEDS: Morphine Sulfate Immed Release 15 MG TABLET 30 MG PO ×2 (06:21→12:23)
[2024-05-17 08:00] VITALS: BP 132/69; PULSE 85; RESP 16; TEMP 36.2; O2SAT 93
[2024-05-17] MEDS: risperiDONE 1 MG TABLET PO (08:25)
[2024-05-17] MEDS: diazePAM 5 MG TABLET 10 MG PO ×2 (08:25→20:33)
[2024-05-17] MEDS: Albuterol Sulfate 90 MCG 8 GM INHALER 2 PUFF INHALE (08:33)
[2024-05-17] MEDS: Hydrocortisone 1 % Cream 28.35 GM TUBE 1 APPL TOPICAL (09:20)
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
[2024-05-17 20:30] VITALS: BP 108/58; PULSE 79; RESP 18; TEMP 36.4; O2SAT 94
[2024-05-17] MEDS: diphenhydrAMINE HCL 25 MG CAPSULE 50 MG PO (20:33)
[2024-05-18] MEDS: Morphine Sulfate Immed Release 15 MG TABLET 30 MG PO (01:26)
[2024-05-18] MEDS: Albuterol Sulfate 90 MCG 8 GM INHALER 2 PUFF INHALE (01:27)
[2024-05-18] MEDS: Omeprazole 20 MG CAPSULE.DR PO (06:12)
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
[2024-05-18 09:06] VITALS: BP 140/79; PULSE 97; RESP 20; TEMP 36.6; O2SAT 96
[2024-05-18] MEDS: diazePAM 5 MG TABLET 10 MG PO ×2 (09:09→20:28)
[2024-05-18] MEDS: risperiDONE 1 MG TABLET PO (09:09)
[2024-05-18] MEDS: hydrOXYzine HCL 25 MG TABLET PO (12:03)
[2024-05-18 20:00] VITALS: BP 138/72; PULSE 86; RESP 16; TEMP 36.5; O2SAT 93
[2024-05-18] MEDS: diphenhydrAMINE HCL 25 MG CAPSULE 50 MG PO (20:28)
[2024-05-19] MEDS: hydrOXYzine HCL 25 MG TABLET PO ×2 (02:38→13:55)
[2024-05-19] MEDS: Morphine Sulfate Immed Release 15 MG TABLET 30 MG PO ×3 (02:38→18:52)
[2024-05-19] MEDS: Omeprazole 20 MG CAPSULE.DR PO (05:59)
[2024-05-19 09:27] VITALS: BP 113/60; PULSE 109; RESP 20; TEMP 36.6; O2SAT 97
[2024-05-19] MEDS: risperiDONE 1 MG TABLET PO (09:32)
[2024-05-19] MEDS: diazePAM 5 MG TABLET 10 MG PO ×2 (09:32→20:00)
[2024-05-19] MEDS: fentaNYL 50 MCG PATCH.TD72 TRANSDERMA (09:59)
--- NOTE | 2024-05-19 10:22 | HO.PSYCHPN ---
Subjective Subjective Date of Service: 05/19/24 Reason For Visit: Status post suicide attempt Interim History: As per nursing- irritable. 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 . Medication Compliance: Yes Side effects from medications: No Attending Groups: Yes Review of Systems Acute medical concerns: No Review of Systems Review of Systems Yes Unobtainable due to mental status Mental Status Exam Mental Status Exam Patient Appearance: Well Grooomed and Appropriate Patient Orientation: Person and Situation Level of Consciousness: Awake and Appropriate Patient Behavior: Guarded Mood Description: Angry Affect Description: Constricted and Angry Patient Cognition Impaired: Yes Ability to Follow Directions: Fair Speech Pattern: Clear Memory Description: Intact Diagnostics Vital Signs (24Hr): Vital Signs - 24 hr 05/18/24 20:00 05/19/24 09:27 Temperature 97.7 F 97.9 F Pulse Rate 86 109 H Respiratory Rate 16 20 Blood Pressure 138/72 113/60 Pulse Oximetry 93 97 Oxygen Delivery Method Room Air Room Air BMI result Body Mass Index 30.0 Labs 03/16/24 07:32 Medications Medications Current Medications Al Hydroxide/Mg Hydroxide (Magnesium Hydrox/Alum Hydrox 30 Ml Oral.Susp) 30 ml PO Q6H PRN PRN Reason: Heartburn/Nausea Albuterol Sulfate (Albuterol Sulfate 90 Mcg 8 Gm Inhaler) 2 puff INHALE Q4H PRN PRN Reason: Shortness Of Breath Or Wheezing Last Admin: 05/18/24 01:27 Dose: 2 puff Artificial Tears (Artificial Tears 15 Ml Drops) 1 drop EYE-BOTH DAILY PRN PRN Reason: Dry Eye(S) Last Admin: 05/09/24 11:11 Dose: 1 drop Diazepam (Diazepam 5 Mg Tablet) 10 mg PO BID [facility] Last Admin: 05/19/24 09:32 Dose: 10 mg Diphenhydramine HCl (Diphenhydramine Hcl 25 Mg Capsule) 50 mg PO BEDTIME [facility] Last Admin: 05/18/24 20:28 Dose: 50 mg Donepezil HCl (Donepezil Hcl 5 Mg Tablet) 5 mg PO BEDTIME [facility] Last Admin: 05/18/24 20:31 Dose: Not Given Fentanyl (Fentanyl 50 Mcg Patch.Td72) 50 mcg TRANSDERMA Q72H [facility] Last Admin: 05/19/24 09:59 Dose: 50 mcg Hydrocortisone (Hydrocortisone 1 % Cream 28.35 Gm Tube) 1 appl TOPICAL BID [facility]; Protocol Last Admin: 05/19/24 09:34 Dose: Not Given Hydroxyzine HCl (Hydroxyzine Hcl 25 Mg Tablet) 25 mg PO Q8H PRN PRN Reason: Anxiety Last Admin: 05/19/24 02:38 Dose: 25 mg Magnesium Hydroxide (Milk Of Magnesia 30 Ml Oral.Susp) 30 ml PO DAILY PRN PRN Reason: Constipation Morphine Sulfate (Morphine Sulfate Immed Release 15 Mg Tablet) 30 mg PO Q6H PRN PRN Reason: Pain, Severe (Pain Scale 7-10) Last Admin: 05/19/24 09:55 Dose: 30 mg Nicotine (Nicotine 21 Mg Patch.Td24) 21 mg TRANSDERMA DAILY PRN PRN Reason: smoking cessation Nicotine Polacrilex (Nicotine Polacrilex 2 Mg Gum) 4 mg BUCCAL Q2H PRN PRN Reason: Nicotine Cravings Olanzapine (Olanzapine 10 Mg Vial) 5 mg IM DAILY PRN PRN Reason: per michael if refuses oral Omeprazole (Omeprazole 20 Mg Capsule.Dr) 20 mg PO 0630 [facility] Last Admin: 05/19/24 05:59 Dose: 20 mg Ondansetron HCl (Ondansetron Odt 4 Mg Tab.Rapdis) 4 mg TRANSLINGU Q12H PRN PRN Reason: Nausea and Vomiting Risperidone (Risperidone 1 Mg Tablet) 1 mg PO DAILY [facility] Last Admin: 05/19/24 09:32 Dose: 1 mg Trazodone HCl (Trazodone Hcl 50 Mg Tablet) 50 mg PO BEDTIME MRX1 PRN PRN Reason: Insomnia Trazodone HCl (Trazodone Hcl 100 Mg Tablet) 100 mg PO BEDTIME [facility] Last Admin: 05/18/24 20:31 Dose: Not Given Allergies Allergies Allergy/AdvReac Type Severity Reaction Status Date / Time Egg Derived Allergy Unknown Unknown Verified 03/16/24 15:22 acetaminophen [From Percocet] AdvReac Severe Hives Verified 03/14/24 23:07 alprazolam AdvReac Severe Hives Verified 03/14/24 23:09 atorvastatin AdvReac Severe Hives Verified 03/14/24 23:10 azithromycin AdvReac Severe Swelling Verified 03/14/24 23:11 cholestyramine AdvReac Severe Hives Verified 03/14/24 23:08 [From Questran] ciprofloxacin AdvReac Severe Hives Verified 03/14/24 23:11 codeine AdvReac Severe Hives Verified 03/14/24 23:12 colesevelam AdvReac Severe Hives Verified 03/14/24 23:12 egg AdvReac Severe Hives Verified 03/15/24 01:39 Estrogens AdvReac Severe Swelling Verified 03/14/24 23:13 gemfibrozil AdvReac Severe Hives Verified 03/14/24 23:14 hydrocortisone AdvReac Severe Blurry Verified 03/14/24 23:07 [From Cortenema] Vision hydromorphone [From Dilaudid] AdvReac Severe Swelling Verified 03/14/24 23:13 Iodinated Contrast Media AdvReac Severe Hives Verified 03/14/24 23:14 isoniazid AdvReac Severe Hives Verified 03/14/24 23:15 mercaptopurine AdvReac Severe Vomiting Verified 03/14/24 23:16 methylprednisolone AdvReac Severe Hives Verified 03/14/24 23:16 minocycline AdvReac Severe Hives Verified 03/14/24 23:24 naproxen AdvReac Severe Rash Verified 03/14/24 23:17 oxycodone [From Percocet] AdvReac Severe Hives Verified 03/14/24 23:07 propoxyphene AdvReac Severe Hives Verified 03/14/24 23:19 quetiapine AdvReac Severe Rash Verified 03/14/24 23:20 seafood AdvReac Severe Swelling Verified 03/14/24 23:21 shellfish derived AdvReac Severe Swelling Verified 03/14/24 23:21 Siyphud-AAH-IvS Reductase AdvReac Severe Swelling Verified 03/14/24 23:22 Inhibitor sucrose [From Questran] AdvReac Severe Hives Verified 03/14/24 23:08 Sulfa (Sulfonamide AdvReac Severe Hives Verified 03/14/24 23:24 Antibiotics) tramadol AdvReac Severe Rash Verified 03/14/24 23:22 wool AdvReac Severe Hives Verified 03/14/24 23:23 Assessment & Plan Assessment & Plan (1) Major neurocognitive disorder due to vascular disease, with behavioral disturbance, moderate: Status: Acute Code(s): F01.B18 - Vascular dementia, moderate, with other behavioral disturbance (2) Personality disorder: Status: Acute Code(s): F60.9 - Personality disorder, unspecified Plan Pt is a 63-year-old female with a PMH significant for?CVA, chronic pain disorder, HLD, ulcerative colitis s/p colectomy with colostomy in place, chronic anemia, and GERD who is admitted to [facility] for increasing paranoia and depression with suicide attempt by overdosing on home meds. Pt was apparently found unconscious in her apartment surrounded by empty morphine bottles, an SI note, and an eviction notice. Pt was emergently intubated and admitted to ICU for 5 days where she was treated for RAKAN and aspiration pneumonia. Also had elevated troponins that were attributed to demand ischemia. Medical consult for admission H&P. Mood disorder Plan as per psychiatry Recent hx of intubation in the ICU Denies difficulty swallowing, no sore throat or SOB Continue albuterol inhaler Peripheral neuropathy of right lower extremity Foot warm, pedal pulses 2+, well perfused No known hx of DM Unclear etiology Consider gabapentin if persistent Right foot wounds Unclear etiology Superficial, healing well No sign of infection No further intervention or workup needed at this time Hx of CVA Continue statin, aspirin Chronic pain disorder Continue fentanyl pathch, po morphine GERD PPI Plan 1. Continue with same treatment. 2. The patient has consistently refused Zyprexa and Aricept, compliance is encouraged. 3. Waiting for placement. 05/19/24: no changes Reason for continued inpatient stay Substantial Risk for: rapid decompensation Time Spent With Patient Time: Total time managing care of this patient today ____ minutes.
[2024-05-19 19:57] VITALS: BP 115/55; PULSE 77; RESP 16; TEMP 36; O2SAT 94
[2024-05-19] MEDS: diphenhydrAMINE HCL 25 MG CAPSULE 50 MG PO (20:00)
[2024-05-20] MEDS: Omeprazole 20 MG CAPSULE.DR PO (05:31)
[2024-05-20] MEDS: Morphine Sulfate Immed Release 15 MG TABLET 30 MG PO ×3 (05:32→20:02)
[2024-05-20] MEDS: diazePAM 5 MG TABLET 10 MG PO ×2 (06:54→19:57)
[2024-05-20] MEDS: risperiDONE 1 MG TABLET PO (06:54)
[2024-05-20] MEDS: Albuterol Sulfate 90 MCG 8 GM INHALER 2 PUFF INHALE (11:26)
[2024-05-20 11:28] VITALS: BP 112/82; PULSE 84; RESP 20; TEMP 36.6; O2SAT 95
[2024-05-20] MEDS: hydrOXYzine HCL 25 MG TABLET PO ×2 (12:25→20:53)
--- NOTE | 2024-05-20 15:40 | P.PNPSI_ITS ---
Subjective Subjective Date of Service: 05/20/24 Reason For Visit: Status post suicide attempt Subjective Notes: Conditional Voluntary Interim History: The nursing staff reported no changes in her mental status some somatic preoccupied but easily redirectable. She has been intrusive and other's patient's cares. Today we had a meeting with her guardian and explained the challenges that we have due to her behavior. It is clear the patient has cluster B personality traits more than anything major even though, she has refused to use Aricept for dementia. Mental Status Exam Mental Status Exam Patient Appearance: Well Grooomed Patient Orientation: Person and Situation Level of Consciousness: Awake and Appropriate Patient Behavior: Guarded and Passive Mood Description: Withdrawn Affect Description: Constricted Patient Cognition Impaired: Yes Ability to Follow Directions: Good Speech Pattern: Clear Hallucinations: None Delusions: Not Present Thought Process: Distracted Thought Content: positive for [place] of Content and positive for Thought Blocking Judgement: Fair Diagnostics Vital Signs (24Hr): Vital Signs - 24 hr 05/19/24 19:57 05/20/24 11:28 Temperature 96.8 F 97.9 F Pulse Rate 77 84 Respiratory Rate 16 20 Blood Pressure 115/55 L 112/82 Pulse Oximetry 94 95 Oxygen Delivery Method Room Air Room Air BMI result Body Mass Index 30.0 Labs 03/16/24 07:32 Medications Medications Current Medications Al Hydroxide/Mg Hydroxide (Magnesium Hydrox/Alum Hydrox 30 Ml Oral.Susp) 30 ml PO Q6H PRN PRN Reason: Heartburn/Nausea Albuterol Sulfate (Albuterol Sulfate 90 Mcg 8 Gm Inhaler) 2 puff INHALE Q4H PRN PRN Reason: Shortness Of Breath Or Wheezing Last Admin: 05/20/24 11:26 Dose: 2 puff Artificial Tears (Artificial Tears 15 Ml Drops) 1 drop EYE-BOTH DAILY PRN PRN Reason: Dry Eye(S) Last Admin: 05/09/24 11:11 Dose: 1 drop Diazepam (Diazepam 5 Mg Tablet) 10 mg PO BID [facility] Last Admin: 05/20/24 06:54 Dose: 10 mg Diphenhydramine HCl (Diphenhydramine Hcl 25 Mg Capsule) 50 mg PO BEDTIME [facility] Last Admin: 05/19/24 20:00 Dose: 50 mg Donepezil HCl (Donepezil Hcl 5 Mg Tablet) 5 mg PO BEDTIME [facility] Last Admin: 05/19/24 20:03 Dose: Not Given Fentanyl (Fentanyl 50 Mcg Patch.Td72) 50 mcg TRANSDERMA Q72H [facility] Last Admin: 05/19/24 09:59 Dose: 50 mcg Hydrocortisone (Hydrocortisone 1 % Cream 28.35 Gm Tube) 1 appl TOPICAL BID [facility]; Protocol Last Admin: 05/20/24 06:56 Dose: Not Given Hydroxyzine HCl (Hydroxyzine Hcl 25 Mg Tablet) 25 mg PO Q8H PRN PRN Reason: Anxiety Last Admin: 05/20/24 12:25 Dose: 25 mg Magnesium Hydroxide (Milk Of Magnesia 30 Ml Oral.Susp) 30 ml PO DAILY PRN PRN Reason: Constipation Morphine Sulfate (Morphine Sulfate Immed Release 15 Mg Tablet) 30 mg PO Q6H PRN PRN Reason: Pain, Severe (Pain Scale 7-10) Last Admin: 05/20/24 12:25 Dose: 30 mg Nicotine (Nicotine 21 Mg Patch.Td24) 21 mg TRANSDERMA DAILY PRN PRN Reason: smoking cessation Nicotine Polacrilex (Nicotine Polacrilex 2 Mg Gum) 4 mg BUCCAL Q2H PRN PRN Reason: Nicotine Cravings Olanzapine (Olanzapine 10 Mg Vial) 5 mg IM DAILY PRN PRN Reason: per michael if refuses oral Omeprazole (Omeprazole 20 Mg Capsule.Dr) 20 mg PO 0630 [facility] Last Admin: 05/20/24 05:31 Dose: 20 mg Ondansetron HCl (Ondansetron Odt 4 Mg Tab.Rapdis) 4 mg TRANSLINGU Q12H PRN PRN Reason: Nausea and Vomiting Risperidone (Risperidone 1 Mg Tablet) 1 mg PO DAILY [facility] Last Admin: 05/20/24 06:54 Dose: 1 mg Trazodone HCl (Trazodone Hcl 50 Mg Tablet) 50 mg PO BEDTIME MRX1 PRN PRN Reason: Insomnia Trazodone HCl (Trazodone Hcl 100 Mg Tablet) 100 mg PO BEDTIME [facility] Last Admin: 05/19/24 20:03 Dose: Not Given Allergies Allergies Allergy/AdvReac Type Severity Reaction Status Date / Time Egg Derived Allergy Unknown Unknown Verified 03/16/24 15:22 acetaminophen [From Percocet] AdvReac Severe Hives Verified 03/14/24 23:07 alprazolam AdvReac Severe Hives Verified 03/14/24 23:09 atorvastatin AdvReac Severe Hives Verified 03/14/24 23:10 azithromycin AdvReac Severe Swelling Verified 03/14/24 23:11 cholestyramine AdvReac Severe Hives Verified 03/14/24 23:08 [From Questran] ciprofloxacin AdvReac Severe Hives Verified 03/14/24 23:11 codeine AdvReac Severe Hives Verified 03/14/24 23:12 colesevelam AdvReac Severe Hives Verified 03/14/24 23:12 egg AdvReac Severe Hives Verified 03/15/24 01:39 Estrogens AdvReac Severe Swelling Verified 03/14/24 23:13 gemfibrozil AdvReac Severe Hives Verified 03/14/24 23:14 hydrocortisone AdvReac Severe Blurry Verified 03/14/24 23:07 [From Cortenema] Vision hydromorphone [From Dilaudid] AdvReac Severe Swelling Verified 03/14/24 23:13 Iodinated Contrast Media AdvReac Severe Hives Verified 03/14/24 23:14 isoniazid AdvReac Severe Hives Verified 03/14/24 23:15 mercaptopurine AdvReac Severe Vomiting Verified 03/14/24 23:16 methylprednisolone AdvReac Severe Hives Verified 03/14/24 23:16 minocycline AdvReac Severe Hives Verified 03/14/24 23:24 naproxen AdvReac Severe Rash Verified 03/14/24 23:17 oxycodone [From Percocet] AdvReac Severe Hives Verified 03/14/24 23:07 propoxyphene AdvReac Severe Hives Verified 03/14/24 23:19 quetiapine AdvReac Severe Rash Verified 03/14/24 23:20 seafood AdvReac Severe Swelling Verified 03/14/24 23:21 shellfish derived AdvReac Severe Swelling Verified 03/14/24 23:21 [id number] Reductase AdvReac Severe Swelling Verified 03/14/24 23:22 Inhibitor sucrose [From Questran] AdvReac Severe Hives Verified 03/14/24 23:08 Sulfa (Sulfonamide AdvReac Severe Hives Verified 03/14/24 23:24 Antibiotics) tramadol AdvReac Severe Rash Verified 03/14/24 23:22 wool AdvReac Severe Hives Verified 03/14/24 23:23 Assessment & Plan Assessment & Plan (1) Major neurocognitive disorder due to vascular disease, with behavioral disturbance, moderate: Status: Acute Code(s): F01.B18 - Vascular dementia, moderate, with other behavioral disturbance (2) Personality disorder: Status: Acute Code(s): F60.9 - Personality disorder, unspecified Plan Pt is a 63-year-old female with a PMH significant for?CVA, chronic pain disorder, HLD, ulcerative colitis s/p colectomy with colostomy in place, chronic anemia, and GERD who is admitted to [facility] for increasing paranoia and depression with suicide attempt by overdosing on home meds. Pt was apparently found unconscious in her apartment surrounded by empty morphine bottles, an SI note, and an eviction notice. Pt was emergently intubated and admitted to ICU for 5 days where she was treated for RAKAN and aspiration pneumonia. Also had elevated troponins that were attributed to demand ischemia. Medical consult for admission H&P. Mood disorder Plan as per psychiatry Recent hx of intubation in the ICU Denies difficulty swallowing, no sore throat or SOB Continue albuterol inhaler Peripheral neuropathy of right lower extremity Foot warm, pedal pulses 2+, well perfused No known hx of DM Unclear etiology Consider gabapentin if persistent Right foot wounds Unclear etiology Superficial, healing well No sign of infection No further intervention or workup needed at this time Hx of CVA Continue statin, aspirin Chronic pain disorder Continue fentanyl pathch, po morphine GERD PPI Plan 1. Continue with same treatment. 2. The patient has consistently refused Zyprexa and Aricept, compliance is encouraged. 3. Waiting for placement. Reason for continued inpatient stay Substantial Risk for: inability to function, rapid decompensation and med/psych decompensation Time Spent With Patient Time: Total time managing care of this patient today __20__ minutes.
[2024-05-20 19:56] VITALS: BP 97/54; PULSE 75; RESP 16; TEMP 36.6; O2SAT 96
[2024-05-20] MEDS: diphenhydrAMINE HCL 25 MG CAPSULE 50 MG PO (19:57)
[2024-05-21] MEDS: Morphine Sulfate Immed Release 15 MG TABLET 30 MG PO ×3 (04:16→17:31)
[2024-05-21] MEDS: Omeprazole 20 MG CAPSULE.DR PO (05:38)
[2024-05-21 08:00] VITALS: BP 123/59; PULSE 89; RESP 16; TEMP 36.8; O2SAT 99
[2024-05-21] MEDS: risperiDONE 1 MG TABLET PO (08:30)
[2024-05-21] MEDS: diazePAM 5 MG TABLET 10 MG PO ×2 (08:30→21:03)
[2024-05-21] MEDS: hydrOXYzine HCL 25 MG TABLET PO ×2 (11:14→17:35)
--- NOTE | 2024-05-21 14:00 | HO.PSYCHPN ---
Subjective Subjective Date of Service: 05/21/24 Reason For Visit: Status post suicide attempt Subjective Notes: Conditional Voluntary Interim History: The nursing staff reported no changes in mental status, at this moment the patient has not interfere and other patients care. On interview the patient denies new symptoms, waiting for placement. Mental Status Exam Mental Status Exam Patient Appearance: Appropriate Patient Orientation: Person and Situation Level of Consciousness: Awake and Appropriate Patient Behavior: Guarded and Passive Mood Description: Withdrawn Affect Description: Constricted Patient Cognition Impaired: Yes Ability to Follow Directions: Good Speech Pattern: Clear Hallucinations: None Delusions: Not Present Thought Content: positive for [place] and positive for Poverty of Content Judgement: Poor Diagnostics Vital Signs (24Hr): Vital Signs - 24 hr 05/20/24 19:56 05/21/24 08:00 Temperature 97.9 F 98.2 F Pulse Rate 75 89 Respiratory Rate 16 16 Blood Pressure 97/54 L 123/59 L Pulse Oximetry 96 99 Oxygen Delivery Method Room Air Room Air BMI result Body Mass Index 30.0 Labs 03/16/24 07:32 Medications Medications Current Medications Al Hydroxide/Mg Hydroxide (Magnesium Hydrox/Alum Hydrox 30 Ml Oral.Susp) 30 ml PO Q6H PRN PRN Reason: Heartburn/Nausea Albuterol Sulfate (Albuterol Sulfate 90 Mcg 8 Gm Inhaler) 2 puff INHALE Q4H PRN PRN Reason: Shortness Of Breath Or Wheezing Last Admin: 05/20/24 11:26 Dose: 2 puff Artificial Tears (Artificial Tears 15 Ml Drops) 1 drop EYE-BOTH DAILY PRN PRN Reason: Dry Eye(S) Last Admin: 05/09/24 11:11 Dose: 1 drop Diazepam (Diazepam 5 Mg Tablet) 10 mg PO BID [facility] Last Admin: 05/21/24 08:30 Dose: 10 mg Diphenhydramine HCl (Diphenhydramine Hcl 25 Mg Capsule) 50 mg PO BEDTIME [facility] Last Admin: 05/20/24 19:57 Dose: 50 mg Donepezil HCl (Donepezil Hcl 5 Mg Tablet) 5 mg PO BEDTIME [facility] Last Admin: 05/20/24 19:59 Dose: Not Given Fentanyl (Fentanyl 50 Mcg Patch.Td72) 50 mcg TRANSDERMA Q72H [facility] Last Admin: 05/19/24 09:59 Dose: 50 mcg Hydrocortisone (Hydrocortisone 1 % Cream 28.35 Gm Tube) 1 appl TOPICAL BID [facility]; Protocol Last Admin: 05/21/24 08:31 Dose: Not Given Hydroxyzine HCl (Hydroxyzine Hcl 25 Mg Tablet) 25 mg PO Q8H PRN PRN Reason: Anxiety Last Admin: 05/21/24 11:14 Dose: 25 mg Magnesium Hydroxide (Milk Of Magnesia 30 Ml Oral.Susp) 30 ml PO DAILY PRN PRN Reason: Constipation Morphine Sulfate (Morphine Sulfate Immed Release 15 Mg Tablet) 30 mg PO Q6H PRN PRN Reason: Pain, Severe (Pain Scale 7-10) Last Admin: 05/21/24 11:15 Dose: 30 mg Nicotine (Nicotine 21 Mg Patch.Td24) 21 mg TRANSDERMA DAILY PRN PRN Reason: smoking cessation Nicotine Polacrilex (Nicotine Polacrilex 2 Mg Gum) 4 mg BUCCAL Q2H PRN PRN Reason: Nicotine Cravings Olanzapine (Olanzapine 10 Mg Vial) 5 mg IM DAILY PRN PRN Reason: per michael if refuses oral Omeprazole (Omeprazole 20 Mg Capsule.Dr) 20 mg PO 0630 [facility] Last Admin: 05/21/24 05:38 Dose: 20 mg Ondansetron HCl (Ondansetron Odt 4 Mg Tab.Rapdis) 4 mg TRANSLINGU Q12H PRN PRN Reason: Nausea and Vomiting Risperidone (Risperidone 1 Mg Tablet) 1 mg PO DAILY [facility] Last Admin: 05/21/24 08:30 Dose: 1 mg Trazodone HCl (Trazodone Hcl 50 Mg Tablet) 50 mg PO BEDTIME MRX1 PRN PRN Reason: Insomnia Trazodone HCl (Trazodone Hcl 100 Mg Tablet) 100 mg PO BEDTIME [facility] Last Admin: 05/20/24 19:59 Dose: Not Given Allergies Allergies Allergy/AdvReac Type Severity Reaction Status Date / Time Egg Derived Allergy Unknown Unknown Verified 03/16/24 15:22 acetaminophen [From Percocet] AdvReac Severe Hives Verified 03/14/24 23:07 alprazolam AdvReac Severe Hives Verified 03/14/24 23:09 atorvastatin AdvReac Severe Hives Verified 03/14/24 23:10 azithromycin AdvReac Severe Swelling Verified 03/14/24 23:11 cholestyramine AdvReac Severe Hives Verified 03/14/24 23:08 [From Questran] ciprofloxacin AdvReac Severe Hives Verified 03/14/24 23:11 codeine AdvReac Severe Hives Verified 03/14/24 23:12 colesevelam AdvReac Severe Hives Verified 03/14/24 23:12 egg AdvReac Severe Hives Verified 03/15/24 01:39 Estrogens AdvReac Severe Swelling Verified 03/14/24 23:13 gemfibrozil AdvReac Severe Hives Verified 03/14/24 23:14 hydrocortisone AdvReac Severe Blurry Verified 03/14/24 23:07 [From Cortenema] Vision hydromorphone [From Dilaudid] AdvReac Severe Swelling Verified 03/14/24 23:13 Iodinated Contrast Media AdvReac Severe Hives Verified 03/14/24 23:14 isoniazid AdvReac Severe Hives Verified 03/14/24 23:15 mercaptopurine AdvReac Severe Vomiting Verified 03/14/24 23:16 methylprednisolone AdvReac Severe Hives Verified 03/14/24 23:16 minocycline AdvReac Severe Hives Verified 03/14/24 23:24 naproxen AdvReac Severe Rash Verified 03/14/24 23:17 oxycodone [From Percocet] AdvReac Severe Hives Verified 03/14/24 23:07 propoxyphene AdvReac Severe Hives Verified 03/14/24 23:19 quetiapine AdvReac Severe Rash Verified 03/14/24 23:20 seafood AdvReac Severe Swelling Verified 03/14/24 23:21 shellfish derived AdvReac Severe Swelling Verified 03/14/24 23:21 Lnlptvi-[id number]-FrF Reductase AdvReac Severe Swelling Verified 03/14/24 23:22 Inhibitor sucrose [From Questran] AdvReac Severe Hives Verified 03/14/24 23:08 Sulfa (Sulfonamide AdvReac Severe Hives Verified 03/14/24 23:24 Antibiotics) tramadol AdvReac Severe Rash Verified 03/14/24 23:22 wool AdvReac Severe Hives Verified 03/14/24 23:23 Assessment & Plan Assessment & Plan (1) Major neurocognitive disorder due to vascular disease, with behavioral disturbance, moderate: Status: Acute Code(s): F01.B18 - Vascular dementia, moderate, with other behavioral disturbance (2) Personality disorder: Status: Acute Code(s): F60.9 - Personality disorder, unspecified Plan Pt is a 63-year-old female with a PMH significant for?CVA, chronic pain disorder, HLD, ulcerative colitis s/p colectomy with colostomy in place, chronic anemia, and GERD who is admitted to [facility] for increasing paranoia and depression with suicide attempt by overdosing on home meds. Pt was apparently found unconscious in her apartment surrounded by empty morphine bottles, an SI note, and an eviction notice. Pt was emergently intubated and admitted to ICU for 5 days where she was treated for RAKAN and aspiration pneumonia. Also had elevated troponins that were attributed to demand ischemia. Medical consult for admission H&P. Mood disorder Plan as per psychiatry Recent hx of intubation in the ICU Denies difficulty swallowing, no sore throat or SOB Continue albuterol inhaler Peripheral neuropathy of right lower extremity Foot warm, pedal pulses 2+, well perfused No known hx of DM Unclear etiology Consider gabapentin if persistent Right foot wounds Unclear etiology Superficial, healing well No sign of infection No further intervention or workup needed at this time Hx of CVA Continue statin, aspirin Chronic pain disorder Continue fentanyl pathch, po morphine GERD PPI Plan 1. Continue with same treatment. 2. The patient has consistently refused Zyprexa and Aricept, compliance is encouraged. 3. Waiting for placement. Reason for continued inpatient stay Substantial Risk for: inability to function, rapid decompensation and med/psych decompensation Time Spent With Patient Time: Total time managing care of this patient today __20__ minutes.
[2024-05-21] MEDS: diphenhydrAMINE HCL 25 MG CAPSULE 50 MG PO (21:03)
[2024-05-22] MEDS: Omeprazole 20 MG CAPSULE.DR PO (06:12)
[2024-05-22 07:45] VITALS: BP 131/59; PULSE 87; RESP 17; TEMP 36.3; O2SAT 98
[2024-05-22] MEDS: risperiDONE 1 MG TABLET PO (07:59)
[2024-05-22] MEDS: diazePAM 5 MG TABLET 10 MG PO ×2 (07:59→20:21)
[2024-05-22] MEDS: fentaNYL 50 MCG PATCH.TD72 TRANSDERMA (11:02)
[2024-05-22] MEDS: Morphine Sulfate Immed Release 15 MG TABLET 30 MG PO ×2 (11:06→17:14)
--- NOTE | 2024-05-22 12:25 | PC.NURSE ---
Patient's old fentanyl patch was removed from her left upper outer arm this morning and disposed of with another nurse (Zoe Enamorado RN) as a witness.
--- NOTE | 2024-05-22 13:48 | HO.PSYCHPN ---
Subjective Subjective Date of Service: 05/22/24 Reason For Visit: Status post suicide attempt Subjective Notes: Conditional Voluntary Interim History: The nursing staff reported no changes in her mental status, manipulative but redirectable. On interview the patient reported the several somatic complaints. No changes in her mental status waiting for placement. Mental Status Exam Mental Status Exam Patient Appearance: Appropriate Patient Orientation: Person and Situation Level of Consciousness: Awake and Appropriate Patient Behavior: Guarded and Passive Mood Description: Withdrawn Affect Description: Constricted Patient Cognition Impaired: Yes Ability to Follow Directions: Good Speech Pattern: Clear Hallucinations: None Delusions: Not Present Thought Process: Distracted and Slowed Thinking Thought Content: positive for [place] and positive for Poverty of Content Judgement: Poor Diagnostics Vital Signs (24Hr): Vital Signs - 24 hr 05/22/24 07:45 Temperature 97.4 F Pulse Rate 87 Respiratory Rate 17 Blood Pressure 131/59 L Pulse Oximetry 98 Oxygen Delivery Method Room Air BMI result Body Mass Index 30.0 Labs 03/16/24 07:32 Medications Medications Current Medications Al Hydroxide/Mg Hydroxide (Magnesium Hydrox/Alum Hydrox 30 Ml Oral.Susp) 30 ml PO Q6H PRN PRN Reason: Heartburn/Nausea Albuterol Sulfate (Albuterol Sulfate 90 Mcg 8 Gm Inhaler) 2 puff INHALE Q4H PRN PRN Reason: Shortness Of Breath Or Wheezing Last Admin: 05/20/24 11:26 Dose: 2 puff Artificial Tears (Artificial Tears 15 Ml Drops) 1 drop EYE-BOTH DAILY PRN PRN Reason: Dry Eye(S) Last Admin: 05/09/24 11:11 Dose: 1 drop Diazepam (Diazepam 5 Mg Tablet) 10 mg PO BID [facility] Last Admin: 05/22/24 07:59 Dose: 10 mg Diphenhydramine HCl (Diphenhydramine Hcl 25 Mg Capsule) 50 mg PO BEDTIME [facility] Last Admin: 05/21/24 21:03 Dose: 50 mg Donepezil HCl (Donepezil Hcl 5 Mg Tablet) 5 mg PO BEDTIME [facility] Last Admin: 05/21/24 21:13 Dose: Not Given Fentanyl (Fentanyl 50 Mcg Patch.Td72) 50 mcg TRANSDERMA Q72H [facility] Last Admin: 05/22/24 11:02 Dose: 50 mcg Hydrocortisone (Hydrocortisone 1 % Cream 28.35 Gm Tube) 1 appl TOPICAL BID [facility]; Protocol Last Admin: 05/22/24 08:00 Dose: Not Given Hydroxyzine HCl (Hydroxyzine Hcl 25 Mg Tablet) 25 mg PO Q8H PRN PRN Reason: Anxiety Last Admin: 05/21/24 17:35 Dose: 25 mg Magnesium Hydroxide (Milk Of Magnesia 30 Ml Oral.Susp) 30 ml PO DAILY PRN PRN Reason: Constipation Morphine Sulfate (Morphine Sulfate Immed Release 15 Mg Tablet) 30 mg PO Q6H PRN PRN Reason: Pain, Severe (Pain Scale 7-10) Last Admin: 05/22/24 11:06 Dose: 30 mg Nicotine (Nicotine 21 Mg Patch.Td24) 21 mg TRANSDERMA DAILY PRN PRN Reason: smoking cessation Nicotine Polacrilex (Nicotine Polacrilex 2 Mg Gum) 4 mg BUCCAL Q2H PRN PRN Reason: Nicotine Cravings Olanzapine (Olanzapine 10 Mg Vial) 5 mg IM DAILY PRN PRN Reason: per michael if refuses oral Omeprazole (Omeprazole 20 Mg Capsule.Dr) 20 mg PO 0630 [facility] Last Admin: 05/22/24 06:12 Dose: 20 mg Ondansetron HCl (Ondansetron Odt 4 Mg Tab.Rapdis) 4 mg TRANSLINGU Q12H PRN PRN Reason: Nausea and Vomiting Risperidone (Risperidone 1 Mg Tablet) 1 mg PO DAILY [facility] Last Admin: 05/22/24 07:59 Dose: 1 mg Trazodone HCl (Trazodone Hcl 50 Mg Tablet) 50 mg PO BEDTIME MRX1 PRN PRN Reason: Insomnia Trazodone HCl (Trazodone Hcl 100 Mg Tablet) 100 mg PO BEDTIME [facility] Last Admin: 05/21/24 21:13 Dose: Not Given Allergies Allergies Allergy/AdvReac Type Severity Reaction Status Date / Time Egg Derived Allergy Unknown Unknown Verified 03/16/24 15:22 acetaminophen [From Percocet] AdvReac Severe Hives Verified 03/14/24 23:07 alprazolam AdvReac Severe Hives Verified 03/14/24 23:09 atorvastatin AdvReac Severe Hives Verified 03/14/24 23:10 azithromycin AdvReac Severe Swelling Verified 03/14/24 23:11 cholestyramine AdvReac Severe Hives Verified 03/14/24 23:08 [From Questran] ciprofloxacin AdvReac Severe Hives Verified 03/14/24 23:11 codeine AdvReac Severe Hives Verified 03/14/24 23:12 colesevelam AdvReac Severe Hives Verified 03/14/24 23:12 egg AdvReac Severe Hives Verified 03/15/24 01:39 Estrogens AdvReac Severe Swelling Verified 03/14/24 23:13 gemfibrozil AdvReac Severe Hives Verified 03/14/24 23:14 hydrocortisone AdvReac Severe Blurry Verified 03/14/24 23:07 [From Cortenema] Vision hydromorphone [From Dilaudid] AdvReac Severe Swelling Verified 03/14/24 23:13 Iodinated Contrast Media AdvReac Severe Hives Verified 03/14/24 23:14 isoniazid AdvReac Severe Hives Verified 03/14/24 23:15 mercaptopurine AdvReac Severe Vomiting Verified 03/14/24 23:16 methylprednisolone AdvReac Severe Hives Verified 03/14/24 23:16 minocycline AdvReac Severe Hives Verified 03/14/24 23:24 naproxen AdvReac Severe Rash Verified 03/14/24 23:17 oxycodone [From Percocet] AdvReac Severe Hives Verified 03/14/24 23:07 propoxyphene AdvReac Severe Hives Verified 03/14/24 23:19 quetiapine AdvReac Severe Rash Verified 03/14/24 23:20 seafood AdvReac Severe Swelling Verified 03/14/24 23:21 shellfish derived AdvReac Severe Swelling Verified 03/14/24 23:21 [id number]-YaK Reductase AdvReac Severe Swelling Verified 03/14/24 23:22 Inhibitor sucrose [From Questran] AdvReac Severe Hives Verified 03/14/24 23:08 Sulfa (Sulfonamide AdvReac Severe Hives Verified 03/14/24 23:24 Antibiotics) tramadol AdvReac Severe Rash Verified 03/14/24 23:22 wool AdvReac Severe Hives Verified 03/14/24 23:23 Assessment & Plan Assessment & Plan (1) Major neurocognitive disorder due to vascular disease, with behavioral disturbance, moderate: Status: Acute Code(s): F01.B18 - Vascular dementia, moderate, with other behavioral disturbance (2) Personality disorder: Status: Acute Code(s): F60.9 - Personality disorder, unspecified Plan Pt is a 63-year-old female with a PMH significant for?CVA, chronic pain disorder, HLD, ulcerative colitis s/p colectomy with colostomy in place, chronic anemia, and GERD who is admitted to [facility] for increasing paranoia and depression with suicide attempt by overdosing on home meds. Pt was apparently found unconscious in her apartment surrounded by empty morphine bottles, an SI note, and an eviction notice. Pt was emergently intubated and admitted to ICU for 5 days where she was treated for RAKAN and aspiration pneumonia. Also had elevated troponins that were attributed to demand ischemia. Medical consult for admission H&P. Mood disorder Plan as per psychiatry Recent hx of intubation in the ICU Denies difficulty swallowing, no sore throat or SOB Continue albuterol inhaler Peripheral neuropathy of right lower extremity Foot warm, pedal pulses 2+, well perfused No known hx of DM Unclear etiology Consider gabapentin if persistent Right foot wounds Unclear etiology Superficial, healing well No sign of infection No further intervention or workup needed at this time Hx of CVA Continue statin, aspirin Chronic pain disorder Continue fentanyl pathch, po morphine GERD PPI Plan 1. Continue with same treatment. 2. The patient has consistently refused Zyprexa and Aricept, compliance is encouraged. 3. Waiting for placement. Reason for continued inpatient stay Substantial Risk for: inability to function, rapid decompensation and med/psych decompensation Time Spent With Patient Time: Total time managing care of this patient today __20__ minutes.
[2024-05-22] MEDS: hydrOXYzine HCL 25 MG TABLET PO (15:02)
[2024-05-22 20:00] VITALS: BP 108/59; PULSE 88; RESP 18; TEMP 36.4; O2SAT 94
[2024-05-22] MEDS: diphenhydrAMINE HCL 25 MG CAPSULE 50 MG PO (20:21)
[2024-05-23] MEDS: Albuterol Sulfate 90 MCG 8 GM INHALER 2 PUFF INHALE (05:10)
[2024-05-23] MEDS: Omeprazole 20 MG CAPSULE.DR PO (05:10)
[2024-05-23] MEDS: Morphine Sulfate Immed Release 15 MG TABLET 30 MG PO ×2 (06:02→12:56)
[2024-05-23 08:12] VITALS: BP 122/60; PULSE 88; RESP 17; TEMP 36.2; O2SAT 96
[2024-05-23] MEDS: diazePAM 5 MG TABLET 10 MG PO ×2 (08:13→20:45)
[2024-05-23] MEDS: hydrOXYzine HCL 25 MG TABLET PO (08:13)
[2024-05-23] MEDS: Hydrocortisone 1 % Cream 28.35 GM TUBE 1 APPL TOPICAL (09:29)
[2024-05-23] MEDS: risperiDONE 0.5 MG TABLET PO (09:29)
[2024-05-23 13:44] VITALS: BMI 30.1
--- NOTE | 2024-05-23 14:19 | HO.PSYCHPN ---
Subjective Subjective Date of Service: 05/23/24 Reason For Visit: Status post suicide attempt Subjective Notes: Conditional Voluntary Interim History: The nursing staff reported no changes in her mental status, waiting for placement. On interview the patient remains intrusive and attention seeking. Mental Status Exam Mental Status Exam Patient Appearance: Well Grooomed and Appropriate Patient Orientation: Person and Situation Level of Consciousness: Awake and Appropriate Patient Behavior: Guarded and Passive Mood Description: Withdrawn Affect Description: Constricted Patient Cognition Impaired: Yes Ability to Follow Directions: Good Speech Pattern: Clear Hallucinations: None Delusions: Not Present Thought Process: Distracted and Slowed Thinking Thought Content: positive for [place] and positive for Poverty of Content Judgement: Fair Diagnostics Vital Signs (24Hr): Vital Signs - 24 hr 05/22/24 20:00 05/23/24 08:12 Temperature 97.5 F 97.1 F Pulse Rate 88 88 Respiratory Rate 18 17 Blood Pressure 108/59 L 122/60 Pulse Oximetry 94 96 Oxygen Delivery Method Room Air Room Air BMI result Body Mass Index 30.1 Labs 03/16/24 07:32 Medications Medications Current Medications Al Hydroxide/Mg Hydroxide (Magnesium Hydrox/Alum Hydrox 30 Ml Oral.Susp) 30 ml PO Q6H PRN PRN Reason: Heartburn/Nausea Albuterol Sulfate (Albuterol Sulfate 90 Mcg 8 Gm Inhaler) 2 puff INHALE Q4H PRN PRN Reason: Shortness Of Breath Or Wheezing Last Admin: 05/23/24 05:10 Dose: 2 puff Artificial Tears (Artificial Tears 15 Ml Drops) 1 drop EYE-BOTH DAILY PRN PRN Reason: Dry Eye(S) Last Admin: 05/09/24 11:11 Dose: 1 drop Diazepam (Diazepam 5 Mg Tablet) 10 mg PO BID [facility] Last Admin: 05/23/24 08:13 Dose: 10 mg Diphenhydramine HCl (Diphenhydramine Hcl 25 Mg Capsule) 50 mg PO BEDTIME [facility] Last Admin: 05/22/24 20:21 Dose: 50 mg Donepezil HCl (Donepezil Hcl 5 Mg Tablet) 5 mg PO BEDTIME [facility] Last Admin: 05/22/24 20:22 Dose: Not Given Fentanyl (Fentanyl 50 Mcg Patch.Td72) 50 mcg TRANSDERMA Q72H [facility] Last Admin: 05/22/24 11:02 Dose: 50 mcg Hydrocortisone (Hydrocortisone 1 % Cream 28.35 Gm Tube) 1 appl TOPICAL BID [facility]EN[facility]; Protocol Last Admin: 05/23/24 09:29 Dose: 1 appl Hydroxyzine HCl (Hydroxyzine Hcl 25 Mg Tablet) 25 mg PO Q8H PRN PRN Reason: Anxiety Last Admin: 05/23/24 08:13 Dose: 25 mg Magnesium Hydroxide (Milk Of Magnesia 30 Ml Oral.Susp) 30 ml PO DAILY PRN PRN Reason: Constipation Morphine Sulfate (Morphine Sulfate Immed Release 15 Mg Tablet) 30 mg PO Q6H PRN PRN Reason: Pain, Severe (Pain Scale 7-10) Last Admin: 05/23/24 12:56 Dose: 30 mg Nicotine (Nicotine 21 Mg Patch.Td24) 21 mg TRANSDERMA DAILY PRN PRN Reason: smoking cessation Nicotine Polacrilex (Nicotine Polacrilex 2 Mg Gum) 4 mg BUCCAL Q2H PRN PRN Reason: Nicotine Cravings Olanzapine (Olanzapine 10 Mg Vial) 5 mg IM DAILY PRN PRN Reason: per michael if refuses oral Omeprazole (Omeprazole 20 Mg Capsule.Dr) 20 mg PO 0630 [facility] Last Admin: 05/23/24 05:10 Dose: 20 mg Ondansetron HCl (Ondansetron Odt 4 Mg Tab.Rapdis) 4 mg TRANSLINGU Q12H PRN PRN Reason: Nausea and Vomiting Risperidone (Risperidone 0.5 Mg Tablet) 0.5 mg PO DAILY [facility] Trazodone HCl (Trazodone Hcl 50 Mg Tablet) 50 mg PO BEDTIME MRX1 PRN PRN Reason: Insomnia Trazodone HCl (Trazodone Hcl 100 Mg Tablet) 100 mg PO BEDTIME [facility] Last Admin: 05/22/24 20:22 Dose: Not Given Allergies Allergies Allergy/AdvReac Type Severity Reaction Status Date / Time Egg Derived Allergy Unknown Unknown Verified 03/16/24 15:22 acetaminophen [From Percocet] AdvReac Severe Hives Verified 03/14/24 23:07 alprazolam AdvReac Severe Hives Verified 03/14/24 23:09 atorvastatin AdvReac Severe Hives Verified 03/14/24 23:10 azithromycin AdvReac Severe Swelling Verified 03/14/24 23:11 cholestyramine AdvReac Severe Hives Verified 03/14/24 23:08 [From Questran] ciprofloxacin AdvReac Severe Hives Verified 03/14/24 23:11 codeine AdvReac Severe Hives Verified 03/14/24 23:12 colesevelam AdvReac Severe Hives Verified 03/14/24 23:12 egg AdvReac Severe Hives Verified 03/15/24 01:39 Estrogens AdvReac Severe Swelling Verified 03/14/24 23:13 gemfibrozil AdvReac Severe Hives Verified 03/14/24 23:14 hydrocortisone AdvReac Severe Blurry Verified 03/14/24 23:07 [From Cortenema] Vision hydromorphone [From Dilaudid] AdvReac Severe Swelling Verified 03/14/24 23:13 Iodinated Contrast Media AdvReac Severe Hives Verified 03/14/24 23:14 isoniazid AdvReac Severe Hives Verified 03/14/24 23:15 mercaptopurine AdvReac Severe Vomiting Verified 03/14/24 23:16 methylprednisolone AdvReac Severe Hives Verified 03/14/24 23:16 minocycline AdvReac Severe Hives Verified 03/14/24 23:24 naproxen AdvReac Severe Rash Verified 03/14/24 23:17 oxycodone [From Percocet] AdvReac Severe Hives Verified 03/14/24 23:07 propoxyphene AdvReac Severe Hives Verified 03/14/24 23:19 quetiapine AdvReac Severe Rash Verified 03/14/24 23:20 seafood AdvReac Severe Swelling Verified 03/14/24 23:21 shellfish derived AdvReac Severe Swelling Verified 03/14/24 23:21 [id number] Reductase AdvReac Severe Swelling Verified 03/14/24 23:22 Inhibitor sucrose [From Questran] AdvReac Severe Hives Verified 03/14/24 23:08 Sulfa (Sulfonamide AdvReac Severe Hives Verified 03/14/24 23:24 Antibiotics) tramadol AdvReac Severe Rash Verified 03/14/24 23:22 wool AdvReac Severe Hives Verified 03/14/24 23:23 Assessment & Plan Assessment & Plan (1) Major neurocognitive disorder due to vascular disease, with behavioral disturbance, moderate: Status: Acute Code(s): F01.B18 - Vascular dementia, moderate, with other behavioral disturbance (2) Personality disorder: Status: Acute Code(s): F60.9 - Personality disorder, unspecified Plan Pt is a 63-year-old female with a PMH significant for?CVA, chronic pain disorder, HLD, ulcerative colitis s/p colectomy with colostomy in place, chronic anemia, and GERD who is admitted to [facility] for increasing paranoia and depression with suicide attempt by overdosing on home meds. Pt was apparently found unconscious in her apartment surrounded by empty morphine bottles, an SI note, and an eviction notice. Pt was emergently intubated and admitted to ICU for 5 days where she was treated for RAKAN and aspiration pneumonia. Also had elevated troponins that were attributed to demand ischemia. Medical consult for admission H&P. Mood disorder Plan as per psychiatry Recent hx of intubation in the ICU Denies difficulty swallowing, no sore throat or SOB Continue albuterol inhaler Peripheral neuropathy of right lower extremity Foot warm, pedal pulses 2+, well perfused No known hx of DM Unclear etiology Consider gabapentin if persistent Right foot wounds Unclear etiology Superficial, healing well No sign of infection No further intervention or workup needed at this time Hx of CVA Continue statin, aspirin Chronic pain disorder Continue fentanyl pathch, po morphine GERD PPI Plan 1. Continue with same treatment. 2. The patient has consistently refused Zyprexa and Aricept, compliance is encouraged. 3. Waiting for placement. Reason for continued inpatient stay Substantial Risk for: inability to function, rapid decompensation and med/psych decompensation Time Spent With Patient Time: Total time managing care of this patient today __20__ minutes.
[2024-05-23 19:56] VITALS: BP 127/65; PULSE 83; RESP 18; TEMP 36.3; O2SAT 94
[2024-05-23] MEDS: diphenhydrAMINE HCL 25 MG CAPSULE 50 MG PO (20:44)
[2024-05-24] MEDS: hydrOXYzine HCL 25 MG TABLET PO ×2 (01:46→11:53)
[2024-05-24] MEDS: Morphine Sulfate Immed Release 15 MG TABLET 30 MG PO ×2 (01:46→11:53)
--- NOTE | 2024-05-24 04:51 | PC.NURSE ---
Patient awake at 0145 requesting PRN pain medication and atarax. Administered without issue. Approximately one hour later, patient requesting to see this RN. Patient reports that her back is breaking and she is unable to get out of bed. Patient demanding to be turned and repositioned, attempting to roll self out of bed x 2. This communications writer told patient that this was unsafe behavior, and patient should come sit in sensory room if she was unable to lay in bed. Patient sat up in bed with no difficulty, and was able to put on shoes. Patient requested assistance with walking from room to sensory room, attempting to put self on floor and drop weight, while yelling out that her back was broken. Patient seated in sensory room, offered snacks and beverage and heat pack. Patient continuing to yell out for staff members, demanding staff call her marketing content specialist and talk to their provider for orders on how to take care of her back. Conversation needed to be terminated multiple times due to patient's demands and agitation. Over time, patient began to pull at ileostomy bag reporting that it was about to burst open. This communications writer assisted with emptying ileostomy bag. Patient then proceeded to request water pitcher or urinal to urinate in. Patient was assisted to bathroom and she was able to void in toilet without issue. Patient continued to try and drop her weight to the floor, and pull away from nurses that were holding her up. She continues to demand to be brought to the emergency room so that she can transfer to different hospital. This communications writer offered patient 3 day notice in which she declined to sign. Patient is currently sitting in sensory room.
--- NOTE | 2024-05-24 05:20 | PC.NURSE ---
This RN was alerted that fentanyl patch was removed by patient. This RN obtained the patch and was able to place back on right upper arm with tegaderm.
[2024-05-24] MEDS: Omeprazole 20 MG CAPSULE.DR PO (06:14)
[2024-05-24 08:00] VITALS: BP 115/59; PULSE 85; RESP 18; TEMP 37.1; O2SAT 95
[2024-05-24] MEDS: risperiDONE 0.5 MG TABLET PO (09:30)
[2024-05-24] MEDS: diazePAM 5 MG TABLET 10 MG PO (09:30)
--- NOTE | 2024-05-24 12:43 | PM.PSYDC ---
DS: Providers Provider Date of Service: 05/24/24 Date of admission: 03/14/24 22:12 Date of discharge: 05/24/24 Primary care physician: Unknown Physician Consults: 03/15/24 00:04 Consult to Hospitalist Routine Comment: Consulting Provider: Hospitalist Reason For Exam: admission physical 03/18/24 15:17 Consult to Hospitalist Routine Comment: Pt expected to have a significant LOS, no PCP Consulting Provider: Hospitalist Reason For Exam: Pt and team have found a lump L breast 05/02/24 13:37 Consult to Wound Care Routine Reason for consultation: open wound Has provider been notified: No 05/02/24 13:40 Consult to Hospitalist Routine Comment: Consulting Provider: Hospitalist Reason For Exam: breast lump as per pt 05/03/24 08:43 Consult to General Surgery Routine Consulting Provider: [facility] Reason for consultation: Breast lump, hospitalist suggested to be seen by Dr. Leonard Has provider been notified: Yes DS: Diagnosis Discharge Diagnosis (1) Personality disorder: Status: Acute (2) Opioid abuse: Status: Acute (3) Major neurocognitive disorder due to vascular disease, with behavioral disturbance, moderate: Status: Acute DS: Medications Discharge Medications Home Medications: Home Medications ?Medication ?Instructions ?Recorded ?Confirmed artificial tears solution eye drops 1 drp ophthalmic (eye) DAILY PRN 03/14/24 03/14/24 Dry Eye(S) clotrimazole 1 % topical cream 2 appl topical BID 03/14/24 03/14/24 escitalopram oxalate 5 mg tablet 5 mg PO DAILY 03/14/24 03/14/24 folic acid 1 mg tablet 1 mg PO DAILY 03/14/24 03/14/24 hydroxyzine HCl 50 mg tablet 50 mg PO TID PRN Anxiety 03/14/24 03/14/24 morphine 30 mg immediate release 30 mg PO Q6H PRN pain 03/14/24 03/14/24 tablet nystatin 100,000 unit/gram topical 1 appl topical BID 03/14/24 03/14/24 cream pantoprazole 40 mg tablet,delayed 40 mg PO BID 03/14/24 03/14/24 release Previous Rx's ?Medication ?Instructions ?Recorded albuterol sulfate 90 mcg/actuation 2 puff inhalation Q4H PRN 05/24/24 aerosol inhaler Shortness Of Breath Or Wheezing 14 days #1 inhaler aspirin 81 mg tablet,delayed 81 mg PO DAILY 14 days #14 tabs 05/24/24 release diazepam 10 mg tablet 10 mg PO BID 14 days #28 tabs 05/24/24 diphenhydramine HCl 25 mg capsule 50 mg (2 x 25 mg) PO BEDTIME 14 05/24/24 (Banophen) days #28 caps donepezil 5 mg tablet 5 mg PO BEDTIME 14 days #14 tabs 05/24/24 fentanyl 50 mcg/hr transdermal 1 patch topical Q3D #1 ea 05/24/24 patch ferrous gluconate 324 mg (38 mg 324 mg PO Q OTHER DAY 14 days #7 05/24/24 iron) tablet tabs hydrocortisone 1 % topical cream 1 appl topical BID 14 days #5 grams 05/24/24 hydroxyzine HCl 25 mg tablet 25 mg PO Q8H PRN Anxiety 14 days 05/24/24 #28 tabs morphine 15 mg immediate release 30 mg (2 x 15 mg) PO Q6H PRN Pain, 05/24/24 tablet Severe (Pain Scale 7-10) 14 days #28 tabs omeprazole 20 mg capsule,delayed 20 mg PO 0630 14 days #14 caps 05/24/24 release peg [id number] 1 1 drp ophthalmic (eye) DAILY PRN 05/24/24 %-0.2 %-0.2 % eye drops Dry Eye(S) 30 days #5 mL (Artificial Tears ([id number])) risperidone 0.5 mg tablet 0.5 mg PO DAILY 14 days #14 tabs 05/24/24 trazodone 100 mg tablet 100 mg PO BEDTIME 14 days #14 tabs 05/24/24 Mental Status Exam Mental Status Exam Patient Appearance: Well Grooomed and Appropriate Patient Orientation: Person, Place and Situation Level of Consciousness: Awake and Appropriate Patient Behavior: Appropriate and Guarded Mood Description: Withdrawn Affect Description: Calm Patient Cognition Impaired: No Ability to Follow Directions: Good Speech Pattern: Clear Hallucinations: None Delusions: Not Present Thought Process: Distracted and Slowed Thinking Thought Content: positive for [place] Judgement: Fair DS: Summary Hospital Course Hospital Course: The patient is a 63-year-old female, single, with no children, with poor social support, recently evicted and currently homeless referred from another hospital out of our catchment area after she overdosed on opioids in an apparent suicidal attempt. She was medically cleared and transferring to this facility for psychiatric stabilization. On admission, the patient adamantly denied suicidal ideation she stated that she has several psychosocial stressors and currently she had been evicted and she needs placement. On admission she begged me not to discharge her to the streets. She stated that she has several medical comorbidities and past history of abuse with PTSD symptoms. She refused mood stabilizers, antidepressants and other medications. She only wanted opioids, her benzodiazepines that were confirmed and colostomy bags. Sporadically, the patient complained of different somatic complaints such as a tumor on her breast but later on she refused imaging or care. Several times we have called the hospitalist for different ailments that eventually she refused to be workout or treated. We did cognitive assessments and initially the patient scored fairly low, apparently a temporal guardian was addressed. We gather more collateral information apparently in the community the patient has exhausted the resources. The patient has a chronic history of been evicted and unstable relations. While she was in the unit, she showed some mild cognitive impairment I offer Aricept but she has consistently refused to take it. Also we offered atypical neuroleptics and she refused but eventually she started taking Risperdal 0.5. While she was in the unit, the patient interfered on other's patient's care, she showed signs and symptoms of unstable relations and splitting. She was tried to get redirected but she always denied any wrong doing. 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 The day of the discharge, the patient presented to her nurse stating that her fentanyl patch fell off. This is the 3rd time that the patient has tampered with fentanyl patches and she was request a new 1. I explained to the patient that it looks unsafe for her to have fentanyl patches and it is our believe that she had been tampering with them. I offer her to change her opioids to different alternatives and I was going to called the addition Medicine doctor but she got angry and she signed a 3 day notice. I contact her provisional guardian. It was clear that the patient had capacity to take informed decisions. She has never been unsafe, her activities of daily life were done without any impairment and she was able to manage her own colostomy bags. At this point, the patient has capacity to take informed decisions and she is fully aware of the risks, benefits and alternatives of treatment. The patient was able to contract for safety, she refused to retracted her 3 day notice and she wanted to be discharged as soon as possible. Since there were no safety concerns discharge planning was discussed. Again, the patient has capacity to take informed decisions and even though that, cognitively she can scored a little low on the [place], the patient is very well oriented on time person and situation. Time spent discussing smoking cessation with patient: 3 to 10 minutes Status at Discharge Cognitive/behavioral status at discharge: At baseline Functional status at discharge: independent ambulation Overall status at discharge: patient is back to baseline Time Spent with Patient Time attestation: Total time managing care of this patient today __30__ minutes. Time spent: Less than 30 minutes Discharge Plan Discharge Anticipated Discharge Date/Time: 05/24/24 14:00 Patient Disposition: Home, Self-Care Discharge Diagnosis: Personality disorder NOS Opiate use disorder Benzodiazepine use disorder Homelessness Rule out malingering Referrals: Physician,Unknown J [Primary Care Provider] - 1 Week Discharge Medications: New donepezil 5 mg Tablet 5 mg PO BEDTIME 14 Days Qty: 14 0RF diphenhydramine HCl [Banophen] 25 mg Capsule 50 mg PO BEDTIME 14 Days Qty: 28 0RF diazepam 10 mg tablet 10 mg PO BID 14 Days Qty: 28 0RF trazodone 100 mg Tablet 100 mg PO BEDTIME 14 Days Qty: 14 0RF hydrocortisone 1 % Cream 1 appl topical BID 14 Days Qty: 5 0RF Protocol: Apply to: Apply to: affected areas omeprazole 20 mg Capsule,Delayed Release(Dr/Ec) 20 mg PO 0630 14 Days Qty: 14 0RF hydroxyzine HCl 25 mg Tablet 25 mg PO Q8H PRN (Reason: Anxiety) 14 Days Qty: 28 0RF morphine 15 mg Tablet 30 mg PO Q6H PRN (Reason: Pain, Severe (Pain Scale 7-10)) 14 Days Qty: 28 0RF Rx Instructions: Partial Fill upon patient request. risperidone 0.5 mg Tablet 0.5 mg PO DAILY 14 Days Qty: 14 0RF Artificial Tears([id number]) 1-0.2-0.2 % Drops 1 drp ophthalmic (eye) DAILY PRN (Reason: Dry Eye(S)) 30 Days Qty: 5 0RF Continued fentanyl 50 mcg/hr patch 72 hour 1 patch topical Q3D Qty: 1 0RF aspirin 81 mg Tablet,Delayed Release (Dr/Ec) 81 mg PO DAILY 14 Days Qty: 14 0RF albuterol sulfate 90 mcg/actuation HFA aerosol inhaler 2 puff INHALATION Q4H PRN (Reason: Shortness Of Breath Or Wheezing) 14 Days Qty: 1 0RF ferrous gluconate 324 mg (38 mg iron) Tablet 324 mg PO Q OTHER DAY 14 Days Qty: 7 0RF Discontinued morphine 30 mg tablet 30 mg PO Q6H PRN (Reason: pain) hydroxyzine HCl 50 mg tablet 50 mg PO TID PRN (Reason: Anxiety) clotrimazole 1 % Cream 2 appl TOPICAL BID Rx Instructions: under breast and arms escitalopram oxalate 5 mg Tablet 5 mg PO DAILY folic acid 1 mg Tablet 1 mg PO DAILY artificial tears solution Drops 1 drp OPHTHALMIC (EYE) DAILY PRN (Reason: Dry Eye(S)) nystatin 100,000 unit/gram Cream 1 appl TOPICAL BID pantoprazole 40 mg Tablet,Delayed Release (Dr/Ec) 40 mg PO BID Discharge Orders: Discharge Order (Routine); Ordered 05/24/24 Ordered By: Madhu Monteiro Diet: Advance to usual diet Activity on Discharge: As tolerated Stand Alone Forms: Patient Portal Discharge page Print Language: [place] Care Plan Goals: The patient refused to work on care plan goals Health Concerns: Continue with outpatient providers Plan of Treatment: The patient refused aftercare Assessment: The patient is a middle-aged female with a past history of several medical comorbidities on a colostomy back, chronic homelessness with unstable relations brought here after an overdose of opiates in an alley age suicidal attempt. The patient has never been suicidal and she signed a 3 day notice. At this moment safe to be discharged to the community.
[2024-05-24] MEDS: fentaNYL 50 MCG PATCH.TD72 TRANSDERMA (13:25)
--- NOTE | 2024-05-24 19:18 | PC.NURSE ---
Upon approach Marylin was in her bed, reported to board writer My patch fell, it's full of fuzz. She handed board writer the Fentanyl patch, board writer disposed of patch with second RN Milly Marie. Dr. Monteiro notified. Dr. Monteiro met with Marylin, board writer present. Marylin demanded discharge after meeting with provider, signed a three day.
== END 2024-05-24 15:00 | disposition home or self-care (01) | DRG 883 ==
PROVIDERS: Psychiatry & Neurology Psychiatry; Admitting Provider Psychiatry & Neurology Psychiatry; Visit Provider Psychiatry & Neurology Psychiatry
DX: F60.9 Personality disorder, unspecified (principal); F01.B18 Vascular dementia, moderate, with other behavioral disturbance; Z59.02 Unsheltered homelessness; Z59.811 Housing instability, housed, with risk of homelessness; G62.9 Polyneuropathy, unspecified; Z76.5 Malingerer [conscious simulation]; F43.10 Post-traumatic stress disorder, unspecified; F41.1 Generalized anxiety disorder; Z93.3 Colostomy status; Z91.51 Personal history of suicidal behavior; Z62.810 Personal history of physical and sexual abuse in childhood; Z86.73 Personal history of transient ischemic attack (TIA), and cerebral infarction without residual deficits; Z79.82 Long term (current) use of aspirin; Z79.891 Long term (current) use of opiate analgesic; Z79.899 Other long term (current) drug therapy
CPT/HCPCS: 36415; 80053; 80061; 82306; 82607; 82746; 83036; 84443; 97161

== ENCOUNTER → 2024-03-14 22:12 | Outpatient (BNV) | payer MEDICARE, MEDICAID, SELFPAY | PROVIDERS: Admitting Provider Psychiatry & Neurology Psychiatry; Visit Provider Psychiatry & Neurology Psychiatry | DX: F29 Unspecified psychosis not due to a substance or known physiological condition (principal); F03.90 Unspecified dementia, unspecified severity, without behavioral disturbance, psychotic disturbance, mood disturbance, and anxiety; F43.11 Post-traumatic stress disorder, acute; F41.1 Generalized anxiety disorder; T40.412A Poisoning by fentanyl or fentanyl analogs, intentional self-harm, initial encounter | CPT/HCPCS: 90792; 99231 ==

== ENCOUNTER → 2024-03-14 22:12 | Outpatient (BNV) | payer MEDICARE, MEDICAID, SELFPAY | PROVIDERS: Admitting Provider Psychiatry & Neurology Psychiatry; Visit Provider Student in an Organized Health Care Education/Training Program | DX: Z02.2 Encounter for examination for admission to residential institution (principal) | CPT/HCPCS: 99429; 99499 ==

== ENCOUNTER → 2024-03-14 22:12 | Outpatient (BNV) | payer MEDICARE, MEDICAID, SELFPAY | PROVIDERS: Admitting Provider Psychiatry & Neurology Psychiatry; Visit Provider Surgery | DX: N64.4 Mastodynia (principal); K43.5 Parastomal hernia without obstruction or gangrene | CPT/HCPCS: 99222 ==

== ENCOUNTER → 2024-03-14 22:12 | Outpatient (BNV) | payer MEDICARE, MEDICAID, SELFPAY | PROVIDERS: Admitting Provider Psychiatry & Neurology Psychiatry; Visit Provider Clinical Nurse Specialist Psychiatric/Mental Health, Adult | DX: F60.9 Personality disorder, unspecified (principal); F01.B18 Vascular dementia, moderate, with other behavioral disturbance | CPT/HCPCS: 99231; 99232; 99238 ==